=== PATIENT | male | born 1945 | race American Indian/Alaskan Native ===

== ENCOUNTER → 2016-12-12 | Outpatient (CLI) | payer MEDICARE, OTHER ==
[2014-11-08 11:02] VITALS: BP 149/92
[~2016-12-12] MED LIST: ACET325T9 PO; AMIO200T PO; ASPI-630 PO; CEPH-264 PO; DOCU-109 PO; FERR-26 PO; FINA5TAB4 PO; FLUO20CA8 PO; FOSI1TAB PO; FURO-69 PO; GLUC1TAB71 PO; GLYB1TAB14 PO; HYDR-2758 PO; Hydrochlorothiazide PO; INSU100I13 SQ; INSU100V8 SQ; LATA2.5D3 EACHEYE; LISI10TA2 PO; METF-620 PO; METO50TA2 PO; MULT-245 PO; PANT40TA3 PO; PANT40TA5 PO; POTASSIUM CHLO10 MEQ PO; RANI150T6 PO; SENN1TAB21 PO; SENN8.6T99 PO; VALIUM10 MG PO
--- NOTE | 2016-12-12 16:57 | KCIC ---
3 view left foot HISTORY: Lateral left foot pain. TECHNIQUE: Routine multiplanar sequences were obtained. FINDINGS: No evidence of acute fracture or aggressive bone destruction. Joint spaces and alignment appear intact. Plantar calcaneal spur. Mild vascular calcification noted. Bone demineralization, predominantly periarticular. There is a small calcification within the plantar subcutaneous tissues, appears benign. IMPRESSION: No evidence of acute fracture or dislocation. Electronically signed by: Jon Sousa MD (12/12/2016 3:34 PM)
== END | disposition home or self-care (01) ==
LOC: KCIC 12:22
PROVIDERS: ATTEND Family Medicine
DX: M79.672 Pain in left foot (principal)
CPT/HCPCS: 73630

== ENCOUNTER → 2016-12-30 | Outpatient (CLI) | payer MEDICARE, OTHER ==
[2014-11-08 11:02] VITALS: BP 149/92
== END | disposition home or self-care (01) ==
LOC: SPEC 16:59
PROVIDERS: ATTEND Podiatrist Foot & Ankle Surgery
DX: E11.621 Type 2 diabetes mellitus with foot ulcer (principal)
CPT/HCPCS: 87071; 87075; 87205

== ENCOUNTER 2017-01-30 19:28 | Inpatient (IN) | payer MEDICARE, OTHER ==
[~2017-01-30] VITALS: Ht 185.4 cm; Wt 154.2 kg
[2017-01-30 19:41] LABS: BASO % 0 % (0-3); EOS % 1 % (0-3); HEMATOCRIT 44.8 % (39.0-53.0); HEMOGLOBIN 14.7 g/dL (13.0-17.5); LYMPH # 1.2 x10^3/uL (1.0-4.8); LYMPH % 6 % (24-48); MEAN CORPUSCULAR HEMOGLOBIN 30 pg (25-35); MEAN CORPUSCULAR HGB CONC 33 g/dL (31-37); MEAN CORPUSCULAR VOLUME 91 fL (79-100); MONO % 7 % (0-9); NEUT % 86 % (31-73); PLATELET COUNT 244 x10^3/uL (140-400); RED BLOOD COUNT 4.95 x10^6/uL (4.30-5.70); RED CELL DISTRIBUTION WIDTH 15.4 % (11.5-14.5)
[2017-01-30 19:53] LABS: CREATININE 1.5 mg/dL (0.7-1.3); GFR 45.9; POTASSIUM 4.1 mmol/L (3.5-5.1)
[2017-01-30 19:58] LABS: ALBUMIN 3.3 g/dL (3.4-5.0); DIRECT BILIRUBIN 0.2 mg/dL (0.0-0.2); TOTAL BILIRUBIN 0.6 mg/dL (0.2-1.0); TOTAL PROTEIN 8.9 g/dL (6.4-8.2)
[2017-01-30] MEDS ORDERED: MORPHINE SULFATE 2 MG/ML DISP.SYRIN. IV PRN (20:00)
[2017-01-30] MEDS ORDERED: NITROGLYCERIN SUBLINGUAL 0.4 MG BOTTLE OF 25. SL PRN (20:00)
[2017-01-30] MEDS ORDERED: HEPARIN for IV BOLUS 10,000 UNIT/10 ML VIAL. IV PRN (20:00)
[2017-01-30] MEDS ORDERED: ONDANSETRON PF 4 MG/2 ML VIAL. IV PRN (20:00)
[2017-01-30] MEDS ORDERED: NITROGLYCERIN PREMIX 250 ML IV ONE (20:15)
[2017-01-30] MEDS ORDERED: ASPIRIN CHEWABLE 81 MG TABLET. PO ONE (20:15)
[2017-01-30] MEDS: IV NORMAL SALINE 1000ML BAG 1,000 ML IV SCH (20:16)
[2017-01-30] MEDS: HEPARIN 25,000UTS/500ML PREMIX 500 ML IV PRN (20:33)
[2017-01-30 20:41] LABS: PLT ESTIMATE ADEQUATE (ADEQUATE)
[2017-01-30 21:15] VITALS: BP 112/71
[2017-01-30 21:30] VITALS: BP 107/60
[2017-01-30 21:45] VITALS: BP 110/67
[2017-01-30 22:00] VITALS: BP 110/70
--- NOTE | 2017-01-30 22:14 | PHYS DOC ---
Past Medical History Past Medical History: CAD, Diabetes-Type II, Hypertension Additional Past Medical Histor: Morbid obesity, Osteomyelitis Past Surgical History: Coronary Bypass Surgery Additional Past Surgical Histo: Partial amputation R)great toe. Alcohol Use: None Drug Use: None Adult General Chief Complaint Chief Complaint: SHORTNESS OF BREATH HPI HPI 81-year-old male with a history of coronary artery disease and peripheral arterial disease presenting to the emergency department today with chest pain or shortness of breath this started about an hour prior to arrival. His family member states that he was pale and diaphoretic and feeling mildly nauseous. Paramedics were called and the patient was about 85% on room air was placed on nasal cannula and brought in for further evaluation workup and care. His pain was a pressure that was nonradiating intermittent and without alleviating factors. Currently his chest pain is about a 1 out of 10. He also describes a shortness of breath is improved and is feeling better now. Review of systems is negative for abdominal pain vomiting fevers chills. Positive for cough. All other review of systems is negative unless otherwise noted in history of present illness. ED course: 71-year-old gentleman with history of coronary artery disease presenting to the emergency department with chest pain or shortness of breath. Triage vital signs show the patient to be afebrile with a tachycardic heart rate. Hypoxic on room air placed on nasal cannula. Hypertensive as well. In the examination room the patient was feeling better and when he called paramedics and reports his pain is nearly gone. EKG obtained which shows sinus tachycardia at approximately 130 bpm with an intraventricular conduction delay. Previous for comparison available from 2014 in October shows that the patient previously had a narrow complex QRS. Given these findings and the patient's clinical presentation I discussed the case since case with his agricultural service technician Dr. Capellan. Dr. Capellan ordered that the patient didn't heparin and nitroglycerin aspirin and serial troponins and be admitted to the ICU for further evaluation workup and care. Unfortunately the patient's blood pressure systolically was about 105-110 so the nitroglycerin was held due to concerns for possible hypotension development. Patient has leukocytosis which is nonspecific though higher than typical. Otherwise the patient's troponin came back at 0.28. The patient was then admitted to our ICU with cardiology consultation. I considered pulmonary embolism in the differential. ACS is higher in the differential at this point. D-dimer sent. Review of Systems Review of Systems SEE ABOVE. Current Medications Current Medications Current Medications Medications (Trade) Dose Ordered Sig/Horace Start Time Stop Time Status Last Admin Dose Admin Heparin Sodium (Porcine) (Heparin Sodium) 3,800 unit PRN Q6HRS PRN 01/30/17 20:00 01/30/17 20:26 3,800 UNIT Heparin Sodium/ Dextrose 500 ml @ 0 mls/hr CONT PRN 01/30/17 20:00 01/30/17 20:33 36.9 MLS/HR Morphine Sulfate 2 mg PRN Q2HR PRN 01/30/17 20:00 01/31/17 19:59 Nitroglycerin (Nitrostat) 0.4 mg PRN Q5MIN PRN 01/30/17 20:00 01/31/17 19:59 Ondansetron HCl (Zofran) 4 mg PRN Q8HRS PRN 01/30/17 20:00 01/31/17 19:59 01/30/17 20:15 4 MG Sodium Chloride 1,000 ml @ 100 mls/hr Q10H 01/30/17 19:48 01/31/17 19:47 01/30/17 20:16 100 MLS/HR Allergies Allergies Allergies Coded Allergies Type Severity Reaction Last Updated Verified No Known Drug Allergies 11/11/14 No Physical Exam Physical Exam SEE ABOVE Constitutional: Well developed, well nourished, nontoxic appearing. HENT: Normocephalic, atraumatic, bilateral external ears normal, oropharynx moist, no oral exudates, nose normal. [] Eyes: PERRLA, EOMI, conjunctiva normal, no discharge. [] Neck: Normal range of motion, no tenderness, supple, no stridor. [] Cardiovascular:tachy heart rate w/ regular rhythm, no murmur [] Lungs & Thorax: Bilateral breath sounds clear to auscultation [] Abdomen: Bowel sounds normal, soft, no tenderness, no masses, no pulsatile masses. [] Skin: Warm, dry, no erythema, no rash. [] Back: No tenderness, no CVA tenderness. [] Extremities: No tenderness, no cyanosis, no clubbing, ROM intact, no edema. [] Neurologic: Alert and oriented X 3, normal motor function, normal sensory function, no focal deficits noted. [] Psychologic: Affect normal, judgement normal, mood normal. [] Current Patient Data Vital Signs Vital Signs Date Time Temp Pulse Resp B/P (MAP) Pulse Ox O2 Delivery O2 Flow Rate FiO2 01/30/17 19:28 99.0 125 21 157/83 (107) 89 Room Air 99.0 Lab Values Laboratory Tests Test 01/30/17 19:33 White Blood Count 21.0 x10^3/uL (4.0-11.0) H Red Blood Count 4.95 x10^6/uL (4.30-5.70) Hemoglobin 14.7 g/dL (13.0-17.5) Hematocrit 44.8 % (39.0-53.0) Mean Corpuscular Volume 91 fL (79-100) Mean Corpuscular Hemoglobin 30 pg (25-35) Mean Corpuscular Hemoglobin Concent 33 g/dL (31-37) Red Cell Distribution Width 15.4 % (11.5-14.5) H Platelet Count 244 x10^3/uL (140-400) Neutrophils (%) (Auto) 86 % (31-73) H Lymphocytes (%) (Auto) 6 % (24-48) L Monocytes (%) (Auto) 7 % (0-9) Eosinophils (%) (Auto) 1 % (0-3) Basophils (%) (Auto) 0 % (0-3) Neutrophils # (Auto) 18.1 x10^3uL (1.8-7.7) H Lymphocytes # (Auto) 1.2 x10^3/uL (1.0-4.8) Monocytes # (Auto) 1.5 x10^3/uL (0.0-1.1) H Eosinophils # (Auto) 0.1 x10^3/uL (0.0-0.7) Basophils # (Auto) 0.0 x10^3/uL (0.0-0.2) Segmented Neutrophils % 82 % (35-66) H Band Neutrophils % 1 % (0-9) Lymphocytes % 8 % (24-48) L Monocytes % 9 % (0-10) Platelet Estimate Adequate (ADEQUATE) Sodium Level 138 mmol/L (136-145) Potassium Level 4.1 mmol/L (3.5-5.1) Chloride Level 101 mmol/L (98-107) Carbon Dioxide Level 26 mmol/L (21-32) Anion Gap 11 (6-14) Blood Urea Nitrogen 16 mg/dL (8-26) Creatinine 1.5 mg/dL (0.7-1.3) H Estimated GFR (Cockcroft-Gault) 45.9 Glucose Level 201 mg/dL (70-99) H Calcium Level 9.0 mg/dL (8.5-10.1) Total Bilirubin 0.6 mg/dL (0.2-1.0) Direct Bilirubin 0.2 mg/dL (0.0-0.2) Aspartate Amino Transferase (AST) 18 U/L (15-37) Alanine Aminotransferase (ALT) 20 U/L (16-63) Alkaline Phosphatase 94 U/L (46-116) Troponin I Quantitative 0.289 ng/mL (0.000-0.055) CU-Bwx-[id number]-Type Natriuretic Peptide 2260 pg/mL (0-124) H Total Protein 8.9 g/dL (6.4-8.2) H Albumin 3.3 g/dL (3.4-5.0) L Lipase 68 U/L (73-393) L Laboratory Tests 01/30/17 19:33 Laboratory Tests 01/30/17 19:33 EKG EKG [] Radiology/Procedures Radiology/Procedures Chest x-ray reviewed by myself shows no obvious infiltrate or pneumothorax present. No obvious acute cardiopulmonary process present. Mild perivascular hilar congestion, Course & Med Decision Making Course & Med Decision Making Pertinent Labs and Imaging studies reviewed. (See chart for details) [] Dragon Disclaimer Dragon Disclaimer This electronic medical record was generated, in whole or in part, using a voice recognition dictation system. Departure Departure Impression: Primary Impression: Chest pain Additional Impressions: Shortness of breath Non-STEMI (non-ST elevated myocardial infarction) Disposition: ADMITTED INPATIENT Admitting Physician: Heri Hansen Condition: GUARDED Referrals: HERI HANSEN MD (PCP) Problem Qualifiers EVELINA ROBERSON MD Jan 30, 2017 22:14
[2017-01-30] MEDS ORDERED: TAMS0.4C2 PO (22:31)
[2017-01-30] MEDS ORDERED: AMLO10TA2 PO (22:31)
[2017-01-30] MEDS ORDERED: CITA20TA9 PO (22:32)
[2017-01-30] MEDS ORDERED: REGRANEX (22:38)
[2017-01-30 23:00] VITALS: BP 118/76
[2017-01-30] MEDS ORDERED: REGRANEX TOP (23:06)
[2017-01-31] VITALS (26 sets, daily range): BP systolic 91–138; BP diastolic 40–83
[2017-01-31 03:08] LABS: CALCIUM 8.7 mg/dL (8.5-10.1); CREATININE 1.3 mg/dL (0.7-1.3); GFR 54.1; POTASSIUM 3.8 mmol/L (3.5-5.1)
[2017-01-31 03:56] LABS: BASO # 0.2 x10^3/uL (0.0-0.2); BASO % 1 % (0-3); EOS % 1 % (0-3); HEMATOCRIT 39.8 % (39.0-53.0); LYMPH # 1.9 x10^3/uL (1.0-4.8); LYMPH % 11 % (24-48); MEAN CORPUSCULAR HEMOGLOBIN 30 pg (25-35); MEAN CORPUSCULAR HGB CONC 33 g/dL (31-37); MEAN CORPUSCULAR VOLUME 91 fL (79-100); MONO % 9 % (0-9); NEUT % 79 % (31-73); PLATELET COUNT 236 x10^3/uL (140-400); RED BLOOD COUNT 4.35 x10^6/uL (4.30-5.70); RED CELL DISTRIBUTION WIDTH 15.7 % (11.5-14.5); WHITE BLOOD COUNT 17.5 x10^3/uL (4.0-11.0)
--- NOTE | 2017-01-31 04:19 | ACF ---
Admission Forms Criteria CARDIOLOGY GRG Clinical Indications for Admission to Inpatient Care ( Place 'X' for any and all applicable criteria): Hospital admission is needed for appropriate care of the patient because of ANY ONE of the following (1): [ ] I. Hemodynamic instability as indicated by ALL of the following (1)(2)(3) (4)(5) [ ]a) Vital signs or other findings not as expected for chronic patient condition or baseline [ ]b) Instability indicated by ANY ONE of the following: [ ]i) Hypotension [ ]ii) Symptomatic Tachycardia unresponsive to treatment ( e.g., analgesia, fluids, sedation as indicated) [ ]iii) Inadequate perfusion indicated by ANY ONE of the following: [ ] 1) Lactic acidosis (> 2 mmol/L) [ ] 2) New abnormal capillary refill (> 3 seconds) [ ] 3) Reduced urine output [ ] 4) New altered mental status [ ]iv) Orthostatic vital sign changes unresponsive to treatment (e.g., fluids) [ ]v) IV inotropic or vasopressor medication required to maintain adequate blood pressure or perfusion [ ] II. Severe heart failure as indicated by ANY ONE of the following(17)(18) [ ]a) Respiratory distress [ ]b) Hypotension [ ]c) Anasarca (refractory to outpatient therapy) [ ]d) Cardiac arrhythmias of immediate concern [ ]e) Myocardial ischemia [ ] III. Cardiac arrhythmias or findings of immediate concern indicated by ANY ONE of the following (19)(20): [ ] a) Heart rhythms that are inherently dangerous or unstable indicated by ANY ONE of the following (21)(22)(23): [ ] i) Resuscitated ventricular fibrillation or cardiac arrest [ ] ii) Ventricular escape rhythm [ ] iii) Sustained ventricular tachycardia (30 seconds or more of ventricular rhythm at greater than 100 beats per minute) [ ] iv) Nonsustained ventricular tachycardia and ANY ONE of the following: [ ] 1) Suspected cardiac ischemia as cause or consequence of ventricular tachycardia [ ] 2) In setting of acute myocarditis [ ] b) Unstable cardiac conduction defects indicated by ANY ONE of the following(23)(24)(25) [ ] i) Type II second-degree atrioventricular block [ ]ii) Third-degree atrioventricular block [ ]iii) New-onset left bundle branch block with suspected myocardial ischemia [ ]c) Any heart rhythm and ANY ONE of the following (21)(22)(26)(27) (28) [ ] i) Continuous long-term ECG monitoring needed (e.g., initiation of drug requiring monitoring for more than 24 hours) [ ] ii) Patient has automatic implanted cardioverter defibrillator that is repeatedly firing, malfunctioning, or in need of immediate adjustment of settings beyond the scope of ambulatory or observation care [ ]d) Heart rhythms of concern due to ANY ONE of the following: [ ] i) Hypotension [ ] ii) Respiratory distress [ ] iii) Association with other significant symptoms (e.g., bradycardia with syncope or ongoing dizziness, supraventricular tachycardia with chest pain (14)(15)(17) [ ] IV. Monitoring for cardiac contusion beyond the scope of observation care needed [A](30)(31)(32) [ ] V. Surgical or device complication (e.g., valve replacement complication , pacemaker dysfunction) (35)(41)(44)(45)(46) [ ] . Inpatient palliative care needed. [B](49) Also use Inpatient Palliative Care Criteria [ ] VII. Nonbacterial thrombotic (marantic) endocarditis (36)(43)(47)(48) [X] VIII. Cardiology condition, symptom, or finding for which emergency and observation care has failed or are not considered appropriate. [ ] IX. Acute valvular disease requiring inpatient as indicated by ANY ONE of the following (41) [ ]a) Acute valvular regurgitation (42) [ ]b) Noninfectious valvulitis (43) [ ]c) Obstructive valve thrombosis [ ]d) Paravalvular leak [ ]e) Other significant valvular disorder remaining after emergency or observation level of care (as appropriate) [ ]X. Pericardial disease requiring inpatient treatment as indicated by ANY ONE of the following (33)(34)(35)(36)(37) [ ]a) Suspected tamponade (38)(39)(40) [ ]b) Hemopericardium [ ]c) Other significant pericardial disorder remaining after emergency or observation level of care (as appropriate) [ ] XI. Cardiac ischemia beyond scope of emergency and observation care. [ ] XII. Hypertension requiring inpatient treatment as indicated by ANY ONE of the following (6)(7)(8) [ ]a) SBP greater than 220 mm Hg or DBP greater than 120 mmHg despite treatment [ ]b) SBP greater than 140 mm Hg or DBP greater than 100 mm Hg with evidence of acute end organ damage as indicated by ANY ONE of the following [ ] i) Encephalopathy [ ] ii) Acute renal failure as indicated by new onset of ANY ONE of the following (9)(10)(11)(12)(13) [ ]1) 3-fold rise in serum creatinine from baseline [ ]2) Serum creatinine greater than 4 mg/dL ( 354 micromoles/L) with acute rise greater than 0.5 mg/dL (44.2 micromoles/L) [ ]3) Reduction of more than 75% in estimated glomerular filtration rate from baseline [ ]4) Estimated glomerular filtration rate less than 35 mL/min/1.73m2 (0.59 mL/sec/1.73m2) in child up to 18 years of age [ ]5) Cessation of urine output indicated by ALL of the following [ ]A. Adequate volume status [ ]B. Inadequate urine output as indicated by ANY ONE of the following [ ]a. Urine output less than 0.3 mL/kg/hr for 24 hours [ ]b. Anuria (urine output less than 0.1 mL/kg/hr) for 12 hours [ ] iii) Aortic dissection [ ] iv) Myocardial Ischemia [ ] v) Left ventricular heart failure [ ]vi) Retinal Hemorrhage [ ]vii) Other significant finding [ ]c) Hypertension in child requiring inpatient treatment as indicated by ALL of the following(14)(15)(16) [ ] i) Outpatient treatment not effective, not available, or not appropriate [ ]ii) SBP or DBP greater than 95th percentile for age [ ]iii) Evidence of acute end organ damage as indicated by ANY ONE of the following [ ]1) Altered mental status [ ]2) Acute renal failure as indicated by new onset of ANY ONE of the following(9)(10)(11)(12)(13) [ ]A. 3-fold rise in serum creatinine from baseline [ ]B. Serum creatinine greater than 4 mg/dL (354 micromoles/L) with acute rise greater than 0.5 mg/dL (44.2 micromoles/L) [ ]C. Reduction of more than 75% in estimated glomerular filtration rate from baseline [ ]D. Estimated glomerular filtration rate less than 35 mL/min/1.73m2 (0.59 mL/sec/1.73m2) in child up to 18 years of age [ ]E. Cessation of urine output indicated by ALL of the following [ ]a. Adequate volume status [ ]b. Inadequate urine output as indicated by ANY ONE of the following [ ]i) Urine output less than 0.3 mL/kg/hr for 24 hours [ ]ii) Anuria ( urine output less than 0.1 mL/kg/hr) for 12 hours [ ]3) Severe headache [ ]4) Visual disturbance [ ]5) Retinal hemorrhage [ ]6) Other significant finding [ ]XIII. Complications of transplanted heart indicated by ANY ONE of the following(61): [ ]a) Acute graft rejection requiring inpatient management (eg, intravenous immunosuppression)(62)(63) [ ]b) Acute graft heart failure indicated by ANY ONE of the following(64): [ ]i) Hemodynamic instability [ ]ii) Cardiac arrhythmias of immediate concern [ ]iii) Pulmonary edema that is very severe (eg, mechanical ventilation needed, imminent or likely, need for 100% oxygen to keep oxygen saturation above 90%) [ ]iv) Pulmonary edema that is persistent as indicated by ALL of the following: [ ]1) New need for oxygen therapy to keep oxygen saturation above 90% (or increased FiO2 need from baseline) [ ]2) Has not improved sufficiently with emergency department or observation care IV diuretics or other heart failure treatments[E] [ ]v) Altered mental status that is severe or persistent [ ]vi) Increased creatinine (new on laboratory test) with reduction of more than 50% in estimated glomerular filtration rate from baseline [ ]vii) Progressively (ongoing) rising creatinine (known from past laboratory test) with reduction of more than 25% in estimated glomerular filtration rate from baseline [ ]viii) Acute renal failure [ ]ix) Acute peripheral ischemia (eg, examination shows pulseless, cool, mottled, or cyanotic extremity) [ ]x) Pulmonary artery catheter monitoring needed [ ]xi) Other sign or symptom of heart failure requiring inpatient treatment (ie, too severe or not responsive to outpatient and observation care treatment) [ ]c) Infection requiring inpatient management (eg, Hemodynamic instability, need for intravenous antimicrobial treatment)(66)(67)(68)(69)(70) [ ]d) Cardiac allograft vasculopathy requiring inpatient management ( eg evidence of cardiac ischemia)(71) [ ]e) Other complication of transplanted heart (eg, stroke, severe pulmonary hypertension, severe valvular dysfunction) requiring inpatient management(72) The original [facility] content created by [facility] has been revised. The portions of the content which have been revised are identified through the use of italic text or in bold, and [facility] has neither reviewed nor approved the modified material. All other unmodified content is copyright [facility]. Please see references footnoted in the original [facility] edition 2016 Admission Criteria Met?: Yes LANEY ISLAS Jan 31, 2017 04:19
[2017-01-31] MEDS: IV NORMAL SALINE 1000ML BAG 1,000 ML IV SCH ×2 (06:38→14:20)
--- NOTE | 2017-01-31 08:17 | RAD ---
Portable AP upright view CXR: Clinical indications: Chest pain and shortness of air and hypoxia today. History of hypertension and diabetes and CABG. Comparison: July 26, 2014. Findings: No acute lung infiltrate or pleural effusion or pulmonary edema or lung mass or pneumothorax is seen. The heart size, pulmonary vasculature, mediastinum and both regi are stable. Sternotomy is again evident. Impression: No acute radiographic abnormality is seen.
--- NOTE | 2017-01-31 08:32 | EKG ---
[facility] [address] [place] [address] Test Date: 2017-01-30 Test Time: 19:32:02 Pat Name: MANOJ GILES Department: Room: 109 1 Gender: M Acting Section Chief: : 1945 Requested By: EVELINA ROBERSON Order Number: [id number] Reading MD: Todd Giron Measurements Intervals [place] Rate: 130 P: 0 ID: [id number] QRS: -46 QRSD: 136 T: 115 QT: 332 QTc: 496 Interpretive Statements PROBABLE ATRIAL FLUTTER ABNORMAL LEFT AXIS DEVIATION NON SPECIFIC INTRAVENTRICULAR BLOCK QRS(T) CONTOUR ABNORMALITY CONSIDER ANTEROSEPTAL MYOCARDIAL DAMAGE ABNORMAL ECG Electronically Signed On 02-01-2017 15:05:47 CDT by Todd Giron
--- NOTE | 2017-01-31 08:33 | PDOC1 ---
History and Physical Date of Admission Date of Admission DATE: 01/30/17 Identification/Chief Complaint Chief Complaint CP, SOB Problems: Source Source: Chart review, Patient History of Present Illness History of Present Illness 81-year-old male with a history of coronary artery disease and peripheral arterial disease presenting to the emergency department today with chest pain and shortness of breath this started about an hour prior to arrival. His family member states that he was pale and diaphoretic and feeling mildly nauseous. Paramedics were called and the patient was about 85% on room air was placed on nasal cannula and brought in for further evaluation workup and care. His pain was a pressure that was nonradiating intermittent and without alleviating factors. Past Medical History Cardiovascular: AFIB, CAD, CHF, HTN, Hyperlipidemia CENTRAL NERVOUS SYSTEM: Carpal Tunnel Syndrome, Periperal neuropathy GI: Constipation, GERD, Gastritis, Peptic Ulcer disease, Other (colon polyp) Psych: Anxiety, Depression Musculoskeletal: low back pain, Osteoarthritis Renal/: Benign prostatic enlarg. Endocrine: Diabetes Past Surgical History Past Surgical History: CABG, Cataract Removal, Tonsillectomy (R knee surgery), Other (amputation toe due to gangrene) Family History Family History: Coronary Artery Disease, Depression, Diabetes, Heart Disease, High Cholestrol, Hypertension Social History Smoke: Quit ALCOHOL: none Drugs: None Current Problem List Problem List Problems Medical Problems: (1) Chest pain Status: Acute (2) Non-STEMI (non-ST elevated myocardial infarction) Status: Acute (3) Shortness of breath Status: Acute Problems: Current Medications Current Medications Current Medications Aspirin (Children'S Aspirin) 324 mg 1X ONCE PO Last administered on 01/30/17 19:48; Start 01/30/17 at 20:15; Stop 01/30/17 at 20:16; Status DC Ondansetron HCl (Zofran) 4 mg PRN Q8HRS PRN IV NAUSEA/VOMITING Last administered on 01/30/17 20:15; Start 01/30/17 at 20:00; Stop 01/31/17 at 19:59 Morphine Sulfate 2 mg PRN Q2HR PRN IV PAIN; Start 01/30/17 at 20:00; Stop 01/31 at 19:59 Sodium Chloride 1,000 ml @ 100 mls/hr Q10H IV Last administered on 01/31/17 06:38; Start 01/30/17 at 19:48; Stop 01/31/17 at 19:47 Nitroglycerin (Nitrostat) 0.4 mg PRN Q5MIN PRN SL CHEST PAIN; Start 01/30/17 at 20:00; Stop 01/31/17 at 19:59 Heparin Sodium/ Dextrose 500 ml @ 0 mls/hr CONT PRN IV SEE I/O RECORD Last administered on 01/30/17 20:33; Start 01/30/17 at 20:00 Heparin Sodium (Porcine) (Heparin Sodium) 3,800 unit PRN Q6HRS PRN IV FOR UFH LEVEL LESS THAN 0.2 Last administered on 01/30/17 20:26; Start 01/30/17 at 20: 00 Nitroglycerin/ Dextrose 250 ml @ 0 mls/hr 1X ONCE IV ; Start 01/30/17 at 20:15 ; Stop 01/30/17 at 20:16; Status DC Active Scripts Active Reported [regranex] 0.01 % TOP DAILY06 Celexa (Citalopram Hydrobromide) 20 Mg Tablet 1 Tab PO HS Amlodipine Besylate 10 Mg Tablet 10 Mg PO DAILY Tamsulosin Hcl 0.4 Mg Cap.er.24h 0.4 Mg PO HS Potassium Chloride 10 Meq Capsule.er 10 Meq PO DAILY08 Senokot (Sennosides) 8.6 Mg Tablet 2 Tab PO HS Colace (Docusate Sodium) 100 Mg Capsule 200 Mg PO BID Lantus (Insulin Glargine,Hum.rec.anlog) 100 Unit/1 Ml Vial 120 Unit SQ DAILY08 Multi Vitamin Daily (Multivitamin) 1 Each Tablet 1 Each PO DAILY Lasix (Furosemide) 20 Mg Tablet 40 Mg PO DAILY Aspirin 81 Mg Tab.chew 81 Mg PO Finasteride 5 Mg Tablet 5 Mg PO DAILY Metoprolol Tartrate 50 Mg Tablet 12.5 Mg PO BID Allergies Allergies: Coded Allergies: No Known Drug Allergies (Unverified , 11/11/14) ROS General: YES: Fatigue PSYCHOLOGICAL ROS: YES: Anxiety, Depression Respiratory: YES: Cough, SOB with excertion Cardiovascular: yes Chest Pain, yes Other (pain like pressure) Gastrointestinal: Yes Constipation Musculoskeletal: Yes Joint Pain, Yes Muscle Pain Physical Exam General: Alert HEENT: Atraumatic Heart: RRR Abdomen: Normal bowel sounds, Soft, No tenderness, No masses Rectal Exam: not examined Extremities: No clubbing, No cyanosis, No edema, Normal pulses Skin: No rashes Neuro: Normal gait Vitals Vitals Vital Signs Date Time Temp Pulse Resp B/P (MAP) Pulse Ox O2 Delivery O2 Flow Rate FiO2 01/31/17 06:00 82 23 97/60 (72) 93 Nasal Cannula 2.0 01/31/17 03:00 98.3 98.3 Labs Labs Laboratory Tests Test 01/30/17 19:33 01/30/17 22:06 01/31/17 02:40 White Blood Count 21.0 x10^3/uL (4.0-11.0) 17.5 x10^3/uL (4.0-11.0) Red Blood Count 4.95 x10^6/uL (4.30-5.70) 4.35 x10^6/uL (4.30-5.70) Hemoglobin 14.7 g/dL (13.0-17.5) 13.0 g/dL (13.0-17.5) Hematocrit 44.8 % (39.0-53.0) 39.8 % (39.0-53.0) Mean Corpuscular Volume 91 fL (79-100) 91 fL (79-100) Mean Corpuscular Hemoglobin 30 pg (25-35) 30 pg (25-35) Mean Corpuscular Hemoglobin Concent 33 g/dL (31-37) 33 g/dL (31-37) Red Cell Distribution Width 15.4 % (11.5-14.5) 15.7 % (11.5-14.5) Platelet Count 244 x10^3/uL (140-400) 236 x10^3/uL (140-400) Neutrophils (%) (Auto) 86 % (31-73) 79 % (31-73) Lymphocytes (%) (Auto) 6 % (24-48) 11 % (24-48) Monocytes (%) (Auto) 7 % (0-9) 9 % (0-9) Eosinophils (%) (Auto) 1 % (0-3) 1 % (0-3) Basophils (%) (Auto) 0 % (0-3) 1 % (0-3) Neutrophils # (Auto) 18.1 x10^3uL (1.8-7.7) 13.8 x10^3uL (1.8-7.7) Lymphocytes # (Auto) 1.2 x10^3/uL (1.0-4.8) 1.9 x10^3/uL (1.0-4.8) Monocytes # (Auto) 1.5 x10^3/uL (0.0-1.1) 1.6 x10^3/uL (0.0-1.1) Eosinophils # (Auto) 0.1 x10^3/uL (0.0-0.7) 0.1 x10^3/uL (0.0-0.7) Basophils # (Auto) 0.0 x10^3/uL (0.0-0.2) 0.2 x10^3/uL (0.0-0.2) Segmented Neutrophils % 82 % (35-66) Band Neutrophils % 1 % (0-9) Lymphocytes % 8 % (24-48) Monocytes % 9 % (0-10) Platelet Estimate Adequate (ADEQUATE) D-Dimer (Negin) 1.85 ug/mlFEU (0.00-0.50) Sodium Level 138 mmol/L (136-145) 139 mmol/L (136-145) Potassium Level 4.1 mmol/L (3.5-5.1) 3.8 mmol/L (3.5-5.1) Chloride Level 101 mmol/L (98-107) 102 mmol/L (98-107) Carbon Dioxide Level 26 mmol/L (21-32) 29 mmol/L (21-32) Anion Gap 11 (6-14) 8 (6-14) Blood Urea Nitrogen 16 mg/dL (8-26) 15 mg/dL (8-26) Creatinine 1.5 mg/dL (0.7-1.3) 1.3 mg/dL (0.7-1.3) Estimated GFR (Cockcroft-Gault) 45.9 54.1 Glucose Level 201 mg/dL (70-99) 164 mg/dL (70-99) Calcium Level 9.0 mg/dL (8.5-10.1) 8.7 mg/dL (8.5-10.1) Total Bilirubin 0.6 mg/dL (0.2-1.0) Direct Bilirubin 0.2 mg/dL (0.0-0.2) Aspartate Amino Transf (AST/SGOT) 18 U/L (15-37) Alanine Aminotransferase (ALT/SGPT) 20 U/L (16-63) Alkaline Phosphatase 94 U/L (46-116) Troponin I Quantitative 0.289 ng/mL (0.000-0.055) 6.014 ng/mL (0.000-0.055) UN-Dyv-N-Type Natriuretic Peptide 2260 pg/mL (0-124) Total Protein 8.9 g/dL (6.4-8.2) Albumin 3.3 g/dL (3.4-5.0) Lipase 68 U/L (73-393) Glucose (Fingerstick) 178 mg/dL (70-99) Heparin Anti-Xa Act, Unfractionated 0.24 IU/mL (0.30-0.70) Laboratory Tests Test 01/30/17 19:33 01/30/17 22:06 01/31/17 02:40 White Blood Count 21.0 x10^3/uL (4.0-11.0) 17.5 x10^3/uL (4.0-11.0) Red Blood Count 4.95 x10^6/uL (4.30-5.70) 4.35 x10^6/uL (4.30-5.70) Hemoglobin 14.7 g/dL (13.0-17.5) 13.0 g/dL (13.0-17.5) Hematocrit 44.8 % (39.0-53.0) 39.8 % (39.0-53.0) Mean Corpuscular Volume 91 fL (79-100) 91 fL (79-100) Mean Corpuscular Hemoglobin 30 pg (25-35) 30 pg (25-35) Mean Corpuscular Hemoglobin Concent 33 g/dL (31-37) 33 g/dL (31-37) Red Cell Distribution Width 15.4 % (11.5-14.5) 15.7 % (11.5-14.5) Platelet Count 244 x10^3/uL (140-400) 236 x10^3/uL (140-400) Neutrophils (%) (Auto) 86 % (31-73) 79 % (31-73) Lymphocytes (%) (Auto) 6 % (24-48) 11 % (24-48) Monocytes (%) (Auto) 7 % (0-9) 9 % (0-9) Eosinophils (%) (Auto) 1 % (0-3) 1 % (0-3) Basophils (%) (Auto) 0 % (0-3) 1 % (0-3) Neutrophils # (Auto) 18.1 x10^3uL (1.8-7.7) 13.8 x10^3uL (1.8-7.7) Lymphocytes # (Auto) 1.2 x10^3/uL (1.0-4.8) 1.9 x10^3/uL (1.0-4.8) Monocytes # (Auto) 1.5 x10^3/uL (0.0-1.1) 1.6 x10^3/uL (0.0-1.1) Eosinophils # (Auto) 0.1 x10^3/uL (0.0-0.7) 0.1 x10^3/uL (0.0-0.7) Basophils # (Auto) 0.0 x10^3/uL (0.0-0.2) 0.2 x10^3/uL (0.0-0.2) Segmented Neutrophils % 82 % (35-66) Band Neutrophils % 1 % (0-9) Lymphocytes % 8 % (24-48) Monocytes % 9 % (0-10) Platelet Estimate Adequate (ADEQUATE) D-Dimer (Negin) 1.85 ug/mlFEU (0.00-0.50) Sodium Level 138 mmol/L (136-145) 139 mmol/L (136-145) Potassium Level 4.1 mmol/L (3.5-5.1) 3.8 mmol/L (3.5-5.1) Chloride Level 101 mmol/L (98-107) 102 mmol/L (98-107) Carbon Dioxide Level 26 mmol/L (21-32) 29 mmol/L (21-32) Anion Gap 11 (6-14) 8 (6-14) Blood Urea Nitrogen 16 mg/dL (8-26) 15 mg/dL (8-26) Creatinine 1.5 mg/dL (0.7-1.3) 1.3 mg/dL (0.7-1.3) Estimated GFR (Cockcroft-Gault) 45.9 54.1 Glucose Level 201 mg/dL (70-99) 164 mg/dL (70-99) Calcium Level 9.0 mg/dL (8.5-10.1) 8.7 mg/dL (8.5-10.1) Total Bilirubin 0.6 mg/dL (0.2-1.0) Direct Bilirubin 0.2 mg/dL (0.0-0.2) Aspartate Amino Transf (AST/SGOT) 18 U/L (15-37) Alanine Aminotransferase (ALT/SGPT) 20 U/L (16-63) Alkaline Phosphatase 94 U/L (46-116) Troponin I Quantitative 0.289 ng/mL (0.000-0.055) 6.014 ng/mL (0.000-0.055) DY-Vnv-Y-Type Natriuretic Peptide 2260 pg/mL (0-124) Total Protein 8.9 g/dL (6.4-8.2) Albumin 3.3 g/dL (3.4-5.0) Lipase 68 U/L (73-393) Glucose (Fingerstick) 178 mg/dL (70-99) Heparin Anti-Xa Act, Unfractionated 0.24 IU/mL (0.30-0.70) VTE Prophylaxis Ordered VTE Prophylaxis Devices: Yes VTE Pharmacological Prophylaxi: Yes Assessment/Plan Assessment/Plan !- Acute coronary syndrome 2-Cardiomyopathy 3-morbid obesity 4-Left foot ulcer 5-Leukocytosis 6 DM II MAVIS FREDERICK MD Jan 31, 2017 08:33
[2017-01-31] MEDS: HEPARIN 25,000UTS/500ML PREMIX 500 ML IV PRN (08:47)
[2017-01-31] MEDS: INSULIN DETEMIR 300 UNITS/3 ML INSULN.PEN. SQ SCH (09:00)
[2017-01-31] MEDS: DOCUSATE SODIUM 100 MG CAPSULE. PO SCH ×2 (09:00→21:00)
[2017-01-31] MEDS ORDERED: ASPIRIN CHEWABLE 81 MG TABLET. PO SCH (09:00)
--- NOTE | 2017-01-31 11:04 | PDOC ---
MODERATE SEDATION ASSESSMENT RISKS/ALTERNATIVES Risks/Alternatives Risks and alternatives of this type of sedation and procedure discussed with: RISK/ALTERNATIVES: Patient H & P ON CHART H & P H & P on chart and reviewed for co-morbid conditions and appropriate labs. H&P ON CHART: Yes STATUS PREG STATUS ASSESSED: Yes MEDS/ALLERGIES REVIEWED Meds/Allergies Reviewed Medications and Allergies including time and route of recently administered narcotics and sedatives. MEDS/ALLERGIES REVIEWED: Yes ASA RATING ASA RATING: II AIRWAY ASSESSMENT Airway Assessment Airway patency, oral function limitations, presence of caps, crowns, dentures, partials, and ability to extend neck assessed. AIRWAY ASSESSMENT: Yes MALLAMPATI SCORE MALLAMPATI SCORE: II PRE-SEDATION ASSESSMENT PRE-SEDATION ASSESSMENT: Yes OSVALDO VELA MD Jan 31, 2017 11:04
[2017-01-31] MEDS ORDERED: fentaNYL PF VIAL 250 MCG/5 ML VIAL ONE (11:09)
[2017-01-31] MEDS ORDERED: MIDAZOLAM HCL/PF 5 MG/5 ML VIAL. ONE (11:10)
[2017-01-31] MEDS ORDERED: LIDOCAINE 2% 20 ML VIAL. ONE (11:13)
[2017-01-31] MEDS ORDERED: IODIXANOL 320 MG/ML 100 ML VIAL. ONE ×2 (11:14→12:10)
[2017-01-31] MEDS ORDERED: HEPARIN for IV BOLUS 10,000 UNIT/10 ML VIAL. ONE (12:06)
[2017-01-31] MEDS ORDERED: fentaNYL PF VIAL 250 MCG/5 ML VIAL IV ONE (12:15)
[2017-01-31] MEDS ORDERED: HEPARIN for IV BOLUS 10,000 UNIT/10 ML VIAL. IV ONE (12:15)
[2017-01-31] MEDS ORDERED: IODIXANOL 320 MG/ML 100 ML VIAL. IART ONE (12:15)
[2017-01-31] MEDS ORDERED: LIDOCAINE 2% 20 ML VIAL. IJ ONE (12:15)
[2017-01-31] MEDS ORDERED: MIDAZOLAM HCL/PF 5 MG/5 ML VIAL. IV ONE (12:15)
[2017-01-31] MEDS ORDERED: TIROFIBAN 12.5MG -0.9% NS 250 ML IV ONE (12:20)
[2017-01-31] MEDS ORDERED: CLOPIDOGREL BISULFATE 75 MG TABLET ONE (12:21)
[2017-01-31] MEDS ORDERED: TIROFIBAN 12.5MG -0.9% NS 250 ML IV PRN (12:30)
[2017-01-31] MEDS ORDERED: CLOPIDOGREL BISULFATE 75 MG TABLET PO ONE (12:30)
[2017-01-31] MEDS: PIPERACILLIN/TAZOBACTAM 3.375 GM in IV NORMAL SALINE 50ML 50 ML IV SCH ×3 (12:38→23:36)
[2017-01-31] MEDS ORDERED: HEPARIN 25,000UTS/500ML PREMIX 500 ML IV PRN ×2 (12:45→13:15)
[2017-01-31] MEDS ORDERED: IV NORMAL SALINE 1000ML BAG 1,000 ML IV ONE (13:15)
--- NOTE | 2017-01-31 13:34 | PDOC2 ---
CONSULT Date of Consult Date of Consult DATE: 01/31/17 TIME: 13:28 Reason for Consult Reason for Consult: Chest pain Referring Physician Referring Physician: Dr. Hansen Identification/Chief Complaint Chief Complaint Chest pain Problems: History of Present Illness Reason for Visit: This patient is a 71-year-old gentleman that has a long history of coronary artery disease. He had an [place] and PTCAs done in the 90s and about 10 years ago had bypass surgery with a ROMAN graft to the LAD, saphenous vein graft to the marginals and a saphenous vein graft to the right coronary artery. The patient is morbidly obese. He was at home yesterday and when he was walking back from the bathroom he felt very short of breath and the family stated that the patient looked very dusky. They checked the O2 sats and found it to be in the 80s. The patient continued to feel worse and was also having a lot of chest tightness so eventually he was brought to the emergency room where he was seen and evaluated and he was decided to bring him in. The patient has a rate dependent bundle branch block and when he came in his heart rate was in the 130s with a wide QRS tachycardia but in sinus rhythm. The first enzymes were normal but the enzymes this morning were markedly abnormal and above 6. At the time that I saw him he denies having any chest discomfort and his O2 sats are in the 90s. The patient is now in sinus rhythm with a rate in the 80s Past Medical History Cardiovascular: AFIB, CAD, CHF, HTN, Hyperlipidemia CENTRAL NERVOUS SYSTEM: Carpal Tunnel Syndrome, Periperal neuropathy GI: Constipation, GERD, Gastritis, Peptic Ulcer disease, Other (colon polyp) Psych: Anxiety, Depression Musculoskeletal: low back pain, Osteoarthritis Renal/: Benign prostatic enlarg. Endocrine: Diabetes Past Surgical History Past Surgical History: CABG, Cataract Removal, Tonsillectomy (R knee surgery), Other (amputation toe due to gangrene) Family History Family History: Coronary Artery Disease, Depression, Diabetes, Heart Disease, High Cholestrol, Hypertension Social History Quit ALCOHOL: none Drugs: None Current Problem List Problem List Problems Medical Problems: (1) Chest pain Status: Acute (2) Non-STEMI (non-ST elevated myocardial infarction) Status: Acute (3) Shortness of breath Status: Acute Current Medications Current Medications Current Medications Aspirin (Children'S Aspirin) 324 mg 1X ONCE PO Last administered on 01/30/17 19:48; Start 01/30/17 at 20:15; Stop 01/30/17 at 20:16; Status DC Ondansetron HCl (Zofran) 4 mg PRN Q8HRS PRN IV NAUSEA/VOMITING Last administered on 01/30/17 20:15; Start 01/30/17 at 20:00; Stop 01/31/17 at 19:59 Morphine Sulfate 2 mg PRN Q2HR PRN IV PAIN; Start 01/30/17 at 20:00; Stop 01/31 at 19:59 Sodium Chloride 1,000 ml @ 50 mls/hr Q20H IV Last administered on 01/31/17 06 :38; Start 01/30/17 at 19:48; Stop 01/31/17 at 19:47 Nitroglycerin (Nitrostat) 0.4 mg PRN Q5MIN PRN SL CHEST PAIN; Start 01/30/17 at 20:00; Stop 01/31/17 at 19:59 Heparin Sodium/ Dextrose 500 ml @ 0 mls/hr CONT PRN IV SEE I/O RECORD Last administered on 01/31/17 08:47; Start 01/30/17 at 20:00; Stop 01/31/17 at 12:34 ; Status DC Heparin Sodium (Porcine) (Heparin Sodium) 3,800 unit PRN Q6HRS PRN IV FOR UFH LEVEL LESS THAN 0.2 Last administered on 01/30/17 20:26; Start 01/30/17 at 20: 00 Nitroglycerin/ Dextrose 250 ml @ 0 mls/hr 1X ONCE IV ; Start 01/30/17 at 20:15 ; Stop 01/30/17 at 20:16; Status DC Aspirin (Children'S Aspirin) 81 mg DAILY PO Last administered on 01/31/17 08: 51; Start 01/31/17 at 09:00; Stop 01/31/17 at 13:24; Status DC Citalopram Hydrobromide (CeleXA) 20 mg HS PO ; Start 01/31/17 at 21:00 Docusate Sodium (Colace) 200 mg BID PO ; Start 01/31/17 at 09:00 Finasteride (Proscar) 5 mg DAILY PO ; Start 01/31/17 at 09:00 Tamsulosin HCl (Flomax) 0.4 mg HS PO ; Start 01/31/17 at 21:00 Insulin Detemir (Levemir) 120 units DAILY08 SQ ; Start 01/31/17 at 09:00 Piperacillin Sod/ Tazobactam Sod 3.375 gm/Sodium Chloride 50 ml @ 100 mls/hr Q6HRS IV Last administered on 01/31/17 12:38; Start 01/31/17 at 10:00 Fentanyl Citrate (Fentanyl 5ml Vial) 250 mcg STK-MED ONCE .ROUTE ; Start at 11:09; Stop 01/31/17 at 11:10; Status DC Midazolam HCl (Versed) 5 mg STK-MED ONCE .ROUTE ; Start 01/31/17 at 11:10; Stop 01/31/17 at 11:11; Status DC Heparin Sodium/ Sodium Chloride 500 ml @ As Directed STK-MED ONCE .ROUTE ; Start 01/31/17 at 11:13; Stop 01/31/17 at 11:14; Status DC Lidocaine HCl 20 ml STK-MED ONCE .ROUTE ; Start 01/31/17 at 11:13; Stop at 11:14; Status DC Iodixanol (Visipaque 320) 100 ml STK-MED ONCE .ROUTE ; Start 01/31/17 at 11:14; Stop 01/31/17 at 11:15; Status DC Heparin Sodium (Porcine) (Heparin Sodium) 10,000 unit STK-MED ONCE .ROUTE ; Start 01/31/17 at 12:06; Stop 01/31/17 at 12:07; Status DC Iodixanol (Visipaque 320) 100 ml STK-MED ONCE .ROUTE ; Start 01/31/17 at 12:10; Stop 01/31/17 at 12:11; Status DC Heparin Sodium/ Sodium Chloride 1,000 unit 1X ONCE IART Last administered on 12:50; Start 01/31/17 at 12:15; Stop 01/31/17 at 12:20; Status DC Midazolam HCl (Versed) 5 mg 1X ONCE IV Last administered on 01/31/17 12:51; Start 01/31/17 at 12:15; Stop 01/31/17 at 12:20; Status DC Fentanyl Citrate (Fentanyl 5ml Vial) 250 mcg 1X ONCE IV Last administered on 12:51; Start 01/31/17 at 12:15; Stop 01/31/17 at 12:20; Status DC Iodixanol (Visipaque 320) 100 ml 1X ONCE IART Last administered on 01/31/17 12:49; Start 01/31/17 at 12:15; Stop 01/31/17 at 12:20; Status DC Heparin Sodium (Porcine) (Heparin Sodium) 5,000 unit 1X ONCE IV Last administered on 01/31/17 12:50; Start 01/31/17 at 12:15; Stop 01/31/17 at 12:20 ; Status DC Lidocaine HCl 20 ml 1X ONCE IJ Last administered on 01/31/17 12:50; Start at 12:15; Stop 01/31/17 at 12:20; Status DC Tirofiban/Sodium Chloride 250 ml @ As Directed STK-MED ONCE IV ; Start at 12:20; Stop 01/31/17 at 12:21; Status DC Clopidogrel Bisulfate (Plavix) 75 mg STK-MED ONCE .ROUTE ; Start 01/31/17 at 12: 21; Stop 01/31/17 at 12:22; Status DC Clopidogrel Bisulfate (Plavix) 600 mg 1X ONCE PO Last administered on 12:50; Start 01/31/17 at 12:30; Stop 01/31/17 at 12:38; Status DC Tirofiban/Sodium Chloride 250 ml @ 0 mls/hr CONT PRN IV PER PROTOCOL Last administered on 01/31/17 12:52; Start 01/31/17 at 12:30; Stop 01/31/17 at 13:26 ; Status DC Heparin Sodium/ Dextrose 500 ml @ 20 mls/hr CONT PRN IV SEE I/O RECORD Last administered on 01/31/17 12:54; Start 01/31/17 at 12:45; Stop 01/31/17 at 13:25 ; Status DC Heparin Sodium/ Dextrose 500 ml @ 0 mls/hr CONT PRN IV SEE I/O RECORD; Start at 13:15 Sodium Chloride 1,000 ml @ 1,000 mls/hr 1X ONCE IV ; Start 01/31/17 at 13:15; Stop 01/31/17 at 14:14 Clopidogrel Bisulfate (Plavix) 75 mg DAILYWBKFT PO ; Start 02/01/17 at 08:00 Aspirin (Ecotrin) 325 mg DAILYWBKFT PO ; Start 02/01/17 at 08:00 Tirofiban/Sodium Chloride 250 ml @ 0 mls/hr CONT PRN IV PER PROTOCOL; Start at 13:30; Stop 02/01/17 at 08:00 Active Scripts Active Reported [regranex] 0.01 % TOP DAILY06 Celexa (Citalopram Hydrobromide) 20 Mg Tablet 1 Tab PO HS Amlodipine Besylate 10 Mg Tablet 10 Mg PO DAILY Tamsulosin Hcl 0.4 Mg Cap.er.24h 0.4 Mg PO HS Potassium Chloride 10 Meq Capsule.er 10 Meq PO DAILY08 Senokot (Sennosides) 8.6 Mg Tablet 2 Tab PO HS Colace (Docusate Sodium) 100 Mg Capsule 200 Mg PO BID Lantus (Insulin Glargine,Hum.rec.anlog) 100 Unit/1 Ml Vial 120 Unit SQ DAILY08 Multi Vitamin Daily (Multivitamin) 1 Each Tablet 1 Each PO DAILY Lasix (Furosemide) 20 Mg Tablet 40 Mg PO DAILY Aspirin 81 Mg Tab.chew 81 Mg PO Finasteride 5 Mg Tablet 5 Mg PO DAILY Metoprolol Tartrate 50 Mg Tablet 12.5 Mg PO BID Allergies Allergies: Coded Allergies: No Known Drug Allergies (Unverified , 11/11/14) Physical Exam General: Alert, Oriented X3, Cooperative HEENT: Atraumatic, PERRLA Lungs: Normal air movement Heart: Regular rate, Normal S1, Normal S2, Other (2/6 systolic murmur) Abdomen: Normal bowel sounds, Soft Extremities: Other (patient has 1+ edema bilaterally that is chronic and has a partially healed ulceration in the left foot. There is a partial amputation of the big toe on the right foot) Vitals VITALS Vital Signs Date Time Temp Pulse Resp B/P (MAP) Pulse Ox O2 Delivery O2 Flow Rate FiO2 01/31/17 13:01 90 17 Nasal Cannula 4.0 01/31/17 12:51 93 01/31/17 10:00 01/31/17 07:00 98.8 98.8 Labs Labs Laboratory Tests Test 01/30/17 19:33 01/30/17 22:06 01/31/17 02:40 01/31/17 09:45 White Blood Count 21.0 x10^3/uL (4.0-11.0) 17.5 x10^3/uL (4.0-11.0) Red Blood Count 4.95 x10^6/uL (4.30-5.70) 4.35 x10^6/uL (4.30-5.70) Hemoglobin 14.7 g/dL (13.0-17.5) 13.0 g/dL (13.0-17.5) Hematocrit 44.8 % (39.0-53.0) 39.8 % (39.0-53.0) Mean Corpuscular Volume 91 fL (79-100) 91 fL (79-100) Mean Corpuscular Hemoglobin 30 pg (25-35) 30 pg (25-35) Mean Corpuscular Hemoglobin Concent 33 g/dL (31-37) 33 g/dL (31-37) Red Cell Distribution Width 15.4 % (11.5-14.5) 15.7 % (11.5-14.5) Platelet Count 244 x10^3/uL (140-400) 236 x10^3/uL (140-400) Neutrophils (%) (Auto) 86 % (31-73) 79 % (31-73) Lymphocytes (%) (Auto) 6 % (24-48) 11 % (24-48) Monocytes (%) (Auto) 7 % (0-9) 9 % (0-9) Eosinophils (%) (Auto) 1 % (0-3) 1 % (0-3) Basophils (%) (Auto) 0 % (0-3) 1 % (0-3) Neutrophils # (Auto) 18.1 x10^3uL (1.8-7.7) 13.8 x10^3uL (1.8-7.7) Lymphocytes # (Auto) 1.2 x10^3/uL (1.0-4.8) 1.9 x10^3/uL (1.0-4.8) Monocytes # (Auto) 1.5 x10^3/uL (0.0-1.1) 1.6 x10^3/uL (0.0-1.1) Eosinophils # (Auto) 0.1 x10^3/uL (0.0-0.7) 0.1 x10^3/uL (0.0-0.7) Basophils # (Auto) 0.0 x10^3/uL (0.0-0.2) 0.2 x10^3/uL (0.0-0.2) Segmented Neutrophils % 82 % (35-66) Band Neutrophils % 1 % (0-9) Lymphocytes % 8 % (24-48) Monocytes % 9 % (0-10) Platelet Estimate Adequate (ADEQUATE) D-Dimer (Negin) 1.85 ug/mlFEU (0.00-0.50) Sodium Level 138 mmol/L (136-145) 139 mmol/L (136-145) Potassium Level 4.1 mmol/L (3.5-5.1) 3.8 mmol/L (3.5-5.1) Chloride Level 101 mmol/L (98-107) 102 mmol/L (98-107) Carbon Dioxide Level 26 mmol/L (21-32) 29 mmol/L (21-32) Anion Gap 11 (6-14) 8 (6-14) Blood Urea Nitrogen 16 mg/dL (8-26) 15 mg/dL (8-26) Creatinine 1.5 mg/dL (0.7-1.3) 1.3 mg/dL (0.7-1.3) Estimated GFR (Cockcroft-Gault) 45.9 54.1 Glucose Level 201 mg/dL (70-99) 164 mg/dL (70-99) Calcium Level 9.0 mg/dL (8.5-10.1) 8.7 mg/dL (8.5-10.1) Total Bilirubin 0.6 mg/dL (0.2-1.0) Direct Bilirubin 0.2 mg/dL (0.0-0.2) Aspartate Amino Transf (AST/SGOT) 18 U/L (15-37) Alanine Aminotransferase (ALT/SGPT) 20 U/L (16-63) Alkaline Phosphatase 94 U/L (46-116) Troponin I Quantitative 0.289 ng/mL (0.000-0.055) 6.014 ng/mL (0.000-0.055) 6.155 ng/mL (0.000-0.055) DI-Dpf-C-Type Natriuretic Peptide 2260 pg/mL (0-124) Total Protein 8.9 g/dL (6.4-8.2) Albumin 3.3 g/dL (3.4-5.0) Lipase 68 U/L (73-393) Glucose (Fingerstick) 178 mg/dL (70-99) Heparin Anti-Xa Act, Unfractionated 0.24 IU/mL (0.30-0.70) 0.27 IU/mL (0.30-0.70) Laboratory Tests Test 01/30/17 19:33 01/30/17 22:06 01/31/17 02:40 01/31/17 09:45 White Blood Count 21.0 x10^3/uL (4.0-11.0) 17.5 x10^3/uL (4.0-11.0) Red Blood Count 4.95 x10^6/uL (4.30-5.70) 4.35 x10^6/uL (4.30-5.70) Hemoglobin 14.7 g/dL (13.0-17.5) 13.0 g/dL (13.0-17.5) Hematocrit 44.8 % (39.0-53.0) 39.8 % (39.0-53.0) Mean Corpuscular Volume 91 fL (79-100) 91 fL (79-100) Mean Corpuscular Hemoglobin 30 pg (25-35) 30 pg (25-35) Mean Corpuscular Hemoglobin Concent 33 g/dL (31-37) 33 g/dL (31-37) Red Cell Distribution Width 15.4 % (11.5-14.5) 15.7 % (11.5-14.5) Platelet Count 244 x10^3/uL (140-400) 236 x10^3/uL (140-400) Neutrophils (%) (Auto) 86 % (31-73) 79 % (31-73) Lymphocytes (%) (Auto) 6 % (24-48) 11 % (24-48) Monocytes (%) (Auto) 7 % (0-9) 9 % (0-9) Eosinophils (%) (Auto) 1 % (0-3) 1 % (0-3) Basophils (%) (Auto) 0 % (0-3) 1 % (0-3) Neutrophils # (Auto) 18.1 x10^3uL (1.8-7.7) 13.8 x10^3uL (1.8-7.7) Lymphocytes # (Auto) 1.2 x10^3/uL (1.0-4.8) 1.9 x10^3/uL (1.0-4.8) Monocytes # (Auto) 1.5 x10^3/uL (0.0-1.1) 1.6 x10^3/uL (0.0-1.1) Eosinophils # (Auto) 0.1 x10^3/uL (0.0-0.7) 0.1 x10^3/uL (0.0-0.7) Basophils # (Auto) 0.0 x10^3/uL (0.0-0.2) 0.2 x10^3/uL (0.0-0.2) Segmented Neutrophils % 82 % (35-66) Band Neutrophils % 1 % (0-9) Lymphocytes % 8 % (24-48) Monocytes % 9 % (0-10) Platelet Estimate Adequate (ADEQUATE) D-Dimer (Negin) 1.85 ug/mlFEU (0.00-0.50) Sodium Level 138 mmol/L (136-145) 139 mmol/L (136-145) Potassium Level 4.1 mmol/L (3.5-5.1) 3.8 mmol/L (3.5-5.1) Chloride Level 101 mmol/L (98-107) 102 mmol/L (98-107) Carbon Dioxide Level 26 mmol/L (21-32) 29 mmol/L (21-32) Anion Gap 11 (6-14) 8 (6-14) Blood Urea Nitrogen 16 mg/dL (8-26) 15 mg/dL (8-26) Creatinine 1.5 mg/dL (0.7-1.3) 1.3 mg/dL (0.7-1.3) Estimated GFR (Cockcroft-Gault) 45.9 54.1 Glucose Level 201 mg/dL (70-99) 164 mg/dL (70-99) Calcium Level 9.0 mg/dL (8.5-10.1) 8.7 mg/dL (8.5-10.1) Total Bilirubin 0.6 mg/dL (0.2-1.0) Direct Bilirubin 0.2 mg/dL (0.0-0.2) Aspartate Amino Transf (AST/SGOT) 18 U/L (15-37) Alanine Aminotransferase (ALT/SGPT) 20 U/L (16-63) Alkaline Phosphatase 94 U/L (46-116) Troponin I Quantitative 0.289 ng/mL (0.000-0.055) 6.014 ng/mL (0.000-0.055) 6.155 ng/mL (0.000-0.055) UC-Cwc-Q-Type Natriuretic Peptide 2260 pg/mL (0-124) Total Protein 8.9 g/dL (6.4-8.2) Albumin 3.3 g/dL (3.4-5.0) Lipase 68 U/L (73-393) Glucose (Fingerstick) 178 mg/dL (70-99) Heparin Anti-Xa Act, Unfractionated 0.24 IU/mL (0.30-0.70) 0.27 IU/mL (0.30-0.70) Assessment/Plan Assessment/Plan This patient with known history of coronary artery disease came in with some breathing problems as well as chest pains and has now elevation of the troponin therefore I feel that he has a non-STEMI. I have discussed the situation options and risks with the patient as well as the family and they want to proceed with a heart catheterization possible PTCA possible stenting and understand the risks involved. An informed consent was obtained. We will take the patient to the catheter lab now. Thank you very much for asking me to participate in the care of this patient. OSVALDO VELA MD Jan 31, 2017 13:34
[2017-01-31] MEDS ORDERED: LIDOCAINE 2% JELLY 6ML IN APPLICATOR. MM ONE (13:45)
--- NOTE | 2017-01-31 13:56 | CARD ---
APPROVED REPORT Procedure(s) performed: Coronaries Only w DOMINIK/Revascularixation of proximal and Middlle RCA Graft 100 minutes HISTORY previous ND: coronary artery disease, hypertension, previous CABG (The CABG date was ), dyslipidemia. INDICATION The indication(s) include : unstable angina , non-STEMI , chest pain, abnormal ECG. CASE TECHNIQUE During this case, Fluoroscopy and low osmolar contrast were used for imaging. PROCEDURE NARRATIVE This patient is a 71-year-old gentleman with a known history of coronary artery disease and previous bypass surgery. He came into the emergency room after episodes of chest tightness with dyspnea and low oxygen saturat ion. He was seen and evaluated in the ER and he was decided to admit him. The patient had a marked elevation of the troponin following the first set and I felt that he was hav ing a non-STEMI since his EKG did not show any significant ST segment elevation. We discussed the situation options and risks and he was decided to bring him to the [facility] for a he art catheterization possible PTCA possible stenting and the patient has signed an informed consent. After the patient arrived in the [facility] of the right groin area was prepped and draped in the usual fashion anatomy was identified on special palpation the area was infiltrated with Xylocaine and then using Seldinger technique a Cordis sheath was inserted into the femoral vein and another one into th e femoral artery. Through the arterial sheath a left Oliver catheter was advanced and utilized to engage the left kika nary os and views of the left coronary artery were then done I'd then removed the catheter and a righ t Oliver catheter was utilized to engage the right coronary os views of the right coronary artery we re then done. We did engage the ostium to the saphenous vein graft to the marginals and views of the graft were then done the catheter was advanced into the area of the ROMAN graft to the LAD and views o f this graft were then done I then engage the ostium of the graft to the RCA and views of the graft w ere then done. The catheter was then removed. We then reviewed the pictures. Findings: Left main is normal. The LAD is 100% occluded proximal. The circumflex is a long vessel small in caliber and all of the marginals are closed. The RCA is 100% occluded in the proximal to mid segment. The ROMAN graft to the LAD is open with excellent flowsignificant disease. The saphenous vein graft to the marginals is open with excellent flow and no significant disease only mild plaquing at the ostium at about 40% stenosis. The saphenous vein graft to the RCA has a 70% ostial stenosis and a 90% mid segment stenosis. Decided to proceed with multiple stenting of the saphenous vein graft to the RCA. The patient had being fully heparinized and also was given a bolus of Aggrastat, 600 mg of Plavix, an d a regular aspirin. A guiding catheter was utilized to engage the ostium and then a guidewire was advanced down the graft to the PDA. A 4.0 x 18 mm drug-eluting stent was then advanced to the lesion in the mid segment. Multiple high-pressure inflations were then done there. The view then showed that the stent was in good position and there was no significant residual diseas e there. A 3.5 mm x 28 mm drug-eluting stent was then placed in to the proximal segment and the ostium of the saphenous vein graft to the RCA and deployed there are multiple high-pressure inflations were then do ne. The guidewire was removed after a view was done and we saw that he was fully opened the view without the guidewire showed that the stents appear to be in good position there is good flow through the ves jenifer and no significant residual disease was present therefore I decided to terminate the procedure at this point. ACT's were checked and after doing a view of the femoral artery Angio-Seal were deployed in place aft er the sheaths were removed. A dressing was applied to the groin and the patient was returned to the ICU in satisfactory condition after tolerating the procedure rather well Conclusion This patient had a non-STEMI with significant disease of the saphenous vein graft to the RCA and the ostium and proximal segment of the graft as well as the mid segment where stented with good results. These were drug-eluting stents. I will continue the anticoagulation with Aggrastat and heparin until morning to complete 18 hours.
--- NOTE | 2017-01-31 14:57 | PDOC4 ---
PROCEDURE Procedure PROCEDURE NOTE [facility] [address] [place] [address] IMAGING REPORT Signed PATIENT: MANOJ GILES ACCOUNT: [id number] : 1945 LOCATION: [address] [place] [address] AGE: 71 SEX: M EXAM STATUS: ADM IN ORD. PHYSICIAN: OSVALDO VELA MD REASON: ACS/elevated troponins PROCEDURE: Coronary Angios Only APPROVED REPORT Procedure(s) performed: Coronaries Only w DOMINIK/Revascularixation of proximal and Middlle RCA Graft 100 minutes HISTORY previous NE: coronary artery disease, hypertension, previous CABG (The CABG date was ), dyslipidemia. INDICATION The indication(s) include : unstable angina , non-STEMI , chest pain, abnormal ECG. CASE TECHNIQUE During this case, Fluoroscopy and low osmolar contrast were used for imaging. PROCEDURE NARRATIVE This patient is a 71-year-old gentleman with a known history of coronary artery disease and previous bypass surgery. He came into the emergency room after episodes of chest tightness with dyspnea and low oxygen saturation. He was seen and evaluated in the ER and he was decided to admit him. The patient had a marked elevation of the troponin following the first set and I felt that he was having a non-STEMI since his EKG did not show any significant ST segment elevation. We discussed the situation options and risks and he was decided to bring him to the [facility] for a heart catheterization possible PTCA possible stenting and the patient has signed an informed consent. After the patient arrived in the [facility] of the right groin area was prepped and draped in the usual fashion anatomy was identified on special palpation the area was infiltrated with Xylocaine and then using Seldinger technique a Cordis sheath was inserted into the femoral vein and another one into the femoral artery. Through the arterial sheath a left Oliver catheter was advanced and utilized to engage the left coronary os and views of the left coronary artery were then done I'd then removed the catheter and a right Oliver catheter was utilized to engage the right coronary os views of the right coronary artery were then done. We did engage the ostium to the saphenous vein graft to the marginals and views of the graft were then done the catheter was advanced into the area of the ROMAN graft to the LAD and views of this graft were then done I then engage the ostium of the graft to the RCA and views of the graft were then done. The catheter was then removed. We then reviewed the pictures. Findings: Left main is normal. The LAD is 100% occluded proximal. The circumflex is a long vessel small in caliber and all of the marginals are closed. The RCA is 100% occluded in the proximal to mid segment. The ROMAN graft to the LAD is open with excellent flowsignificant disease. The saphenous vein graft to the marginals is open with excellent flow and no significant disease only mild plaquing at the ostium at about 40% stenosis. The saphenous vein graft to the RCA has a 70% ostial stenosis and a 90% mid segment stenosis. Decided to proceed with multiple stenting of the saphenous vein graft to the RCA. The patient had being fully heparinized and also was given a bolus of Aggrastat , 600 mg of Plavix, and a regular aspirin. A guiding catheter was utilized to engage the ostium and then a guidewire was advanced down the graft to the PDA. A 4.0 x 18 mm drug-eluting stent was then advanced to the lesion in the mid segment. Multiple high-pressure inflations were then done there. The view then showed that the stent was in good position and there was no significant residual disease there. A 3.5 mm x 28 mm drug-eluting stent was then placed in to the proximal segment and the ostium of the saphenous vein graft to the RCA and deployed there are multiple high-pressure inflations were then done. The guidewire was removed after a view was done and we saw that he was fully opened the view without the guidewire showed that the stents appear to be in good position there is good flow through the vessel and no significant residual disease was present therefore I decided to terminate the procedure at this point. ACT's were checked and after doing a view of the femoral artery Angio-Seal were deployed in place after the sheaths were removed. A dressing was applied to the groin and the patient was returned to the ICU in satisfactory condition after tolerating the procedure rather well Conclusion This patient had a non-STEMI with significant disease of the saphenous vein graft to the RCA and the ostium and proximal segment of the graft as well as the mid segment where stented with good results. These were drug-eluting stents. I will continue the anticoagulation with Aggrastat and heparin until morning to complete 18 hours. DICTATED and SIGNED BY: OSVALDO VELA MD DATE: 01/31/17 1352 CC: ESTRADA MORELAND MD; OSVALDO VELA MD ~ OSVALDO VELA MD Jan 31, 2017 14:57
[2017-01-31] MEDS: oxyCODONE/APAP 5/325 1 TAB TABLET PO PRN ×2 (15:48→21:19)
[2017-01-31] MEDS: CYCLOBENZAPRINE 10 MG TABLET. PO PRN ×2 (15:49→21:19)
[2017-01-31] MEDS: FINASTERIDE 5 MG TABLET. PO SCH (15:49)
[2017-01-31] MEDS: TIROFIBAN 12.5MG -0.9% NS 250 ML IV PRN (19:20)
[2017-01-31 19:45] LABS: BILIRUBIN,URINE NEGATIVE (NEG); GLUCOSE,URINE NEGATIVE (NEG); NITRITE,URINE NEGATIVE (NEG); PH,URINE 5.5; PROTEIN,URINE 30 mg/dL (NEG-TRACE); UROBILINOGEN,URINE 0.2 mg/dL (0.2 mg/dL)
[2017-01-31 19:56] LABS: BACTERIA,URINE 0 /HPF (0-FEW); RBC,URINE TNTC /HPF (0-2)
[2017-01-31] MEDS: TAMSULOSIN 0.4 MG CAP.ER.24H. PO SCH (21:07)
[2017-01-31] MEDS: CITALOPRAM 20 MG TABLET. PO SCH (21:07)
[2017-01-31] MEDS: diazePAM 5 MG TABLET PO PRN (21:19)
[2017-02-01] VITALS (16 sets, daily range): BP systolic 101–147; BP diastolic 55–79
[2017-02-01] MEDS: TIROFIBAN 12.5MG -0.9% NS 250 ML IV PRN (04:15)
[2017-02-01] MEDS: PIPERACILLIN/TAZOBACTAM 3.375 GM in IV NORMAL SALINE 50ML 50 ML IV SCH ×3 (05:45→16:02)
[2017-02-01 07:56] LABS: HEMATOCRIT 37.9 % (39.0-53.0); HEMOGLOBIN 12.3 g/dL (13.0-17.5); RED BLOOD COUNT 4.14 x10^6/uL (4.30-5.70); RED CELL DISTRIBUTION WIDTH 15.8 % (11.5-14.5)
[2017-02-01 07:59] LABS: CALCIUM 8.4 mg/dL (8.5-10.1); CREATININE 1.3 mg/dL (0.7-1.3); GFR 54.1; POTASSIUM 3.9 mmol/L (3.5-5.1)
[2017-02-01] MEDS ORDERED: CLOPIDOGREL BISULFATE 75 MG TABLET PO SCH ×2 (08:00→21:00)
[2017-02-01] MEDS: oxyCODONE/APAP 5/325 1 TAB TABLET PO PRN ×2 (08:14→20:24)
[2017-02-01] MEDS: CYCLOBENZAPRINE 10 MG TABLET. PO PRN ×2 (08:14→21:12)
[2017-02-01] MEDS: diazePAM 5 MG TABLET PO PRN ×2 (08:14→20:23)
[2017-02-01] MEDS: DOCUSATE SODIUM 100 MG CAPSULE. PO SCH ×2 (08:15→20:22)
[2017-02-01] MEDS: ASPIRIN ENTERIC COATED 325 MG TABLET.DR. PO SCH (08:15)
[2017-02-01] MEDS: FINASTERIDE 5 MG TABLET. PO SCH (08:15)
[2017-02-01] MEDS: INSULIN DETEMIR 300 UNITS/3 ML INSULN.PEN. SQ SCH (08:54)
--- NOTE | 2017-02-01 11:37 | PDOC ---
SUBJECTIVE Subjective doing well, /P cath and stent OBJECTIVE Vital Signs Vital Signs Date Time Temp Pulse Resp B/P (MAP) Pulse Ox O2 Delivery O2 Flow Rate FiO2 02/01/17 11:00 14 110/67 (81) 92 Nasal Cannula 2.0 02/01/17 10:00 14 101/55 (70) 91 Nasal Cannula 2.0 02/01/17 09:00 19 110/69 (83) 92 Nasal Cannula 2.0 02/01/17 08:14 19 93 Nasal Cannula 2.0 02/01/17 08:00 Nasal Cannula 2.0 02/01/17 08:00 18 116/70 (85) 93 Nasal Cannula 2.0 02/01/17 07:00 97.8 20 110/65 (80) 93 Nasal Cannula 2.0 97.8 02/01/17 06:00 100 16 101/65 (77) 90 Nasal Cannula 2.0 02/01/17 05:00 102 18 119/67 (84) 91 Nasal Cannula 2.0 02/01/17 04:00 97.8 102 16 121/70 (87) 91 Nasal Cannula 2.0 97.8 02/01/17 04:00 Nasal Cannula 2.0 02/01/17 03:00 101 16 109/64 (79) 91 Nasal Cannula 2.0 02/01/17 02:00 112 20 120/72 (88) 92 Nasal Cannula 2.0 02/01/17 01:00 96 20 112/68 (83) 92 Nasal Cannula 2.0 02/01/17 00:00 98 16 102/69 (80) 93 Nasal Cannula 2.0 02/01/17 00:00 Nasal Cannula 2.0 01/31/17 23:00 98.6 99 16 117/66 (83) 91 Nasal Cannula 2.0 98.6 01/31/17 22:00 100 15 106/62 (77) 92 Nasal Cannula 2.0 01/31/17 21:19 18 93 Nasal Cannula 3.0 01/31/17 21:00 104 19 120/66 (84) 93 Nasal Cannula 2.0 01/31/17 20:00 Nasal Cannula 2.0 01/31/17 20:00 92 15 115/68 (84) 93 Nasal Cannula 2.0 01/31/17 19:00 98.0 89 16 108/59 (75) 92 Nasal Cannula 2.0 98.0 01/31/17 18:16 91 23 114/71 (85) 93 Nasal Cannula 3.0 01/31/17 17:00 98.8 90 26 107/62 (77) 92 Nasal Cannula 3.0 98.8 01/31/17 16:45 15 93 Nasal Cannula 3.0 01/31/17 16:40 93 01/31/17 16:00 Nasal Cannula 3.0 01/31/17 16:00 87 16 119/60 (79) Nasal Cannula 3.0 01/31/17 15:48 92 Nasal Cannula 3.0 01/31/17 15:00 83 91/57 (68) 92 Nasal Cannula 3.0 01/31/17 14:45 92 Nasal Cannula 3.0 01/31/17 14:30 100 19 94/60 (71) 91 Nasal Cannula 3.0 01/31/17 14:15 88 17 104/62 (76) 94 Nasal Cannula 3.0 01/31/17 14:15 18 96 3.0 01/31/17 14:00 86 21 138/83 (101) 92 Nasal Cannula 3.0 01/31/17 13:45 86 17 125/73 (90) 95 Nasal Cannula 3.0 01/31/17 13:30 Nasal Cannula 3.0 01/31/17 13:30 98.6 80 21 122/72 (89) 93 Nasal Cannula 3.0 98.6 01/31/17 13:01 90 17 Nasal Cannula 4.0 01/31/17 12:51 17 93 Nasal Cannula 4.0 I & O Intake and Output 02/01/17 07:00 Intake Total 1089 ml Output Total 2680 ml Balance -1591 ml Intake Oral 775 ml IV Total 314 ml Output Urine Total 2680 ml PHYSICAL EXAM Physical Exam lungs clear heart RRR abd soft , obese none tender ext no edema ASSESSMENT/PLAN Assessment/Plan !- NSTEMI S/P cath and stent continue anticoagulation 2-Cardiomyopathy 3-morbid obesity 4-Left foot ulcer 5-Leukocytosis 6 DM II will D/C zimmerman traumatic hematuria, increase activity Problems: COMMENT Lab Laboratory Tests Test 01/31/17 13:34 01/31/17 17:51 01/31/17 19:35 02/01/17 07:42 Glucose (Fingerstick) 117 mg/dL (70-99) 101 mg/dL (70-99) Urine Collection Type Unknown Urine Color Red Urine Clarity Cloudy Urine pH 5.5 Urine Specific [place] >=1.030 Urine Protein 30 mg/dL (NEG-TRACE) Urine Glucose (UA) Negative mg/dL (NEG) Urine Ketones (Stick) Negative mg/dL (NEG) Urine Blood Large (NEG) Urine Nitrite Negative (NEG) Urine Bilirubin Negative (NEG) Urine Urobilinogen Dipstick 0.2 mg/dL (0.2 mg/dL) Urine Leukocyte Esterase Small (NEG) Urine RBC Tntc /HPF (0-2) Urine WBC 1-4 /HPF (0-4) Urine Squamous Epithelial Cells None /LPF Urine Bacteria 0 /HPF (0-FEW) White Blood Count 15.0 x10^3/uL (4.0-11.0) Red Blood Count 4.14 x10^6/uL (4.30-5.70) Hemoglobin 12.3 g/dL (13.0-17.5) Hematocrit 37.9 % (39.0-53.0) Mean Corpuscular Volume 92 fL (79-100) Mean Corpuscular Hemoglobin 30 pg (25-35) Mean Corpuscular Hemoglobin Concent 33 g/dL (31-37) Red Cell Distribution Width 15.8 % (11.5-14.5) Platelet Count 215 x10^3/uL (140-400) Sodium Level 140 mmol/L (136-145) Potassium Level 3.9 mmol/L (3.5-5.1) Chloride Level 105 mmol/L (98-107) Carbon Dioxide Level 27 mmol/L (21-32) Anion Gap 8 (6-14) Blood Urea Nitrogen 13 mg/dL (8-26) Creatinine 1.3 mg/dL (0.7-1.3) Estimated GFR (Cockcroft-Gault) 54.1 Glucose Level 108 mg/dL (70-99) Calcium Level 8.4 mg/dL (8.5-10.1) MAVIS FREDERICK MD Feb 01, 2017 11:37
--- NOTE | 2017-02-01 13:41 | PDOC ---
PROGRESS NOTES Subjective Subjective No chest pains. He feels much better today. No significant bleeding from the groin. He is now off the Aggrastat and the heparin Objective Objective Vital Signs Date Time Temp Pulse Resp B/P (MAP) Pulse Ox O2 Delivery O2 Flow Rate FiO2 02/01/17 12:13 Nasal Cannula 2.0 02/01/17 12:00 98.4 15 134/66 (88) 93 98.4 02/01/17 06:00 100 Intake and Output 02/01/17 07:00 Intake Total 1089 ml Output Total 2680 ml Balance -1591 ml Intake Oral 775 ml IV Total 314 ml Output Urine Total 2680 ml Physical Exam Physical Exam No significant changes in cardiac exam Assessment Assessment Good progress following 2 stents to the saphenous vein graft to the RCA. Would like to get an echocardiogram in the morning to evaluate the patient's left ventricular function and he can go home after that if he is stable. Comment Review of Relevant I have reviewed the following items edwina (where applicable) has been applied. Labs Laboratory Tests Test 01/30/17 19:33 01/30/17 21:50 01/30/17 22:06 01/31/17 02:40 White Blood Count 21.0 x10^3/uL (4.0-11.0) 17.5 x10^3/uL (4.0-11.0) Red Blood Count 4.95 x10^6/uL (4.30-5.70) 4.35 x10^6/uL (4.30-5.70) Hemoglobin 14.7 g/dL (13.0-17.5) 13.0 g/dL (13.0-17.5) Hematocrit 44.8 % (39.0-53.0) 39.8 % (39.0-53.0) Mean Corpuscular Volume 91 fL (79-100) 91 fL (79-100) Mean Corpuscular Hemoglobin 30 pg (25-35) 30 pg (25-35) Mean Corpuscular Hemoglobin Concent 33 g/dL (31-37) 33 g/dL (31-37) Red Cell Distribution Width 15.4 % (11.5-14.5) 15.7 % (11.5-14.5) Platelet Count 244 x10^3/uL (140-400) 236 x10^3/uL (140-400) Neutrophils (%) (Auto) 86 % (31-73) 79 % (31-73) Lymphocytes (%) (Auto) 6 % (24-48) 11 % (24-48) Monocytes (%) (Auto) 7 % (0-9) 9 % (0-9) Eosinophils (%) (Auto) 1 % (0-3) 1 % (0-3) Basophils (%) (Auto) 0 % (0-3) 1 % (0-3) Neutrophils # (Auto) 18.1 x10^3uL (1.8-7.7) 13.8 x10^3uL (1.8-7.7) Lymphocytes # (Auto) 1.2 x10^3/uL (1.0-4.8) 1.9 x10^3/uL (1.0-4.8) Monocytes # (Auto) 1.5 x10^3/uL (0.0-1.1) 1.6 x10^3/uL (0.0-1.1) Eosinophils # (Auto) 0.1 x10^3/uL (0.0-0.7) 0.1 x10^3/uL (0.0-0.7) Basophils # (Auto) 0.0 x10^3/uL (0.0-0.2) 0.2 x10^3/uL (0.0-0.2) Segmented Neutrophils % 82 % (35-66) Band Neutrophils % 1 % (0-9) Lymphocytes % 8 % (24-48) Monocytes % 9 % (0-10) Platelet Estimate Adequate (ADEQUATE) D-Dimer (Negin) 1.85 ug/mlFEU (0.00-0.50) Sodium Level 138 mmol/L (136-145) 139 mmol/L (136-145) Potassium Level 4.1 mmol/L (3.5-5.1) 3.8 mmol/L (3.5-5.1) Chloride Level 101 mmol/L (98-107) 102 mmol/L (98-107) Carbon Dioxide Level 26 mmol/L (21-32) 29 mmol/L (21-32) Anion Gap 11 (6-14) 8 (6-14) Blood Urea Nitrogen 16 mg/dL (8-26) 15 mg/dL (8-26) Creatinine 1.5 mg/dL (0.7-1.3) 1.3 mg/dL (0.7-1.3) Estimated GFR (Cockcroft-Gault) 45.9 54.1 Glucose Level 201 mg/dL (70-99) 164 mg/dL (70-99) Calcium Level 9.0 mg/dL (8.5-10.1) 8.7 mg/dL (8.5-10.1) Total Bilirubin 0.6 mg/dL (0.2-1.0) Direct Bilirubin 0.2 mg/dL (0.0-0.2) Aspartate Amino Transf (AST/SGOT) 18 U/L (15-37) Alanine Aminotransferase (ALT/SGPT) 20 U/L (16-63) Alkaline Phosphatase 94 U/L (46-116) Troponin I Quantitative 0.289 ng/mL (0.000-0.055) 6.014 ng/mL (0.000-0.055) QQ-Pwq-Z-Type Natriuretic Peptide 2260 pg/mL (0-124) Total Protein 8.9 g/dL (6.4-8.2) Albumin 3.3 g/dL (3.4-5.0) Lipase 68 U/L (73-393) Nasal Screen MRSA (PCR) Negative (Negative) Glucose (Fingerstick) 178 mg/dL (70-99) Heparin Anti-Xa Act, Unfractionated 0.24 IU/mL (0.30-0.70) Test 01/31/17 09:45 01/31/17 13:34 01/31/17 17:51 01/31/17 19:35 Heparin Anti-Xa Act, Unfractionated 0.27 IU/mL (0.30-0.70) Troponin I Quantitative 6.155 ng/mL (0.000-0.055) Glucose (Fingerstick) 117 mg/dL (70-99) 101 mg/dL (70-99) Urine Collection Type Unknown Urine Color Red Urine Clarity Cloudy Urine pH 5.5 Urine Specific [place] >=1.030 Urine Protein 30 mg/dL (NEG-TRACE) Urine Glucose (UA) Negative mg/dL (NEG) Urine Ketones (Stick) Negative mg/dL (NEG) Urine Blood Large (NEG) Urine Nitrite Negative (NEG) Urine Bilirubin Negative (NEG) Urine Urobilinogen Dipstick 0.2 mg/dL (0.2 mg/dL) Urine Leukocyte Esterase Small (NEG) Urine RBC Tntc /HPF (0-2) Urine WBC 1-4 /HPF (0-4) Urine Squamous Epithelial Cells None /LPF Urine Bacteria 0 /HPF (0-FEW) Test 02/01/17 07:42 02/01/17 11:53 White Blood Count 15.0 x10^3/uL (4.0-11.0) Red Blood Count 4.14 x10^6/uL (4.30-5.70) Hemoglobin 12.3 g/dL (13.0-17.5) Hematocrit 37.9 % (39.0-53.0) Mean Corpuscular Volume 92 fL (79-100) Mean Corpuscular Hemoglobin 30 pg (25-35) Mean Corpuscular Hemoglobin Concent 33 g/dL (31-37) Red Cell Distribution Width 15.8 % (11.5-14.5) Platelet Count 215 x10^3/uL (140-400) Sodium Level 140 mmol/L (136-145) Potassium Level 3.9 mmol/L (3.5-5.1) Chloride Level 105 mmol/L (98-107) Carbon Dioxide Level 27 mmol/L (21-32) Anion Gap 8 (6-14) Blood Urea Nitrogen 13 mg/dL (8-26) Creatinine 1.3 mg/dL (0.7-1.3) Estimated GFR (Cockcroft-Gault) 54.1 Glucose Level 108 mg/dL (70-99) Calcium Level 8.4 mg/dL (8.5-10.1) Glucose (Fingerstick) 138 mg/dL (70-99) Laboratory Tests Test 01/31/17 17:51 01/31/17 19:35 02/01/17 07:42 02/01/17 11:53 Glucose (Fingerstick) 101 mg/dL (70-99) 138 mg/dL (70-99) Urine Collection Type Unknown Urine Color Red Urine Clarity Cloudy Urine pH 5.5 Urine Specific [place] >=1.030 Urine Protein 30 mg/dL (NEG-TRACE) Urine Glucose (UA) Negative mg/dL (NEG) Urine Ketones (Stick) Negative mg/dL (NEG) Urine Blood Large (NEG) Urine Nitrite Negative (NEG) Urine Bilirubin Negative (NEG) Urine Urobilinogen Dipstick 0.2 mg/dL (0.2 mg/dL) Urine Leukocyte Esterase Small (NEG) Urine RBC Tntc /HPF (0-2) Urine WBC 1-4 /HPF (0-4) Urine Squamous Epithelial Cells None /LPF Urine Bacteria 0 /HPF (0-FEW) White Blood Count 15.0 x10^3/uL (4.0-11.0) Red Blood Count 4.14 x10^6/uL (4.30-5.70) Hemoglobin 12.3 g/dL (13.0-17.5) Hematocrit 37.9 % (39.0-53.0) Mean Corpuscular Volume 92 fL (79-100) Mean Corpuscular Hemoglobin 30 pg (25-35) Mean Corpuscular Hemoglobin Concent 33 g/dL (31-37) Red Cell Distribution Width 15.8 % (11.5-14.5) Platelet Count 215 x10^3/uL (140-400) Sodium Level 140 mmol/L (136-145) Potassium Level 3.9 mmol/L (3.5-5.1) Chloride Level 105 mmol/L (98-107) Carbon Dioxide Level 27 mmol/L (21-32) Anion Gap 8 (6-14) Blood Urea Nitrogen 13 mg/dL (8-26) Creatinine 1.3 mg/dL (0.7-1.3) Estimated GFR (Cockcroft-Gault) 54.1 Glucose Level 108 mg/dL (70-99) Calcium Level 8.4 mg/dL (8.5-10.1) Microbiology 01/31/17 Urine Culture - Preliminary, Resulted 01/31/17 Urine Culture Result 1 (DEREK) - Preliminary, Resulted Medications Current Medications Aspirin (Children'S Aspirin) 324 mg 1X ONCE PO Last administered on 01/30/17 19:48; Start 01/30/17 at 20:15; Stop 01/30/17 at 20:16; Status DC Ondansetron HCl (Zofran) 4 mg PRN Q8HRS PRN IV NAUSEA/VOMITING Last administered on 01/30/17 20:15; Start 01/30/17 at 20:00; Stop 01/31/17 at 19:59 ; Status DC Morphine Sulfate 2 mg PRN Q2HR PRN IV PAIN Last administered on 01/31/17 14:15 ; Start 01/30/17 at 20:00; Stop 01/31/17 at 19:59; Status DC Sodium Chloride 1,000 ml @ 50 mls/hr Q20H IV Last administered on 01/31/17 14 :20; Start 01/30/17 at 19:48; Stop 01/31/17 at 19:47; Status DC Nitroglycerin (Nitrostat) 0.4 mg PRN Q5MIN PRN SL CHEST PAIN; Start 01/30/17 at 20:00; Stop 01/31/17 at 19:59; Status DC Heparin Sodium/ Dextrose 500 ml @ 0 mls/hr CONT PRN IV SEE I/O RECORD Last administered on 01/31/17 08:47; Start 01/30/17 at 20:00; Stop 01/31/17 at 12:34 ; Status DC Heparin Sodium (Porcine) (Heparin Sodium) 3,800 unit PRN Q6HRS PRN IV FOR UFH LEVEL LESS THAN 0.2 Last administered on 01/30/17 20:26; Start 01/30/17 at 20: 00 Nitroglycerin/ Dextrose 250 ml @ 0 mls/hr 1X ONCE IV ; Start 01/30/17 at 20:15 ; Stop 01/30/17 at 20:16; Status DC Aspirin (Children'S Aspirin) 81 mg DAILY PO Last administered on 01/31/17 08: 51; Start 01/31/17 at 09:00; Stop 01/31/17 at 13:24; Status DC Citalopram Hydrobromide (CeleXA) 20 mg HS PO Last administered on 01/31/17 21: 07; Start 01/31/17 at 21:00 Docusate Sodium (Colace) 200 mg BID PO Last administered on 02/01/17 08:15; Start 01/31/17 at 09:00 Finasteride (Proscar) 5 mg DAILY PO Last administered on 02/01/17 08:15; Start 01/31/17 at 09:00 Tamsulosin HCl (Flomax) 0.4 mg HS PO Last administered on 01/31/17 21:07; Start 01/31/17 at 21:00 Insulin Detemir (Levemir) 120 units DAILY08 SQ Last administered on 02/01/17 08:54; Start 01/31/17 at 09:00 Piperacillin Sod/ Tazobactam Sod 3.375 gm/Sodium Chloride 50 ml @ 100 mls/hr Q6HRS IV Last administered on 02/01/17 12:00; Start 01/31/17 at 10:00 Fentanyl Citrate (Fentanyl 5ml Vial) 250 mcg STK-MED ONCE .ROUTE ; Start at 11:09; Stop 01/31/17 at 11:10; Status DC Midazolam HCl (Versed) 5 mg STK-MED ONCE .ROUTE ; Start 01/31/17 at 11:10; Stop 01/31/17 at 11:11; Status DC Heparin Sodium/ Sodium Chloride 500 ml @ As Directed STK-MED ONCE .ROUTE ; Start 01/31/17 at 11:13; Stop 01/31/17 at 11:14; Status DC Lidocaine HCl 20 ml STK-MED ONCE .ROUTE ; Start 01/31/17 at 11:13; Stop at 11:14; Status DC Iodixanol (Visipaque 320) 100 ml STK-MED ONCE .ROUTE ; Start 01/31/17 at 11:14; Stop 01/31/17 at 11:15; Status DC Heparin Sodium (Porcine) (Heparin Sodium) 10,000 unit STK-MED ONCE .ROUTE ; Start 01/31/17 at 12:06; Stop 01/31/17 at 12:07; Status DC Iodixanol (Visipaque 320) 100 ml STK-MED ONCE .ROUTE ; Start 01/31/17 at 12:10; Stop 01/31/17 at 12:11; Status DC Heparin Sodium/ Sodium Chloride 1,000 unit 1X ONCE IART Last administered on 12:50; Start 01/31/17 at 12:15; Stop 01/31/17 at 12:20; Status DC Midazolam HCl (Versed) 5 mg 1X ONCE IV Last administered on 01/31/17 12:51; Start 01/31/17 at 12:15; Stop 01/31/17 at 12:20; Status DC Fentanyl Citrate (Fentanyl 5ml Vial) 250 mcg 1X ONCE IV Last administered on 12:51; Start 01/31/17 at 12:15; Stop 01/31/17 at 12:20; Status DC Iodixanol (Visipaque 320) 100 ml 1X ONCE IART Last administered on 01/31/17 12:49; Start 01/31/17 at 12:15; Stop 01/31/17 at 12:20; Status DC Heparin Sodium (Porcine) (Heparin Sodium) 5,000 unit 1X ONCE IV Last administered on 01/31/17 12:50; Start 01/31/17 at 12:15; Stop 01/31/17 at 12:20 ; Status DC Lidocaine HCl 20 ml 1X ONCE IJ Last administered on 01/31/17 12:50; Start at 12:15; Stop 01/31/17 at 12:20; Status DC Tirofiban/Sodium Chloride 250 ml @ As Directed STK-MED ONCE IV ; Start at 12:20; Stop 01/31/17 at 12:21; Status DC Clopidogrel Bisulfate (Plavix) 75 mg STK-MED ONCE .ROUTE ; Start 01/31/17 at 12: 21; Stop 01/31/17 at 12:22; Status DC Clopidogrel Bisulfate (Plavix) 600 mg 1X ONCE PO Last administered on 12:50; Start 01/31/17 at 12:30; Stop 01/31/17 at 12:38; Status DC Tirofiban/Sodium Chloride 250 ml @ 0 mls/hr CONT PRN IV PER PROTOCOL Last administered on 01/31/17 12:52; Start 01/31/17 at 12:30; Stop 01/31/17 at 13:26 ; Status DC Heparin Sodium/ Dextrose 500 ml @ 20 mls/hr CONT PRN IV SEE I/O RECORD Last administered on 01/31/17 12:54; Start 01/31/17 at 12:45; Stop 01/31/17 at 13:25 ; Status DC Heparin Sodium/ Dextrose 500 ml @ 0 mls/hr CONT PRN IV SEE I/O RECORD; Start at 13:15 Sodium Chloride 1,000 ml @ 1,000 mls/hr 1X ONCE IV Last administered on 15:52; Start 01/31/17 at 13:15; Stop 01/31/17 at 14:14; Status DC Clopidogrel Bisulfate (Plavix) 75 mg DAILYWBKFT PO Last administered on 08:15; Start 02/01/17 at 08:00 Aspirin (Ecotrin) 325 mg DAILYWBKFT PO Last administered on 02/01/17 08:15; Start 02/01/17 at 08:00 Tirofiban/Sodium Chloride 250 ml @ 0 mls/hr CONT PRN IV PER PROTOCOL Last administered on 02/01/17 04:15; Start 01/31/17 at 13:30; Stop 02/01/17 at 08:00 ; Status DC Lidocaine HCl (Glydo (Lidocaine) Jelly) 1 mathieu 1X ONCE MM Last administered on 01/31/17 14:17; Start 01/31/17 at 13:45; Stop 01/31/17 at 13:46; Status DC Cyclobenzaprine HCl (Flexeril) 10 mg PRN Q6HRS PRN PO MUSCLE SPASMS Last administered on 02/01/17 08:14; Start 01/31/17 at 13:45 Diazepam (Valium) 5 mg PRN Q6HRS PRN PO ANXIETY Last administered on 02/01/17 08:14; Start 01/31/17 at 13:45 Oxycodone/ Acetaminophen (Percocet 5/325) 1 tab PRN Q6HRS PRN PO PAIN Last administered on 02/01/17 08:14; Start 01/31/17 at 13:45 Clopidogrel Bisulfate (Plavix) 75 mg HS PO ; Start 02/01/17 at 21:00 Active Scripts Active Reported [regranex] 0.01 % TOP DAILY06 Celexa (Citalopram Hydrobromide) 20 Mg Tablet 1 Tab PO HS Amlodipine Besylate 10 Mg Tablet 10 Mg PO DAILY Tamsulosin Hcl 0.4 Mg Cap.er.24h 0.4 Mg PO HS Potassium Chloride 10 Meq Capsule.er 10 Meq PO DAILY08 Senokot (Sennosides) 8.6 Mg Tablet 2 Tab PO HS Colace (Docusate Sodium) 100 Mg Capsule 200 Mg PO BID Lantus (Insulin Glargine,Hum.rec.anlog) 100 Unit/1 Ml Vial 120 Unit SQ DAILY08 Multi Vitamin Daily (Multivitamin) 1 Each Tablet 1 Each PO DAILY Lasix (Furosemide) 20 Mg Tablet 40 Mg PO DAILY Aspirin 81 Mg Tab.chew 81 Mg PO Finasteride 5 Mg Tablet 5 Mg PO DAILY Metoprolol Tartrate 50 Mg Tablet 12.5 Mg PO BID Vitals/I & O Vital Sign - Last 24 Hours 01/31/17 01/31/17 01/31/17 01/31/17 13:45 14:00 14:15 14:15 Pulse 86 86 88 Resp 17 17 B/P (MAP) 125/73 (90) 138/83 (101) 104/62 (76) Pulse Ox 95 92 96 94 O2 Delivery Nasal Cannula Nasal Cannula Nasal Cannula O2 Flow Rate 3.0 3.0 3.0 3.0 01/31/17 01/31/17 01/31/17 01/31/17 14:30 14:45 15:00 15:48 Pulse 100 83 Resp 19 B/P (MAP) 94/60 (71) 91/57 (68) Pulse Ox 91 92 92 92 O2 Delivery Nasal Cannula Nasal Cannula Nasal Cannula Nasal Cannula O2 Flow Rate 3.0 3.0 3.0 3.0 01/31/17 01/31/17 01/31/17 01/31/17 16:00 16:00 16:40 17:00 Temp 98.8 98.8 Pulse 87 93 90 Resp 16 26 B/P (MAP) 119/60 (79) 107/62 (77) Pulse Ox 92 O2 Delivery Nasal Cannula Nasal Cannula Nasal Cannula O2 Flow Rate 3.0 3.0 3.0 01/31/17 01/31/17 01/31/17 01/31/17 18:16 19:00 20:00 20:00 Temp 98.0 98.0 Pulse 91 89 92 Resp 23 16 15 B/P (MAP) 114/71 (85) 108/59 (75) 115/68 (84) Pulse Ox 93 92 93 O2 Delivery Nasal Cannula Nasal Cannula Nasal Cannula Nasal Cannula O2 Flow Rate 3.0 2.0 2.0 2.0 01/31/17 01/31/17 01/31/17 01/31/17 21:00 21:19 22:00 23:00 Temp 98.6 98.6 Pulse 104 100 99 Resp 19 18 15 16 B/P (MAP) 120/66 (84) 106/62 (77) 117/66 (83) Pulse Ox 93 93 92 91 O2 Delivery Nasal Cannula Nasal Cannula Nasal Cannula Nasal Cannula O2 Flow Rate 2.0 3.0 2.0 2.0 02/01/17 02/01/17 02/01/17 02/01/17 00:00 00:00 01:00 02:00 Pulse 98 96 112 Resp 16 20 20 B/P (MAP) 102/69 (80) 112/68 (83) 120/72 (88) Pulse Ox 93 92 92 O2 Delivery Nasal Cannula Nasal Cannula Nasal Cannula Nasal Cannula O2 Flow Rate 2.0 2.0 2.0 2.0 02/01/17 02/01/17 02/01/17 02/01/17 03:00 04:00 04:00 05:00 Temp 97.8 97.8 Pulse 101 102 102 Resp 16 16 18 B/P (MAP) 109/64 (79) 121/70 (87) 119/67 (84) Pulse Ox 91 91 91 O2 Delivery Nasal Cannula Nasal Cannula Nasal Cannula Nasal Cannula O2 Flow Rate 2.0 2.0 2.0 2.0 02/01/17 02/01/17 02/01/17 02/01/17 06:00 07:00 08:00 08:00 Temp 97.8 97.8 Pulse 100 Resp 16 20 18 B/P (MAP) 101/65 (77) 110/65 (80) 116/70 (85) Pulse Ox 90 93 93 O2 Delivery Nasal Cannula Nasal Cannula Nasal Cannula Nasal Cannula O2 Flow Rate 2.0 2.0 2.0 2.0 02/01/17 02/01/17 02/01/17 02/01/17 08:14 09:00 09:15 10:00 Resp 19 19 18 14 B/P (MAP) 110/69 (83) 101/55 (70) Pulse Ox 93 92 91 91 O2 Delivery Nasal Cannula Nasal Cannula Nasal Cannula Nasal Cannula O2 Flow Rate 2.0 2.0 2.0 2.0 02/01/17 02/01/17 02/01/17 11:00 12:00 12:13 Temp 98.4 98.4 Resp 14 15 B/P (MAP) 110/67 (81) 134/66 (88) Pulse Ox 92 93 O2 Delivery Nasal Cannula Nasal Cannula Nasal Cannula O2 Flow Rate 2.0 2.0 2.0 Intake and Output 01/31/17 01/31/17 02/01/17 15:00 23:00 07:00 Intake Total 450 ml 325 ml 314 ml Output Total 750 ml 480 ml 1450 ml Balance -300 ml -155 ml -1136 ml OSVALDO VELA MD Feb 01, 2017 13:41
[2017-02-01] MEDS ORDERED: LABETALOL 20 MG/4 ML DISP.SYRIN. IVP ONE (19:15)
[2017-02-01] MEDS ORDERED: ACETAMINOPHEN 325 MG TABLET. PO PRN (19:45)
[2017-02-01] MEDS: TAMSULOSIN 0.4 MG CAP.ER.24H. PO SCH (20:23)
[2017-02-01] MEDS: METOPROLOL TART IMMED RELEASE 25 MG TABLET. PO SCH (20:23)
[2017-02-01] MEDS: CLOPIDOGREL BISULFATE 75 MG TABLET PO SCH (20:23)
[2017-02-01] MEDS: CITALOPRAM 20 MG TABLET. PO SCH (20:23)
[2017-02-01] MEDS ORDERED: VANCOMYCIN 1 GM in IV NORMAL SALINE 250ML 250 ML IV ONE (22:45)
[2017-02-02] VITALS: BP 110/70
[2017-02-02] MEDS: PIPERACILLIN/TAZOBACTAM 3.375 GM in IV NORMAL SALINE 50ML 50 ML IV SCH ×2 (00:20→05:52)
[2017-02-02 03:52] LABS: BASO # 0.1 x10^3/uL (0.0-0.2); BASO % 1 % (0-3); EOS % 1 % (0-3); HEMATOCRIT 38.6 % (39.0-53.0); HEMOGLOBIN 12.5 g/dL (13.0-17.5); LYMPH # 1.3 x10^3/uL (1.0-4.8); LYMPH % 9 % (24-48); MEAN CORPUSCULAR HEMOGLOBIN 30 pg (25-35); MEAN CORPUSCULAR HGB CONC 32 g/dL (31-37); MEAN CORPUSCULAR VOLUME 92 fL (79-100); MONO % 9 % (0-9); NEUT % 80 % (31-73); PLATELET COUNT 232 x10^3/uL (140-400); WHITE BLOOD COUNT 15.2 x10^3/uL (4.0-11.0)
[2017-02-02 04:00] VITALS: BP 114/77
[2017-02-02 04:19] LABS: CALCIUM 8.2 mg/dL (8.5-10.1); CREATININE 1.6 mg/dL (0.7-1.3); GFR 42.6
[2017-02-02 07:43] VITALS: BP 104/69
[2017-02-02] MEDS: CLOPIDOGREL BISULFATE 75 MG TABLET PO SCH (08:22)
[2017-02-02] MEDS: FINASTERIDE 5 MG TABLET. PO SCH (08:22)
[2017-02-02] MEDS: DOCUSATE SODIUM 100 MG CAPSULE. PO SCH (08:22)
[2017-02-02] MEDS: ASPIRIN ENTERIC COATED 325 MG TABLET.DR. PO SCH (08:22)
[2017-02-02] MEDS: METOPROLOL TART IMMED RELEASE 25 MG TABLET. PO SCH (08:23)
[2017-02-02] MEDS ORDERED: SULFUR HEXAFLUORIDE MICROSPHR 25 MG VIAL. IVP ONE ×2 (08:29→09:00)
[2017-02-02] MEDS: INSULIN DETEMIR 300 UNITS/3 ML INSULN.PEN. SQ SCH (08:29)
--- NOTE | 2017-02-02 08:34 | PDOC ---
Provider Note Provider Note no c/o- , not much temp- labs ok- will dc zosyn and follow - open wound R groin , add bacitracin and follow ESTRADA MORELAND MD Feb 02, 2017 08:34
[2017-02-02] MEDS ORDERED: BACITRACIN TOPICAL OINT 14GM TUBE. TP SCH (09:00)
[2017-02-02 12:00] VITALS: BP 100/66
[2017-02-02] MEDS ORDERED: ASPI325T11 PO (13:18)
[2017-02-02] MEDS ORDERED: CLOP75TA PO (13:35)
--- NOTE | 2017-02-02 15:55 | CARD ---
APPROVED REPORT EXAM: LIMITED Two-dimensional echocardiogram with Doppler, color Doppler with contrast. Other Information Quality : Technically Limited Technically limited study due to body habitus. INDICATION Cardiac Disease: CAD LV Function:Systolic Echo Enhancing Agent Indication: Endocardial border delineation Agent/Amount Used: Lumason 2mL 2D DIMENSIONS LVEF(%)35.0 (>50%) Aortic Valve AoV Peak Cain.305.5cm/sAoV VTI58.7cm AO Peak GR.37.3mmHgAO Mean GR.20mmHg Mitral Valve MV E Iyffhece52.3cm/sMV DECEL [id number] MV A Hpnphthl209.4cm/sE/A Ratio0.8 MV A Bcpqzhkj81ur Tricuspid Valve TR P. Fvwlpvau730lw/sRAP [id number] TR Peak Gr.96aeGjAAVZ40kxZm LEFT VENTRICLE The left ventricle is not well visualized. Left ventricle systolic function is moderately to severely impaired. The Ejection Fraction is 35% There is global hypokinesis of the left ventricle. The mid to basal inferior wall is akinetic. Tissue Doppler imaging reveals moderate left ventricular diastolic dysfunction. RIGHT VENTRICLE The right ventricle is not well visualized. ATRIA The left atrium is not well visualized. The right atrium is not well visualized. AORTIC VALVE The aortic valve was not visualized. Maximum pressure gradient of 37 mmHg and mean pressure gradient of 20 mmHg. MITRAL VALVE The mitral valve is not well visualized. Mitral annular calcification is mild to moderate. The mitral valve leaflets are thickened and calcified. There is no evidence of mitral valve prolapse. There is no mitral valve stenosis. TRICUSPID VALVE The tricuspid valve is not well visualized. There is severe pulmonary hypertension. The PA pressure w as estimated at 72 mmHg. PULMONIC VALVE The pulmonic valve was not visualized. GREAT VESSELS The aortic root is not well visualized. Pulmonary veins not recorded. Due to poor image quality, the IVC could not be assessed. PERICARDIAL EFFUSION There is no evidence of significant pericardial effusion. Critical Notification Critical Value: No <Conclusion> Left ventricle systolic function is moderately to severely impaired. The Ejection Fraction is 35% The mitral valve is not well visualized. Mitral annular calcification is mild to moderate. The mitral valve leaflets are thickened and calcified. There is severe pulmonary hypertension. The PA pressure was estimated at 72 mmHg. There is no evidence of significant pericardial effusion.
--- NOTE | 2017-02-03 00:15 | DS ---
DATE OF DISCHARGE: 02/02/2017 HOSPITAL SUMMARY: The patient came in with a history of prior coronary bypass surgery and had severe chest pain with an elevation of troponin up to 6. Chest x-ray was clear and rest of the labs okay. Dr. Capellan [facility] [place] [facility] for ____ to have possible right coronary artery with good resolution of chest pain. Echocardiogram results are pending at this time and the patient's family wished to be discharged and followed as an outpatient. FINAL DIAGNOSES: 1. Acute non-ST elevated myocardial infarction. 2. Coronary artery disease, status post coronary artery bypass grafting. 3. Poorly controlled type 2 diabetes mellitus. OPERATIONS, PROCEDURES, COMPLICATIONS: Cardiac catheterization, coronary arteriograms, stent placement. Complications, none. CONSULTATIONS: Dr. Capellan. DISPOSITION: Meds remain the same with the addition of Plavix 75 mg daily or as prescribed by Dr. Capellan for 1 year. Home meds remain the same. Follow up with me as needed and Dr. Capellan in 1-2 weeks. His prognosis is poor considering multiple medical problems and relatively poor compliance and morbid obesity. ESTRADA MORELAND MD DR: CHRISTOPHER/leonardo JOB#: [id number] / [id number]
== END 2017-02-02 13:55 | disposition home or self-care (01) | DRG 246 ==
LOC: ER 19:28 → 1 WEST ICU 20:06
PROVIDERS: ADMIT Family Medicine; ATTEND Family Medicine
PROC: 5A09357 Assistance with Respiratory Ventilation, Less than 24 Consecutive Hours, Continuous Positive Airway Pressure (ICD-10-PCS; 2017-01-30)
PROC: B2111ZZ Fluoroscopy of Multiple Coronary Arteries using Low Osmolar Contrast (ICD-10-PCS; 2017-01-30)
PROC: B2131ZZ Fluoroscopy of Multiple Coronary Artery Bypass Grafts using Low Osmolar Contrast (ICD-10-PCS; 2017-01-30)
PROC: 027035Z Dilation of Coronary Artery, One Artery with Two Drug-eluting Intraluminal Devices, Percutaneous Approach (ICD-10-PCS; principal; 2017-01-31)
DX: I21.4 Non-ST elevation (NSTEMI) myocardial infarction (principal); R65.11 Systemic inflammatory response syndrome (SIRS) of non-infectious origin with acute organ dysfunction; I42.9 Cardiomyopathy, unspecified; J96.11 Chronic respiratory failure with hypoxia; Z68.41 Body mass index [BMI] 40.0-44.9, adult; I13.0 Hypertensive heart and chronic kidney disease with heart failure and stage 1 through stage 4 chronic kidney disease, or unspecified chronic kidney disease; E78.5 Hyperlipidemia, unspecified; E66.01 Morbid (severe) obesity due to excess calories; I50.9 Heart failure, unspecified; K21.9 Gastro-esophageal reflux disease without esophagitis; E11.65 Type 2 diabetes mellitus with hyperglycemia; E11.621 Type 2 diabetes mellitus with foot ulcer; L97.529 Non-pressure chronic ulcer of other part of left foot with unspecified severity; R31.9 Hematuria, unspecified; N18.3 Chronic kidney disease, stage 3 (moderate); I25.110 Atherosclerotic heart disease of native coronary artery with unstable angina pectoris; E11.51 Type 2 diabetes mellitus with diabetic peripheral angiopathy without gangrene; I48.91 Unspecified atrial fibrillation; I45.4 Nonspecific intraventricular block; Z98.49 Cataract extraction status, unspecified eye; Z79.01 Long term (current) use of anticoagulants; Z81.8 Family history of other mental and behavioral disorders; Z82.49 Family history of ischemic heart disease and other diseases of the circulatory system; Z83.3 Family history of diabetes mellitus; Z89.411 Acquired absence of right great toe; Z86.010 Personal history of colon polyps; Z87.11 Personal history of peptic ulcer disease; Z95.1 Presence of aortocoronary bypass graft; Z90.89 Acquired absence of other organs; I25.2 Old myocardial infarction; Z79.899 Other long term (current) drug therapy; Z79.1 Long term (current) use of non-steroidal anti-inflammatories (NSAID); Z79.82 Long term (current) use of aspirin
CPT/HCPCS: 92937; 93325; 93454; 99285; C8924; 36415; 71010; 80048; 80076; 81001; 82962; 83690; 83880; 84484; 85007; 85027; 85347; 85379; 85520; 87086; 87641; 93005; 96374; 96375; A4314; C1769; C1771; C1874; C1887; C1892; G0269; J1644; J1815; J2001; J2250; J2270; J2405; J2543; J3010; J3370; J3490; J7030; J7050; J3246; Q9950

== ENCOUNTER → 2017-02-05 | Outpatient (CLI) | payer MEDICARE, OTHER ==
[2017-02-02 12:00] VITALS: BP 100/66
[~2017-02-05] MED LIST changes: +AMLO10TA2 PO; +ASPI325T11 PO; +CITA20TA9 PO; +CLOP75TA PO; +REGRANEX; +REGRANEX TOP; +TAMS0.4C2 PO
== END | disposition home or self-care (01) ==
LOC: PMGWOUND 08:56
PROVIDERS: ATTEND Emergency Medicine Undersea and Hyperbaric Medicine
DX: E11.621 Type 2 diabetes mellitus with foot ulcer (principal); L97.423 Non-pressure chronic ulcer of left heel and midfoot with necrosis of muscle; L03.116 Cellulitis of left lower limb; I25.2 Old myocardial infarction; I25.10 Atherosclerotic heart disease of native coronary artery without angina pectoris; E11.51 Type 2 diabetes mellitus with diabetic peripheral angiopathy without gangrene; E78.5 Hyperlipidemia, unspecified; K21.9 Gastro-esophageal reflux disease without esophagitis; M19.90 Unspecified osteoarthritis, unspecified site; F41.9 Anxiety disorder, unspecified; E11.22 Type 2 diabetes mellitus with diabetic chronic kidney disease; I13.0 Hypertensive heart and chronic kidney disease with heart failure and stage 1 through stage 4 chronic kidney disease, or unspecified chronic kidney disease; N18.3 Chronic kidney disease, stage 3 (moderate); I50.9 Heart failure, unspecified; I48.91 Unspecified atrial fibrillation; E66.01 Morbid (severe) obesity due to excess calories; Z68.41 Body mass index [BMI] 40.0-44.9, adult; Z85.828 Personal history of other malignant neoplasm of skin; Z86.73 Personal history of transient ischemic attack (TIA), and cerebral infarction without residual deficits; Z87.891 Personal history of nicotine dependence; Z95.1 Presence of aortocoronary bypass graft
CPT/HCPCS: 11042

== ENCOUNTER → 2017-02-16 | Outpatient (CLI) | payer MEDICARE, OTHER ==
[2017-02-12 15:15] VITALS: BP 109/63
== END | disposition home or self-care (01) ==
LOC: PMGWOUND 12:02
PROVIDERS: ATTEND Emergency Medicine Undersea and Hyperbaric Medicine
DX: E11.621 Type 2 diabetes mellitus with foot ulcer (principal); L97.423 Non-pressure chronic ulcer of left heel and midfoot with necrosis of muscle; L30.4 Erythema intertrigo; F41.9 Anxiety disorder, unspecified; F32.9 Major depressive disorder, single episode, unspecified; I25.10 Atherosclerotic heart disease of native coronary artery without angina pectoris; K21.9 Gastro-esophageal reflux disease without esophagitis; E78.5 Hyperlipidemia, unspecified; E11.22 Type 2 diabetes mellitus with diabetic chronic kidney disease; I13.0 Hypertensive heart and chronic kidney disease with heart failure and stage 1 through stage 4 chronic kidney disease, or unspecified chronic kidney disease; I50.9 Heart failure, unspecified; N18.3 Chronic kidney disease, stage 3 (moderate); E66.01 Morbid (severe) obesity due to excess calories; I25.2 Old myocardial infarction; E11.69 Type 2 diabetes mellitus with other specified complication; M86.9 Osteomyelitis, unspecified; I48.91 Unspecified atrial fibrillation; M19.90 Unspecified osteoarthritis, unspecified site; E11.51 Type 2 diabetes mellitus with diabetic peripheral angiopathy without gangrene; E11.42 Type 2 diabetes mellitus with diabetic polyneuropathy; Z86.14 Personal history of Methicillin resistant Staphylococcus aureus infection; Z86.010 Personal history of colon polyps; Z87.891 Personal history of nicotine dependence; Z95.1 Presence of aortocoronary bypass graft; Z68.41 Body mass index [BMI] 40.0-44.9, adult; Z85.828 Personal history of other malignant neoplasm of skin; Z79.4 Long term (current) use of insulin; Z79.82 Long term (current) use of aspirin; Z90.49 Acquired absence of other specified parts of digestive tract; Z89.411 Acquired absence of right great toe; Z79.01 Long term (current) use of anticoagulants
CPT/HCPCS: 97605

== ENCOUNTER → 2017-02-23 | Outpatient (CLI) | payer MEDICARE, OTHER ==
[2017-02-12 15:15] VITALS: BP 109/63
== END | disposition home or self-care (01) ==
LOC: PMGWOUND 12:11
PROVIDERS: ATTEND Emergency Medicine Undersea and Hyperbaric Medicine
DX: E11.621 Type 2 diabetes mellitus with foot ulcer (principal); L97.423 Non-pressure chronic ulcer of left heel and midfoot with necrosis of muscle; E11.42 Type 2 diabetes mellitus with diabetic polyneuropathy; Z86.73 Personal history of transient ischemic attack (TIA), and cerebral infarction without residual deficits; I25.2 Old myocardial infarction; I48.91 Unspecified atrial fibrillation; K21.9 Gastro-esophageal reflux disease without esophagitis; E66.9 Obesity, unspecified; F41.9 Anxiety disorder, unspecified; Z85.828 Personal history of other malignant neoplasm of skin; M19.90 Unspecified osteoarthritis, unspecified site; Z95.1 Presence of aortocoronary bypass graft; Z87.891 Personal history of nicotine dependence; F32.9 Major depressive disorder, single episode, unspecified; Z79.4 Long term (current) use of insulin; E11.51 Type 2 diabetes mellitus with diabetic peripheral angiopathy without gangrene; Z68.41 Body mass index [BMI] 40.0-44.9, adult; E11.22 Type 2 diabetes mellitus with diabetic chronic kidney disease; I13.0 Hypertensive heart and chronic kidney disease with heart failure and stage 1 through stage 4 chronic kidney disease, or unspecified chronic kidney disease; N18.3 Chronic kidney disease, stage 3 (moderate); I50.9 Heart failure, unspecified
CPT/HCPCS: 11042; 97605

== ENCOUNTER → 2017-03-10 | Outpatient (CLI) | payer MEDICARE, OTHER ==
[2017-02-12 15:15] VITALS: BP 109/63
== END | disposition home or self-care (01) ==
LOC: PMGWOUND 11:43
PROVIDERS: ATTEND Emergency Medicine Undersea and Hyperbaric Medicine
DX: T81.89XD Other complications of procedures, not elsewhere classified, subsequent encounter (principal); E11.621 Type 2 diabetes mellitus with foot ulcer; L97.423 Non-pressure chronic ulcer of left heel and midfoot with necrosis of muscle; F41.9 Anxiety disorder, unspecified; F32.9 Major depressive disorder, single episode, unspecified; K21.9 Gastro-esophageal reflux disease without esophagitis; E11.22 Type 2 diabetes mellitus with diabetic chronic kidney disease; I13.0 Hypertensive heart and chronic kidney disease with heart failure and stage 1 through stage 4 chronic kidney disease, or unspecified chronic kidney disease; N18.3 Chronic kidney disease, stage 3 (moderate); I50.9 Heart failure, unspecified; E66.01 Morbid (severe) obesity due to excess calories; I25.2 Old myocardial infarction; E11.42 Type 2 diabetes mellitus with diabetic polyneuropathy; E11.51 Type 2 diabetes mellitus with diabetic peripheral angiopathy without gangrene; E11.69 Type 2 diabetes mellitus with other specified complication; I25.10 Atherosclerotic heart disease of native coronary artery without angina pectoris; M86.9 Osteomyelitis, unspecified; I48.91 Unspecified atrial fibrillation; M19.90 Unspecified osteoarthritis, unspecified site; E78.5 Hyperlipidemia, unspecified; Z87.891 Personal history of nicotine dependence; Z85.828 Personal history of other malignant neoplasm of skin; Z95.1 Presence of aortocoronary bypass graft; Z86.73 Personal history of transient ischemic attack (TIA), and cerebral infarction without residual deficits; Z79.1 Long term (current) use of non-steroidal anti-inflammatories (NSAID); Z86.14 Personal history of Methicillin resistant Staphylococcus aureus infection; Z68.41 Body mass index [BMI] 40.0-44.9, adult; Z79.01 Long term (current) use of anticoagulants; Z79.4 Long term (current) use of insulin; Z79.82 Long term (current) use of aspirin; Z89.411 Acquired absence of right great toe; Y83.8 Other surgical procedures as the cause of abnormal reaction of the patient, or of later complication, without mention of misadventure at the time of the procedure
CPT/HCPCS: 87205; 97597

== ENCOUNTER → 2017-03-16 | Outpatient (CLI) | payer MEDICARE, OTHER ==
[2017-02-12 15:15] VITALS: BP 109/63
== END | disposition home or self-care (01) ==
LOC: PMGWOUND 12:54
PROVIDERS: ATTEND Emergency Medicine Undersea and Hyperbaric Medicine
DX: T81.89XD Other complications of procedures, not elsewhere classified, subsequent encounter (principal); E11.621 Type 2 diabetes mellitus with foot ulcer; L97.423 Non-pressure chronic ulcer of left heel and midfoot with necrosis of muscle; F41.9 Anxiety disorder, unspecified; I25.10 Atherosclerotic heart disease of native coronary artery without angina pectoris; K21.9 Gastro-esophageal reflux disease without esophagitis; E11.22 Type 2 diabetes mellitus with diabetic chronic kidney disease; I13.0 Hypertensive heart and chronic kidney disease with heart failure and stage 1 through stage 4 chronic kidney disease, or unspecified chronic kidney disease; N18.3 Chronic kidney disease, stage 3 (moderate); I50.9 Heart failure, unspecified; E78.5 Hyperlipidemia, unspecified; F32.9 Major depressive disorder, single episode, unspecified; E66.01 Morbid (severe) obesity due to excess calories; I25.2 Old myocardial infarction; E11.51 Type 2 diabetes mellitus with diabetic peripheral angiopathy without gangrene; E11.69 Type 2 diabetes mellitus with other specified complication; M86.9 Osteomyelitis, unspecified; I48.91 Unspecified atrial fibrillation; E11.42 Type 2 diabetes mellitus with diabetic polyneuropathy; M19.90 Unspecified osteoarthritis, unspecified site; Z95.1 Presence of aortocoronary bypass graft; Z86.14 Personal history of Methicillin resistant Staphylococcus aureus infection; Z87.891 Personal history of nicotine dependence; Z85.828 Personal history of other malignant neoplasm of skin; Z86.73 Personal history of transient ischemic attack (TIA), and cerebral infarction without residual deficits; Z90.49 Acquired absence of other specified parts of digestive tract; Z89.411 Acquired absence of right great toe; Z79.4 Long term (current) use of insulin; Z79.82 Long term (current) use of aspirin; Z79.1 Long term (current) use of non-steroidal anti-inflammatories (NSAID); Z79.01 Long term (current) use of anticoagulants; Z68.41 Body mass index [BMI] 40.0-44.9, adult; Y83.8 Other surgical procedures as the cause of abnormal reaction of the patient, or of later complication, without mention of misadventure at the time of the procedure
CPT/HCPCS: 99214

== ENCOUNTER → 2017-03-23 | Outpatient (CLI) | payer MEDICARE, OTHER ==
[2017-02-12 15:15] VITALS: BP 109/63
--- NOTE | 2017-03-23 15:54 | KCIC ---
Examination: MRI of the left foot without contrast HISTORY: History of open wound lateral aspect of the left foot COMPARISON: None available TECHNIQUE: Multiplanar, multisequence MR imaging of the left foot were performed without contrast. FINDINGS: There is a small ulcer identified in the plantar aspect of the lateral foot plantar to the proximal aspect of the fifth metatarsal. There are tiny foci of low intensity signal identified in the soft tissues plantar to the fifth metatarsal could be soft tissue gas/air. There is mild decreased T1 signal identified in the plantar aspect of the fifth metatarsal with corresponding STIR signal in the proximal portion of the fifth metatarsal. The alignment of the tarsal bones grossly appears unremarkable. Mild degenerative changes identified in the tarsal joints. The visualized Lisfranc ligament appears intact. The distal attachment of the peroneus longus, peroneus brevis tendons, flexor tendons and extensor tendon attachments grossly appears unremarkable. There is mild edema identified in the muscles of the mid and forefoot particularly in the plantar aspect acute myositis or nonspecific edema Small amount of fluid identified in the subtalar joints. Examination somewhat limited due to mild motion artifact. There is intermediate T1 signal identified in the plantar aspect of the head of the fifth metatarsal and first metatarsal, nonspecific. The alignment of the metatarsophalangeal joints, interphalangeal joints grossly appears unremarkable. Soft tissue edema identified in the dorsum of the foot. IMPRESSION: 1. Small ulcer with foci of gas/air identified in the plantar aspect of the foot ,plantar to the base of the fifth metatarsal extending up to the inferior cortex of the base of the fifth metatarsal. There is low T1 signal with corresponding high STIR signal identified in the proximal portion of the fifth metatarsal suspicious for early osteomyelitis. Other possibility is bony reactive change secondary to infection, a triphasic bone scan may be useful for further evaluation. 2. Diffuse increased STIR signal identified in the muscles of the foot particularly the midfoot in the plantar muscles likely myositis or secondary to edema. Electronically signed by: Jc Willams MD (03/23/2017 3:51 PM) [id number]
== END | disposition home or self-care (01) ==
LOC: KCIC MRI 13:49
PROVIDERS: ATTEND Orthopaedic Surgery Sports Medicine
DX: S91.302D Unspecified open wound, left foot, subsequent encounter (principal); M60.074 Infective myositis, left foot; R60.9 Edema, unspecified; X58.XXXD Exposure to other specified factors, subsequent encounter
CPT/HCPCS: 73718

== ENCOUNTER → 2017-03-26 | Outpatient (CLI) | payer MEDICARE, OTHER ==
[2017-02-12 15:15] VITALS: BP 109/63
== END | disposition home or self-care (01) ==
LOC: PMGWOUND 12:06
PROVIDERS: ATTEND Emergency Medicine Undersea and Hyperbaric Medicine
DX: E11.621 Type 2 diabetes mellitus with foot ulcer (principal); L97.424 Non-pressure chronic ulcer of left heel and midfoot with necrosis of bone; E11.69 Type 2 diabetes mellitus with other specified complication; M86.672 Other chronic osteomyelitis, left ankle and foot; E11.42 Type 2 diabetes mellitus with diabetic polyneuropathy; Z86.73 Personal history of transient ischemic attack (TIA), and cerebral infarction without residual deficits; I11.0 Hypertensive heart disease with heart failure; I50.9 Heart failure, unspecified; I25.2 Old myocardial infarction; E78.5 Hyperlipidemia, unspecified; E11.51 Type 2 diabetes mellitus with diabetic peripheral angiopathy without gangrene; K21.9 Gastro-esophageal reflux disease without esophagitis; M19.90 Unspecified osteoarthritis, unspecified site; F41.9 Anxiety disorder, unspecified; Z85.828 Personal history of other malignant neoplasm of skin; Z87.891 Personal history of nicotine dependence
CPT/HCPCS: 11042

== ENCOUNTER 2017-03-28 19:05 | Inpatient (IN) | payer MEDICARE, OTHER ==
[~2017-03-28] VITALS: Ht 185.4 cm; Wt 145.3 kg
[~2017-03-28 19:05] MED LIST changes: -METO50TA2 PO; +METO50TA6 PO
[2017-03-28 20:23] LABS: BASO # 0.1 x10^3/uL (0.0-0.2); BASO % 1 % (0-3); EOS % 1 % (0-3); HEMATOCRIT 38.6 % (39.0-53.0); HEMOGLOBIN 12.5 g/dL (13.0-17.5); LYMPH # 0.8 x10^3/uL (1.0-4.8); LYMPH % 7 % (24-48); MEAN CORPUSCULAR HEMOGLOBIN 30 pg (25-35); MEAN CORPUSCULAR HGB CONC 32 g/dL (31-37); MEAN CORPUSCULAR VOLUME 92 fL (79-100); MONO % 9 % (0-9); NEUT % 82 % (31-73); PLATELET COUNT 305 x10^3/uL (140-400); RED BLOOD COUNT 4.19 x10^6/uL (4.30-5.70); RED CELL DISTRIBUTION WIDTH 15.8 % (11.5-14.5); WHITE BLOOD COUNT 10.8 x10^3/uL (4.0-11.0)
[2017-03-28 20:40] LABS: CREATININE 1.2 mg/dL (0.7-1.3); GFR 59.3; POTASSIUM 4.5 mmol/L (3.5-5.1)
[2017-03-28 20:53] LABS: ALBUMIN 2.7 g/dL (3.4-5.0); ALBUMIN/GLOBULIN RATIO 0.6 (1.0-1.7); TOTAL BILIRUBIN 0.7 mg/dL (0.2-1.0); TOTAL PROTEIN 7.1 g/dL (6.4-8.2)
[2017-03-28] MEDS ORDERED: IPRATRPIUM/ALBUTEROL 0.5/2.5MG 3 ML NEBU. NEB ONE (21:15)
[2017-03-28] MEDS ORDERED: methylPREDNISolone SOD SUCC PF 125 MG/2 ML VIAL. IV ONE (21:15)
--- NOTE | 2017-03-28 22:11 | PHYS DOC ---
Past Medical History Past Medical History: CAD, CHF, Diabetes-Type II, Hypertension, [place] Additional Past Medical Histor: Morbid obesity, Osteomyelitis Past Surgical History: Coronary Bypass Surgery Additional Past Surgical Histo: Partial amputation R)great toe. Alcohol Use: None Drug Use: None Adult General Chief Complaint Chief Complaint: Congestion HPI HPI Patient is a 71 year old gentleman with a history significant for hypertension , diabetes, CHF, myocardial infarction, bypass surgery, multiple cardiac stents , presents here today complaining of shortness of breath with some tactile fevers. Patient with a wound VAC secondary to chronic lower 70 wound infection. Patient complaining of shortness of breath. Patient denies any liver problems no history of COPD, known kidney problems in the past. Patient had bypass surgery and a cholecystectomy in the past. Per the patient's family the patient appears more confused than his baseline. Patient is more tachypneic than usual. Patient does not utilize home oxygen but he does have CPAP at home for obstructive sleep apnea. Review of Systems Review of Systems Constitutional: Denies fever or chills Eyes: Denies change in visual acuity, redness, or eye pain All other review systems are negative except as documented in the history of present illness portion. Current Medications Current Medications Current Medications Medications (Trade) Dose Ordered Sig/Horace Start Time Stop Time Status Last Admin Dose Admin Albuterol/ Ipratropium (Duoneb) 3 ml 1X ONCE 03/28/17 21:15 03/28/17 21:16 DC 03/28/17 21:22 3 ML Methylprednisolone Sodium Succinate (SOLU-Medrol 125MG VIAL) 125 mg 1X ONCE 03/28/17 21:15 03/28/17 21:16 DC 03/28/17 21:18 125 MG Allergies Allergies Allergies Coded Allergies Type Severity Reaction Last Updated Verified No Known Drug Allergies 11/11/14 No Physical Exam Physical Exam Constitutional: Well developed, well nourished, no acute distress, non-toxic appearance. [] HENT: Normocephalic, Eyes: , conjunctiva normal, no discharge. [] Neck: Normal range of motion, Cardiovascular:Heart rate regular rhythm, Lungs & Thorax: Bilateral breath sounds clear to auscultation [] Abdomen: Bowel sounds normal, soft, no tenderness, Skin: Warm, dry, no erythema, no rash. [] Extremities: No tenderness, no cyanosis, no clubbing, ROM intact Neurologic: Alert and oriented X 3, normal motor function, Psychologic: Affect normal, judgement normal, Current Patient Data Vital Signs Vital Signs Date Time Temp Pulse Resp B/P (MAP) Pulse Ox O2 Delivery O2 Flow Rate FiO2 03/28/17 21:39 98 102/70 (81) 97 Nasal Cannula 2.0 03/28/17 19:10 98.3 22 98.3 Lab Values Laboratory Tests Test 03/28/17 19:17 White Blood Count 10.8 x10^3/uL (4.0-11.0) Red Blood Count 4.19 x10^6/uL (4.30-5.70) L Hemoglobin 12.5 g/dL (13.0-17.5) L Hematocrit 38.6 % (39.0-53.0) L Mean Corpuscular Volume 92 fL (79-100) Mean Corpuscular Hemoglobin 30 pg (25-35) Mean Corpuscular Hemoglobin Concent 32 g/dL (31-37) Red Cell Distribution Width 15.8 % (11.5-14.5) H Platelet Count 305 x10^3/uL (140-400) Neutrophils (%) (Auto) 82 % (31-73) H Lymphocytes (%) (Auto) 7 % (24-48) L Monocytes (%) (Auto) 9 % (0-9) Eosinophils (%) (Auto) 1 % (0-3) Basophils (%) (Auto) 1 % (0-3) Neutrophils # (Auto) 8.8 x10^3uL (1.8-7.7) H Lymphocytes # (Auto) 0.8 x10^3/uL (1.0-4.8) L Monocytes # (Auto) 1.0 x10^3/uL (0.0-1.1) Eosinophils # (Auto) 0.1 x10^3/uL (0.0-0.7) Basophils # (Auto) 0.1 x10^3/uL (0.0-0.2) Sodium Level 135 mmol/L (136-145) L Potassium Level 4.5 mmol/L (3.5-5.1) Chloride Level 98 mmol/L (98-107) Carbon Dioxide Level 28 mmol/L (21-32) Anion Gap 9 (6-14) Blood Urea Nitrogen 27 mg/dL (8-26) H Creatinine 1.2 mg/dL (0.7-1.3) Estimated GFR (Cockcroft-Gault) 59.3 BUN/Creatinine Ratio 23 (6-20) H Glucose Level 169 mg/dL (70-99) H Lactic Acid Level 1.5 mmol/L (0.4-2.0) Calcium Level 9.0 mg/dL (8.5-10.1) Total Bilirubin 0.7 mg/dL (0.2-1.0) Aspartate Amino Transferase (AST) 25 U/L (15-37) Alanine Aminotransferase (ALT) 15 U/L (16-63) L Alkaline Phosphatase 103 U/L (46-116) Troponin I Quantitative 0.023 ng/mL (0.000-0.055) SO-Xxj-W-Type Natriuretic Peptide 6429 pg/mL (0-124) H Total Protein 7.1 g/dL (6.4-8.2) Albumin 2.7 g/dL (3.4-5.0) L Albumin/Globulin Ratio 0.6 (1.0-1.7) L Laboratory Tests 03/28/17 19:17 Laboratory Tests 03/28/17 19:17 EKG EKG [] Interpretation Time: EKG reveals sinus rhythm with nonspecific ST-T wave abnormalities at a heart rate of 99. No evidence of ST elevation [place]. Rest x-ray reveals normal heart no infiltrates or effusions increase in full station and fullness in the upper lobes. Could be consistent with pulmonary congestion. Interpreted by ADRIANA Bal Radiology/Procedures Radiology/Procedures [] Course & Med Decision Making Course & Med Decision Making Pertinent Labs and Imaging studies reviewed. (See chart for details) [] Dragon Disclaimer Dragon Disclaimer This electronic medical record was generated, in whole or in part, using a voice recognition dictation system. Departure Departure Impression: Primary Impression: Pulmonary edema Additional Impressions: Hypoxia CHF (congestive heart failure) Disposition: ADMITTED INPATIENT Admitting Physician: Estrada Hansen Condition: GUARDED Referrals: ESTRADA HANSEN MD (PCP) Problem Qualifiers ACE LEA MD Mar 28, 2017 22:11
[2017-03-28] MEDS ORDERED: FUROSEMIDE 40 MG/4 ML VIAL. IVP ONE (22:15)
[2017-03-28 22:35] LABS: BILIRUBIN,URINE NEGATIVE (NEG); GLUCOSE,URINE NEGATIVE (NEG); NITRITE,URINE NEGATIVE (NEG); PH,URINE 5.5; PROTEIN,URINE 30 mg/dL (NEG-TRACE); UROBILINOGEN,URINE 0.2 mg/dL (0.2 mg/dL)
[2017-03-28 22:45] LABS: BACTERIA,URINE 0 /HPF (0-FEW); RBC,URINE >40 /HPF (0-2); SQUAMOUS EPITHELIAL CELL,UR OCC /LPF; WBC,URINE OCC /HPF (0-4)
[2017-03-28 23:30] VITALS: BP 113/80
[2017-03-29] MEDS ORDERED: INFLUENZA VAX SCREEN BY RX. MC PRN (02:00)
[2017-03-29 03:00] VITALS: BP 121/73
[2017-03-29 07:00] VITALS: BP 122/77
[2017-03-29] MEDS ORDERED: DEXTROSE 50% 25 GM / 50ML DISP.SYRIN. IV PRN (09:00)
[2017-03-29] MEDS ORDERED: CLOPIDOGREL BISULFATE 75 MG TABLET PO SCH (09:00)
[2017-03-29] MEDS ORDERED: METOPROLOL TART IMMED RELEASE 50 MG TABLET. PO SCH (09:00)
[2017-03-29] MEDS ORDERED: FLU VACC QS2017-18 (36MOS+)/PF 0.5 ML SYRINGE. VAX IM ONE (09:00)
--- NOTE | 2017-03-29 09:25 | PDOC ---
Provider Note Provider Note [id number] ESTRADA MORELAND MD Mar 29, 2017 09:25
[2017-03-29] MEDS ORDERED: amLODIPine BESYLATE 10 MG TABLET PO SCH (09:30)
[2017-03-29] MEDS ORDERED: LISINOPRIL 10 MG TABLET PO SCH (09:30)
--- NOTE | 2017-03-29 09:45 | RAD ---
AP portable chest radiograph 03/28/2017 Clinical History: Left-sided chest pain since earlier today. An AP portable erect digital radiograph of the chest was obtained. Comparison study is dated 01/30/2017. Surgical changes are seen consistent with a CABG procedure. The cardiac silhouette is mildly enlarged. The thoracic aorta is mildly tortuous. Atherosclerotic calcification of the thoracic aorta is seen. No acute pulmonary infiltrate is seen. No pleural effusion or pneumothorax is noted. The osseous structures are unchanged. Impression: No acute abnormality is seen.
[2017-03-29] MEDS: DOCUSATE SODIUM 100 MG CAPSULE. PO SCH ×2 (09:53→21:45)
[2017-03-29] MEDS: ASPIRIN ENTERIC COATED 325 MG TABLET.DR. PO SCH (09:53)
[2017-03-29] MEDS: POTASSIUM CHLORIDE 10 MEQ TABLET.ER. PO SCH ×2 (09:54→18:02)
[2017-03-29] MEDS: METOPROLOL TART IMMED RELEASE 25 MG TABLET. PO SCH ×2 (09:54→21:46)
[2017-03-29] MEDS: FINASTERIDE 5 MG TABLET. PO SCH (09:55)
[2017-03-29] MEDS: TAMSULOSIN 0.4 MG CAP.ER.24H. PO SCH ×2 (09:55→18:02)
[2017-03-29] MEDS: FUROSEMIDE 40 MG/4 ML VIAL. IVP SCH ×3 (09:56→14:03)
[2017-03-29 11:00] VITALS: BP 103/68
--- NOTE | 2017-03-29 12:46 | EKG ---
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
[2017-03-29] MEDS ORDERED: ALBUMIN HUMAN 25% 100 ML IV ONE (14:15)
[2017-03-29] MEDS ORDERED: ALBUMIN HUMAN 25% 300 ML IV ONE (14:23)
[2017-03-29 15:00] VITALS: BP 93/58
--- NOTE | 2017-03-29 15:19 | PDOC2 ---
CONSULT Date of Consult Date of Consult DATE: 03/29/17 TIME: 15:12 Reason for Consult Reason for Consult: Dyspnea Referring Physician Referring Physician: Dr. Hansen Identification/Chief Complaint Chief Complaint Dyspnea Problems: History of Present Illness Reason for Visit: This patient is a morbidly obese 71-year-old gentleman that I have known for several years. He has known coronary artery disease and had previous CABG done. He has had CHF and peripheral vascular disease. The patient has been treated for problems with the wound to the foot and previous toe amputation. This has not been healing as well as it had been anticipated. He continues to have problems with the foot but he is not very active and essentially he just lays there. The patient came in with significant shortness of breath and he was seen and evaluated in the ER and he was decided to admit him for further care. At the time that I saw him he is mildly confused and complains of shortness of breath, no chest pains, no palpitations. Past Medical History Cardiovascular: AFIB, CAD, CHF, HTN, Hyperlipidemia CENTRAL NERVOUS SYSTEM: Carpal Tunnel Syndrome, Periperal neuropathy GI: Constipation, GERD, Gastritis, Peptic Ulcer disease, Other Psych: Anxiety, Depression Musculoskeletal: low back pain, Osteoarthritis Renal/: Benign prostatic enlarg. Endocrine: Diabetes Past Surgical History Past Surgical History: CABG, Cataract Removal, Tonsillectomy, Other Family History Family History: Coronary Artery Disease, Depression, Diabetes, Heart Disease, High Cholestrol, Hypertension Social History ALCOHOL: none Drugs: None Current Problem List Problem List Problems Medical Problems: (1) CHF (congestive heart failure) Status: Acute (2) Hypoxia Status: Acute (3) Pulmonary edema Status: Acute Current Medications Current Medications Current Medications Albuterol/ Ipratropium (Duoneb) 3 ml 1X ONCE NEB Last administered on 21:22; Start 03/28/17 at 21:15; Stop 03/28/17 at 21:16; Status DC Methylprednisolone Sodium Succinate (SOLU-Medrol 125MG VIAL) 125 mg 1X ONCE IV Last administered on 03/28/17 21:18; Start 03/28/17 at 21:15; Stop 03/28/17 at 21:16; Status DC Furosemide (Lasix) 40 mg 1X ONCE IVP Last administered on 03/28/17 22:21; Start 03/28/17 at 22:15; Stop 03/28/17 at 22:16; Status DC Influenza Virus Vaccine Quadrival (Fluarix Quad 6105-2551 Syringe) 0.5 ml ONCE ONCE VAX IM ; Start 03/29/17 at 09:00; Stop 03/29/17 at 09:01; Status DC Info (Do NOT chart on this placeholder) 1 each PRN 1X PRN MC SEE COMMENTS; Start 03/29/17 at 02:00; Status Cancel Amlodipine Besylate (Norvasc) 10 mg DAILY PO Last administered on 03/29/17 09: 54; Start 03/29/17 at 09:30 Aspirin (Ecotrin) 325 mg DAILY PO Last administered on 03/29/17 09:53; Start 03/29/17 at 09:30 Citalopram Hydrobromide (CeleXA) 20 mg HS PO ; Start 03/29/17 at 21:00 Clopidogrel Bisulfate (Plavix) 75 mg BID PO ; Start 03/29/17 at 09:00; Stop at 09:00; Status DC Docusate Sodium (Colace) 200 mg BID PO Last administered on 03/29/17 09:53; Start 03/29/17 at 09:30 Finasteride (Proscar) 5 mg DAILY PO Last administered on 03/29/17 09:55; Start 03/29/17 at 09:30 Metoprolol Tartrate (Lopressor) 12.5 mg BID PO ; Start 03/29/17 at 09:00; Stop 03/29/17 at 09:00; Status DC Tamsulosin HCl (Flomax) 0.4 mg HS PO ; Start 03/29/17 at 21:00; Stop 03/29/17 at 21:00; Status DC Non-Formulary Medication 10 meq DAILY08 PO ; Start 03/30/17 at 08:00; Stop 03/30 at 08:00; Status DC Metoprolol Tartrate (Lopressor) 25 mg BID PO Last administered on 03/29/17 09: 54; Start 03/29/17 at 09:30 Potassium Chloride (Klor-Con) 10 meq BIDAFTMEAL PO Last administered on 09:54; Start 03/29/17 at 09:30 Lisinopril (Prinivil) 10 mg DAILY PO Last administered on 03/29/17 09:55; Start 03/29/17 at 09:30 Clopidogrel Bisulfate (Plavix) 75 mg DAILY16 PO ; Start 03/29/17 at 16:00 Dextrose (Dextrose 50%-Water Syringe) 12.5 gm PRN Q15MIN PRN IV SEE COMMENTS; Start 03/29/17 at 09:00 Insulin Detemir (Levemir) 15 units QHS SQ ; Start 03/29/17 at 21:00 Furosemide (Lasix) 40 mg BID92 IVP Last administered on 03/29/17 09:56; Start 03/29/17 at 10:00; Stop 03/29/17 at 14:20; Status DC Tamsulosin HCl (Flomax) 0.4 mg BIDAFTMEAL PO Last administered on 03/29/17 09: 55; Start 03/29/17 at 10:00 Cefazolin Sodium 1 gm/Sodium Chloride 50 ml @ 100 mls/hr Q8HRS IV Last administered on 03/29/17 14:03; Start 03/29/17 at 14:00 Furosemide (Lasix) 60 mg BID66 IVP ; Start 03/29/17 at 18:00; Stop 03/30/17 at 18:01 Albumin Human 100 ml @ 100 mls/hr 1X ONCE IV ; Start 03/29/17 at 14:15; Stop 03/29/17 at 15:14; Status Cancel Albumin Human 300 ml @ 300 mls/hr 1X ONCE IV ; Start 03/29/17 at 14:23; Stop 03/29/17 at 15:14; Status Cancel Albumin Human 50 ml @ 100 mls/hr BID@0530,1730 IV ; Start 03/29/17 at 17:30; Stop 03/30/17 at 17:59 Active Scripts Active Reported Clopidogrel (Clopidogrel Bisulfate) 75 Mg Tablet 1 Tab PO BID Aspirin Ec (Aspirin) 325 Mg Tablet.dr 1 Tab PO DAILY [regranex] 0.01 % TOP DAILY06 Celexa (Citalopram Hydrobromide) 20 Mg Tablet 1 Tab PO HS Amlodipine Besylate 10 Mg Tablet 10 Mg PO DAILY Tamsulosin Hcl 0.4 Mg Cap.er.24h 0.4 Mg PO HS Potassium Chloride 10 Meq Capsule.er 10 Meq PO DAILY08 Colace (Docusate Sodium) 100 Mg Capsule 200 Mg PO BID Lantus (Insulin Glargine,Hum.rec.anlog) 100 Unit/1 Ml Vial 120 Unit SQ DAILY08 Multi Vitamin Daily (Multivitamin) 1 Each Tablet 1 Each PO DAILY Lasix (Furosemide) 20 Mg Tablet 40 Mg PO DAILY Finasteride 5 Mg Tablet 5 Mg PO DAILY Metoprolol Tartrate 50 Mg Tablet 12.5 Mg PO BID Allergies Allergies: Coded Allergies: No Known Drug Allergies (Unverified , 11/11/14) Physical Exam Physical Exam This patient is a morbidly obese gentleman that is mildly confused. HEENT pupils are reactive, oral mucosa well-hydrated. Neck 2 cm JVD. Lungs breath sounds are decreased and there are bilateral rales present. Heart irregularly irregular, S1, S2. Abdomen is protuberant and soft bowel sounds are present extremities 2+ edema. There is a dressing present on the left leg from the calf down to the toes. Vitals VITALS Vital Signs Date Time Temp Pulse Resp B/P (MAP) Pulse Ox O2 Delivery O2 Flow Rate FiO2 03/29/17 11:00 98.1 88 20 103/68 (80) 98 98.1 03/29/17 07:30 Room Air 03/28/17 23:30 2.0 Labs Labs Laboratory Tests Test 03/28/17 19:17 03/28/17 22:25 White Blood Count 10.8 x10^3/uL (4.0-11.0) Red Blood Count 4.19 x10^6/uL (4.30-5.70) Hemoglobin 12.5 g/dL (13.0-17.5) Hematocrit 38.6 % (39.0-53.0) Mean Corpuscular Volume 92 fL (79-100) Mean Corpuscular Hemoglobin 30 pg (25-35) Mean Corpuscular Hemoglobin Concent 32 g/dL (31-37) Red Cell Distribution Width 15.8 % (11.5-14.5) Platelet Count 305 x10^3/uL (140-400) Neutrophils (%) (Auto) 82 % (31-73) Lymphocytes (%) (Auto) 7 % (24-48) Monocytes (%) (Auto) 9 % (0-9) Eosinophils (%) (Auto) 1 % (0-3) Basophils (%) (Auto) 1 % (0-3) Neutrophils # (Auto) 8.8 x10^3uL (1.8-7.7) Lymphocytes # (Auto) 0.8 x10^3/uL (1.0-4.8) Monocytes # (Auto) 1.0 x10^3/uL (0.0-1.1) Eosinophils # (Auto) 0.1 x10^3/uL (0.0-0.7) Basophils # (Auto) 0.1 x10^3/uL (0.0-0.2) Sodium Level 135 mmol/L (136-145) Potassium Level 4.5 mmol/L (3.5-5.1) Chloride Level 98 mmol/L (98-107) Carbon Dioxide Level 28 mmol/L (21-32) Anion Gap 9 (6-14) Blood Urea Nitrogen 27 mg/dL (8-26) Creatinine 1.2 mg/dL (0.7-1.3) Estimated GFR (Cockcroft-Gault) 59.3 BUN/Creatinine Ratio 23 (6-20) Glucose Level 169 mg/dL (70-99) Lactic Acid Level 1.5 mmol/L (0.4-2.0) Calcium Level 9.0 mg/dL (8.5-10.1) Total Bilirubin 0.7 mg/dL (0.2-1.0) Aspartate Amino Transf (AST/SGOT) 25 U/L (15-37) Alanine Aminotransferase (ALT/SGPT) 15 U/L (16-63) Alkaline Phosphatase 103 U/L (46-116) Troponin I Quantitative 0.023 ng/mL (0.000-0.055) ZK-[id number]-E-Type Natriuretic Peptide 6429 pg/mL (0-124) Total Protein 7.1 g/dL (6.4-8.2) Albumin 2.7 g/dL (3.4-5.0) Albumin/Globulin Ratio 0.6 (1.0-1.7) Urine Collection Type Unknown Urine Color Dk yellow Urine Clarity Cloudy Urine pH 5.5 Urine Specific [place] 1.020 Urine Protein 30 mg/dL (NEG-TRACE) Urine Glucose (UA) Negative mg/dL (NEG) Urine Ketones (Stick) 15 mg/dL (NEG) Urine Blood Large (NEG) Urine Nitrite Negative (NEG) Urine Bilirubin Negative (NEG) Urine Urobilinogen Dipstick 0.2 mg/dL (0.2 mg/dL) Urine Leukocyte Esterase Trace (NEG) Urine RBC >40 /HPF (0-2) Urine WBC Occ /HPF (0-4) Urine Squamous Epithelial Cells Occ /LPF Urine Bacteria 0 /HPF (0-FEW) Urine Hyaline Casts Few /HPF Urine Mucus Mod /LPF Laboratory Tests Test 03/28/17 19:17 03/28/17 22:25 White Blood Count 10.8 x10^3/uL (4.0-11.0) Red Blood Count 4.19 x10^6/uL (4.30-5.70) Hemoglobin 12.5 g/dL (13.0-17.5) Hematocrit 38.6 % (39.0-53.0) Mean Corpuscular Volume 92 fL (79-100) Mean Corpuscular Hemoglobin 30 pg (25-35) Mean Corpuscular Hemoglobin Concent 32 g/dL (31-37) Red Cell Distribution Width 15.8 % (11.5-14.5) Platelet Count 305 x10^3/uL (140-400) Neutrophils (%) (Auto) 82 % (31-73) Lymphocytes (%) (Auto) 7 % (24-48) Monocytes (%) (Auto) 9 % (0-9) Eosinophils (%) (Auto) 1 % (0-3) Basophils (%) (Auto) 1 % (0-3) Neutrophils # (Auto) 8.8 x10^3uL (1.8-7.7) Lymphocytes # (Auto) 0.8 x10^3/uL (1.0-4.8) Monocytes # (Auto) 1.0 x10^3/uL (0.0-1.1) Eosinophils # (Auto) 0.1 x10^3/uL (0.0-0.7) Basophils # (Auto) 0.1 x10^3/uL (0.0-0.2) Sodium Level 135 mmol/L (136-145) Potassium Level 4.5 mmol/L (3.5-5.1) Chloride Level 98 mmol/L (98-107) Carbon Dioxide Level 28 mmol/L (21-32) Anion Gap 9 (6-14) Blood Urea Nitrogen 27 mg/dL (8-26) Creatinine 1.2 mg/dL (0.7-1.3) Estimated GFR (Cockcroft-Gault) 59.3 BUN/Creatinine Ratio 23 (6-20) Glucose Level 169 mg/dL (70-99) Lactic Acid Level 1.5 mmol/L (0.4-2.0) Calcium Level 9.0 mg/dL (8.5-10.1) Total Bilirubin 0.7 mg/dL (0.2-1.0) Aspartate Amino Transf (AST/SGOT) 25 U/L (15-37) Alanine Aminotransferase (ALT/SGPT) 15 U/L (16-63) Alkaline Phosphatase 103 U/L (46-116) Troponin I Quantitative 0.023 ng/mL (0.000-0.055) IY-Nrn-X-Type Natriuretic Peptide 6429 pg/mL (0-124) Total Protein 7.1 g/dL (6.4-8.2) Albumin 2.7 g/dL (3.4-5.0) Albumin/Globulin Ratio 0.6 (1.0-1.7) Urine Collection Type Unknown Urine Color Dk yellow Urine Clarity Cloudy Urine pH 5.5 Urine Specific [place] 1.020 Urine Protein 30 mg/dL (NEG-TRACE) Urine Glucose (UA) Negative mg/dL (NEG) Urine Ketones (Stick) 15 mg/dL (NEG) Urine Blood Large (NEG) Urine Nitrite Negative (NEG) Urine Bilirubin Negative (NEG) Urine Urobilinogen Dipstick 0.2 mg/dL (0.2 mg/dL) Urine Leukocyte Esterase Trace (NEG) Urine RBC >40 /HPF (0-2) Urine WBC Occ /HPF (0-4) Urine Squamous Epithelial Cells Occ /LPF Urine Bacteria 0 /HPF (0-FEW) Urine Hyaline Casts Few /HPF Urine Mucus Mod /LPF Assessment/Plan Assessment/Plan This patient comes in with acute on chronic CHF secondary to systolic and diastolic dysfunction. He tends to third space fluid and in the past it has been difficult to diurese him therefore I would recommend to give him albumin 25% to 100 mL and Lasix 60 mg IV push and to do this every 12 hours 3 doses and then depending on how he does decide about further treatment. The treatment of the leg and the foot is being done by the vascular surgeons. I will be happy to follow the patient with you. Thank you very much for asking me to participate in the care of this patient. OSVALDO VELA MD Mar 29, 2017 15:19
[2017-03-29] MEDS: CLOPIDOGREL BISULFATE 75 MG TABLET PO SCH (16:12)
[2017-03-29] MEDS: ALBUMIN HUMAN 25% 50 ML IV SCH (17:36)
[2017-03-29] MEDS ORDERED: VANCOMYCIN 2 GM in IV NORMAL SALINE 500ML BAG 500 ML IV ONE (18:00)
[2017-03-29] MEDS ORDERED: INSULIN ASPART 300 UNITS/3 ML INSULN.PEN SQ ONE (18:15)
[2017-03-29] MEDS: FUROSEMIDE 100 MG/10 ML VIAL. IVP SCH (18:17)
--- NOTE | 2017-03-29 18:17 | PDOC ---
Infectious Disease Note Vital Sign Vital Signs Vital Signs Date Time Temp Pulse Resp B/P (MAP) Pulse Ox O2 Delivery O2 Flow Rate FiO2 03/29/17 15:00 97.9 72 20 93/58 (70) 98 97.9 03/29/17 07:30 Room Air 03/28/17 23:30 2.0 Labs Lab Laboratory Tests Test 03/28/17 19:17 03/28/17 22:25 White Blood Count 10.8 x10^3/uL (4.0-11.0) Red Blood Count 4.19 x10^6/uL (4.30-5.70) Hemoglobin 12.5 g/dL (13.0-17.5) Hematocrit 38.6 % (39.0-53.0) Mean Corpuscular Volume 92 fL (79-100) Mean Corpuscular Hemoglobin 30 pg (25-35) Mean Corpuscular Hemoglobin Concent 32 g/dL (31-37) Red Cell Distribution Width 15.8 % (11.5-14.5) Platelet Count 305 x10^3/uL (140-400) Neutrophils (%) (Auto) 82 % (31-73) Lymphocytes (%) (Auto) 7 % (24-48) Monocytes (%) (Auto) 9 % (0-9) Eosinophils (%) (Auto) 1 % (0-3) Basophils (%) (Auto) 1 % (0-3) Neutrophils # (Auto) 8.8 x10^3uL (1.8-7.7) Lymphocytes # (Auto) 0.8 x10^3/uL (1.0-4.8) Monocytes # (Auto) 1.0 x10^3/uL (0.0-1.1) Eosinophils # (Auto) 0.1 x10^3/uL (0.0-0.7) Basophils # (Auto) 0.1 x10^3/uL (0.0-0.2) Sodium Level 135 mmol/L (136-145) Potassium Level 4.5 mmol/L (3.5-5.1) Chloride Level 98 mmol/L (98-107) Carbon Dioxide Level 28 mmol/L (21-32) Anion Gap 9 (6-14) Blood Urea Nitrogen 27 mg/dL (8-26) Creatinine 1.2 mg/dL (0.7-1.3) Estimated GFR (Cockcroft-Gault) 59.3 BUN/Creatinine Ratio 23 (6-20) Glucose Level 169 mg/dL (70-99) Lactic Acid Level 1.5 mmol/L (0.4-2.0) Calcium Level 9.0 mg/dL (8.5-10.1) Total Bilirubin 0.7 mg/dL (0.2-1.0) Aspartate Amino Transf (AST/SGOT) 25 U/L (15-37) Alanine Aminotransferase (ALT/SGPT) 15 U/L (16-63) Alkaline Phosphatase 103 U/L (46-116) Troponin I Quantitative 0.023 ng/mL (0.000-0.055) PW-Lzo-E-Type Natriuretic Peptide 6429 pg/mL (0-124) Total Protein 7.1 g/dL (6.4-8.2) Albumin 2.7 g/dL (3.4-5.0) Albumin/Globulin Ratio 0.6 (1.0-1.7) Urine Collection Type Unknown Urine Color Dk yellow Urine Clarity Cloudy Urine pH 5.5 Urine Specific [place] 1.020 Urine Protein 30 mg/dL (NEG-TRACE) Urine Glucose (UA) Negative mg/dL (NEG) Urine Ketones (Stick) 15 mg/dL (NEG) Urine Blood Large (NEG) Urine Nitrite Negative (NEG) Urine Bilirubin Negative (NEG) Urine Urobilinogen Dipstick 0.2 mg/dL (0.2 mg/dL) Urine Leukocyte Esterase Trace (NEG) Urine RBC >40 /HPF (0-2) Urine WBC Occ /HPF (0-4) Urine Squamous Epithelial Cells Occ /LPF Urine Bacteria 0 /HPF (0-FEW) Urine Hyaline Casts Few /HPF Urine Mucus Mod /LPF Objective Assessment 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 -hx Prevotella, E. faecalis & E. avium from 03/10 -hx MSSA and bone exposure s/p debridement 02/10. Acute encephalopathy. Lactic acid 1.5 Leukocytosis (WBC 12.9 on 03/28). PVD s/p angioplasty of anterior tibial artery, 02/06 Zocur-bq-zleqrha CHF Morbid obesity Plan Plan of Care D/c cefazolin Dose vanc and Zosyn Check ESR Wound culture Consult Dr. Curry, ortho Await wound care eval monitor labs f/u cultures Reviewed previous [facility] records Reviewed records from [facility] D/w [facility] RN D/w patient Patient seen and examined. Chart reviewed in detail. Case discussed with TRAVEL RN OR. Agree with above plan. HIGINIO HARRIS APRN Mar 29, 2017 18:17 MONTSE CRESPO MD Mar 29, 2017 21:09
[2017-03-29] MEDS: PIPERACILLIN/TAZOBACTAM 3.375 GM in IV NORMAL SALINE 50ML 50 ML IV SCH ×2 (18:19→23:43)
[2017-03-29 19:00] VITALS: BP 108/72
[2017-03-29] MEDS: VANCOMYCIN PER PHARMACY MC PRN (20:00)
--- NOTE | 2017-03-29 20:13 | HP ---
ADMIT DATE: 03/28/2017 CHIEF COMPLAINT: Shortness of breath. HISTORY OF PRESENT ILLNESS: A 71-year-old white male has a history of moderate cardiomyopathy and also osteomyelitis of the left fifth metatarsal and diabetes. He has been at [facility] for the last 6 weeks with IV Ancef. Apparently, the foot is not improving and he is scheduled to see a cot assembler with a possibility of further surgery versus consideration of a BKA. He developed increasing shortness of breath and confusion in the last 24 hours. Chest x-ray showed cardiomegaly, but no acute infiltrate and IV Lasix was given and he seems to be improved in his breathing. PAST MEDICAL HISTORY: Multiple admissions. He is on low dose Lantus for diabetes. He is on aspirin and Plavix after a coronary stent in January and his cardiomyopathy is moderate with a last ejection fraction in January of 35%. ALLERGIES: No allergies are known. IMMUNIZATIONS: Up-to-date. SOCIAL HISTORY: Nonsmoker, nondrinker, , physically inactive, sedentary. FAMILY HISTORY: Unremarkable. REVIEW OF SYSTEMS: No other complaints. OBJECTIVE: ENT: Mild pallor. Otherwise, all within normal limits. NECK: No JVD, nodes, thyroid enlargement or masses. LUNGS: Decreased breath sounds with some upper airway rhonchi, no tachypnea at rest. CARDIOVASCULAR: Regular rate. Heart tones distant, rate is about 80. ABDOMEN: Obese, soft, benign and nontender. EXTREMITIES: He has a large dressing on the left foot. Pedal pulses on the right seemed to be normal as to the upper extremities. NEUROLOGIC: Physiologic and nonfocal. LABORATORY STUDIES: Showed microhematuria. ASSESSMENT: 1. Increasing cough and dyspnea, suspect exacerbation of congestive heart failure. He has underlying and moderate cardiomyopathy and history of coronary disease and recent coronary artery stenting. 2. Microhematuria, chronic etiology undetermined. He has a history of benign prostatic hypertrophy with positive ____ symptoms. 3. Ongoing osteomyelitis of the left distal foot with evidence of poor healing and known peripheral arterial disease. 4. Insulin-dependent diabetes level, controlled and improved since he has been on calorie reduction and weight loss. PLAN: DNR per family request. Abdominal sonogram to evaluate the kidneys and bladder regarding microhematuria. Further Lasix, consultations obtained and a consideration of below knee amputation must be in play as this poor healing of his left foot due to peripheral arterial disease is the #1 underlying problem. ESTRADA MORELAND MD DR: CHRISTOPHER/leonardo JOB#: [id number] / [id number]
[2017-03-29] MEDS ORDERED: TAMSULOSIN 0.4 MG CAP.ER.24H. PO SCH (21:00)
--- NOTE | 2017-03-29 21:18 | CONS ---
DATE OF CONSULTATION: 03/29/2017 REFERRING PHYSICIAN: Dr. Hansen. REASON FOR CONSULTATION: Osteomyelitis of left foot. Source of information obtained from the medical record and the patient's . HISTORY OF PRESENT ILLNESS: This patient is a 71-year-old male with a past medical history of morbid obesity, peripheral vascular disease and diabetes. He is known to our service for a MSSA infection of a left foot wound with bone exposure seen in February. He underwent an angioplasty of the left anterior tibial artery, followed by irrigation and debridement down to bone with excision of necrotic tissue performed by john Walsh. He was discharged to [facility] to continue a 6-week course of cefazolin. He was followed regularly by [facility]. A repeat wound culture from March 10 grew Prevotella species, Enterococcus faecalis, penicillin-sensitive and Enterococcus avium, penicillin-sensitive. He had a repeat MRI on March 23, which showed findings suspicious for early osteomyelitis of the proximal portion of the fifth metatarsal. According to [facility] nurse, the antibiotics have been extended out. The patient is reportedly scheduled for further debridement on April 08. The patient was readmitted yesterday for acute on chronic congestive heart failure. He is being followed by Cardiology. The patient has been confused. He has elevated white blood cell count of 12,900 on the , which has since improved. Lactic acid level was 1.5. A urinalysis was unremarkable for infection with negative growth on culture. Blood cultures are pending. He has a right upper extremity PICC that was present on admission. There has been no fevers, vomiting or diarrhea reported. The patient denies pain or difficulty breathing. He is on supplemental oxygen. PAST MEDICAL HISTORY: MSSA infection of left foot wound with exposed bone, status post irrigation and debridement on 02/10/2017. Peripheral vascular disease, status post angioplasty, left anterior tibial artery 02/06/2017. Diabetes mellitus, morbid obesity, coronary artery disease, congestive heart failure, hypertension, hyperlipidemia, carpal tunnel syndrome, heart attack, valvular heart disease, cardiomyopathy, atrial fibrillation, sleep apnea, pancreatitis, gastroesophageal reflux disease, kidney stones, benign prostate hyperplasia, osteoarthritis, depression. 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 FAMILY HISTORY: Positive for coronary artery disease, depression, diabetes, high cholesterol, hypertension and autoimmune disease. SOCIAL HISTORY: The patient is . He was residing at a assisted facility prior to this admission. Former smoker. ALLERGIES: No known drug allergies. MEDICATIONS: Cefazolin, methylprednisolone x 1 dose on March 28. Other medications are available and have been reviewed on the SEP. REVIEW OF SYSTEMS: Per HPI. Otherwise, review of systems are limited as patient is confused and sleepy. PHYSICAL EXAMINATION: GENERAL: Overweight male, lying in bed in no apparent distress. VITAL SIGNS: Temperature is 97.9, blood pressure 93/58, heart rate 72, respiratory rate 20, pulse oximetry is 98% on 2 liters nasal cannula. Weight is 212 pounds, BMI 28. HEENT: Pupils equally round. Normal conjunctivae. Oral mucosa is pink and dry. NECK: Supple. LUNGS: Diminished aeration in the bases. Nonlabored. HEART: Normal S1 and S2. ABDOMEN: Obese, bowel sounds are present. Soft. No grimace or guarding to palpation. EXTREMITIES: No gross edema or cyanosis. He has a left lateral wound with exposed bone and undermining along with purulent odorous drainage. SKIN: Without rash. NEUROLOGIC: Arouses easily to name. Oriented to place and year. Recognize his family members and follows commands. Poor historian. Decreased attention span. LINES: RUE -- PICC. Clean. LABORATORY DATA: Recent WBC 10.8, hemoglobin 12.5, platelet count 305,000. Creatinine 1.2, BUN 27. Sodium 135, potassium 4.5, glucose 169. Lactic acid 1.5. AST 25, ALT 15, total bilirubin 0.7. Troponin 0.023. BNP 6429, albumin 2.7. Urinalysis per HPI. MRSA screen, nares and blood cultures are pending. Chest x-ray showed no acute pulmonary infiltrate, pleural effusion or pneumothorax. Renal ultrasound pending. IMPRESSION: 1. Infected diabetic wound of left foot with osteomyelitis of left fifth metatarsal on MRI from March 23. 2. Acute encephalopathy. 3. Leukocytosis. 4. Peripheral vascular disease, status post angioplasty on 02/06/2017. 5. Acute on chronic congestive heart failure. 6. Morbid obesity. PLAN: Change antibiotic to vancomycin and Zosyn for broader coverage. Repeat wound culture and consult john Walsh. We will check a sed rate as well. Monitor laboratory values and await culture results. Await wound care team evaluation. Records from [facility] were reviewed. Discussed with the patient's . Thank you, Dr. Hansen for asking us to participate in this patient's care. Should you have further questions or concerns, please call. MONTSE CRESPO MD DR: JAIRO/leonardo JOB#: [id number] / [id number]
[2017-03-29] MEDS: CITALOPRAM 20 MG TABLET. PO SCH (21:45)
[2017-03-29] MEDS: INSULIN DETEMIR 300 UNITS/3 ML INSULN.PEN. SQ SCH (21:49)
[2017-03-29] MEDS: IBUPROFEN 400 MG TABLET. PO PRN (22:23)
[2017-03-29 23:00] VITALS: BP 99/57
[2017-03-30 03:00] VITALS: BP 97/58
[2017-03-30] MEDS: ALBUMIN HUMAN 25% 50 ML IV SCH ×2 (05:43→17:30)
[2017-03-30] MEDS: FUROSEMIDE 100 MG/10 ML VIAL. IVP SCH ×2 (06:00→18:00)
[2017-03-30] MEDS: PIPERACILLIN/TAZOBACTAM 3.375 GM in IV NORMAL SALINE 50ML 50 ML IV SCH ×4 (06:24→23:18)
[2017-03-30 07:00] VITALS: BP 94/64
--- NOTE | 2017-03-30 07:36 | RAD ---
EXAM: Renal/retroperitonal ultrasound HISTORY: Hematuria. COMPARISON: None. FINDINGS: Ultrasound of the kidneys, bladder and retroperitoneum was performed. Visualization is limited. The right kidney measures 11.2 cm. Cortical thickness and echogenicity are preserved. There is no hydronephrosis. The left kidney measures 11.9 cm. Cortical thickness and echogenicity are preserved. There is no hydronephrosis. Images of the bladder echogenic debris dependently. No clear solid mass is seen. The liver appears enlarged and hyperechoic consistent with diffuse hepatic steatosis. IMPRESSION: 1. Echogenic debris within the bladder. Correlate for gross hematuria or infection. Cystoscopy could exclude a mass if there is persistent concern. 2. Hepatomegaly and diffuse hepatic steatosis. 3. Unremarkable examination of the kidneys. No hydronephrosis.
[2017-03-30] MEDS ORDERED: NON FORMULARY ITEM (Potassium Chloride 10 MEQ) PO SCH (08:00)
[2017-03-30 08:23] LABS: CALCIUM 8.6 mg/dL (8.5-10.1); CREATININE 1.4 mg/dL (0.7-1.3); GFR 49.7; POTASSIUM 4.5 mmol/L (3.5-5.1)
--- NOTE | 2017-03-30 08:29 | PDOC ---
Provider Note Provider Note vss, bp lower, less dyspnea- lab pending- will reduce norvsac/lisin re lower bp , cont some diuresis ,follow renal- bladder sono shows debris, no hydro- needs cystoscopy but will have to go elsewhere for same- d/w ESTRADA MORELAND MD Mar 30, 2017 08:28
--- NOTE | 2017-03-30 08:50 | PDOC ---
ORTHO PROGRESS NOTES Subjective Admitted for worsening SOB, a little better this am. Still drowsy Vitals Vital Signs Date Time Temp Pulse Resp B/P (MAP) Pulse Ox O2 Delivery O2 Flow Rate FiO2 03/30/17 03:00 67 20 97/58 (71) 98 BiPAP/CPAP 03/29/17 23:00 98.0 98.0 Labs Laboratory Tests Test 03/28/17 19:17 03/28/17 22:25 03/29/17 00:50 03/29/17 18:50 White Blood Count 10.8 x10^3/uL (4.0-11.0) Red Blood Count 4.19 x10^6/uL (4.30-5.70) Hemoglobin 12.5 g/dL (13.0-17.5) Hematocrit 38.6 % (39.0-53.0) Mean Corpuscular Volume 92 fL (79-100) Mean Corpuscular Hemoglobin 30 pg (25-35) Mean Corpuscular Hemoglobin Concent 32 g/dL (31-37) Red Cell Distribution Width 15.8 % (11.5-14.5) Platelet Count 305 x10^3/uL (140-400) Neutrophils (%) (Auto) 82 % (31-73) Lymphocytes (%) (Auto) 7 % (24-48) Monocytes (%) (Auto) 9 % (0-9) Eosinophils (%) (Auto) 1 % (0-3) Basophils (%) (Auto) 1 % (0-3) Neutrophils # (Auto) 8.8 x10^3uL (1.8-7.7) Lymphocytes # (Auto) 0.8 x10^3/uL (1.0-4.8) Monocytes # (Auto) 1.0 x10^3/uL (0.0-1.1) Eosinophils # (Auto) 0.1 x10^3/uL (0.0-0.7) Basophils # (Auto) 0.1 x10^3/uL (0.0-0.2) Sodium Level 135 mmol/L (136-145) Potassium Level 4.5 mmol/L (3.5-5.1) Chloride Level 98 mmol/L (98-107) Carbon Dioxide Level 28 mmol/L (21-32) Anion Gap 9 (6-14) Blood Urea Nitrogen 27 mg/dL (8-26) Creatinine 1.2 mg/dL (0.7-1.3) Estimated GFR (Cockcroft-Gault) 59.3 BUN/Creatinine Ratio 23 (6-20) Glucose Level 169 mg/dL (70-99) Lactic Acid Level 1.5 mmol/L (0.4-2.0) Calcium Level 9.0 mg/dL (8.5-10.1) Total Bilirubin 0.7 mg/dL (0.2-1.0) Aspartate Amino Transf (AST/SGOT) 25 U/L (15-37) Alanine Aminotransferase (ALT/SGPT) 15 U/L (16-63) Alkaline Phosphatase 103 U/L (46-116) Troponin I Quantitative 0.023 ng/mL (0.000-0.055) TB-Kfc-R-Type Natriuretic Peptide 6429 pg/mL (0-124) Total Protein 7.1 g/dL (6.4-8.2) Albumin 2.7 g/dL (3.4-5.0) Albumin/Globulin Ratio 0.6 (1.0-1.7) Urine Collection Type Unknown Urine Color Dk yellow Urine Clarity Cloudy Urine pH 5.5 Urine Specific [place] 1.020 Urine Protein 30 mg/dL (NEG-TRACE) Urine Glucose (UA) Negative mg/dL (NEG) Urine Ketones (Stick) 15 mg/dL (NEG) Urine Blood Large (NEG) Urine Nitrite Negative (NEG) Urine Bilirubin Negative (NEG) Urine Urobilinogen Dipstick 0.2 mg/dL (0.2 mg/dL) Urine Leukocyte Esterase Trace (NEG) Urine RBC >40 /HPF (0-2) Urine WBC Occ /HPF (0-4) Urine Squamous Epithelial Cells Occ /LPF Urine Bacteria 0 /HPF (0-FEW) Urine Hyaline Casts Few /HPF Urine Mucus Mod /LPF Nasal Screen MRSA (PCR) Negative (Negative) Erythrocyte Sedimentation Rate 76 (0-15) Test 03/29/17 21:44 03/30/17 08:02 03/30/17 08:11 Glucose (Fingerstick) 299 mg/dL (70-99) 241 mg/dL (70-99) Sodium Level 137 mmol/L (136-145) Potassium Level 4.5 mmol/L (3.5-5.1) Chloride Level 101 mmol/L (98-107) Carbon Dioxide Level 28 mmol/L (21-32) Anion Gap 8 (6-14) Blood Urea Nitrogen 40 mg/dL (8-26) Creatinine 1.4 mg/dL (0.7-1.3) Estimated GFR (Cockcroft-Gault) 49.7 Glucose Level 258 mg/dL (70-99) Calcium Level 8.6 mg/dL (8.5-10.1) Laboratory Tests Test 03/29/17 18:50 03/29/17 21:44 03/30/17 08:02 03/30/17 08:11 Erythrocyte Sedimentation Rate 76 (0-15) Glucose (Fingerstick) 299 mg/dL (70-99) 241 mg/dL (70-99) Sodium Level 137 mmol/L (136-145) Potassium Level 4.5 mmol/L (3.5-5.1) Chloride Level 101 mmol/L (98-107) Carbon Dioxide Level 28 mmol/L (21-32) Anion Gap 8 (6-14) Blood Urea Nitrogen 40 mg/dL (8-26) Creatinine 1.4 mg/dL (0.7-1.3) Estimated GFR (Cockcroft-Gault) 49.7 Glucose Level 258 mg/dL (70-99) Calcium Level 8.6 mg/dL (8.5-10.1) Notes Drowsy, follows simple commands LLE: open wound over proximal 5th metatarsal, exposed bone. Serous drainage unable to palpate DP Assessment and Plan On my OR schedule for next week I discussed with Zach, he is available this week if anything urgent comes up RICH TIERNEY II, MD Mar 30, 2017 08:50
[2017-03-30] MEDS: METOPROLOL TART IMMED RELEASE 25 MG TABLET. PO SCH (09:00)
[2017-03-30] MEDS ORDERED: amLODIPine BESYLATE 5 MG TABLET PO SCH (09:00)
[2017-03-30] MEDS: DOCUSATE SODIUM 100 MG CAPSULE. PO SCH ×2 (09:00→21:00)
[2017-03-30] MEDS ORDERED: LISINOPRIL 5 MG TABLET. PO SCH (09:00)
[2017-03-30] MEDS: VANCOMYCIN 1.5 GM in IV NORMAL SALINE 500ML BAG 500 ML IV SCH ×2 (09:57→21:01)
[2017-03-30] MEDS: TAMSULOSIN 0.4 MG CAP.ER.24H. PO SCH ×2 (10:01→19:46)
[2017-03-30] MEDS: ASPIRIN ENTERIC COATED 325 MG TABLET.DR. PO SCH (10:01)
[2017-03-30] MEDS: POTASSIUM CHLORIDE 10 MEQ TABLET.ER. PO SCH ×2 (10:02→19:46)
[2017-03-30] MEDS: FINASTERIDE 5 MG TABLET. PO SCH (10:03)
[2017-03-30 11:00] VITALS: BP 89/50
--- NOTE | 2017-03-30 11:54 | PDOC ---
Infectious Disease Note Subjective Subjective feeling good ROS ROS GEN: Denies fevers, chills, sweats HEENT: Denies blurred vision, sore throat CV: Denies chest pain RESP: Denies shortness of air, cough GI: Denies n/v/d NEURO: Denies confusion, dizziness Vital Sign Vital Signs Vital Signs Date Time Temp Pulse Resp B/P (MAP) Pulse Ox O2 Delivery O2 Flow Rate FiO2 03/30/17 11:00 96.7 67 20 89/50 (63) 96 BiPAP/CPAP 96.7 Physical Exam PHYSICAL EXAM GENERAL: NAD, Alert HEENT: PERRL, OC/OP NECK: Supple, no JVD, no LN LUNGS: Clear HEART: S1S2, no gallop, no murmur ABD: Soft, NT, no organomegaly, no rebound EXT: No edema, no cyanosis,, left foot lateral wound ART HISTORY PROFESSOR: Alert, 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, no focal neurologic deficit SKIN: No rash IV: ok Labs Lab Laboratory Tests Test 03/29/17 18:50 03/29/17 21:44 03/30/17 08:02 03/30/17 08:11 Erythrocyte Sedimentation Rate 76 (0-15) Glucose (Fingerstick) 299 mg/dL (70-99) 241 mg/dL (70-99) Sodium Level 137 mmol/L (136-145) Potassium Level 4.5 mmol/L (3.5-5.1) Chloride Level 101 mmol/L (98-107) Carbon Dioxide Level 28 mmol/L (21-32) Anion Gap 8 (6-14) Blood Urea Nitrogen 40 mg/dL (8-26) Creatinine 1.4 mg/dL (0.7-1.3) Estimated GFR (Cockcroft-Gault) 49.7 Glucose Level 258 mg/dL (70-99) Calcium Level 8.6 mg/dL (8.5-10.1) Test 03/30/17 11:26 Glucose (Fingerstick) 258 mg/dL (70-99) Objective Assessment 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 -hx Prevotella, E. faecalis & E. avium from 03/10 -hx MSSA and bone exposure s/p debridement 02/10. Acute encephalopathy. Lactic acid 1.5 Leukocytosis (WBC 12.9 on 03/28). PVD s/p angioplasty of anterior tibial artery, 02/06 [id number] CHF Morbid obesity Plan Plan of Care Dose vanc and Zosyn Check ESR Wound culture Consult Dr. Curry, ortho Await wound care eval monitor labs f/u cultures Reviewed previous [facility] records Reviewed records from [facility] D/w patient CANDE JANSEN MD Mar 30, 2017 11:54
[2017-03-30 15:00] VITALS: BP 113/64
--- NOTE | 2017-03-30 18:52 | PDOC ---
PROGRESS NOTES Subjective Subjective The patient feels better today. Good diuresis with albumin and Lasix. BP labile Objective Objective Vital Signs Date Time Temp Pulse Resp B/P (MAP) Pulse Ox O2 Delivery O2 Flow Rate FiO2 03/30/17 15:00 96.3 79 20 113/64 (80) 95 BiPAP/CPAP 96.3 03/28/17 23:30 2.0 Intake and Output 03/31/17 07:00 Intake Total 320 ml Output Total 8 ml Balance 312 ml Intake Oral 320 ml Output Urine Total 8 ml # Bowel Movements 2 Physical Exam Physical Exam Moving air better. Less edema. Assessment Assessment The CHF is improving. Hypotension has been a problem in the past when we try to diurese him. The patient, the and I had a discussion about his situation as well as the prognosis. Regardless of what treatment if he just sits there and does nothing then the situation is very difficult for his long-term survival. Problems Medical Problems: (1) CHF (congestive heart failure) Status: Acute (2) Hypoxia Status: Acute (3) Pulmonary edema Status: Acute Comment Review of Relevant I have reviewed the following items edwina (where applicable) has been applied. Labs Laboratory Tests Test 03/28/17 19:17 03/28/17 22:25 03/29/17 00:50 03/29/17 18:50 White Blood Count 10.8 x10^3/uL (4.0-11.0) Red Blood Count 4.19 x10^6/uL (4.30-5.70) Hemoglobin 12.5 g/dL (13.0-17.5) Hematocrit 38.6 % (39.0-53.0) Mean Corpuscular Volume 92 fL (79-100) Mean Corpuscular Hemoglobin 30 pg (25-35) Mean Corpuscular Hemoglobin Concent 32 g/dL (31-37) Red Cell Distribution Width 15.8 % (11.5-14.5) Platelet Count 305 x10^3/uL (140-400) Neutrophils (%) (Auto) 82 % (31-73) Lymphocytes (%) (Auto) 7 % (24-48) Monocytes (%) (Auto) 9 % (0-9) Eosinophils (%) (Auto) 1 % (0-3) Basophils (%) (Auto) 1 % (0-3) Neutrophils # (Auto) 8.8 x10^3uL (1.8-7.7) Lymphocytes # (Auto) 0.8 x10^3/uL (1.0-4.8) Monocytes # (Auto) 1.0 x10^3/uL (0.0-1.1) Eosinophils # (Auto) 0.1 x10^3/uL (0.0-0.7) Basophils # (Auto) 0.1 x10^3/uL (0.0-0.2) Sodium Level 135 mmol/L (136-145) Potassium Level 4.5 mmol/L (3.5-5.1) Chloride Level 98 mmol/L (98-107) Carbon Dioxide Level 28 mmol/L (21-32) Anion Gap 9 (6-14) Blood Urea Nitrogen 27 mg/dL (8-26) Creatinine 1.2 mg/dL (0.7-1.3) Estimated GFR (Cockcroft-Gault) 59.3 BUN/Creatinine Ratio 23 (6-20) Glucose Level 169 mg/dL (70-99) Lactic Acid Level 1.5 mmol/L (0.4-2.0) Calcium Level 9.0 mg/dL (8.5-10.1) Total Bilirubin 0.7 mg/dL (0.2-1.0) Aspartate Amino Transf (AST/SGOT) 25 U/L (15-37) Alanine Aminotransferase (ALT/SGPT) 15 U/L (16-63) Alkaline Phosphatase 103 U/L (46-116) Troponin I Quantitative 0.023 ng/mL (0.000-0.055) JW-Iht-Y-Type Natriuretic Peptide 6429 pg/mL (0-124) Total Protein 7.1 g/dL (6.4-8.2) Albumin 2.7 g/dL (3.4-5.0) Albumin/Globulin Ratio 0.6 (1.0-1.7) Urine Collection Type Unknown Urine Color Dk yellow Urine Clarity Cloudy Urine pH 5.5 Urine Specific [place] 1.020 Urine Protein 30 mg/dL (NEG-TRACE) Urine Glucose (UA) Negative mg/dL (NEG) Urine Ketones (Stick) 15 mg/dL (NEG) Urine Blood Large (NEG) Urine Nitrite Negative (NEG) Urine Bilirubin Negative (NEG) Urine Urobilinogen Dipstick 0.2 mg/dL (0.2 mg/dL) Urine Leukocyte Esterase Trace (NEG) Urine RBC >40 /HPF (0-2) Urine WBC Occ /HPF (0-4) Urine Squamous Epithelial Cells Occ /LPF Urine Bacteria 0 /HPF (0-FEW) Urine Hyaline Casts Few /HPF Urine Mucus Mod /LPF Nasal Screen MRSA (PCR) Negative (Negative) Erythrocyte Sedimentation Rate 76 (0-15) Test 03/29/17 21:44 03/30/17 08:02 03/30/17 08:11 03/30/17 11:26 Glucose (Fingerstick) 299 mg/dL (70-99) 241 mg/dL (70-99) 258 mg/dL (70-99) Sodium Level 137 mmol/L (136-145) Potassium Level 4.5 mmol/L (3.5-5.1) Chloride Level 101 mmol/L (98-107) Carbon Dioxide Level 28 mmol/L (21-32) Anion Gap 8 (6-14) Blood Urea Nitrogen 40 mg/dL (8-26) Creatinine 1.4 mg/dL (0.7-1.3) Estimated GFR (Cockcroft-Gault) 49.7 Glucose Level 258 mg/dL (70-99) Calcium Level 8.6 mg/dL (8.5-10.1) Laboratory Tests Test 03/29/17 18:50 03/29/17 21:44 03/30/17 08:02 03/30/17 08:11 Erythrocyte Sedimentation Rate 76 (0-15) Glucose (Fingerstick) 299 mg/dL (70-99) 241 mg/dL (70-99) Sodium Level 137 mmol/L (136-145) Potassium Level 4.5 mmol/L (3.5-5.1) Chloride Level 101 mmol/L (98-107) Carbon Dioxide Level 28 mmol/L (21-32) Anion Gap 8 (6-14) Blood Urea Nitrogen 40 mg/dL (8-26) Creatinine 1.4 mg/dL (0.7-1.3) Estimated GFR (Cockcroft-Gault) 49.7 Glucose Level 258 mg/dL (70-99) Calcium Level 8.6 mg/dL (8.5-10.1) Test 03/30/17 11:26 Glucose (Fingerstick) 258 mg/dL (70-99) Microbiology 03/28/17 Blood Culture - Preliminary, Resulted NO GROWTH AFTER 1 DAY 03/28/17 Urine Culture - Final, Complete 03/28/17 Urine Culture Result 1 (DEREK) - Final, Complete 03/29/17 Gram Stain - Final, Complete Medications Current Medications Albuterol/ Ipratropium (Duoneb) 3 ml 1X ONCE NEB Last administered on 21:22; Start 03/28/17 at 21:15; Stop 03/28/17 at 21:16; Status DC Methylprednisolone Sodium Succinate (SOLU-Medrol 125MG VIAL) 125 mg 1X ONCE IV Last administered on 03/28/17 21:18; Start 03/28/17 at 21:15; Stop 03/28/17 at 21:16; Status DC Furosemide (Lasix) 40 mg 1X ONCE IVP Last administered on 03/28/17 22:21; Start 03/28/17 at 22:15; Stop 03/28/17 at 22:16; Status DC Influenza Virus Vaccine Quadrival (Fluarix Quad 3205-0782 Syringe) 0.5 ml ONCE ONCE VAX IM ; Start 03/29/17 at 09:00; Stop 03/29/17 at 09:01; Status DC Info (Do NOT chart on this placeholder) 1 each PRN 1X PRN MC SEE COMMENTS; Start 03/29/17 at 02:00; Status Cancel Amlodipine Besylate (Norvasc) 10 mg DAILY PO Last administered on 03/29/17 09: 54; Start 03/29/17 at 09:30; Stop 03/30/17 at 08:15; Status DC Aspirin (Ecotrin) 325 mg DAILY PO Last administered on 03/30/17 10:01; Start 03/29/17 at 09:30 Citalopram Hydrobromide (CeleXA) 20 mg HS PO Last administered on 03/29/17 21: 45; Start 03/29/17 at 21:00 Clopidogrel Bisulfate (Plavix) 75 mg BID PO ; Start 03/29/17 at 09:00; Stop at 09:00; Status DC Docusate Sodium (Colace) 200 mg BID PO Last administered on 03/29/17 09:53; Start 03/29/17 at 09:30 Finasteride (Proscar) 5 mg DAILY PO Last administered on 03/30/17 10:03; Start 03/29/17 at 09:30 Metoprolol Tartrate (Lopressor) 12.5 mg BID PO ; Start 03/29/17 at 09:00; Stop 03/29/17 at 09:00; Status DC Tamsulosin HCl (Flomax) 0.4 mg HS PO ; Start 03/29/17 at 21:00; Stop 03/29/17 at 21:00; Status DC Non-Formulary Medication 10 meq DAILY08 PO ; Start 03/30/17 at 08:00; Stop 03/30 at 08:00; Status DC Metoprolol Tartrate (Lopressor) 25 mg BID PO Last administered on 03/29/17 21: 46; Start 03/29/17 at 09:30 Potassium Chloride (Klor-Con) 10 meq BIDAFTMEAL PO Last administered on 10:02; Start 03/29/17 at 09:30 Lisinopril (Prinivil) 10 mg DAILY PO Last administered on 03/29/17 09:55; Start 03/29/17 at 09:30; Stop 03/30/17 at 08:15; Status DC Clopidogrel Bisulfate (Plavix) 75 mg DAILY16 PO Last administered on 03/29/17 16:12; Start 03/29/17 at 16:00 Dextrose (Dextrose 50%-Water Syringe) 12.5 gm PRN Q15MIN PRN IV SEE COMMENTS; Start 03/29/17 at 09:00 Insulin Detemir (Levemir) 15 units QHS SQ Last administered on 03/29/17 21:49 ; Start 03/29/17 at 21:00 Furosemide (Lasix) 40 mg BID92 IVP Last administered on 03/29/17 09:56; Start 03/29/17 at 10:00; Stop 03/29/17 at 14:20; Status DC Tamsulosin HCl (Flomax) 0.4 mg BIDAFTMEAL PO Last administered on 03/30/17 10: 01; Start 03/29/17 at 10:00 Cefazolin Sodium 1 gm/Sodium Chloride 50 ml @ 100 mls/hr Q8HRS IV Last administered on 03/29/17 14:03; Start 03/29/17 at 14:00; Stop 03/29/17 at 17:47 ; Status DC Furosemide (Lasix) 60 mg BID66 IVP Last administered on 03/29/17 18:17; Start 03/29/17 at 18:00; Stop 03/30/17 at 18:01; Status DC Albumin Human 100 ml @ 100 mls/hr 1X ONCE IV ; Start 03/29/17 at 14:15; Stop 03/29/17 at 15:14; Status Cancel Albumin Human 300 ml @ 300 mls/hr 1X ONCE IV ; Start 03/29/17 at 14:23; Stop 03/29/17 at 15:14; Status Cancel Albumin Human 50 ml @ 100 mls/hr BID@0530,1730 IV Last administered on 05:43; Start 03/29/17 at 17:30; Stop 03/30/17 at 17:59; Status DC Vancomycin HCl (Vanco Per Pharmacy) 1 each PRN DAILY PRN MC SEE COMMENTS Last administered on 03/29/17 20:00; Start 03/29/17 at 17:45 Piperacillin Sod/ Tazobactam Sod 3.375 gm/Sodium Chloride 50 ml @ 100 mls/hr Q6HRS IV Last administered on 03/30/17 06:24; Start 03/29/17 at 18:00 Vancomycin HCl 2 gm/Sodium Chloride 500 ml @ 250 mls/hr 1X ONCE IV Last administered on 03/29/17 19:51; Start 03/29/17 at 18:00; Stop 03/29/17 at 19:59 ; Status DC Insulin Aspart (NovoLOG) 10 units 1X ONCE SQ Last administered on 03/29/17 18 :32; Start 03/29/17 at 18:15; Stop 03/29/17 at 18:17; Status DC Vancomycin HCl 1.5 gm/Sodium Chloride 500 ml @ 250 mls/hr Q12H IV Last administered on 03/30/17 09:57; Start 03/30/17 at 08:00 Vancomycin HCl 1 each 1X ONCE MC ; Start 03/31/17 at 07:30; Stop 03/31/17 at 07 :31 Ibuprofen (Motrin) 400 mg PRN QID PRN PO INFLAMMATION Last administered on 9/24 /17at 22:23; Start 03/29/17 at 22:00 Amlodipine Besylate (Norvasc) 5 mg DAILY PO ; Start 03/30/17 at 09:00 Lisinopril (Prinivil) 5 mg DAILY PO ; Start 03/30/17 at 09:00 Active Scripts Active Reported Clopidogrel (Clopidogrel Bisulfate) 75 Mg Tablet 1 Tab PO BID Aspirin Ec (Aspirin) 325 Mg Tablet.dr 1 Tab PO DAILY [regranex] 0.01 % TOP DAILY06 Celexa (Citalopram Hydrobromide) 20 Mg Tablet 1 Tab PO HS Amlodipine Besylate 10 Mg Tablet 10 Mg PO DAILY Tamsulosin Hcl 0.4 Mg Cap.er.24h 0.4 Mg PO HS Potassium Chloride 10 Meq Capsule.er 10 Meq PO DAILY08 Colace (Docusate Sodium) 100 Mg Capsule 200 Mg PO BID Lantus (Insulin Glargine,Hum.rec.anlog) 100 Unit/1 Ml Vial 120 Unit SQ DAILY08 Multi Vitamin Daily (Multivitamin) 1 Each Tablet 1 Each PO DAILY Lasix (Furosemide) 20 Mg Tablet 40 Mg PO DAILY Finasteride 5 Mg Tablet 5 Mg PO DAILY Metoprolol Tartrate 50 Mg Tablet 12.5 Mg PO BID Vitals/I & O Vital Sign - Last 24 Hours 03/29/17 03/29/17 03/29/17 03/29/17 19:00 20:20 21:46 23:00 Temp 98.7 98.0 98.7 98.0 Pulse 95 95 69 Resp 20 20 B/P (MAP) 108/72 (84) 108/72 99/57 (71) Pulse Ox 95 93 O2 Delivery Room Air BiPAP/CPAP 03/30/17 03/30/17 03/30/17 03/30/17 03:00 07:00 08:00 09:00 Temp 97.7 97.7 Pulse 67 59 65 Resp 20 20 B/P (MAP) 97/58 (71) 94/64 (74) 89/62 Pulse Ox 98 100 O2 Delivery BiPAP/CPAP BiPAP/CPAP Room Air 03/30/17 03/30/17 03/30/17 03/30/17 09:00 09:00 11:00 15:00 Temp 96.7 96.3 96.7 96.3 Pulse 65 65 67 79 Resp 20 20 B/P (MAP) 89/62 89/62 89/50 (63) 113/64 (80) Pulse Ox 96 95 O2 Delivery BiPAP/CPAP BiPAP/CPAP Intake and Output 03/30/17 03/30/17 03/31/17 15:00 23:00 07:00 Intake Total 120 ml 200 ml Output Total 8 ml Balance 120 ml 192 ml OSVALDO VELA MD Mar 30, 2017 18:52
[2017-03-30 19:00] VITALS: BP 114/69
[2017-03-30] MEDS: CLOPIDOGREL BISULFATE 75 MG TABLET PO SCH (19:46)
[2017-03-30] MEDS: CITALOPRAM 20 MG TABLET. PO SCH (21:00)
[2017-03-30] MEDS: INSULIN DETEMIR 300 UNITS/3 ML INSULN.PEN. SQ SCH (21:08)
[2017-03-30 23:00] VITALS: BP 92/52
[2017-03-31] VITALS (7 sets, daily range): BP systolic 89–115; BP diastolic 51–67
[2017-03-31] MEDS: IBUPROFEN 400 MG TABLET. PO PRN ×2 (02:34→10:25)
[2017-03-31] MEDS: PIPERACILLIN/TAZOBACTAM 3.375 GM in IV NORMAL SALINE 50ML 50 ML IV SCH ×3 (05:19→17:29)
[2017-03-31] MEDS ORDERED: FUROSEMIDE 40 MG/4 ML VIAL. IVP ONE (06:00)
[2017-03-31] MEDS ORDERED: ALBUMIN HUMAN 25% 50 ML IV ONE (06:00)
[2017-03-31 08:09] LABS: CALCIUM 8.2 mg/dL (8.5-10.1); CREATININE 1.3 mg/dL (0.7-1.3); GFR 54.1; POTASSIUM 3.9 mmol/L (3.5-5.1)
[2017-03-31] MEDS: VANCOMYCIN PER PHARMACY MC PRN (08:34)
--- NOTE | 2017-03-31 08:40 | PDOC ---
Provider Note Provider Note bp still low, glucose agustiner, renal lab ok- more alert- will hold norvasc, add levemir, po lasix now , up more , vanc/zosyn per cults- discussed need for cysto but na now ESTRADA MORELAND MD Mar 31, 2017 08:40
[2017-03-31] MEDS: DOCUSATE SODIUM 100 MG CAPSULE. PO SCH ×2 (09:00→21:00)
[2017-03-31] MEDS ORDERED: amLODIPine BESYLATE 5 MG TABLET PO SCH (09:00)
--- NOTE | 2017-03-31 09:12 | PDOC ---
Infectious Disease Note Subjective Subjective still c/o sob ROS ROS GEN: Denies fevers, chills, sweats HEENT: Denies blurred vision, sore throat CV: Denies chest pain GI: Denies n/v/d NEURO: Denies confusion, dizziness MSK: Denies weakness, joint pain/swelling Vital Sign Vital Signs Vital Signs Date Time Temp Pulse Resp B/P (MAP) Pulse Ox O2 Delivery O2 Flow Rate FiO2 03/31/17 08:25 Bi-pap 03/31/17 05:53 72 109/64 (79) 03/31/17 03:00 96.1 18 98 96.1 Physical Exam PHYSICAL EXAM GENERAL: NAD, Alert HEENT: PERRL, OC/OP NECK: Supple, no JVD, no LN LUNGS: Clear HEART: S1S2, no gallop, no murmur ABD: Soft, NT, no organomegaly, no rebound EXT: No edema, no cyanosis, left lateral foot wound necrotic to bone 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, 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, no focal neurologic deficit SKIN: No rash IV: ok Labs Lab Laboratory Tests Test 03/30/17 11:26 03/30/17 20:59 03/31/17 07:36 03/31/17 07:40 Glucose (Fingerstick) 258 mg/dL (70-99) 167 mg/dL (70-99) 177 mg/dL (70-99) Sodium Level 137 mmol/L (136-145) Potassium Level 3.9 mmol/L (3.5-5.1) Chloride Level 101 mmol/L (98-107) Carbon Dioxide Level 27 mmol/L (21-32) Anion Gap 9 (6-14) Blood Urea Nitrogen 33 mg/dL (8-26) Creatinine 1.3 mg/dL (0.7-1.3) Estimated GFR (Cockcroft-Gault) 54.1 Glucose Level 188 mg/dL (70-99) Calcium Level 8.2 mg/dL (8.5-10.1) Vancomycin Level Trough 23.9 mcg/mL (10.0-20.0) Vancomycin Last Dose Date 03/30/17 Vancomycin Last Dose Time 1999 Objective Assessment 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 -hx Prevotella, E. faecalis & E. avium from 03/10 -hx MSSA and bone exposure s/p debridement 02/10. Acute encephalopathy. Lactic acid 1.5 Leukocytosis (WBC 12.9 on 03/28). PVD s/p angioplasty of anterior tibial artery, 02/06 Dslej-od-fbycdyx CHF Morbid obesity Plan Plan of Care Dose vanc and Zosyn Check ESR Wound culture Consult Dr. Curry, ortho Await wound care eval monitor labs f/u cultures Reviewed previous [facility] records Reviewed records from [facility] D/w patient need wound debridement, may end up with BKA ( bad area to have infection in bone ) CANDE JANSEN MD Mar 31, 2017 09:12
[2017-03-31] MEDS: FINASTERIDE 5 MG TABLET. PO SCH (10:25)
[2017-03-31] MEDS: TAMSULOSIN 0.4 MG CAP.ER.24H. PO SCH ×2 (10:25→17:28)
[2017-03-31] MEDS: ASPIRIN ENTERIC COATED 325 MG TABLET.DR. PO SCH (10:25)
[2017-03-31] MEDS: POTASSIUM CHLORIDE 10 MEQ TABLET.ER. PO SCH ×2 (10:26→17:28)
[2017-03-31] MEDS: METOPROLOL TART IMMED RELEASE 25 MG TABLET. PO SCH ×2 (10:26→21:00)
[2017-03-31] MEDS: FUROSEMIDE 40 MG TABLET. PO SCH ×2 (10:27→17:28)
[2017-03-31] MEDS: ENOXAPARIN 40 MG/0.4 ML SYRINGE. SQ SCH (10:27)
[2017-03-31] MEDS: LISINOPRIL 5 MG TABLET. PO SCH (10:27)
[2017-03-31] MEDS: HYDROcodone/APAP 5/325MG 1 TAB TABLET PO PRN ×2 (13:13→21:07)
[2017-03-31] MEDS: INSULIN DETEMIR 300 UNITS/3 ML INSULN.PEN. SQ SCH ×2 (13:25→17:34)
[2017-03-31] MEDS: VANCOMYCIN 1.25 GM in IV NORMAL SALINE 250ML 250 ML IV SCH (14:55)
[2017-03-31] MEDS: CLOPIDOGREL BISULFATE 75 MG TABLET PO SCH (17:28)
--- NOTE | 2017-03-31 18:08 | PDOC ---
PROGRESS NOTES Subjective Subjective No confusion today. He is not very happy. No cardiac complaints today. Objective Objective Vital Signs Date Time Temp Pulse Resp B/P (MAP) Pulse Ox O2 Delivery O2 Flow Rate FiO2 03/31/17 14:30 97.5 70 18 98/51 (67) 94 Room Air 97.5 03/31/17 07:30 2.0 Intake and Output 04/01/17 07:00 Intake Total 240 ml Balance 240 ml Intake Oral 240 ml # Voids 3 # Bowel Movements 1 Physical Exam Physical Exam Less edema of the legs. No other significant changes in cardiac exam. Assessment Assessment Patient had a good diuresis and the CHF has improved. He is no longer confused and he is not very happy about his prospect and the plans. I would not give him any further albumin and Lasix for now. I agree with present plan. Problems Medical Problems: (1) CHF (congestive heart failure) Status: Acute (2) Hypoxia Status: Acute (3) Pulmonary edema Status: Acute Comment Review of Relevant I have reviewed the following items edwina (where applicable) has been applied. Labs Laboratory Tests Test 03/29/17 18:50 03/29/17 21:44 03/30/17 08:02 03/30/17 08:11 Erythrocyte Sedimentation Rate 76 (0-15) Glucose (Fingerstick) 299 mg/dL (70-99) 241 mg/dL (70-99) Sodium Level 137 mmol/L (136-145) Potassium Level 4.5 mmol/L (3.5-5.1) Chloride Level 101 mmol/L (98-107) Carbon Dioxide Level 28 mmol/L (21-32) Anion Gap 8 (6-14) Blood Urea Nitrogen 40 mg/dL (8-26) Creatinine 1.4 mg/dL (0.7-1.3) Estimated GFR (Cockcroft-Gault) 49.7 Glucose Level 258 mg/dL (70-99) Calcium Level 8.6 mg/dL (8.5-10.1) Test 03/30/17 11:26 03/30/17 20:59 03/31/17 07:36 03/31/17 07:40 Glucose (Fingerstick) 258 mg/dL (70-99) 167 mg/dL (70-99) 177 mg/dL (70-99) Sodium Level 137 mmol/L (136-145) Potassium Level 3.9 mmol/L (3.5-5.1) Chloride Level 101 mmol/L (98-107) Carbon Dioxide Level 27 mmol/L (21-32) Anion Gap 9 (6-14) Blood Urea Nitrogen 33 mg/dL (8-26) Creatinine 1.3 mg/dL (0.7-1.3) Estimated GFR (Cockcroft-Gault) 54.1 Glucose Level 188 mg/dL (70-99) Calcium Level 8.2 mg/dL (8.5-10.1) Vancomycin Level Trough 23.9 mcg/mL (10.0-20.0) Vancomycin Last Dose Date 03/30/17 Vancomycin Last Dose Time 1999 Test 03/31/17 11:34 03/31/17 16:52 Glucose (Fingerstick) 208 mg/dL (70-99) 215 mg/dL (70-99) Laboratory Tests Test 03/30/17 20:59 03/31/17 07:36 03/31/17 07:40 03/31/17 11:34 Glucose (Fingerstick) 167 mg/dL (70-99) 177 mg/dL (70-99) 208 mg/dL (70-99) Sodium Level 137 mmol/L (136-145) Potassium Level 3.9 mmol/L (3.5-5.1) Chloride Level 101 mmol/L (98-107) Carbon Dioxide Level 27 mmol/L (21-32) Anion Gap 9 (6-14) Blood Urea Nitrogen 33 mg/dL (8-26) Creatinine 1.3 mg/dL (0.7-1.3) Estimated GFR (Cockcroft-Gault) 54.1 Glucose Level 188 mg/dL (70-99) Calcium Level 8.2 mg/dL (8.5-10.1) Vancomycin Level Trough 23.9 mcg/mL (10.0-20.0) Vancomycin Last Dose Date 03/30/17 Vancomycin Last Dose Time 1999 Test 03/31/17 16:52 Glucose (Fingerstick) 215 mg/dL (70-99) Microbiology 03/28/17 Blood Culture - Preliminary, Resulted NO GROWTH AFTER 2 DAYS 03/28/17 Urine Culture - Final, Complete 03/28/17 Urine Culture Result 1 (DEREK) - Final, Complete 03/29/17 Gram Stain - Final, Complete Medications Current Medications Albuterol/ Ipratropium (Duoneb) 3 ml 1X ONCE NEB Last administered on 21:22; Start 03/28/17 at 21:15; Stop 03/28/17 at 21:16; Status DC Methylprednisolone Sodium Succinate (SOLU-Medrol 125MG VIAL) 125 mg 1X ONCE IV Last administered on 03/28/17 21:18; Start 03/28/17 at 21:15; Stop 03/28/17 at 21:16; Status DC Furosemide (Lasix) 40 mg 1X ONCE IVP Last administered on 03/28/17 22:21; Start 03/28/17 at 22:15; Stop 03/28/17 at 22:16; Status DC Influenza Virus Vaccine Quadrival (Fluarix Quad 5042-6119 Syringe) 0.5 ml ONCE ONCE VAX IM ; Start 03/29/17 at 09:00; Stop 03/29/17 at 09:01; Status DC Info (Do NOT chart on this placeholder) 1 each PRN 1X PRN MC SEE COMMENTS; Start 03/29/17 at 02:00; Status Cancel Amlodipine Besylate (Norvasc) 10 mg DAILY PO Last administered on 03/29/17 09: 54; Start 03/29/17 at 09:30; Stop 03/30/17 at 08:15; Status DC Aspirin (Ecotrin) 325 mg DAILY PO Last administered on 03/31/17 10:25; Start 03/29/17 at 09:30 Citalopram Hydrobromide (CeleXA) 20 mg HS PO Last administered on 03/30/17 21: 00; Start 03/29/17 at 21:00 Clopidogrel Bisulfate (Plavix) 75 mg BID PO ; Start 03/29/17 at 09:00; Stop at 09:00; Status DC Docusate Sodium (Colace) 200 mg BID PO Last administered on 03/30/17 21:00; Start 03/29/17 at 09:30 Finasteride (Proscar) 5 mg DAILY PO Last administered on 03/31/17 10:25; Start 03/29/17 at 09:30 Metoprolol Tartrate (Lopressor) 12.5 mg BID PO ; Start 03/29/17 at 09:00; Stop 03/29/17 at 09:00; Status DC Tamsulosin HCl (Flomax) 0.4 mg HS PO ; Start 03/29/17 at 21:00; Stop 03/29/17 at 21:00; Status DC Non-Formulary Medication 10 meq DAILY08 PO ; Start 03/30/17 at 08:00; Stop 03/30 at 08:00; Status DC Metoprolol Tartrate (Lopressor) 25 mg BID PO Last administered on 03/29/17 21: 46; Start 03/29/17 at 09:30; Stop 03/30/17 at 19:29; Status DC Potassium Chloride (Klor-Con) 10 meq BIDAFTMEAL PO Last administered on 17:28; Start 03/29/17 at 09:30 Lisinopril (Prinivil) 10 mg DAILY PO Last administered on 03/29/17 09:55; Start 03/29/17 at 09:30; Stop 03/30/17 at 08:15; Status DC Clopidogrel Bisulfate (Plavix) 75 mg DAILY16 PO Last administered on 03/31/17 17:28; Start 03/29/17 at 16:00 Dextrose (Dextrose 50%-Water Syringe) 12.5 gm PRN Q15MIN PRN IV SEE COMMENTS; Start 03/29/17 at 09:00 Insulin Detemir (Levemir) 15 units QHS SQ Last administered on 03/30/17 21:08 ; Start 03/29/17 at 21:00; Stop 03/31/17 at 08:24; Status DC Furosemide (Lasix) 40 mg BID92 IVP Last administered on 03/29/17 09:56; Start 03/29/17 at 10:00; Stop 03/29/17 at 14:20; Status DC Tamsulosin HCl (Flomax) 0.4 mg BIDAFTMEAL PO Last administered on 03/31/17 17: 28; Start 03/29/17 at 10:00 Cefazolin Sodium 1 gm/Sodium Chloride 50 ml @ 100 mls/hr Q8HRS IV Last administered on 03/29/17 14:03; Start 03/29/17 at 14:00; Stop 03/29/17 at 17:47 ; Status DC Furosemide (Lasix) 60 mg BID66 IVP Last administered on 03/29/17 18:17; Start 03/29/17 at 18:00; Stop 03/30/17 at 18:01; Status DC Albumin Human 100 ml @ 100 mls/hr 1X ONCE IV ; Start 03/29/17 at 14:15; Stop 03/29/17 at 15:14; Status Cancel Albumin Human 300 ml @ 300 mls/hr 1X ONCE IV ; Start 03/29/17 at 14:23; Stop 03/29/17 at 15:14; Status Cancel Albumin Human 50 ml @ 100 mls/hr BID@0530,1730 IV Last administered on 05:43; Start 03/29/17 at 17:30; Stop 03/30/17 at 17:59; Status DC Vancomycin HCl (Vanco Per Pharmacy) 1 each PRN DAILY PRN MC SEE COMMENTS Last administered on 03/31/17 08:34; Start 03/29/17 at 17:45 Piperacillin Sod/ Tazobactam Sod 3.375 gm/Sodium Chloride 50 ml @ 100 mls/hr Q6HRS IV Last administered on 03/31/17 17:29; Start 03/29/17 at 18:00 Vancomycin HCl 2 gm/Sodium Chloride 500 ml @ 250 mls/hr 1X ONCE IV Last administered on 03/29/17 19:51; Start 03/29/17 at 18:00; Stop 03/29/17 at 19:59 ; Status DC Insulin Aspart (NovoLOG) 10 units 1X ONCE SQ Last administered on 03/29/17 18 :32; Start 03/29/17 at 18:15; Stop 03/29/17 at 18:17; Status DC Vancomycin HCl 1.5 gm/Sodium Chloride 500 ml @ 250 mls/hr Q12H IV Last administered on 03/30/17 21:01; Start 03/30/17 at 08:00; Stop 03/31/17 at 08:24 ; Status DC Vancomycin HCl 1 each 1X ONCE MC Last administered on 03/31/17 07:30; Start 03/31/17 at 07:30; Stop 03/31/17 at 07:31; Status DC Ibuprofen (Motrin) 400 mg PRN QID PRN PO INFLAMMATION Last administered on 03/31 10:25; Start 03/29/17 at 22:00 Amlodipine Besylate (Norvasc) 5 mg DAILY PO ; Start 03/30/17 at 09:00; Stop at 19:30; Status DC Lisinopril (Prinivil) 5 mg DAILY PO ; Start 03/30/17 at 09:00; Stop 03/30/17 at 19:30; Status DC Furosemide (Lasix) 60 mg 1X ONCE IVP Last administered on 03/31/17 06:31; Start 03/31/17 at 06:00; Stop 03/31/17 at 06:01; Status DC Albumin Human 50 ml @ 50 mls/hr 1X ONCE IV Last administered on 03/31/17 05: 57; Start 03/31/17 at 06:00; Stop 03/31/17 at 06:59; Status DC Amlodipine Besylate (Norvasc) 5 mg DAILY PO ; Start 03/31/17 at 09:00; Stop at 09:00; Status DC Metoprolol Tartrate (Lopressor) 25 mg BID PO Last administered on 03/31/17 10: 26; Start 03/31/17 at 09:00 Lisinopril (Prinivil) 5 mg DAILY PO Last administered on 03/31/17 10:27; Start 03/31/17 at 09:00 Insulin Detemir (Levemir) 10 units BIDAC SQ Last administered on 03/31/17 17: 34; Start 03/31/17 at 11:30 Vancomycin HCl 1.25 gm/Sodium Chloride 250 ml @ 167 mls/hr Q12H IV Last administered on 03/31/17 14:55; Start 03/31/17 at 14:00 Vancomycin HCl 1 each 1X ONCE MC ; Start 04/02/17 at 01:30; Stop 04/02/17 at 01 :31 Furosemide (Lasix) 40 mg BID76 PO Last administered on 03/31/17 17:28; Start 03/31/17 at 09:00 Enoxaparin Sodium (Lovenox 40mg Syringe) 40 mg Q24H SQ Last administered on 10:27; Start 03/31/17 at 09:00 Acetaminophen/ Hydrocodone Bitart (Lortab 5/325) 1 tab TID PRN PRN PO PAIN Last administered on 03/31/17t 13:13; Start 03/31/17 at 13:15 Active Scripts Active Reported Clopidogrel (Clopidogrel Bisulfate) 75 Mg Tablet 1 Tab PO BID Aspirin Ec (Aspirin) 325 Mg Tablet.dr 1 Tab PO DAILY [regranex] 0.01 % TOP DAILY06 Celexa (Citalopram Hydrobromide) 20 Mg Tablet 1 Tab PO HS Amlodipine Besylate 10 Mg Tablet 10 Mg PO DAILY Tamsulosin Hcl 0.4 Mg Cap.er.24h 0.4 Mg PO HS Potassium Chloride 10 Meq Capsule.er 10 Meq PO DAILY08 Colace (Docusate Sodium) 100 Mg Capsule 200 Mg PO BID Lantus (Insulin Glargine,Hum.rec.anlog) 100 Unit/1 Ml Vial 120 Unit SQ DAILY08 Multi Vitamin Daily (Multivitamin) 1 Each Tablet 1 Each PO DAILY Lasix (Furosemide) 20 Mg Tablet 40 Mg PO DAILY Finasteride 5 Mg Tablet 5 Mg PO DAILY Metoprolol Tartrate 50 Mg Tablet 12.5 Mg PO BID Vitals/I & O Vital Sign - Last 24 Hours 03/30/17 03/30/17 03/30/17 03/31/17 19:00 19:00 23:00 03:00 Temp 96.1 96.6 96.1 96.1 96.6 96.1 Pulse 71 98 70 Resp 18 18 18 B/P (MAP) 114/69 (84) 92/52 (65) 89/62 (71) Pulse Ox 100 99 98 O2 Delivery BiPAP/CPAP Room Air BiPAP/CPAP BiPAP/CPAP 03/31/17 03/31/17 03/31/17 03/31/17 05:53 07:30 08:25 10:26 Temp 96.2 96.2 Pulse 72 84 84 Resp 18 B/P (MAP) 109/64 (79) 115/67 (83) 115/67 Pulse Ox 98 O2 Delivery BiPAP/CPAP Bi-pap O2 Flow Rate 2.0 03/31/17 03/31/17 03/31/17 10:27 11:30 14:30 Temp 96.6 97.5 96.6 97.5 Pulse 84 77 70 Resp 18 18 B/P (MAP) 115/67 101/62 (75) 98/51 (67) Pulse Ox 94 94 O2 Delivery Room Air Room Air Intake and Output 03/31/17 03/31/17 04/01/17 15:00 23:00 07:00 Intake Total 240 ml Balance 240 ml OSVALDO VELA MD Mar 31, 2017 18:08
[2017-03-31] MEDS: CITALOPRAM 20 MG TABLET. PO SCH (21:04)
[2017-04-01] VITALS (7 sets, daily range): BP systolic 94–106; BP diastolic 55–69
[2017-04-01] MEDS: PIPERACILLIN/TAZOBACTAM 3.375 GM in IV NORMAL SALINE 50ML 50 ML IV SCH ×5 (00:44→22:48)
[2017-04-01] MEDS: VANCOMYCIN 1.25 GM in IV NORMAL SALINE 250ML 250 ML IV SCH ×2 (02:35→13:31)
[2017-04-01] MEDS: FUROSEMIDE 40 MG TABLET. PO SCH ×2 (07:00→09:17)
[2017-04-01] MEDS: INSULIN DETEMIR 300 UNITS/3 ML INSULN.PEN. SQ SCH ×3 (07:30→16:33)
--- NOTE | 2017-04-01 08:40 | PDOC ---
Provider Note Provider Note vss, no temp, glucose > 200- add more levemir, check bmp, less lasix re higher creat- proteus on cult, dc vanco ?- still needs cysto as discussed , add pyridium ESTRADA MORELAND MD Apr 01, 2017 08:40
[2017-04-01] MEDS: LISINOPRIL 5 MG TABLET. PO SCH (08:41)
[2017-04-01] MEDS: DOCUSATE SODIUM 100 MG CAPSULE. PO SCH ×2 (09:00→21:00)
[2017-04-01] MEDS: PHENAZOPYRIDINE 200 MG TABLET. PO PRN (09:15)
[2017-04-01] MEDS: POTASSIUM CHLORIDE 10 MEQ TABLET.ER. PO SCH ×2 (09:16→17:30)
[2017-04-01] MEDS: FINASTERIDE 5 MG TABLET. PO SCH (09:16)
[2017-04-01] MEDS: ASPIRIN ENTERIC COATED 325 MG TABLET.DR. PO SCH (09:16)
[2017-04-01] MEDS: METOPROLOL TART IMMED RELEASE 25 MG TABLET. PO SCH ×2 (09:17→21:05)
[2017-04-01] MEDS: TAMSULOSIN 0.4 MG CAP.ER.24H. PO SCH ×2 (09:17→17:30)
[2017-04-01] MEDS: ENOXAPARIN 40 MG/0.4 ML SYRINGE. SQ SCH ×2 (09:18→21:06)
--- NOTE | 2017-04-01 10:47 | PDOC ---
Infectious Disease Note Subjective Subjective still c/o sob ROS ROS GEN: Denies fevers, chills, sweats HEENT: Denies blurred vision, sore throat CV: Denies chest pain RESP: Denies shortness of air, cough GI: Denies n/v/d NEURO: Denies confusion, dizziness MSK: Denies weakness, joint pain/swelling Vital Sign Vital Signs Vital Signs Date Time Temp Pulse Resp B/P (MAP) Pulse Ox O2 Delivery O2 Flow Rate FiO2 04/01/17 09:17 63 100/56 04/01/17 08:00 Room Air 04/01/17 07:00 97.5 14 100 2.0 97.5 Physical Exam PHYSICAL EXAM GENERAL: NAD, Alert HEENT: PERRL, OC/OP NECK: Supple, no JVD, no LN LUNGS: Clear HEART: S1S2, no gallop, no murmur ABD: Soft, NT, no organomegaly, no rebound EXT: No edema, no cyanosis 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 -hx Prevotella, E. faecalis & E. avium from 03/10 -hx MSSA and bone exposure s/p debridement 02/10. Acute encephalopathy. Lactic acid 1.5 Leukocytosis (WBC 12.9 on 03/28). PVD s/p angioplasty of anterior tibial artery, 02/06 Sdihj-me-hqadmjb CHF Morbid obesity Plan Plan of Care Dose vanc and Zosyn Check ESR Wound culture monitor labs f/u cultures Reviewed previous [facility] records Reviewed records from [facility] D/w patient need wound debridement, may end up with BKA ( bad area to have infection in bone ) d/w dr Serrano d/w daughter in detail CANDE JANSEN MD Apr 01, 2017 10:47
[2017-04-01 11:10] LABS: CALCIUM 8.2 mg/dL (8.5-10.1); CREATININE 1.2 mg/dL (0.7-1.3); GFR 59.3; POTASSIUM 3.7 mmol/L (3.5-5.1)
[2017-04-01] MEDS: VANCOMYCIN PER PHARMACY MC PRN (11:41)
[2017-04-01] MEDS: HYDROcodone/APAP 5/325MG 1 TAB TABLET PO PRN ×3 (12:06→22:48)
[2017-04-01] MEDS: CLOPIDOGREL BISULFATE 75 MG TABLET PO SCH (16:29)
--- NOTE | 2017-04-01 18:16 | PDOC ---
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 In previous treatment with Dr. Curry, patient and family only interested in foot debridement as compared with below knee amputation Objective Vital Signs Vital Signs Date Time Temp Pulse Resp B/P (MAP) Pulse Ox O2 Delivery O2 Flow Rate FiO2 04/01/17 17:31 Room Air 04/01/17 15:05 97.7 64 16 104/62 (76) 93 97.7 04/01/17 07:00 2.0 Physical Exam Metatarsal bone exposed with osteomyelitis Labs Laboratory Tests Test 03/30/17 20:59 03/31/17 07:36 03/31/17 07:40 03/31/17 11:34 Glucose (Fingerstick) 167 mg/dL (70-99) 177 mg/dL (70-99) 208 mg/dL (70-99) Sodium Level 137 mmol/L (136-145) Potassium Level 3.9 mmol/L (3.5-5.1) Chloride Level 101 mmol/L (98-107) Carbon Dioxide Level 27 mmol/L (21-32) Anion Gap 9 (6-14) Blood Urea Nitrogen 33 mg/dL (8-26) Creatinine 1.3 mg/dL (0.7-1.3) Estimated GFR (Cockcroft-Gault) 54.1 Glucose Level 188 mg/dL (70-99) Calcium Level 8.2 mg/dL (8.5-10.1) Vancomycin Level Trough 23.9 mcg/mL (10.0-20.0) Vancomycin Last Dose Date 03/30/17 Vancomycin Last Dose Time 2000 Test 03/31/17 16:52 03/31/17 20:50 04/01/17 08:09 04/01/17 10:25 Glucose (Fingerstick) 215 mg/dL (70-99) 170 mg/dL (70-99) 160 mg/dL (70-99) Sodium Level 136 mmol/L (136-145) Potassium Level 3.7 mmol/L (3.5-5.1) Chloride Level 101 mmol/L (98-107) Carbon Dioxide Level 28 mmol/L (21-32) Anion Gap 7 (6-14) Blood Urea Nitrogen 22 mg/dL (8-26) Creatinine 1.2 mg/dL (0.7-1.3) Estimated GFR (Cockcroft-Gault) 59.3 Glucose Level 179 mg/dL (70-99) Calcium Level 8.2 mg/dL (8.5-10.1) Test 04/01/17 12:40 04/01/17 16:17 Glucose (Fingerstick) 186 mg/dL (70-99) 155 mg/dL (70-99) Laboratory Tests Test 03/31/17 20:50 04/01/17 08:09 04/01/17 10:25 04/01/17 12:40 Glucose (Fingerstick) 170 mg/dL (70-99) 160 mg/dL (70-99) 186 mg/dL (70-99) Sodium Level 136 mmol/L (136-145) Potassium Level 3.7 mmol/L (3.5-5.1) Chloride Level 101 mmol/L (98-107) Carbon Dioxide Level 28 mmol/L (21-32) Anion Gap 7 (6-14) Blood Urea Nitrogen 22 mg/dL (8-26) Creatinine 1.2 mg/dL (0.7-1.3) Estimated GFR (Cockcroft-Gault) 59.3 Glucose Level 179 mg/dL (70-99) Calcium Level 8.2 mg/dL (8.5-10.1) Test 04/01/17 16:17 Glucose (Fingerstick) 155 mg/dL (70-99) Assessment Assessment Osteomyelitis foot Problems: Plan Plan of Care I spoke at some length with Dr. Capellan who is followed this patient for some time and indicated his strong preference for below knee amputation. I come to the same conclusion particularly given vascular surgery has done procedures and done all he can to help vascularity with a continued nonhealing wound which is unlikely to obtain significant coverage to allow healing. I therefore think below knee amputation is the best option however family has been resistant to that in previous discussions with other physicians including Dr. Curry. Regardless some type of debridement if not amputation would be required of the foot due to is exposed bone and infection. Surgery was previously scheduled for next week but can certainly be performed later this week medical conditions permitting ANUM ROSENTHAL MD Apr 01, 2017 18:16
--- NOTE | 2017-04-01 20:33 | PDOC ---
PROGRESS NOTES Subjective Subjective No cardiac complaints Objective Objective Vital Signs Date Time Temp Pulse Resp B/P (MAP) Pulse Ox O2 Delivery O2 Flow Rate FiO2 04/01/17 19:37 Room Air 2.0 04/01/17 19:00 97.8 79 16 95/60 (72) 98 97.8 Intake and Output 04/02/17 07:00 Intake Total 1100 ml Output Total 200 ml Balance 900 ml Intake Oral 400 ml IV Total 350 ml Other 350 ml Output Urine Total 200 ml # Voids 2 # Bowel Movements 1 Assessment Assessment The CHF appears to be compensated. The patient's noncardiac problems are now being addressed. I agree with present plan. Problems Medical Problems: (1) CHF (congestive heart failure) Status: Acute (2) Hypoxia Status: Acute (3) Pulmonary edema Status: Acute Comment Review of Relevant I have reviewed the following items edwina (where applicable) has been applied. Labs Laboratory Tests Test 03/30/17 20:59 03/31/17 07:36 03/31/17 07:40 03/31/17 11:34 Glucose (Fingerstick) 167 mg/dL (70-99) 177 mg/dL (70-99) 208 mg/dL (70-99) Sodium Level 137 mmol/L (136-145) Potassium Level 3.9 mmol/L (3.5-5.1) Chloride Level 101 mmol/L (98-107) Carbon Dioxide Level 27 mmol/L (21-32) Anion Gap 9 (6-14) Blood Urea Nitrogen 33 mg/dL (8-26) Creatinine 1.3 mg/dL (0.7-1.3) Estimated GFR (Cockcroft-Gault) 54.1 Glucose Level 188 mg/dL (70-99) Calcium Level 8.2 mg/dL (8.5-10.1) Vancomycin Level Trough 23.9 mcg/mL (10.0-20.0) Vancomycin Last Dose Date 03/30/17 Vancomycin Last Dose Time 2000 Test 03/31/17 16:52 03/31/17 20:50 04/01/17 08:09 04/01/17 10:25 Glucose (Fingerstick) 215 mg/dL (70-99) 170 mg/dL (70-99) 160 mg/dL (70-99) Sodium Level 136 mmol/L (136-145) Potassium Level 3.7 mmol/L (3.5-5.1) Chloride Level 101 mmol/L (98-107) Carbon Dioxide Level 28 mmol/L (21-32) Anion Gap 7 (6-14) Blood Urea Nitrogen 22 mg/dL (8-26) Creatinine 1.2 mg/dL (0.7-1.3) Estimated GFR (Cockcroft-Gault) 59.3 Glucose Level 179 mg/dL (70-99) Calcium Level 8.2 mg/dL (8.5-10.1) Test 04/01/17 12:40 04/01/17 16:17 Glucose (Fingerstick) 186 mg/dL (70-99) 155 mg/dL (70-99) Laboratory Tests Test 03/31/17 20:50 04/01/17 08:09 04/01/17 10:25 04/01/17 12:40 Glucose (Fingerstick) 170 mg/dL (70-99) 160 mg/dL (70-99) 186 mg/dL (70-99) Sodium Level 136 mmol/L (136-145) Potassium Level 3.7 mmol/L (3.5-5.1) Chloride Level 101 mmol/L (98-107) Carbon Dioxide Level 28 mmol/L (21-32) Anion Gap 7 (6-14) Blood Urea Nitrogen 22 mg/dL (8-26) Creatinine 1.2 mg/dL (0.7-1.3) Estimated GFR (Cockcroft-Gault) 59.3 Glucose Level 179 mg/dL (70-99) Calcium Level 8.2 mg/dL (8.5-10.1) Test 04/01/17 16:17 Glucose (Fingerstick) 155 mg/dL (70-99) Microbiology 03/28/17 Blood Culture - Preliminary, Resulted NO GROWTH AFTER 3 DAYS 03/28/17 Urine Culture - Final, Complete 03/28/17 Urine Culture Result 1 (DEREK) - Final, Complete 03/29/17 Gram Stain - Final, Complete Medications Current Medications Albuterol/ Ipratropium (Duoneb) 3 ml 1X ONCE NEB Last administered on t 21:22; Start 03/28/17 at 21:15; Stop 03/28/17 at 21:16; Status DC Methylprednisolone Sodium Succinate (SOLU-Medrol 125MG VIAL) 125 mg 1X ONCE IV Last administered on 03/28/17 21:18; Start 03/28/17 at 21:15; Stop 03/28/17 at 21:16; Status DC Furosemide (Lasix) 40 mg 1X ONCE IVP Last administered on 03/28/17 22:21; Start 03/28/17 at 22:15; Stop 03/28/17 at 22:16; Status DC Influenza Virus Vaccine Quadrival (Fluarix Quad [id number] Syringe) 0.5 ml ONCE ONCE VAX IM ; Start 03/29/17 at 09:00; Stop 03/29/17 at 09:01; Status DC Info (Do NOT chart on this placeholder) 1 each PRN 1X PRN MC SEE COMMENTS; Start 03/29/17 at 02:00; Status Cancel Amlodipine Besylate (Norvasc) 10 mg DAILY PO Last administered on 03/29/17 09: 54; Start 03/29/17 at 09:30; Stop 03/30/17 at 08:15; Status DC Aspirin (Ecotrin) 325 mg DAILY PO Last administered on 04/01/17 09:16; Start 03/29/17 at 09:30 Citalopram Hydrobromide (CeleXA) 20 mg HS PO Last administered on 03/31/17 21: 04; Start 03/29/17 at 21:00 Clopidogrel Bisulfate (Plavix) 75 mg BID PO ; Start 03/29/17 at 09:00; Stop at 09:00; Status DC Docusate Sodium (Colace) 200 mg BID PO Last administered on 03/30/17 21:00; Start 03/29/17 at 09:30 Finasteride (Proscar) 5 mg DAILY PO Last administered on 04/01/17 09:16; Start 03/29/17 at 09:30 Metoprolol Tartrate (Lopressor) 12.5 mg BID PO ; Start 03/29/17 at 09:00; Stop 03/29/17 at 09:00; Status DC Tamsulosin HCl (Flomax) 0.4 mg HS PO ; Start 03/29/17 at 21:00; Stop 03/29/17 at 21:00; Status DC Non-Formulary Medication 10 meq DAILY08 PO ; Start 03/30/17 at 08:00; Stop 03/30 at 08:00; Status DC Metoprolol Tartrate (Lopressor) 25 mg BID PO Last administered on 03/29/17 21: 46; Start 03/29/17 at 09:30; Stop 03/30/17 at 19:29; Status DC Potassium Chloride (Klor-Con) 10 meq BIDAFTMEAL PO Last administered on 17:30; Start 03/29/17 at 09:30 Lisinopril (Prinivil) 10 mg DAILY PO Last administered on 03/29/17 09:55; Start 03/29/17 at 09:30; Stop 03/30/17 at 08:15; Status DC Clopidogrel Bisulfate (Plavix) 75 mg DAILY16 PO Last administered on 04/01/17 16:29; Start 03/29/17 at 16:00 Dextrose (Dextrose 50%-Water Syringe) 12.5 gm PRN Q15MIN PRN IV SEE COMMENTS; Start 03/29/17 at 09:00 Insulin Detemir (Levemir) 15 units QHS SQ Last administered on 03/30/17 21:08 ; Start 03/29/17 at 21:00; Stop 03/31/17 at 08:24; Status DC Furosemide (Lasix) 40 mg BID92 IVP Last administered on 03/29/17 09:56; Start 03/29/17 at 10:00; Stop 03/29/17 at 14:20; Status DC Tamsulosin HCl (Flomax) 0.4 mg BIDAFTMEAL PO Last administered on 04/01/17 17: 30; Start 03/29/17 at 10:00 Cefazolin Sodium 1 gm/Sodium Chloride 50 ml @ 100 mls/hr Q8HRS IV Last administered on 03/29/17 14:03; Start 03/29/17 at 14:00; Stop 03/29/17 at 17:47 ; Status DC Furosemide (Lasix) 60 mg BID66 IVP Last administered on 03/29/17 18:17; Start 03/29/17 at 18:00; Stop 03/30/17 at 18:01; Status DC Albumin Human 100 ml @ 100 mls/hr 1X ONCE IV ; Start 03/29/17 at 14:15; Stop 03/29/17 at 15:14; Status Cancel Albumin Human 300 ml @ 300 mls/hr 1X ONCE IV ; Start 03/29/17 at 14:23; Stop 03/29/17 at 15:14; Status Cancel Albumin Human 50 ml @ 100 mls/hr BID@0530,1730 IV Last administered on 05:43; Start 03/29/17 at 17:30; Stop 03/30/17 at 17:59; Status DC Vancomycin HCl (Vanco Per Pharmacy) 1 each PRN DAILY PRN MC SEE COMMENTS Last administered on 04/01/17 11:41; Start 03/29/17 at 17:45 Piperacillin Sod/ Tazobactam Sod 3.375 gm/Sodium Chloride 50 ml @ 100 mls/hr Q6HRS IV Last administered on 04/01/17 17:31; Start 03/29/17 at 18:00 Vancomycin HCl 2 gm/Sodium Chloride 500 ml @ 250 mls/hr 1X ONCE IV Last administered on 03/29/17 19:51; Start 03/29/17 at 18:00; Stop 03/29/17 at 19:59 ; Status DC Insulin Aspart (NovoLOG) 10 units 1X ONCE SQ Last administered on 03/29/17 18 :32; Start 03/29/17 at 18:15; Stop 03/29/17 at 18:17; Status DC Vancomycin HCl 1.5 gm/Sodium Chloride 500 ml @ 250 mls/hr Q12H IV Last administered on 03/30/17 21:01; Start 03/30/17 at 08:00; Stop 03/31/17 at 08:24 ; Status DC Vancomycin HCl 1 each 1X ONCE MC Last administered on 03/31/17 07:30; Start 03/31/17 at 07:30; Stop 03/31/17 at 07:31; Status DC Ibuprofen (Motrin) 400 mg PRN QID PRN PO INFLAMMATION Last administered on 03/31 10:25; Start 03/29/17 at 22:00 Amlodipine Besylate (Norvasc) 5 mg DAILY PO ; Start 03/30/17 at 09:00; Stop at 19:30; Status DC Lisinopril (Prinivil) 5 mg DAILY PO ; Start 03/30/17 at 09:00; Stop 03/30/17 at 19:30; Status DC Furosemide (Lasix) 60 mg 1X ONCE IVP Last administered on 03/31/17 06:31; Start 03/31/17 at 06:00; Stop 03/31/17 at 06:01; Status DC Albumin Human 50 ml @ 50 mls/hr 1X ONCE IV Last administered on 03/31/17 05: 57; Start 03/31/17 at 06:00; Stop 03/31/17 at 06:59; Status DC Amlodipine Besylate (Norvasc) 5 mg DAILY PO ; Start 03/31/17 at 09:00; Stop at 09:00; Status DC Metoprolol Tartrate (Lopressor) 25 mg BID PO Last administered on 04/01/17 09: 17; Start 03/31/17 at 09:00 Lisinopril (Prinivil) 5 mg DAILY PO Last administered on 03/31/17 10:27; Start 03/31/17 at 09:00 Insulin Detemir (Levemir) 10 units BIDAC SQ Last administered on 03/31/17 17: 34; Start 03/31/17 at 11:30; Stop 04/01/17 at 08:39; Status DC Vancomycin HCl 1.25 gm/Sodium Chloride 250 ml @ 167 mls/hr Q12H IV Last administered on 04/01/17 13:31; Start 03/31/17 at 14:00 Vancomycin HCl 1 each 1X ONCE MC ; Start 04/02/17 at 01:30; Stop 04/02/17 at 01 :31 Furosemide (Lasix) 40 mg BID76 PO Last administered on 03/31/17 17:28; Start 03/31/17 at 09:00; Stop 04/01/17 at 08:26; Status DC Enoxaparin Sodium (Lovenox 40mg Syringe) 40 mg Q24H SQ Last administered on 09:18; Start 03/31/17 at 09:00; Stop 04/01/17 at 12:49; Status DC Acetaminophen/ Hydrocodone Bitart (Lortab 5/325) 1 tab TID PRN PRN PO PAIN Last administered on 04/01/17 17:31; Start 03/31/17 at 13:15 Furosemide (Lasix) 40 mg DAILY07 PO Last administered on 04/01/17 09:17; Start 04/01/17 at 09:00 Insulin Detemir (Levemir) 12 units BIDAC SQ Last administered on 04/01/17 16: 33; Start 04/01/17 at 09:00 Phenazopyridine HCl (Pyridium) 200 mg [id number] PRN PO URINARY PAIN Last administered on 04/01/17 09:15; Start 04/01/17 at 08:45 Enoxaparin Sodium (Lovenox 40mg Syringe) 40 mg Q12H SQ ; Start 04/01/17 at 21:00 Active Scripts Active Reported Clopidogrel (Clopidogrel Bisulfate) 75 Mg Tablet 1 Tab PO BID Aspirin Ec (Aspirin) 325 Mg Tablet.dr 1 Tab PO DAILY [regranex] 0.01 % TOP DAILY06 Celexa (Citalopram Hydrobromide) 20 Mg Tablet 1 Tab PO HS Amlodipine Besylate 10 Mg Tablet 10 Mg PO DAILY Tamsulosin Hcl 0.4 Mg Cap.er.24h 0.4 Mg PO HS Potassium Chloride 10 Meq Capsule.er 10 Meq PO DAILY08 Colace (Docusate Sodium) 100 Mg Capsule 200 Mg PO BID Lantus (Insulin Glargine,Hum.rec.anlog) 100 Unit/1 Ml Vial 120 Unit SQ DAILY08 Multi Vitamin Daily (Multivitamin) 1 Each Tablet 1 Each PO DAILY Lasix (Furosemide) 20 Mg Tablet 40 Mg PO DAILY Finasteride 5 Mg Tablet 5 Mg PO DAILY Metoprolol Tartrate 50 Mg Tablet 12.5 Mg PO BID Vitals/I & O Vital Sign - Last 24 Hours 03/31/17 03/31/17 03/31/17 03/31/17 21:00 21:07 22:15 23:00 Temp 97.7 97.7 Pulse 80 63 Resp 17 17 18 B/P (MAP) 106/65 113/65 (81) Pulse Ox 95 95 95 O2 Delivery Room Air BiPAP/CPAP O2 Flow Rate 2.0 2.0 04/01/17 04/01/17 04/01/17 04/01/17 03:00 06:35 07:00 08:00 Temp 96.4 97.5 96.4 97.5 Pulse 60 64 63 Resp 18 14 B/P (MAP) 98/65 (76) 95/62 (73) 94/62 (73) Pulse Ox 94 100 O2 Delivery BiPAP/CPAP BiPAP/CPAP Room Air O2 Flow Rate 2.0 2.0 04/01/17 04/01/17 04/01/17 04/01/17 09:17 11:33 12:06 15:05 Temp 97.7 97.7 97.7 97.7 Pulse 63 61 64 Resp 20 16 B/P (MAP) 100/56 99/55 (70) 104/62 (76) Pulse Ox 95 93 O2 Delivery Room Air Room Air Room Air 04/01/17 04/01/17 04/01/17 04/01/17 17:31 18:39 19:00 19:37 Temp 97.8 97.8 Pulse 79 Resp 16 B/P (MAP) 95/60 (72) Pulse Ox 98 O2 Delivery Room Air Room Air Room Air Room Air O2 Flow Rate 2.0 Intake and Output 04/01/17 04/01/17 04/02/17 15:00 23:00 07:00 Intake Total 170 ml 930 ml Output Total 100 ml 100 ml Balance 70 ml 830 ml OSVALDO VELA MD Apr 01, 2017 20:33
[2017-04-01] MEDS: CITALOPRAM 20 MG TABLET. PO SCH (21:05)
[2017-04-02 03:00] VITALS: BP 119/78
[2017-04-02] MEDS: VANCOMYCIN PER PHARMACY MC PRN (03:40)
[2017-04-02] MEDS: FUROSEMIDE 40 MG TABLET. PO SCH (05:53)
[2017-04-02] MEDS: PIPERACILLIN/TAZOBACTAM 3.375 GM in IV NORMAL SALINE 50ML 50 ML IV SCH (05:53)
[2017-04-02] MEDS: HYDROcodone/APAP 5/325MG 1 TAB TABLET PO PRN ×2 (05:53→18:55)
[2017-04-02 07:00] VITALS: BP 122/72
[2017-04-02] MEDS: INSULIN DETEMIR 300 UNITS/3 ML INSULN.PEN. SQ SCH ×2 (08:03→17:14)
[2017-04-02] MEDS: DOCUSATE SODIUM 100 MG CAPSULE. PO SCH ×2 (09:00→20:52)
--- NOTE | 2017-04-02 09:00 | PDOC ---
Provider Note Provider Note i agree that bka is likely best but debridement also needed- vss, labs ok, again discussed urology need but na- cont same ESTRADA MORELAND MD Apr 02, 2017 09:00
[2017-04-02] MEDS: POTASSIUM CHLORIDE 10 MEQ TABLET.ER. PO SCH ×2 (09:06→17:11)
[2017-04-02] MEDS: FINASTERIDE 5 MG TABLET. PO SCH (09:06)
[2017-04-02] MEDS: LISINOPRIL 5 MG TABLET. PO SCH (09:06)
[2017-04-02] MEDS: METOPROLOL TART IMMED RELEASE 25 MG TABLET. PO SCH ×2 (09:07→20:53)
[2017-04-02] MEDS: TAMSULOSIN 0.4 MG CAP.ER.24H. PO SCH ×2 (09:07→17:11)
[2017-04-02] MEDS: ASPIRIN ENTERIC COATED 325 MG TABLET.DR. PO SCH (09:07)
[2017-04-02] MEDS: ENOXAPARIN 40 MG/0.4 ML SYRINGE. SQ SCH ×2 (09:08→20:53)
--- NOTE | 2017-04-02 10:35 | PDOC ---
Infectious Disease Note Subjective Subjective feeling good ROS ROS GEN: Denies fevers, chills, sweats HEENT: Denies blurred vision, sore throat CV: Denies chest pain RESP: Denies shortness of air, cough GI: Denies n/v/d NEURO: Denies confusion, dizziness MSK: Denies weakness, joint pain/swelling Vital Sign Vital Signs Vital Signs Date Time Temp Pulse Resp B/P (MAP) Pulse Ox O2 Delivery O2 Flow Rate FiO2 04/02/17 09:07 76 122/72 04/02/17 08:00 Room Air 04/02/17 07:00 96.1 18 92 2.0 96.1 Physical Exam PHYSICAL EXAM GENERAL: NAD, Alert HEENT: PERRL, OC/OP NECK: Supple, no JVD, no LN LUNGS: Clear HEART: S1S2, no gallop, no murmur ABD: Soft, NT, no organomegaly, no rebound EXT: No edema, no cyanosis, left foot wound with exposed bone, necrotic 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 AEROBIC CULT Final Final report AEROBIC RES 1 Final Proteus mirabilis Heavy growth AEROBIC RES 2 Final Citrobacter freundii Heavy growth AEROBIC RES 3 Final Mixed skin kenny Heavy growth ANTIMICROBIAL SUSCEPTIBILITY Final Comment S = Susceptible; I = Intermediate; R = Resistant P = Positive; N = Negative MICS are expressed in micrograms per mL Antibiotic RSLT#1 RSLT#2 RSLT#3 RSLT#4 Amoxicillin/Clavulanic Acid S R Ampicillin S Cefazolin R Cefepime S S CONTINUED ON NEXT PAGE RUN DATE: 04/02/17 PAGE 2 RUN TIME: 1026 [facility] [address] [facility] [place] [address] Manoj Jaramillo M.D., Cryptanalyst SPEC: [id number] PATIENT: MANOJ GILES [id number] ( Continued) Procedure Result ANTIMICROBIAL SUSCEPTIBILITY Final (continued) Ceftriaxone S S Cefuroxime S R Ciprofloxacin S S Ertapenem S S Gentamicin S S Imipenem S Levofloxacin S S Piperacillin S S Tetracycline R S Tobramycin S S Trimethoprim/Sulfa R S Performed at: [address] [id number] Survey Researcher: Ann Cervantes MD, Phone: [phone] END OF REPORT Objective Assessment 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 faecalis & E. avium from 03/10 -hx MSSA and bone exposure s/p debridement 02/10. Acute encephalopathy. Lactic acid 1.5 Leukocytosis (WBC 12.9 on 03/28). PVD s/p angioplasty of anterior tibial artery, 02/06 [id number] CHF Morbid obesity Plan Plan of Care meropenem monitor lab Reviewed previous [facility] records Reviewed records from [facility] D/w patient need wound debridement, may end up with BKA ( bad area to have infection in bone ) d/w dr Serrano d/w daughter in detail CANDE JANSEN MD Apr 02, 2017 10:35
[2017-04-02 11:00] VITALS: BP 97/61
[2017-04-02] MEDS: PHENAZOPYRIDINE 200 MG TABLET. PO PRN (11:54)
[2017-04-02] MEDS: MEROPENEM 1 GM in IV NORMAL SALINE 100ML 100 ML IV SCH ×2 (11:54→20:50)
[2017-04-02] MEDS ORDERED: VANCOMYCIN 1.5 GM in IV NORMAL SALINE 500ML BAG 500 ML IV SCH (14:00)
[2017-04-02 15:00] VITALS: BP 97/57
--- NOTE | 2017-04-02 16:17 | PDOC ---
PROGRESS NOTES Subjective Subjective She has no new complaints Objective Objective Vital Signs Date Time Temp Pulse Resp B/P (MAP) Pulse Ox O2 Delivery O2 Flow Rate FiO2 04/02/17 11:00 96.3 61 18 97/61 (73) 94 Room Air 2.0 96.3 Intake and Output 04/03/17 07:00 Intake Total 250 ml Balance 250 ml IV Total 100 ml Other 150 ml Physical Exam Physical Exam No significant changes in cardiac exam Assessment Assessment Patient appears to be compensated at this time. He is going for a debridement of the foot tomorrow. I agree with present plan. Problems Medical Problems: (1) CHF (congestive heart failure) Status: Acute (2) Hypoxia Status: Acute (3) Pulmonary edema Status: Acute Comment Review of Relevant I have reviewed the following items edwina (where applicable) has been applied. Labs Laboratory Tests Test 03/31/17 16:52 03/31/17 20:50 04/01/17 08:09 04/01/17 10:25 Glucose (Fingerstick) 215 mg/dL (70-99) 170 mg/dL (70-99) 160 mg/dL (70-99) Sodium Level 136 mmol/L (136-145) Potassium Level 3.7 mmol/L (3.5-5.1) Chloride Level 101 mmol/L (98-107) Carbon Dioxide Level 28 mmol/L (21-32) Anion Gap 7 (6-14) Blood Urea Nitrogen 22 mg/dL (8-26) Creatinine 1.2 mg/dL (0.7-1.3) Estimated GFR (Cockcroft-Gault) 59.3 Glucose Level 179 mg/dL (70-99) Calcium Level 8.2 mg/dL (8.5-10.1) Test 04/01/17 12:40 04/01/17 16:17 04/01/17 21:14 04/02/17 01:30 Glucose (Fingerstick) 186 mg/dL (70-99) 155 mg/dL (70-99) 144 mg/dL (70-99) Vancomycin Level Trough 23.1 mcg/mL (10.0-20.0) Vancomycin Last Dose Date Vancomycin Last Dose Time Test 04/02/17 07:55 04/02/17 11:32 Glucose (Fingerstick) 151 mg/dL (70-99) 181 mg/dL (70-99) Laboratory Tests Test 04/01/17 16:17 04/01/17 21:14 04/02/17 01:30 04/02/17 07:55 Glucose (Fingerstick) 155 mg/dL (70-99) 144 mg/dL (70-99) 151 mg/dL (70-99) Vancomycin Level Trough 23.1 mcg/mL (10.0-20.0) Vancomycin Last Dose Date Vancomycin Last Dose Time Test 04/02/17 11:32 Glucose (Fingerstick) 181 mg/dL (70-99) Microbiology 03/28/17 Blood Culture - Preliminary, Resulted NO GROWTH AFTER 4 DAYS 03/28/17 Urine Culture - Final, Complete 03/28/17 Urine Culture Result 1 (DEREK) - Final, Complete 03/29/17 Gram Stain - Final, Complete Medications Current Medications Albuterol/ Ipratropium (Duoneb) 3 ml 1X ONCE NEB Last administered on 21:22; Start 03/28/17 at 21:15; Stop 03/28/17 at 21:16; Status DC Methylprednisolone Sodium Succinate (SOLU-Medrol 125MG VIAL) 125 mg 1X ONCE IV Last administered on 03/28/17 21:18; Start 03/28/17 at 21:15; Stop 03/28/17 at 21:16; Status DC Furosemide (Lasix) 40 mg 1X ONCE IVP Last administered on 03/28/17 22:21; Start 03/28/17 at 22:15; Stop 03/28/17 at 22:16; Status DC Influenza Virus Vaccine Quadrival (Fluarix Quad [id number] Syringe) 0.5 ml ONCE ONCE VAX IM ; Start 03/29/17 at 09:00; Stop 03/29/17 at 09:01; Status DC Info (Do NOT chart on this placeholder) 1 each PRN 1X PRN MC SEE COMMENTS; Start 03/29/17 at 02:00; Status Cancel Amlodipine Besylate (Norvasc) 10 mg DAILY PO Last administered on 03/29/17 09: 54; Start 03/29/17 at 09:30; Stop 03/30/17 at 08:15; Status DC Aspirin (Ecotrin) 325 mg DAILY PO Last administered on 04/02/17 09:07; Start 03/29/17 at 09:30 Citalopram Hydrobromide (CeleXA) 20 mg HS PO Last administered on 04/01/17 21: 05; Start 03/29/17 at 21:00 Clopidogrel Bisulfate (Plavix) 75 mg BID PO ; Start 03/29/17 at 09:00; Stop at 09:00; Status DC Docusate Sodium (Colace) 200 mg BID PO Last administered on 03/30/17 21:00; Start 03/29/17 at 09:30 Finasteride (Proscar) 5 mg DAILY PO Last administered on 04/02/17 09:06; Start 03/29/17 at 09:30 Metoprolol Tartrate (Lopressor) 12.5 mg BID PO ; Start 03/29/17 at 09:00; Stop 03/29/17 at 09:00; Status DC Tamsulosin HCl (Flomax) 0.4 mg HS PO ; Start 03/29/17 at 21:00; Stop 03/29/17 at 21:00; Status DC Non-Formulary Medication 10 meq DAILY08 PO ; Start 03/30/17 at 08:00; Stop 03/30 at 08:00; Status DC Metoprolol Tartrate (Lopressor) 25 mg BID PO Last administered on 03/29/17 21: 46; Start 03/29/17 at 09:30; Stop 03/30/17 at 19:29; Status DC Potassium Chloride (Klor-Con) 10 meq BIDAFTMEAL PO Last administered on 09:06; Start 03/29/17 at 09:30 Lisinopril (Prinivil) 10 mg DAILY PO Last administered on 03/29/17 09:55; Start 03/29/17 at 09:30; Stop 03/30/17 at 08:15; Status DC Clopidogrel Bisulfate (Plavix) 75 mg DAILY16 PO Last administered on 04/01/17 16:29; Start 03/29/17 at 16:00 Dextrose (Dextrose 50%-Water Syringe) 12.5 gm PRN Q15MIN PRN IV SEE COMMENTS; Start 03/29/17 at 09:00 Insulin Detemir (Levemir) 15 units QHS SQ Last administered on 03/30/17 21:08 ; Start 03/29/17 at 21:00; Stop 03/31/17 at 08:24; Status DC Furosemide (Lasix) 40 mg BID92 IVP Last administered on 03/29/17 09:56; Start 03/29/17 at 10:00; Stop 03/29/17 at 14:20; Status DC Tamsulosin HCl (Flomax) 0.4 mg BIDAFTMEAL PO Last administered on 04/02/17 09: 07; Start 03/29/17 at 10:00 Cefazolin Sodium 1 gm/Sodium Chloride 50 ml @ 100 mls/hr Q8HRS IV Last administered on 03/29/17 14:03; Start 03/29/17 at 14:00; Stop 03/29/17 at 17:47 ; Status DC Furosemide (Lasix) 60 mg BID66 IVP Last administered on 03/29/17 18:17; Start 03/29/17 at 18:00; Stop 03/30/17 at 18:01; Status DC Albumin Human 100 ml @ 100 mls/hr 1X ONCE IV ; Start 03/29/17 at 14:15; Stop 03/29/17 at 15:14; Status Cancel Albumin Human 300 ml @ 300 mls/hr 1X ONCE IV ; Start 03/29/17 at 14:23; Stop 03/29/17 at 15:14; Status Cancel Albumin Human 50 ml @ 100 mls/hr BID@0530,1730 IV Last administered on 05:43; Start 03/29/17 at 17:30; Stop 03/30/17 at 17:59; Status DC Vancomycin HCl (Vanco Per Pharmacy) 1 each PRN DAILY PRN MC SEE COMMENTS Last administered on 04/02/17 03:40; Start 03/29/17 at 17:45; Stop 04/02/17 at 10:33 ; Status DC Piperacillin Sod/ Tazobactam Sod 3.375 gm/Sodium Chloride 50 ml @ 100 mls/hr Q6HRS IV Last administered on 04/02/17 05:53; Start 03/29/17 at 18:00; Stop at 10:33; Status DC Vancomycin HCl 2 gm/Sodium Chloride 500 ml @ 250 mls/hr 1X ONCE IV Last administered on 03/29/17 19:51; Start 03/29/17 at 18:00; Stop 03/29/17 at 19:59 ; Status DC Insulin Aspart (NovoLOG) 10 units 1X ONCE SQ Last administered on 03/29/17 18 :32; Start 03/29/17 at 18:15; Stop 03/29/17 at 18:17; Status DC Vancomycin HCl 1.5 gm/Sodium Chloride 500 ml @ 250 mls/hr Q12H IV Last administered on 03/30/17 21:01; Start 03/30/17 at 08:00; Stop 03/31/17 at 08:24 ; Status DC Vancomycin HCl 1 each 1X ONCE MC Last administered on 03/31/17 07:30; Start 03/31/17 at 07:30; Stop 03/31/17 at 07:31; Status DC Ibuprofen (Motrin) 400 mg PRN QID PRN PO INFLAMMATION Last administered on 03/31 10:25; Start 03/29/17 at 22:00 Amlodipine Besylate (Norvasc) 5 mg DAILY PO ; Start 03/30/17 at 09:00; Stop at 19:30; Status DC Lisinopril (Prinivil) 5 mg DAILY PO ; Start 03/30/17 at 09:00; Stop 03/30/17 at 19:30; Status DC Furosemide (Lasix) 60 mg 1X ONCE IVP Last administered on 03/31/17 06:31; Start 03/31/17 at 06:00; Stop 03/31/17 at 06:01; Status DC Albumin Human 50 ml @ 50 mls/hr 1X ONCE IV Last administered on 03/31/17 05: 57; Start 03/31/17 at 06:00; Stop 03/31/17 at 06:59; Status DC Amlodipine Besylate (Norvasc) 5 mg DAILY PO ; Start 03/31/17 at 09:00; Stop at 09:00; Status DC Metoprolol Tartrate (Lopressor) 25 mg BID PO Last administered on 04/02/17 09: 07; Start 03/31/17 at 09:00 Lisinopril (Prinivil) 5 mg DAILY PO Last administered on 04/02/17 09:06; Start 03/31/17 at 09:00 Insulin Detemir (Levemir) 10 units BIDAC SQ Last administered on 03/31/17 17: 34; Start 03/31/17 at 11:30; Stop 04/01/17 at 08:39; Status DC Vancomycin HCl 1.25 gm/Sodium Chloride 250 ml @ 167 mls/hr Q12H IV Last administered on 04/01/17 13:31; Start 03/31/17 at 14:00; Stop 04/02/17 at 02:47 ; Status DC Vancomycin HCl 1 each 1X ONCE MC ; Start 04/02/17 at 01:30; Stop 04/02/17 at 01 :31; Status DC Furosemide (Lasix) 40 mg BID76 PO Last administered on 03/31/17 17:28; Start 03/31/17 at 09:00; Stop 04/01/17 at 08:26; Status DC Enoxaparin Sodium (Lovenox 40mg Syringe) 40 mg Q24H SQ Last administered on 09:18; Start 03/31/17 at 09:00; Stop 04/01/17 at 12:49; Status DC Acetaminophen/ Hydrocodone Bitart (Lortab 5/325) 1 tab TID PRN PRN PO PAIN Last administered on 04/02/17 05:53; Start 03/31/17 at 13:15 Furosemide (Lasix) 40 mg DAILY07 PO Last administered on 04/02/17 05:53; Start 04/01/17 at 09:00 Insulin Detemir (Levemir) 12 units BIDAC SQ Last administered on 04/02/17 08: 03; Start 04/01/17 at 09:00 Phenazopyridine HCl (Pyridium) 200 mg [id number] PRN PO URINARY PAIN Last administered on 04/02/17 11:54; Start 04/01/17 at 08:45 Enoxaparin Sodium (Lovenox 40mg Syringe) 40 mg Q12H SQ Last administered on 09:08; Start 04/01/17 at 21:00 Vancomycin HCl 1.5 gm/Sodium Chloride 500 ml @ 250 mls/hr Q24H IV ; Start 04/02 at 14:00; Stop 04/02/17 at 14:00; Status DC Vancomycin HCl 1 each 1X ONCE MC ; Start 04/04/17 at 13:30; Stop 04/04/17 at 13 :31; Status Cancel Meropenem 1 gm/ Sodium Chloride 100 ml @ 200 mls/hr Q8HRS IV Last administered on 04/02/17t 11:54; Start 04/02/17 at 12:00 Active Scripts Active Reported Clopidogrel (Clopidogrel Bisulfate) 75 Mg Tablet 1 Tab PO BID Aspirin Ec (Aspirin) 325 Mg Tablet.dr 1 Tab PO DAILY [regranex] 0.01 % TOP DAILY06 Celexa (Citalopram Hydrobromide) 20 Mg Tablet 1 Tab PO HS Amlodipine Besylate 10 Mg Tablet 10 Mg PO DAILY Tamsulosin Hcl 0.4 Mg Cap.er.24h 0.4 Mg PO HS Potassium Chloride 10 Meq Capsule.er 10 Meq PO DAILY08 Colace (Docusate Sodium) 100 Mg Capsule 200 Mg PO BID Lantus (Insulin Glargine,Hum.rec.anlog) 100 Unit/1 Ml Vial 120 Unit SQ DAILY08 Multi Vitamin Daily (Multivitamin) 1 Each Tablet 1 Each PO DAILY Lasix (Furosemide) 20 Mg Tablet 40 Mg PO DAILY Finasteride 5 Mg Tablet 5 Mg PO DAILY Metoprolol Tartrate 50 Mg Tablet 12.5 Mg PO BID Vitals/I & O Vital Sign - Last 24 Hours 04/01/17 04/01/17 04/01/17 04/01/17 17:31 19:00 19:37 21:05 Temp 97.8 97.8 Pulse 79 79 Resp 16 B/P (MAP) 95/60 (72) 95/60 Pulse Ox 98 O2 Delivery Room Air Room Air Room Air O2 Flow Rate 2.0 04/01/17 04/01/17 04/02/17 04/02/17 22:48 22:57 03:00 05:53 Temp 98.2 97.6 98.2 97.6 Pulse 65 74 Resp 18 18 B/P (MAP) 106/69 (81) 119/78 (92) Pulse Ox 98 95 96 96 O2 Delivery Room Air Room Air Room Air Room Air O2 Flow Rate 2.0 2.0 2.0 2.0 04/02/17 04/02/17 04/02/17 04/02/17 06:53 07:00 08:00 09:06 Temp 96.1 96.1 Pulse 76 76 Resp 18 B/P (MAP) 122/72 (89) 122/72 Pulse Ox 96 92 O2 Delivery Room Air Room Air Room Air O2 Flow Rate 2.0 2.0 04/02/17 04/02/17 09:07 11:00 Temp 96.3 96.3 Pulse 76 61 Resp 18 B/P (MAP) 122/72 97/61 (73) Pulse Ox 94 O2 Delivery Room Air O2 Flow Rate 2.0 Intake and Output 04/02/17 04/02/17 04/03/17 15:00 23:00 07:00 Intake Total 250 ml Balance 250 ml OSVALDO VELA MD Apr 02, 2017 16:17
[2017-04-02] MEDS ORDERED: MORPHINE SULFATE 4 MG/ML DISP.SYRIN. IV PRN (16:45)
[2017-04-02] MEDS: CLOPIDOGREL BISULFATE 75 MG TABLET PO SCH (17:11)
[2017-04-02 19:00] VITALS: BP 103/69
[2017-04-02] MEDS: CITALOPRAM 20 MG TABLET. PO SCH (20:52)
[2017-04-02 23:00] VITALS: BP 103/65
[2017-04-03] VITALS (10 sets, daily range): BP systolic 90–112; BP diastolic 52–71
[2017-04-03] MEDS: HYDROcodone/APAP 5/325MG 1 TAB TABLET PO PRN ×3 (03:00→18:44)
[2017-04-03] MEDS: MEROPENEM 1 GM in IV NORMAL SALINE 100ML 100 ML IV SCH ×3 (05:29→21:14)
[2017-04-03] MEDS: FUROSEMIDE 40 MG TABLET. PO SCH (07:00)
[2017-04-03] MEDS ORDERED: PROCHLORPERAZINE 10 MG/2 ML VIAL. IV PRN (07:00)
[2017-04-03] MEDS ORDERED: LIDOCAINE 1% PF 2 ML VIAL. ID PRN (07:00)
[2017-04-03] MEDS ORDERED: fentaNYL PF VIAL 100 MCG/2 ML VIAL IV PRN ×2 (07:00)
[2017-04-03] MEDS ORDERED: IV RINGERS,LACTATED 1000ML 1,000 ML IV SCH (07:00)
[2017-04-03] MEDS ORDERED: HYDROmorphone 2 MG/ML VIAL IV PRN (07:00)
[2017-04-03] MEDS ORDERED: MORPHINE SULFATE 2 MG/ML DISP.SYRIN. IV PRN (07:00)
[2017-04-03] MEDS: INSULIN DETEMIR 300 UNITS/3 ML INSULN.PEN. SQ SCH ×2 (07:30→18:51)
--- NOTE | 2017-04-03 08:22 | PDOC ---
Provider Note Provider Note no new sxs., labs anna, onel, for debride today, ESTRADA Jay MD Apr 03, 2017 08:22
--- NOTE | 2017-04-03 08:52 | PDOC ---
Infectious Disease Note Subjective Subjective feeling good ROS ROS GEN: Denies fevers, chills, sweats HEENT: Denies blurred vision, sore throat CV: Denies chest pain RESP: Denies shortness of air, cough GI: Denies n/v/d NEURO: Denies confusion, dizziness MSK: Denies weakness, joint pain/swelling Vital Sign Vital Signs Vital Signs Date Time Temp Pulse Resp B/P (MAP) Pulse Ox O2 Delivery O2 Flow Rate FiO2 04/03/17 04:05 18 Room Air 04/03/17 03:04 97.9 63 106/71 (83) 97.9 04/02/17 23:00 96 04/02/17 15:00 2.0 Physical Exam PHYSICAL EXAM GENERAL: NAD, Alert HEENT: PERRL, OC/OP NECK: Supple, no JVD, no LN LUNGS: Clear HEART: S1S2, no gallop, no murmur ABD: Soft, NT, no organomegaly, no rebound EXT: No edema, no cyanosis,, foot wound JAPANESE INTERPRETER: Alert, 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, no focal neurologic deficit SKIN: No rash IV: ok Labs Lab Laboratory Tests Test 04/02/17 11:32 04/02/17 17:08 04/02/17 20:15 04/03/17 07:34 Glucose (Fingerstick) 181 mg/dL (70-99) 183 mg/dL (70-99) 158 mg/dL (70-99) 151 mg/dL (70-99) Micro ANAEROBIC-AEROBIC CULTURE Preliminary Preliminary report ANAEROBIC RES 1 Preliminary Comment No anaerobes recovered in 48 hours. AEROBIC CULT Final Final report AEROBIC RES 1 Final Proteus mirabilis Heavy growth AEROBIC RES 2 Final Citrobacter freundii Heavy growth AEROBIC RES 3 Final Mixed skin kenny Heavy growth ANTIMICROBIAL SUSCEPTIBILITY Final Comment S = Susceptible; I = Intermediate; R = Resistant P = Positive; N = Negative MICS are expressed in micrograms per mL Antibiotic RSLT#1 RSLT#2 RSLT#3 RSLT#4 Amoxicillin/Clavulanic Acid S R Ampicillin S Cefazolin R Cefepime S S CONTINUED ON NEXT PAGE RUN DATE: 04/02/17 PAGE 2 RUN TIME: 1026 [facility] [address] [place] [address] Manoj Jaramillo M.D., Education Courses Sales Representative SPEC: [id number] PATIENT: MANOJ GILES [id number] ( Continued) Procedure Result ANTIMICROBIAL SUSCEPTIBILITY Final (continued) Ceftriaxone S S Cefuroxime S R Ciprofloxacin S S Ertapenem S S Gentamicin S S Imipenem S Levofloxacin S S Piperacillin S S Tetracycline R S Tobramycin S S Trimethoprim/Sulfa R S Performed at: [facility] - [address] [id number] Merchandising Intern: Ann Cervantes MD, Phone: [phone] END OF REPORT Objective Assessment 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 faecalis & E. avium from 03/10 -hx MSSA and bone exposure s/p debridement 02/10. Acute encephalopathy. Lactic acid 1.5 Leukocytosis (WBC 12.9 on 03/28). PVD s/p angioplasty of anterior tibial artery, 02/06 [id number] CHF Morbid obesity Plan Plan of Care meropenem monitor lab Reviewed previous [facility] records Reviewed records from [facility] D/w patient need wound debridement, may end up with BKA ( bad area to have infection in bone ) d/w dr Serrano d/w daughter in detail surgery today CANDE JANSEN MD Apr 03, 2017 08:52
[2017-04-03] MEDS: ENOXAPARIN 40 MG/0.4 ML SYRINGE. SQ SCH ×2 (09:00→21:18)
[2017-04-03] MEDS: ASPIRIN ENTERIC COATED 325 MG TABLET.DR. PO SCH (09:00)
[2017-04-03] MEDS: POTASSIUM CHLORIDE 10 MEQ TABLET.ER. PO SCH ×2 (09:00→18:00)
[2017-04-03] MEDS: TAMSULOSIN 0.4 MG CAP.ER.24H. PO SCH ×2 (09:00→18:43)
[2017-04-03] MEDS: FINASTERIDE 5 MG TABLET. PO SCH (09:00)
[2017-04-03] MEDS: DOCUSATE SODIUM 100 MG CAPSULE. PO SCH ×2 (09:00→21:00)
[2017-04-03] MEDS: LISINOPRIL 5 MG TABLET. PO SCH (09:00)
[2017-04-03] MEDS: METOPROLOL TART IMMED RELEASE 25 MG TABLET. PO SCH ×2 (10:58→21:17)
[2017-04-03] MEDS ORDERED: DEXAMETHASONE SOD PHOS 20 MG/5 ML VIAL. ONE (14:14)
[2017-04-03] MEDS ORDERED: ONDANSETRON PF 4 MG/2 ML VIAL. ONE (14:14)
[2017-04-03] MEDS ORDERED: LIDOCAINE 2% PF Vial for OR 5 ML VIAL. ONE (14:14)
[2017-04-03] MEDS ORDERED: PROPOFOL 0 ML IV ONE (14:14)
[2017-04-03] MEDS ORDERED: FAMOTIDINE 20 MG/2 ML VIAL ONE (14:14)
[2017-04-03] MEDS ORDERED: BUPIVACAINE 0.5% 50 ML VIAL. ONE (15:36)
[2017-04-03] MEDS: CLOPIDOGREL BISULFATE 75 MG TABLET PO SCH (16:00)
[2017-04-03] MEDS ORDERED: fentaNYL PF VIAL 100 MCG/2 ML VIAL ONE (16:32)
[2017-04-03] MEDS ORDERED: PROPOFOL 20 ML IV ONE (16:32)
[2017-04-03] MEDS ORDERED: KETAMINE HCL 500 MG/10 ML VIAL. ONE (16:32)
[2017-04-03] MEDS ORDERED: MIDAZOLAM HCL/PF 2 MG/2 ML VIAL. ONE (16:35)
--- NOTE | 2017-04-03 17:16 | PDOC ---
PROGRESS NOTES Subjective Subjective Patient seen while in the holding area for the OR. He is going for a debridement of the foot. Objective Objective Vital Signs Date Time Temp Pulse Resp B/P (MAP) Pulse Ox O2 Delivery O2 Flow Rate FiO2 04/03/17 15:57 97.0 75 20 108/61 96 Room Air 97.0 04/02/17 15:00 2.0 Intake and Output 04/04/17 07:00 Intake Total 100 ml Balance 100 ml IV Total 100 ml Physical Exam Physical Exam No significant changes in cardiac exam Assessment Assessment Patient is compensated cardiac-ty. I agree with present plan. Problems Medical Problems: (1) CHF (congestive heart failure) Status: Acute (2) Hypoxia Status: Acute (3) Pulmonary edema Status: Acute Comment Review of Relevant I have reviewed the following items edwina (where applicable) has been applied. Labs Laboratory Tests Test 04/01/17 21:14 04/02/17 01:30 04/02/17 07:55 04/02/17 11:32 Glucose (Fingerstick) 144 mg/dL (70-99) 151 mg/dL (70-99) 181 mg/dL (70-99) Vancomycin Level Trough 23.1 mcg/mL (10.0-20.0) Vancomycin Last Dose Date Vancomycin Last Dose Time Test 04/02/17 17:08 04/02/17 20:15 04/03/17 07:34 04/03/17 12:08 Glucose (Fingerstick) 183 mg/dL (70-99) 158 mg/dL (70-99) 151 mg/dL (70-99) 142 mg/dL (70-99) Laboratory Tests Test 04/02/17 20:15 04/03/17 07:34 04/03/17 12:08 Glucose (Fingerstick) 158 mg/dL (70-99) 151 mg/dL (70-99) 142 mg/dL (70-99) Microbiology 03/28/17 Blood Culture - Final, Complete NO GROWTH AFTER 5 DAYS 03/28/17 Urine Culture - Final, Complete 03/28/17 Urine Culture Result 1 (DEREK) - Final, Complete 03/29/17 Gram Stain - Final, Complete Medications Current Medications Albuterol/ Ipratropium (Duoneb) 3 ml 1X ONCE NEB Last administered on t 21:22; Start 03/28/17 at 21:15; Stop 03/28/17 at 21:16; Status DC Methylprednisolone Sodium Succinate (SOLU-Medrol 125MG VIAL) 125 mg 1X ONCE IV Last administered on 03/28/17 21:18; Start 03/28/17 at 21:15; Stop 03/28/17 at 21:16; Status DC Furosemide (Lasix) 40 mg 1X ONCE IVP Last administered on 03/28/17 22:21; Start 03/28/17 at 22:15; Stop 03/28/17 at 22:16; Status DC Influenza Virus Vaccine Quadrival (Fluarix Quad [id number] Syringe) 0.5 ml ONCE ONCE VAX IM ; Start 03/29/17 at 09:00; Stop 03/29/17 at 09:01; Status DC Info (Do NOT chart on this placeholder) 1 each PRN 1X PRN MC SEE COMMENTS; Start 03/29/17 at 02:00; Status Cancel Amlodipine Besylate (Norvasc) 10 mg DAILY PO Last administered on 03/29/17 09: 54; Start 03/29/17 at 09:30; Stop 03/30/17 at 08:15; Status DC Aspirin (Ecotrin) 325 mg DAILY PO Last administered on 04/02/17 09:07; Start 03/29/17 at 09:30 Citalopram Hydrobromide (CeleXA) 20 mg HS PO Last administered on 04/02/17 20: 52; Start 03/29/17 at 21:00 Clopidogrel Bisulfate (Plavix) 75 mg BID PO ; Start 03/29/17 at 09:00; Stop at 09:00; Status DC Docusate Sodium (Colace) 200 mg BID PO Last administered on 03/30/17 21:00; Start 03/29/17 at 09:30 Finasteride (Proscar) 5 mg DAILY PO Last administered on 04/02/17 09:06; Start 03/29/17 at 09:30 Metoprolol Tartrate (Lopressor) 12.5 mg BID PO ; Start 03/29/17 at 09:00; Stop 03/29/17 at 09:00; Status DC Tamsulosin HCl (Flomax) 0.4 mg HS PO ; Start 03/29/17 at 21:00; Stop 03/29/17 at 21:00; Status DC Non-Formulary Medication 10 meq DAILY08 PO ; Start 03/30/17 at 08:00; Stop 03/30 at 08:00; Status DC Metoprolol Tartrate (Lopressor) 25 mg BID PO Last administered on 03/29/17 21: 46; Start 03/29/17 at 09:30; Stop 03/30/17 at 19:29; Status DC Potassium Chloride (Klor-Con) 10 meq BIDAFTMEAL PO Last administered on 17:11; Start 03/29/17 at 09:30 Lisinopril (Prinivil) 10 mg DAILY PO Last administered on 03/29/17 09:55; Start 03/29/17 at 09:30; Stop 03/30/17 at 08:15; Status DC Clopidogrel Bisulfate (Plavix) 75 mg DAILY16 PO Last administered on 04/02/17 17:11; Start 03/29/17 at 16:00 Dextrose (Dextrose 50%-Water Syringe) 12.5 gm PRN Q15MIN PRN IV SEE COMMENTS; Start 03/29/17 at 09:00 Insulin Detemir (Levemir) 15 units QHS SQ Last administered on 03/30/17 21:08 ; Start 03/29/17 at 21:00; Stop 03/31/17 at 08:24; Status DC Furosemide (Lasix) 40 mg BID92 IVP Last administered on 03/29/17 09:56; Start 03/29/17 at 10:00; Stop 03/29/17 at 14:20; Status DC Tamsulosin HCl (Flomax) 0.4 mg BIDAFTMEAL PO Last administered on 04/02/17 17: 11; Start 03/29/17 at 10:00 Cefazolin Sodium 1 gm/Sodium Chloride 50 ml @ 100 mls/hr Q8HRS IV Last administered on 03/29/17 14:03; Start 03/29/17 at 14:00; Stop 03/29/17 at 17:47 ; Status DC Furosemide (Lasix) 60 mg BID66 IVP Last administered on 03/29/17 18:17; Start 03/29/17 at 18:00; Stop 03/30/17 at 18:01; Status DC Albumin Human 100 ml @ 100 mls/hr 1X ONCE IV ; Start 03/29/17 at 14:15; Stop 03/29/17 at 15:14; Status Cancel Albumin Human 300 ml @ 300 mls/hr 1X ONCE IV ; Start 03/29/17 at 14:23; Stop 03/29/17 at 15:14; Status Cancel Albumin Human 50 ml @ 100 mls/hr BID@0530,1730 IV Last administered on 05:43; Start 03/29/17 at 17:30; Stop 03/30/17 at 17:59; Status DC Vancomycin HCl (Vanco Per Pharmacy) 1 each PRN DAILY PRN MC SEE COMMENTS Last administered on 04/02/17 03:40; Start 03/29/17 at 17:45; Stop 04/02/17 at 10:33 ; Status DC Piperacillin Sod/ Tazobactam Sod 3.375 gm/Sodium Chloride 50 ml @ 100 mls/hr Q6HRS IV Last administered on 04/02/17 05:53; Start 03/29/17 at 18:00; Stop at 10:33; Status DC Vancomycin HCl 2 gm/Sodium Chloride 500 ml @ 250 mls/hr 1X ONCE IV Last administered on 03/29/17 19:51; Start 03/29/17 at 18:00; Stop 03/29/17 at 19:59 ; Status DC Insulin Aspart (NovoLOG) 10 units 1X ONCE SQ Last administered on 03/29/17 18 :32; Start 03/29/17 at 18:15; Stop 03/29/17 at 18:17; Status DC Vancomycin HCl 1.5 gm/Sodium Chloride 500 ml @ 250 mls/hr Q12H IV Last administered on 03/30/17 21:01; Start 03/30/17 at 08:00; Stop 03/31/17 at 08:24 ; Status DC Vancomycin HCl 1 each 1X ONCE MC Last administered on 03/31/17 07:30; Start 03/31/17 at 07:30; Stop 03/31/17 at 07:31; Status DC Ibuprofen (Motrin) 400 mg PRN QID PRN PO INFLAMMATION Last administered on 03/31 10:25; Start 03/29/17 at 22:00 Amlodipine Besylate (Norvasc) 5 mg DAILY PO ; Start 03/30/17 at 09:00; Stop at 19:30; Status DC Lisinopril (Prinivil) 5 mg DAILY PO ; Start 03/30/17 at 09:00; Stop 03/30/17 at 19:30; Status DC Furosemide (Lasix) 60 mg 1X ONCE IVP Last administered on 03/31/17 06:31; Start 03/31/17 at 06:00; Stop 03/31/17 at 06:01; Status DC Albumin Human 50 ml @ 50 mls/hr 1X ONCE IV Last administered on 03/31/17 05: 57; Start 03/31/17 at 06:00; Stop 03/31/17 at 06:59; Status DC Amlodipine Besylate (Norvasc) 5 mg DAILY PO ; Start 03/31/17 at 09:00; Stop at 09:00; Status DC Metoprolol Tartrate (Lopressor) 25 mg BID PO Last administered on 04/03/17 10: 58; Start 03/31/17 at 09:00 Lisinopril (Prinivil) 5 mg DAILY PO Last administered on 04/02/17 09:06; Start 03/31/17 at 09:00 Insulin Detemir (Levemir) 10 units BIDAC SQ Last administered on 03/31/17 17: 34; Start 03/31/17 at 11:30; Stop 04/01/17 at 08:39; Status DC Vancomycin HCl 1.25 gm/Sodium Chloride 250 ml @ 167 mls/hr Q12H IV Last administered on 04/01/17 13:31; Start 03/31/17 at 14:00; Stop 04/02/17 at 02:47 ; Status DC Vancomycin HCl 1 each 1X ONCE MC ; Start 04/02/17 at 01:30; Stop 04/02/17 at 01 :31; Status DC Furosemide (Lasix) 40 mg BID76 PO Last administered on 03/31/17 17:28; Start 03/31/17 at 09:00; Stop 04/01/17 at 08:26; Status DC Enoxaparin Sodium (Lovenox 40mg Syringe) 40 mg Q24H SQ Last administered on 09:18; Start 03/31/17 at 09:00; Stop 04/01/17 at 12:49; Status DC Acetaminophen/ Hydrocodone Bitart (Lortab 5/325) 1 tab TID PRN PRN PO PAIN Last administered on 04/03/17 10:58; Start 03/31/17 at 13:15 Furosemide (Lasix) 40 mg DAILY07 PO Last administered on 04/02/17 05:53; Start 04/01/17 at 09:00 Insulin Detemir (Levemir) 12 units BIDAC SQ Last administered on 04/02/17 17: 14; Start 04/01/17 at 09:00 Phenazopyridine HCl (Pyridium) 200 mg [id number] PRN PO URINARY PAIN Last administered on 04/02/17 11:54; Start 04/01/17 at 08:45 Enoxaparin Sodium (Lovenox 40mg Syringe) 40 mg Q12H SQ Last administered on 20:53; Start 04/01/17 at 21:00 Vancomycin HCl 1.5 gm/Sodium Chloride 500 ml @ 250 mls/hr Q24H IV ; Start 04/02 at 14:00; Stop 04/02/17 at 14:00; Status DC Vancomycin HCl 1 each 1X ONCE MC ; Start 04/04/17 at 13:30; Stop 04/04/17 at 13 :31; Status Cancel Meropenem 1 gm/ Sodium Chloride 100 ml @ 200 mls/hr Q8HRS IV Last administered on 04/03/17 14:14; Start 04/02/17 at 12:00 Fentanyl Citrate (Fentanyl 2ml Vial) 25 mcg PRN Q5MIN PRN IV MILD PAIN; Start 04/03/17 at 07:00; Stop 04/04/17 at 06:59 Fentanyl Citrate (Fentanyl 2ml Vial) 50 mcg PRN Q5MIN PRN IV MODERATE PAIN; Start 04/03/17 at 07:00; Stop 04/04/17 at 06:59 Morphine Sulfate 1 mg PRN Q10MIN PRN IV SEVERE PAIN; Start 04/03/17 at 07:00; Stop 04/03/17 at 07:00; Status DC Ringer's Solution 1,000 ml @ 30 mls/hr Q24H IV Last administered on 9/29/17at 16:00; Start 04/03/17 at 07:00; Stop 04/03/17 at 18:59 Lidocaine HCl (Xylocaine-Mpf 1% Vial) 2 ml PRN 1X PRN ID IV START; Start at 07:00; Stop 04/04/17 at 06:59 Hydromorphone HCl (Dilaudid) 0.5 mg PRN Q10MIN PRN IV SEV PAIN, Second choice; Start 04/03/17 at 07:00; Stop 04/04/17 at 06:59 Prochlorperazine Edisylate (Compazine) 5 mg PACU PRN PRN IV NAUSEA, MRX1; Start 04/03/17 at 07:00; Stop 04/04/17 at 06:59 Morphine Sulfate 1 mg PRN Q10MIN PRN IV SEVERE PAIN; Start 04/02/17 at 16:45 Bupivacaine HCl (Marcaine 0.5%) 50 ml STK-MED ONCE .ROUTE ; Start 04/03/17 at 15 :36; Stop 04/03/17 at 16:37; Status DC Active Scripts Active Reported Clopidogrel (Clopidogrel Bisulfate) 75 Mg Tablet 1 Tab PO BID Aspirin Ec (Aspirin) 325 Mg Tablet.dr 1 Tab PO DAILY [regranex] 0.01 % TOP DAILY06 Celexa (Citalopram Hydrobromide) 20 Mg Tablet 1 Tab PO HS Amlodipine Besylate 10 Mg Tablet 10 Mg PO DAILY Tamsulosin Hcl 0.4 Mg Cap.er.24h 0.4 Mg PO HS Potassium Chloride 10 Meq Capsule.er 10 Meq PO DAILY08 Colace (Docusate Sodium) 100 Mg Capsule 200 Mg PO BID Lantus (Insulin Glargine,Hum.rec.anlog) 100 Unit/1 Ml Vial 120 Unit SQ DAILY08 Multi Vitamin Daily (Multivitamin) 1 Each Tablet 1 Each PO DAILY Lasix (Furosemide) 20 Mg Tablet 40 Mg PO DAILY Finasteride 5 Mg Tablet 5 Mg PO DAILY Metoprolol Tartrate 50 Mg Tablet 12.5 Mg PO BID Vitals/I & O Vital Sign - Last 24 Hours 04/02/17 04/02/17 04/02/17 04/02/17 18:55 19:00 20:00 20:53 Temp 98.3 98.3 Pulse 82 82 Resp 20 B/P (MAP) 103/69 (80) 103/69 Pulse Ox 93 O2 Delivery Room Air Room Air Room Air 04/02/17 04/03/17 04/03/17 04/03/17 23:00 03:00 03:04 04:05 Temp 98.3 97.9 98.3 97.9 Pulse 66 63 Resp 20 19 20 18 B/P (MAP) 103/65 (78) 106/71 (83) Pulse Ox 96 O2 Delivery BiPAP/CPAP BiPAP/CPAP BiPAP/CPAP 04/03/17 04/03/17 04/03/17 04/03/17 07:00 08:00 10:58 10:58 Temp 96.8 96.8 Pulse 64 64 Resp 18 B/P (MAP) 112/68 (83) 112/68 Pulse Ox 98 O2 Delivery BiPAP/CPAP Room Air Room Air 04/03/17 04/03/17 04/03/17 11:00 12:17 15:57 Temp 97.5 97.0 97.5 97.0 Pulse 66 75 Resp 20 20 B/P (MAP) 90/59 (69) 108/61 Pulse Ox 93 96 O2 Delivery BiPAP/CPAP Room Air Room Air Intake and Output 04/03/17 04/03/17 04/04/17 15:00 23:00 07:00 Intake Total 100 ml Balance 100 ml OSVALDO VELA MD Apr 03, 2017 17:16
--- NOTE | 2017-04-03 18:07 | PDOC4 ---
Operative Note Operative Note Date of surgery: 04/03/2017 Preoperative diagnosis osteomyelitis left fifth metatarsal Postoperative diagnosis: Same Procedure: Left fifth ray amputation Surgeon: Zach Anesthesia: Sedation plus local Estimated blood loss: 150 mL Complications: None Specimens: Left fifth ray and toe to pathology Operative indications patient is a 71-year-old male with long-standing ulcer on the lateral aspect of his left foot at the base of the fifth metatarsal. He has osteomyelitis in the area of the metatarsal nonhealing wound for a long time despite wound care vascular surgery intervention and has poor mobility with multiple medical problems. I had gone over in depth with him the possible treatment options the possibility of removing the bone with the infection on the lateral aspect of his foot which could potentially result in nonhealing continued infection and the need for additional procedures. At this point it does not appear that vascular surgery can improve his distal circulation. We talked about a possibility of below knee amputation being a more likely area to heal as a more definitive procedure but the certainty of increased energy expenditure for ambulation with a below-knee amputation of typically about 40% more than his current requirements which are not stellar in terms of his mobility. After this extensive discussion and consideration of the risks of both options, patient and family agreed to proceed with the fifth ray amputation plan and gave informed consent. Operative text: Patient was identified procedure verified. Patient was placed in the supine position on operating table after adequate amounts of sedation were administered the left lower extremity was prepped and draped in standard sterile fashion. After timeout was performed patient procedure identified and verified, and incision was made longitudinally over the lateral aspect of the fifth metatarsal from the open wound dissection was carried out circumferentially around the fifth metatarsal as the base was noted to be very soft on its lateral aspect indicating osteomyelitis. The left fifth toe was resected along with the fifth ray bleeding points were controlled by electrocautery thorough irrigation carried out normal saline solution the fifth metatarsal base did not appear to have the joint surfaces are cartilage involved with any infection and no infection appeared to have spread to the tarsometatarsal joint or proximally in the foot. Excess skin was trimmed and skin was loosely closed with 2-0 nylon suture in a combination of near far far near skin relaxing suture configuration as well as a vertical mattress suture to aaliyah the edges along the majority of the incision and simple sutures filling in. A wound VAC was placed due to the previous wound and the incomplete closure. Excellent suction was obtained and the wound VAC patient was returned to recovery room in stable condition having tolerated procedure well ANUM ROSENTHAL MD Apr 03, 2017 18:07
[2017-04-03] MEDS: CITALOPRAM 20 MG TABLET. PO SCH (21:17)
[2017-04-03] MEDS: PHENAZOPYRIDINE 200 MG TABLET. PO PRN (21:17)
[2017-04-04] MEDS: HYDROcodone/APAP 5/325MG 1 TAB TABLET PO PRN ×4 (00:51→17:14)
[2017-04-04 03:00] VITALS: BP 107/67
[2017-04-04] MEDS: FUROSEMIDE 40 MG TABLET. PO SCH (05:58)
[2017-04-04] MEDS: MEROPENEM 1 GM in IV NORMAL SALINE 100ML 100 ML IV SCH ×3 (05:59→21:26)
[2017-04-04 07:00] VITALS: BP 113/69
--- NOTE | 2017-04-04 07:57 | PDOC ---
Infectious Disease Note Subjective Subjective feeling ok. Little appetite ROS ROS GEN: Denies fevers, chills, sweats HEENT: Denies blurred vision, sore throat CV: Denies chest pain RESP: Denies shortness of air, cough GI: Denies n/v/d NEURO: Denies confusion, dizziness MSK: Denies weakness, joint pain/swelling Vital Sign Vital Signs Vital Signs Date Time Temp Pulse Resp B/P (MAP) Pulse Ox O2 Delivery O2 Flow Rate FiO2 04/04/17 06:11 20 BiPAP/CPAP 04/04/17 05:10 95 04/04/17 03:00 97.8 82 107/67 (80) 2.0 97.8 Physical Exam PHYSICAL EXAM GENERAL: NAD, Alert HEENT: PERRL, OC/OP-clear NECK: Supple, no JVD, no LN LUNGS: Clear HEART: S1S2, no gallop, no murmur ABD: Soft, NT, no organomegaly, no rebound- obese EXT: No edema, no cyanosis. Vac to left foot TOOL MARKER: Alert, 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, no focal neurologic deficit SKIN: No rash IV: PICC RUE Labs Lab Laboratory Tests Test 04/03/17 12:08 04/03/17 17:43 04/03/17 21:11 Glucose (Fingerstick) 142 mg/dL (70-99) 143 mg/dL (70-99) 137 mg/dL (70-99) Objective Assessment S/p Left 5th toe amp 04/03 sec to 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 faecalis & E. avium from 03/10 -hx MSSA and bone exposure s/p debridement 02/10. Acute encephalopathy. Lactic acid 1.5 Leukocytosis (WBC 12.9 on 03/28). PVD s/p angioplasty of anterior tibial artery, 02/06 [id number] CHF Morbid obesity Plan Plan of Care Cont meropenem monitor lab ordered for this am D/w CAN LOMBARDI MD Apr 04, 2017 07:57
[2017-04-04] MEDS: ENOXAPARIN 40 MG/0.4 ML SYRINGE. SQ SCH (09:00)
[2017-04-04 09:02] LABS: BASO # 0.1 x10^3/uL (0.0-0.2); BASO % 1 % (0-3); EOS % 1 % (0-3); HEMATOCRIT 37.1 % (39.0-53.0); HEMOGLOBIN 12.4 g/dL (13.0-17.5); LYMPH # 1.2 x10^3/uL (1.0-4.8); LYMPH % 8 % (24-48); MEAN CORPUSCULAR HEMOGLOBIN 30 pg (25-35); MEAN CORPUSCULAR HGB CONC 33 g/dL (31-37); MEAN CORPUSCULAR VOLUME 90 fL (79-100); MONO % 8 % (0-9); NEUT % 82 % (31-73); PLATELET COUNT 237 x10^3/uL (140-400); RED BLOOD COUNT 4.14 x10^6/uL (4.30-5.70); RED CELL DISTRIBUTION WIDTH 15.9 % (11.5-14.5); WHITE BLOOD COUNT 13.9 x10^3/uL (4.0-11.0)
[2017-04-04 09:15] LABS: CALCIUM 8.2 mg/dL (8.5-10.1); CREATININE 1.1 mg/dL (0.7-1.3); GFR 65.6; POTASSIUM 3.9 mmol/L (3.5-5.1)
[2017-04-04] MEDS: INSULIN DETEMIR 300 UNITS/3 ML INSULN.PEN. SQ SCH ×2 (10:54→17:18)
[2017-04-04] MEDS: DOCUSATE SODIUM 100 MG CAPSULE. PO SCH ×3 (10:56→21:30)
[2017-04-04] MEDS: ASPIRIN ENTERIC COATED 325 MG TABLET.DR. PO SCH (10:56)
[2017-04-04 11:00] VITALS: BP 121/75
[2017-04-04] MEDS: TAMSULOSIN 0.4 MG CAP.ER.24H. PO SCH ×2 (11:00→17:13)
[2017-04-04] MEDS: METOPROLOL TART IMMED RELEASE 25 MG TABLET. PO SCH ×2 (11:01→21:26)
[2017-04-04] MEDS: POTASSIUM CHLORIDE 10 MEQ TABLET.ER. PO SCH ×2 (11:01→17:13)
[2017-04-04] MEDS: LISINOPRIL 5 MG TABLET. PO SCH (11:02)
[2017-04-04] MEDS: FINASTERIDE 5 MG TABLET. PO SCH (11:02)
[2017-04-04] MEDS: PHENAZOPYRIDINE 200 MG TABLET. PO PRN (11:23)
--- NOTE | 2017-04-04 12:23 | PDOC ---
SUBJECTIVE Subjective C/O pain not controlled , not asking for pain meds frequently OBJECTIVE Vital Signs Vital Signs Date Time Temp Pulse Resp B/P (MAP) Pulse Ox O2 Delivery O2 Flow Rate FiO2 04/04/17 11:09 20 94 Room Air 04/04/17 11:02 76 113/69 04/04/17 11:01 76 113/69 04/04/17 11:00 97.7 96 20 121/75 (90) 95 Room Air 97.7 04/04/17 07:00 97.5 76 18 113/69 (84) 94 BiPAP/CPAP 2.0 97.5 04/04/17 06:11 20 BiPAP/CPAP 04/04/17 05:10 18 95 Room Air 04/04/17 03:00 97.8 82 20 107/67 (80) 95 Nasal Cannula 2.0 97.8 04/04/17 00:51 18 BiPAP/CPAP 2.0 04/03/17 22:00 97.4 75 20 104/59 (74) 98 Nasal Cannula 2.0 97.4 04/03/17 21:17 62 111/59 04/03/17 21:00 97.9 62 17 111/59 (76) 100 Room Air 97.9 04/03/17 20:00 97.9 69 18 100/52 (68) 99 Nasal Cannula 2.0 97.9 04/03/17 20:00 Room Air 04/03/17 19:52 18 Nasal Cannula 2.0 04/03/17 19:30 97.9 64 18 105/56 (72) 99 97.9 04/03/17 19:15 97.8 73 18 90/54 (66) 97 97.8 04/03/17 18:55 97.9 65 18 103/57 (72) 99 Nasal Cannula 2.0 97.9 04/03/17 18:44 Nasal Cannula 2.0 04/03/17 18:40 97.9 67 18 108/67 (81) 99 Nasal Cannula 2.0 97.9 04/03/17 18:23 78 20 99/66 99 Nasal Cannula 2 04/03/17 18:20 Nasal Cannula 2 04/03/17 18:08 65 20 96/60 99 Nasal Cannula 2 04/03/17 17:53 66 20 100/55 99 Simple Mask 10 04/03/17 17:38 78 20 108/61 99 Simple Mask 10 04/03/17 17:38 Mask 10 04/03/17 15:57 97.0 75 20 108/61 96 Room Air 97.0 PHYSICAL EXAM Physical Exam lungs clear heart RRR abd obese soft wound vac in place ASSESSMENT/PLAN Assessment/Plan 1- S/P Left 5th toe amp 04/03 sec to 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 4-PVD s/p angioplasty of anterior tibial artery, 02/06 6-Nmwgi-rk-chronic CHF 6-Morbid obesity 7-DM II pain not controlled will schedule [place] TID for now . Problems: COMMENT Lab Laboratory Tests Test 04/03/17 17:43 04/03/17 21:11 04/04/17 07:29 04/04/17 08:45 Glucose (Fingerstick) 143 mg/dL (70-99) 137 mg/dL (70-99) 161 mg/dL (70-99) White Blood Count 13.9 x10^3/uL (4.0-11.0) Red Blood Count 4.14 x10^6/uL (4.30-5.70) Hemoglobin 12.4 g/dL (13.0-17.5) Hematocrit 37.1 % (39.0-53.0) Mean Corpuscular Volume 90 fL (79-100) Mean Corpuscular Hemoglobin 30 pg (25-35) Mean Corpuscular Hemoglobin Concent 33 g/dL (31-37) Red Cell Distribution Width 15.9 % (11.5-14.5) Platelet Count 237 x10^3/uL (140-400) Neutrophils (%) (Auto) 82 % (31-73) Lymphocytes (%) (Auto) 8 % (24-48) Monocytes (%) (Auto) 8 % (0-9) Eosinophils (%) (Auto) 1 % (0-3) Basophils (%) (Auto) 1 % (0-3) Neutrophils # (Auto) 11.4 x10^3uL (1.8-7.7) Lymphocytes # (Auto) 1.2 x10^3/uL (1.0-4.8) Monocytes # (Auto) 1.1 x10^3/uL (0.0-1.1) Eosinophils # (Auto) 0.2 x10^3/uL (0.0-0.7) Basophils # (Auto) 0.1 x10^3/uL (0.0-0.2) Sodium Level 136 mmol/L (136-145) Potassium Level 3.9 mmol/L (3.5-5.1) Chloride Level 101 mmol/L (98-107) Carbon Dioxide Level 30 mmol/L (21-32) Anion Gap 5 (6-14) Blood Urea Nitrogen 14 mg/dL (8-26) Creatinine 1.1 mg/dL (0.7-1.3) Estimated GFR (Cockcroft-Gault) 65.6 Glucose Level 190 mg/dL (70-99) Calcium Level 8.2 mg/dL (8.5-10.1) Test 04/04/17 11:22 Glucose (Fingerstick) 186 mg/dL (70-99) MAVIS FREDERICK MD Apr 04, 2017 12:23
[2017-04-04] MEDS: HYDROcodone/APAP 5/325MG 1 TAB TABLET PO SCH ×2 (14:16→21:26)
--- NOTE | 2017-04-04 14:42 | PDOC ---
PROGRESS NOTES Subjective Subjective No cardiac complaints Objective Objective Vital Signs Date Time Temp Pulse Resp B/P (MAP) Pulse Ox O2 Delivery O2 Flow Rate FiO2 04/04/17 14:16 20 94 Room Air 04/04/17 12:09 2.0 04/04/17 11:02 76 113/69 04/04/17 11:00 97.7 97.7 Physical Exam Physical Exam No significant changes in cardiac exam Assessment Assessment The patient appears to be compensated cardiac-ty. I agree with present plan. I will not be here tomorrow until Thursday. If there are any cardiac issues Dr. Andrade will cover for Problems Medical Problems: (1) CHF (congestive heart failure) Status: Acute (2) Hypoxia Status: Acute (3) Pulmonary edema Status: Acute Comment Review of Relevant I have reviewed the following items edwina (where applicable) has been applied. Labs Laboratory Tests Test 04/02/17 17:08 04/02/17 20:15 04/03/17 07:34 04/03/17 12:08 Glucose (Fingerstick) 183 mg/dL (70-99) 158 mg/dL (70-99) 151 mg/dL (70-99) 142 mg/dL (70-99) Test 04/03/17 17:43 04/03/17 21:11 04/04/17 07:29 04/04/17 08:45 Glucose (Fingerstick) 143 mg/dL (70-99) 137 mg/dL (70-99) 161 mg/dL (70-99) White Blood Count 13.9 x10^3/uL (4.0-11.0) Red Blood Count 4.14 x10^6/uL (4.30-5.70) Hemoglobin 12.4 g/dL (13.0-17.5) Hematocrit 37.1 % (39.0-53.0) Mean Corpuscular Volume 90 fL (79-100) Mean Corpuscular Hemoglobin 30 pg (25-35) Mean Corpuscular Hemoglobin Concent 33 g/dL (31-37) Red Cell Distribution Width 15.9 % (11.5-14.5) Platelet Count 237 x10^3/uL (140-400) Neutrophils (%) (Auto) 82 % (31-73) Lymphocytes (%) (Auto) 8 % (24-48) Monocytes (%) (Auto) 8 % (0-9) Eosinophils (%) (Auto) 1 % (0-3) Basophils (%) (Auto) 1 % (0-3) Neutrophils # (Auto) 11.4 x10^3uL (1.8-7.7) Lymphocytes # (Auto) 1.2 x10^3/uL (1.0-4.8) Monocytes # (Auto) 1.1 x10^3/uL (0.0-1.1) Eosinophils # (Auto) 0.2 x10^3/uL (0.0-0.7) Basophils # (Auto) 0.1 x10^3/uL (0.0-0.2) Sodium Level 136 mmol/L (136-145) Potassium Level 3.9 mmol/L (3.5-5.1) Chloride Level 101 mmol/L (98-107) Carbon Dioxide Level 30 mmol/L (21-32) Anion Gap 5 (6-14) Blood Urea Nitrogen 14 mg/dL (8-26) Creatinine 1.1 mg/dL (0.7-1.3) Estimated GFR (Cockcroft-Gault) 65.6 Glucose Level 190 mg/dL (70-99) Calcium Level 8.2 mg/dL (8.5-10.1) Test 04/04/17 11:22 Glucose (Fingerstick) 186 mg/dL (70-99) Laboratory Tests Test 04/03/17 17:43 04/03/17 21:11 04/04/17 07:29 04/04/17 08:45 Glucose (Fingerstick) 143 mg/dL (70-99) 137 mg/dL (70-99) 161 mg/dL (70-99) White Blood Count 13.9 x10^3/uL (4.0-11.0) Red Blood Count 4.14 x10^6/uL (4.30-5.70) Hemoglobin 12.4 g/dL (13.0-17.5) Hematocrit 37.1 % (39.0-53.0) Mean Corpuscular Volume 90 fL (79-100) Mean Corpuscular Hemoglobin 30 pg (25-35) Mean Corpuscular Hemoglobin Concent 33 g/dL (31-37) Red Cell Distribution Width 15.9 % (11.5-14.5) Platelet Count 237 x10^3/uL (140-400) Neutrophils (%) (Auto) 82 % (31-73) Lymphocytes (%) (Auto) 8 % (24-48) Monocytes (%) (Auto) 8 % (0-9) Eosinophils (%) (Auto) 1 % (0-3) Basophils (%) (Auto) 1 % (0-3) Neutrophils # (Auto) 11.4 x10^3uL (1.8-7.7) Lymphocytes # (Auto) 1.2 x10^3/uL (1.0-4.8) Monocytes # (Auto) 1.1 x10^3/uL (0.0-1.1) Eosinophils # (Auto) 0.2 x10^3/uL (0.0-0.7) Basophils # (Auto) 0.1 x10^3/uL (0.0-0.2) Sodium Level 136 mmol/L (136-145) Potassium Level 3.9 mmol/L (3.5-5.1) Chloride Level 101 mmol/L (98-107) Carbon Dioxide Level 30 mmol/L (21-32) Anion Gap 5 (6-14) Blood Urea Nitrogen 14 mg/dL (8-26) Creatinine 1.1 mg/dL (0.7-1.3) Estimated GFR (Cockcroft-Gault) 65.6 Glucose Level 190 mg/dL (70-99) Calcium Level 8.2 mg/dL (8.5-10.1) Test 04/04/17 11:22 Glucose (Fingerstick) 186 mg/dL (70-99) Microbiology 03/28/17 Blood Culture - Final, Complete NO GROWTH AFTER 5 DAYS 03/28/17 Urine Culture - Final, Complete 03/28/17 Urine Culture Result 1 (DEREK) - Final, Complete 03/29/17 Gram Stain - Final, Complete Medications Current Medications Albuterol/ Ipratropium (Duoneb) 3 ml 1X ONCE NEB Last administered on 21:22; Start 03/28/17 at 21:15; Stop 03/28/17 at 21:16; Status DC Methylprednisolone Sodium Succinate (SOLU-Medrol 125MG VIAL) 125 mg 1X ONCE IV Last administered on 03/28/17 21:18; Start 03/28/17 at 21:15; Stop 03/28/17 at 21:16; Status DC Furosemide (Lasix) 40 mg 1X ONCE IVP Last administered on 03/28/17 22:21; Start 03/28/17 at 22:15; Stop 03/28/17 at 22:16; Status DC Influenza Virus Vaccine Quadrival (Fluarix Quad [id number] Syringe) 0.5 ml ONCE ONCE VAX IM ; Start 03/29/17 at 09:00; Stop 03/29/17 at 09:01; Status DC Info (Do NOT chart on this placeholder) 1 each PRN 1X PRN MC SEE COMMENTS; Start 03/29/17 at 02:00; Status Cancel Amlodipine Besylate (Norvasc) 10 mg DAILY PO Last administered on 03/29/17 09: 54; Start 03/29/17 at 09:30; Stop 03/30/17 at 08:15; Status DC Aspirin (Ecotrin) 325 mg DAILY PO Last administered on 04/04/17 10:56; Start 03/29/17 at 09:30 Citalopram Hydrobromide (CeleXA) 20 mg HS PO Last administered on 04/03/17 21: 17; Start 03/29/17 at 21:00 Clopidogrel Bisulfate (Plavix) 75 mg BID PO ; Start 03/29/17 at 09:00; Stop at 09:00; Status DC Docusate Sodium (Colace) 200 mg BID PO Last administered on 03/30/17 21:00; Start 03/29/17 at 09:30 Finasteride (Proscar) 5 mg DAILY PO Last administered on 04/04/17 11:02; Start 03/29/17 at 09:30 Metoprolol Tartrate (Lopressor) 12.5 mg BID PO ; Start 03/29/17 at 09:00; Stop 03/29/17 at 09:00; Status DC Tamsulosin HCl (Flomax) 0.4 mg HS PO ; Start 03/29/17 at 21:00; Stop 03/29/17 at 21:00; Status DC Non-Formulary Medication 10 meq DAILY08 PO ; Start 03/30/17 at 08:00; Stop 03/30 at 08:00; Status DC Metoprolol Tartrate (Lopressor) 25 mg BID PO Last administered on 03/29/17 21: 46; Start 03/29/17 at 09:30; Stop 03/30/17 at 19:29; Status DC Potassium Chloride (Klor-Con) 10 meq BIDAFTMEAL PO Last administered on 11:01; Start 03/29/17 at 09:30 Lisinopril (Prinivil) 10 mg DAILY PO Last administered on 03/29/17 09:55; Start 03/29/17 at 09:30; Stop 03/30/17 at 08:15; Status DC Clopidogrel Bisulfate (Plavix) 75 mg DAILY16 PO Last administered on 04/02/17 17:11; Start 03/29/17 at 16:00 Dextrose (Dextrose 50%-Water Syringe) 12.5 gm PRN Q15MIN PRN IV SEE COMMENTS; Start 03/29/17 at 09:00 Insulin Detemir (Levemir) 15 units QHS SQ Last administered on 03/30/17 21:08 ; Start 03/29/17 at 21:00; Stop 03/31/17 at 08:24; Status DC Furosemide (Lasix) 40 mg BID92 IVP Last administered on 03/29/17 09:56; Start 03/29/17 at 10:00; Stop 03/29/17 at 14:20; Status DC Tamsulosin HCl (Flomax) 0.4 mg BIDAFTMEAL PO Last administered on 04/04/17 11: 00; Start 03/29/17 at 10:00 Cefazolin Sodium 1 gm/Sodium Chloride 50 ml @ 100 mls/hr Q8HRS IV Last administered on 03/29/17 14:03; Start 03/29/17 at 14:00; Stop 03/29/17 at 17:47 ; Status DC Furosemide (Lasix) 60 mg BID66 IVP Last administered on 03/29/17 18:17; Start 03/29/17 at 18:00; Stop 03/30/17 at 18:01; Status DC Albumin Human 100 ml @ 100 mls/hr 1X ONCE IV ; Start 03/29/17 at 14:15; Stop 03/29/17 at 15:14; Status Cancel Albumin Human 300 ml @ 300 mls/hr 1X ONCE IV ; Start 03/29/17 at 14:23; Stop 03/29/17 at 15:14; Status Cancel Albumin Human 50 ml @ 100 mls/hr BID@0530,1730 IV Last administered on 05:43; Start 03/29/17 at 17:30; Stop 03/30/17 at 17:59; Status DC Vancomycin HCl (Vanco Per Pharmacy) 1 each PRN DAILY PRN MC SEE COMMENTS Last administered on 04/02/17 03:40; Start 03/29/17 at 17:45; Stop 04/02/17 at 10:33 ; Status DC Piperacillin Sod/ Tazobactam Sod 3.375 gm/Sodium Chloride 50 ml @ 100 mls/hr Q6HRS IV Last administered on 04/02/17 05:53; Start 03/29/17 at 18:00; Stop at 10:33; Status DC Vancomycin HCl 2 gm/Sodium Chloride 500 ml @ 250 mls/hr 1X ONCE IV Last administered on 03/29/17 19:51; Start 03/29/17 at 18:00; Stop 03/29/17 at 19:59 ; Status DC Insulin Aspart (NovoLOG) 10 units 1X ONCE SQ Last administered on 03/29/17 18 :32; Start 03/29/17 at 18:15; Stop 03/29/17 at 18:17; Status DC Vancomycin HCl 1.5 gm/Sodium Chloride 500 ml @ 250 mls/hr Q12H IV Last administered on 03/30/17 21:01; Start 03/30/17 at 08:00; Stop 03/31/17 at 08:24 ; Status DC Vancomycin HCl 1 each 1X ONCE MC Last administered on 03/31/17 07:30; Start 03/31/17 at 07:30; Stop 03/31/17 at 07:31; Status DC Ibuprofen (Motrin) 400 mg PRN QID PRN PO INFLAMMATION Last administered on 03/31 10:25; Start 03/29/17 at 22:00 Amlodipine Besylate (Norvasc) 5 mg DAILY PO ; Start 03/30/17 at 09:00; Stop at 19:30; Status DC Lisinopril (Prinivil) 5 mg DAILY PO ; Start 03/30/17 at 09:00; Stop 03/30/17 at 19:30; Status DC Furosemide (Lasix) 60 mg 1X ONCE IVP Last administered on 03/31/17 06:31; Start 03/31/17 at 06:00; Stop 03/31/17 at 06:01; Status DC Albumin Human 50 ml @ 50 mls/hr 1X ONCE IV Last administered on 03/31/17 05: 57; Start 03/31/17 at 06:00; Stop 03/31/17 at 06:59; Status DC Amlodipine Besylate (Norvasc) 5 mg DAILY PO ; Start 03/31/17 at 09:00; Stop at 09:00; Status DC Metoprolol Tartrate (Lopressor) 25 mg BID PO Last administered on 04/04/17 11: 01; Start 03/31/17 at 09:00 Lisinopril (Prinivil) 5 mg DAILY PO Last administered on 04/04/17 11:02; Start 03/31/17 at 09:00 Insulin Detemir (Levemir) 10 units BIDAC SQ Last administered on 03/31/17 17: 34; Start 03/31/17 at 11:30; Stop 04/01/17 at 08:39; Status DC Vancomycin HCl 1.25 gm/Sodium Chloride 250 ml @ 167 mls/hr Q12H IV Last administered on 04/01/17 13:31; Start 03/31/17 at 14:00; Stop 04/02/17 at 02:47 ; Status DC Vancomycin HCl 1 each 1X ONCE MC ; Start 04/02/17 at 01:30; Stop 04/02/17 at 01 :31; Status DC Furosemide (Lasix) 40 mg BID76 PO Last administered on 03/31/17 17:28; Start 03/31/17 at 09:00; Stop 04/01/17 at 08:26; Status DC Enoxaparin Sodium (Lovenox 40mg Syringe) 40 mg Q24H SQ Last administered on 09:18; Start 03/31/17 at 09:00; Stop 04/01/17 at 12:49; Status DC Acetaminophen/ Hydrocodone Bitart (Lortab 5/325) 1 tab TID PRN PRN PO PAIN Last administered on 04/03/17 18:44; Start 03/31/17 at 13:15; Stop 04/04/17 at 00:14; Status DC Furosemide (Lasix) 40 mg DAILY07 PO Last administered on 04/04/17 05:58; Start 04/01/17 at 09:00 Insulin Detemir (Levemir) 12 units BIDAC SQ Last administered on 04/04/17 10: 54; Start 04/01/17 at 09:00 Phenazopyridine HCl (Pyridium) 200 mg [id number] PRN PO URINARY PAIN Last administered on 04/04/17 11:23; Start 04/01/17 at 08:45 Enoxaparin Sodium (Lovenox 40mg Syringe) 40 mg Q12H SQ Last administered on 21:18; Start 04/01/17 at 21:00; Stop 04/04/17 at 12:31; Status DC Vancomycin HCl 1.5 gm/Sodium Chloride 500 ml @ 250 mls/hr Q24H IV ; Start 04/02 at 14:00; Stop 04/02/17 at 14:00; Status DC Vancomycin HCl 1 each 1X ONCE MC ; Start 04/04/17 at 13:30; Stop 04/04/17 at 13 :31; Status Cancel Meropenem 1 gm/ Sodium Chloride 100 ml @ 200 mls/hr Q8HRS IV Last administered on 04/04/17 14:16; Start 04/02/17 at 12:00 Fentanyl Citrate (Fentanyl 2ml Vial) 25 mcg PRN Q5MIN PRN IV MILD PAIN; Start 04/03/17 at 07:00; Stop 04/04/17 at 06:59; Status DC Fentanyl Citrate (Fentanyl 2ml Vial) 50 mcg PRN Q5MIN PRN IV MODERATE PAIN; Start 04/03/17 at 07:00; Stop 04/04/17 at 06:59; Status DC Morphine Sulfate 1 mg PRN Q10MIN PRN IV SEVERE PAIN; Start 04/03/17 at 07:00; Stop 04/03/17 at 07:00; Status DC Ringer's Solution 1,000 ml @ 30 mls/hr Q24H IV Last administered on 04/03/17 16:00; Start 04/03/17 at 07:00; Stop 04/03/17 at 18:59; Status DC Lidocaine HCl (Xylocaine-Mpf 1% Vial) 2 ml PRN 1X PRN ID IV START; Start at 07:00; Stop 04/04/17 at 06:59; Status DC Hydromorphone HCl (Dilaudid) 0.5 mg PRN Q10MIN PRN IV SEV PAIN, Second choice; Start 04/03/17 at 07:00; Stop 04/04/17 at 06:59; Status DC Prochlorperazine Edisylate (Compazine) 5 mg PACU PRN PRN IV NAUSEA, MRX1; Start 04/03/17 at 07:00; Stop 04/04/17 at 06:59; Status DC Morphine Sulfate 1 mg PRN Q10MIN PRN IV SEVERE PAIN; Start 04/02/17 at 16:45 Bupivacaine HCl (Marcaine 0.5%) 50 ml STK-MED ONCE .ROUTE ; Start 04/03/17 at 15 :36; Stop 04/03/17 at 16:37; Status DC Acetaminophen/ Hydrocodone Bitart (Lortab 5/325) 1 tab PRN Q4HRS PRN PO SEVERE PAIN Last administered on 04/04/17 11:09; Start 04/04/17 at 00:15 Acetaminophen/ Hydrocodone Bitart (Lortab 5/325) 1 tab TID PO Last administered on 04/04/17 14:16; Start 04/04/17 at 14:00 Active Scripts Active Reported Clopidogrel (Clopidogrel Bisulfate) 75 Mg Tablet 1 Tab PO BID Aspirin Ec (Aspirin) 325 Mg Tablet.dr 1 Tab PO DAILY [regranex] 0.01 % TOP DAILY06 Celexa (Citalopram Hydrobromide) 20 Mg Tablet 1 Tab PO HS Amlodipine Besylate 10 Mg Tablet 10 Mg PO DAILY Tamsulosin Hcl 0.4 Mg Cap.er.24h 0.4 Mg PO HS Potassium Chloride 10 Meq Capsule.er 10 Meq PO DAILY08 Colace (Docusate Sodium) 100 Mg Capsule 200 Mg PO BID Lantus (Insulin Glargine,Hum.rec.anlog) 100 Unit/1 Ml Vial 120 Unit SQ DAILY08 Multi Vitamin Daily (Multivitamin) 1 Each Tablet 1 Each PO DAILY Lasix (Furosemide) 20 Mg Tablet 40 Mg PO DAILY Finasteride 5 Mg Tablet 5 Mg PO DAILY Metoprolol Tartrate 50 Mg Tablet 12.5 Mg PO BID Vitals/I & O Vital Sign - Last 24 Hours 04/03/17 04/03/17 04/03/17 04/03/17 15:57 17:38 17:38 17:53 Temp 97.0 97.0 Pulse 75 78 66 Resp 20 20 20 B/P (MAP) 108/61 108/61 100/55 Pulse Ox 96 99 99 O2 Delivery Room Air Mask Simple Mask Simple Mask O2 Flow Rate 10 10 10 04/03/17 04/03/17 04/03/17 04/03/17 18:08 18:20 18:23 18:40 Temp 97.9 97.9 Pulse 65 78 67 Resp 20 20 18 B/P (MAP) 96/60 99/66 108/67 (81) Pulse Ox 99 99 99 O2 Delivery Nasal Cannula Nasal Cannula Nasal Cannula Nasal Cannula O2 Flow Rate 2 2 2 2.0 04/03/17 04/03/17 04/03/17 04/03/17 18:44 18:55 19:15 19:30 Temp 97.9 97.8 97.9 97.9 97.8 97.9 Pulse 65 73 64 Resp 18 18 18 B/P (MAP) 103/57 (72) 90/54 (66) 105/56 (72) Pulse Ox 99 97 99 O2 Delivery Nasal Cannula Nasal Cannula O2 Flow Rate 2.0 2.0 04/03/17 04/03/17 04/03/17 04/03/17 19:52 20:00 20:00 21:00 Temp 97.9 97.9 97.9 97.9 Pulse 69 62 Resp 18 18 17 B/P (MAP) 100/52 (68) 111/59 (76) Pulse Ox 99 100 O2 Delivery Nasal Cannula Room Air Nasal Cannula Room Air O2 Flow Rate 2.0 2.0 04/03/17 04/03/17 04/04/17 04/04/17 21:17 22:00 00:51 03:00 Temp 97.4 97.8 97.4 97.8 Pulse 62 75 82 Resp 20 18 20 B/P (MAP) 111/59 104/59 (74) 107/67 (80) Pulse Ox 98 95 O2 Delivery Nasal Cannula BiPAP/CPAP Nasal Cannula O2 Flow Rate 2.0 2.0 2.0 04/04/17 04/04/17 04/04/17 04/04/17 05:10 07:00 11:00 11:01 Temp 97.5 97.7 97.5 97.7 Pulse 76 96 76 Resp 18 18 20 B/P (MAP) 113/69 (84) 121/75 (90) 113/69 Pulse Ox 95 94 95 O2 Delivery Room Air BiPAP/CPAP Room Air O2 Flow Rate 2.0 04/04/17 04/04/17 04/04/17 04/04/17 11:02 11:09 12:09 14:16 Pulse 76 Resp 20 20 20 B/P (MAP) 113/69 Pulse Ox 94 94 94 O2 Delivery Room Air Room Air Room Air O2 Flow Rate 2.0 OSVALDO VELA MD Apr 04, 2017 14:42
[2017-04-04 15:00] VITALS: BP 118/73
--- NOTE | 2017-04-04 16:41 | CONS ---
DATE OF CONSULTATION: 04/03/2017 REQUESTING PHYSICIAN: Dr. Heri Hansen. REASON FOR CONSULTATION: Infection of left foot. HISTORY OF PRESENT ILLNESS: The patient is a 71-year-old male who has been followed by Dr. Curry for previous debridement of his left foot that now has a nonhealing left lateral foot wound with osteomyelitis of the left fifth metatarsal base. He has poorly controlled diabetes and has had wound care for the last 6 weeks with IV cefazolin. The wound really has not been improving and in fact on admission had been scheduled for the following week with debridement by Dr. Curry; however, developed increasing shortness of breath and confusion resulting in his admission to the hospital. After medical conditions were cleared up somewhat more, I was consulted for further management of his foot in terms of his treatment options. PAST MEDICAL HISTORY: Significant for diabetes, coronary artery stent, cardiomyopathy. PAST SURGICAL HISTORY: Significant for coronary artery stenting, previous debridement of his left foot. ALLERGIES: He has no known drug allergies. MEDICATIONS: List is reviewed. FAMILY HISTORY: Unremarkable. SOCIAL HISTORY: Denies smoking, alcohol or drug use. He is , and family accompany him currently. He is quite sedentary in terms of his physical activities. REVIEW OF SYSTEMS: Significant for some diabetic neuropathy. Denies any chest pain, shortness of breath, current fever, chills, visual changes, focal weakness, numbness, tingling or other recent injury. PHYSICAL EXAMINATION: GENERAL: This is a pleasant, cooperative 71-year-old male, BMI 42.2. EXTREMITIES: Examination of the left foot reveals an approximately nickel-sized nonhealing wound with fifth metatarsal base palpable and very soft suspicious for osteomyelitis. No significant granulation noted at the wound edges. Pulses are diminished on the left foot compared to the right. Has some neuropathy in a stocking distribution bilaterally. Good hip and knee motion, alignment, stability bilaterally. IMAGING STUDIES: Show on MRI osteomyelitis of the fifth metatarsal. IMPRESSION: Left fifth metatarsal osteomyelitis with nonhealing wound, lateral foot. TREATMENT PLAN: I have gone over in significant detail with the patient and his family the possibility of treatment options, one way to approach this would be removal of the fifth metatarsal and debridement and attempting some closure and further wound care if necessary. The downside to this approach may be potentially persistent infection, nonhealing of the area due to vascular compromise and his diabetes, possibly requiring additional surgery. Although below-knee amputation would be a more reliably healing procedure, the difficulty is that his cardiac and respiratory energy requirements to ambulate would potentially be about 40% more with a below-knee amputation according to estimates in the literature and make his difficulty ambulation even more of a challenge. At this point, the family would like to at all costs, as before, salvage his foot if possible. The patient agrees with this approach as well and wishes to proceed with surgery to attempt resection of the fifth ray as opposed to consideration of any more proximal amputation. All their questions were answered. Consent was obtained. Surgery will be planned for today. ANUM ROSENTHAL MD DR: LEILANI/leonardo JOB#: [id number] / [id number]
[2017-04-04] MEDS: CLOPIDOGREL BISULFATE 75 MG TABLET PO SCH (17:13)
[2017-04-04 19:00] VITALS: BP 100/61
[2017-04-04] MEDS: CITALOPRAM 20 MG TABLET. PO SCH (21:29)
[2017-04-04 22:46] VITALS: BP 113/74
[2017-04-05] VITALS (7 sets, daily range): BP systolic 95–120; BP diastolic 54–71
[2017-04-05] MEDS: HYDROcodone/APAP 5/325MG 1 TAB TABLET PO PRN ×3 (01:38→19:34)
[2017-04-05] MEDS: MEROPENEM 1 GM in IV NORMAL SALINE 100ML 100 ML IV SCH ×3 (05:58→20:42)
[2017-04-05] MEDS: FINASTERIDE 5 MG TABLET. PO SCH (09:00)
[2017-04-05] MEDS: LISINOPRIL 5 MG TABLET. PO SCH (09:07)
[2017-04-05] MEDS: POTASSIUM CHLORIDE 10 MEQ TABLET.ER. PO SCH ×2 (09:07→17:05)
[2017-04-05] MEDS: METOPROLOL TART IMMED RELEASE 25 MG TABLET. PO SCH ×2 (09:07→20:40)
[2017-04-05] MEDS: FUROSEMIDE 40 MG TABLET. PO SCH (09:08)
[2017-04-05] MEDS: ASPIRIN ENTERIC COATED 325 MG TABLET.DR. PO SCH (09:08)
[2017-04-05] MEDS: TAMSULOSIN 0.4 MG CAP.ER.24H. PO SCH ×2 (09:08→17:05)
[2017-04-05] MEDS: HYDROcodone/APAP 5/325MG 1 TAB TABLET PO SCH ×3 (09:11→20:41)
--- NOTE | 2017-04-05 09:29 | PDOC ---
PROGRESS NOTES Subjective Subjective Problems overnight: Pain controlled wound VAC intact no other complaints Objective Vital Signs Vital Signs Date Time Temp Pulse Resp B/P (MAP) Pulse Ox O2 Delivery O2 Flow Rate FiO2 04/05/17 09:11 96 Room Air 2.0 04/05/17 09:07 61 120/69 04/05/17 07:05 20 04/05/17 03:00 97.5 97.5 Physical Exam Examination left foot reveals no redness or erythema wound VAC appears intact with some mild bloody drainage in the canister Labs Laboratory Tests Test 04/03/17 12:08 04/03/17 17:43 04/03/17 21:11 04/04/17 07:29 Glucose (Fingerstick) 142 mg/dL (70-99) 143 mg/dL (70-99) 137 mg/dL (70-99) 161 mg/dL (70-99) Test 04/04/17 08:45 04/04/17 11:22 04/04/17 16:17 04/04/17 20:52 White Blood Count 13.9 x10^3/uL (4.0-11.0) Red Blood Count 4.14 x10^6/uL (4.30-5.70) Hemoglobin 12.4 g/dL (13.0-17.5) Hematocrit 37.1 % (39.0-53.0) Mean Corpuscular Volume 90 fL (79-100) Mean Corpuscular Hemoglobin 30 pg (25-35) Mean Corpuscular Hemoglobin Concent 33 g/dL (31-37) Red Cell Distribution Width 15.9 % (11.5-14.5) Platelet Count 237 x10^3/uL (140-400) Neutrophils (%) (Auto) 82 % (31-73) Lymphocytes (%) (Auto) 8 % (24-48) Monocytes (%) (Auto) 8 % (0-9) Eosinophils (%) (Auto) 1 % (0-3) Basophils (%) (Auto) 1 % (0-3) Neutrophils # (Auto) 11.4 x10^3uL (1.8-7.7) Lymphocytes # (Auto) 1.2 x10^3/uL (1.0-4.8) Monocytes # (Auto) 1.1 x10^3/uL (0.0-1.1) Eosinophils # (Auto) 0.2 x10^3/uL (0.0-0.7) Basophils # (Auto) 0.1 x10^3/uL (0.0-0.2) Sodium Level 136 mmol/L (136-145) Potassium Level 3.9 mmol/L (3.5-5.1) Chloride Level 101 mmol/L (98-107) Carbon Dioxide Level 30 mmol/L (21-32) Anion Gap 5 (6-14) Blood Urea Nitrogen 14 mg/dL (8-26) Creatinine 1.1 mg/dL (0.7-1.3) Estimated GFR (Cockcroft-Gault) 65.6 Glucose Level 190 mg/dL (70-99) Calcium Level 8.2 mg/dL (8.5-10.1) Glucose (Fingerstick) 186 mg/dL (70-99) 223 mg/dL (70-99) 218 mg/dL (70-99) Test 04/05/17 08:01 Glucose (Fingerstick) 151 mg/dL (70-99) Laboratory Tests Test 04/04/17 11:22 04/04/17 16:17 04/04/17 20:52 04/05/17 08:01 Glucose (Fingerstick) 186 mg/dL (70-99) 223 mg/dL (70-99) 218 mg/dL (70-99) 151 mg/dL (70-99) Assessment Assessment POD# [2], S/P [left fifth ray amputation] Problems: Plan Plan of Care Wound care consult for wound VAC changes Thursday ANUM ROSENTHAL MD Apr 05, 2017 09:29
--- NOTE | 2017-04-05 09:43 | PDOC ---
Infectious Disease Note Subjective Subjective Patient comfortable, pain controlled Having some constipation and a little diarrhea + BM x 4 last 24 hours ROS ROS GEN: Denies fevers, chills, sweats CV: Denies chest pain RESP: Denies shortness of air, cough GI: Denies n/v Vital Sign Vital Signs Vital Signs Date Time Temp Pulse Resp B/P (MAP) Pulse Ox O2 Delivery O2 Flow Rate FiO2 04/05/17 09:11 96 Room Air 2.0 04/05/17 09:07 61 120/69 04/05/17 07:05 20 04/05/17 03:00 97.5 97.5 Physical Exam PHYSICAL EXAM GENERAL: Propped up in bed, eating LUNGS: Clear HEART: S1 and S2, + murmur ABD: Soft, NT, obese EXT: Left foot trace edema, wound vac in place . 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 clean Labs Lab Laboratory Tests Test 04/04/17 11:22 04/04/17 16:17 04/04/17 20:52 04/05/17 08:01 Glucose (Fingerstick) 186 mg/dL (70-99) 223 mg/dL (70-99) 218 mg/dL (70-99) 151 mg/dL (70-99) Objective Assessment S/p Left 5th toe amp 04/03 sec to Infected diabetic wound of left foot with osteo of left 5th MT on MRI from 03/23., now proteus and Citrobacter -hx Prevotella, E. faecalis & E. avium from 03/10 -hx MSSA and bone exposure s/p debridement 02/10. Acute encephalopathy. Lactic acid 1.5 Leukocytosis (dose steroids 03/28) PVD s/p angioplasty of anterior tibial artery, 02/06 [id number] CHF Morbid obesity Plan Plan of Care Cont meropenem Bed extension D/w family D/w nursing Attending Co-Sign Attending Co-Sign The patient was seen and interviewed as well as examined at the bedside. The chart was reviewed. The case was discussed. Agree with the plan of care. HIGINIO HARRIS APRN Apr 05, 2017 09:43 CAN LOMBARDI MD Apr 05, 2017 13:44
[2017-04-05 10:14] LABS: HEMATOCRIT 36.4 % (39.0-53.0); HEMOGLOBIN 12.2 g/dL (13.0-17.5); RED BLOOD COUNT 4.07 x10^6/uL (4.30-5.70); WHITE BLOOD COUNT 13.6 x10^3/uL (4.0-11.0)
[2017-04-05 10:46] LABS: ALBUMIN 2.3 g/dL (3.4-5.0); ALBUMIN/GLOBULIN RATIO 0.5 (1.0-1.7); CALCIUM 8.6 mg/dL (8.5-10.1); CREATININE 0.9 mg/dL (0.7-1.3); GFR 82.7; POTASSIUM 3.9 mmol/L (3.5-5.1); TOTAL BILIRUBIN 0.5 mg/dL (0.2-1.0); TOTAL PROTEIN 6.9 g/dL (6.4-8.2)
[2017-04-05] MEDS: INSULIN DETEMIR 300 UNITS/3 ML INSULN.PEN. SQ SCH ×2 (10:50→17:09)
--- NOTE | 2017-04-05 13:20 | PDOC ---
SUBJECTIVE Subjective pain better control, not participating in PT encouraged to do that, stool is frequent first hard then loose may be was impacted OBJECTIVE Vital Signs Vital Signs Date Time Temp Pulse Resp B/P (MAP) Pulse Ox O2 Delivery O2 Flow Rate FiO2 04/05/17 11:00 96.8 69 18 116/71 (86) 90 Room Air 96.8 04/05/17 09:11 96 Room Air 2.0 04/05/17 09:07 61 120/69 04/05/17 09:07 61 120/69 04/05/17 08:00 Room Air 04/05/17 07:05 20 04/05/17 07:00 61 18 120/69 (86) 96 BiPAP/CPAP 2.0 04/05/17 06:00 95 95/54 (68) 04/05/17 05:58 20 Room Air 04/05/17 03:00 97.5 84 18 112/62 (79) 97 Room Air 97.5 04/05/17 02:35 BiPAP/CPAP 04/05/17 01:38 20 Room Air 04/04/17 22:46 97.9 88 18 113/74 (87) 95 BiPAP/CPAP 2.0 97.9 04/04/17 22:27 20 BiPAP/CPAP 04/04/17 21:26 20 Room Air 04/04/17 21:26 89 100/61 04/04/17 21:25 Room Air 04/04/17 19:00 96.6 89 18 100/61 (74) 93 Room Air 96.6 04/04/17 18:14 94 04/04/17 17:14 20 94 Room Air 04/04/17 15:16 94 04/04/17 15:00 97.3 87 18 118/73 (88) 97 Room Air 97.3 04/04/17 14:16 20 94 Room Air PHYSICAL EXAM Physical Exam lungs clear heart RRR abd soft none tender ext stable with wound vac in place ASSESSMENT/PLAN Assessment/Plan 1- S/P Left 5th toe amp 04/03 sec to 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 4-PVD s/p angioplasty of anterior tibial artery, 02/06 0-Wwjed-ia-chronic CHF 6-Morbid obesity 7-DM II 8- frequent stools will check C.Diff ( on vanco) 9- pain better controlled encourged to participate in PT has not been cooperative may be due to pain Dr. Hansen will resume care in AM Problems: COMMENT Lab Laboratory Tests Test 04/04/17 16:17 04/04/17 20:52 04/05/17 08:01 04/05/17 09:50 Glucose (Fingerstick) 223 mg/dL (70-99) 218 mg/dL (70-99) 151 mg/dL (70-99) White Blood Count 13.6 x10^3/uL (4.0-11.0) Red Blood Count 4.07 x10^6/uL (4.30-5.70) Hemoglobin 12.2 g/dL (13.0-17.5) Hematocrit 36.4 % (39.0-53.0) Mean Corpuscular Volume 89 fL (79-100) Mean Corpuscular Hemoglobin 30 pg (25-35) Mean Corpuscular Hemoglobin Concent 33 g/dL (31-37) Red Cell Distribution Width 16.0 % (11.5-14.5) Platelet Count 246 x10^3/uL (140-400) Erythrocyte Sedimentation Rate 81 (0-15) Sodium Level 137 mmol/L (136-145) Potassium Level 3.9 mmol/L (3.5-5.1) Chloride Level 102 mmol/L (98-107) Carbon Dioxide Level 28 mmol/L (21-32) Anion Gap 7 (6-14) Blood Urea Nitrogen 11 mg/dL (8-26) Creatinine 0.9 mg/dL (0.7-1.3) Estimated GFR (Cockcroft-Gault) 82.7 BUN/Creatinine Ratio 12 (6-20) Glucose Level 176 mg/dL (70-99) Calcium Level 8.6 mg/dL (8.5-10.1) Total Bilirubin 0.5 mg/dL (0.2-1.0) Aspartate Amino Transf (AST/SGOT) 18 U/L (15-37) Alanine Aminotransferase (ALT/SGPT) 21 U/L (16-63) Alkaline Phosphatase 73 U/L (46-116) Total Protein 6.9 g/dL (6.4-8.2) Albumin 2.3 g/dL (3.4-5.0) Albumin/Globulin Ratio 0.5 (1.0-1.7) Test 04/05/17 11:18 Glucose (Fingerstick) 164 mg/dL (70-99) MAVIS FREDERICK MD Apr 05, 2017 13:19
[2017-04-05] MEDS: PHENAZOPYRIDINE 200 MG TABLET. PO PRN (14:10)
[2017-04-05] MEDS: CLOPIDOGREL BISULFATE 75 MG TABLET PO SCH (17:05)
[2017-04-05] MEDS: CITALOPRAM 20 MG TABLET. PO SCH (20:40)
[2017-04-05] MEDS: DOCUSATE SODIUM 100 MG CAPSULE. PO SCH (20:41)
[2017-04-06] VITALS (7 sets, daily range): BP systolic 97–109; BP diastolic 45–75
[2017-04-06 04:56] LABS: HEMATOCRIT 34.9 % (39.0-53.0); HEMOGLOBIN 11.4 g/dL (13.0-17.5); RED BLOOD COUNT 3.81 x10^6/uL (4.30-5.70); RED CELL DISTRIBUTION WIDTH 16.3 % (11.5-14.5); WHITE BLOOD COUNT 11.4 x10^3/uL (4.0-11.0)
[2017-04-06 05:16] LABS: ALBUMIN 2.2 g/dL (3.4-5.0); ALBUMIN/GLOBULIN RATIO 0.5 (1.0-1.7); CALCIUM 8.8 mg/dL (8.5-10.1); POTASSIUM 3.9 mmol/L (3.5-5.1); TOTAL BILIRUBIN 0.4 mg/dL (0.2-1.0); TOTAL PROTEIN 6.7 g/dL (6.4-8.2)
[2017-04-06] MEDS: MEROPENEM 1 GM in IV NORMAL SALINE 100ML 100 ML IV SCH ×3 (06:31→21:16)
[2017-04-06] MEDS: FUROSEMIDE 40 MG TABLET. PO SCH (06:32)
--- NOTE | 2017-04-06 08:07 | PDOC ---
Provider Note Provider Note vss, no new sxs- wound vac in place , still on ESTRADA Jay MD Apr 06, 2017 08:07
[2017-04-06] MEDS: TAMSULOSIN 0.4 MG CAP.ER.24H. PO SCH ×2 (08:27→17:15)
[2017-04-06] MEDS: ASPIRIN ENTERIC COATED 325 MG TABLET.DR. PO SCH (08:28)
--- NOTE | 2017-04-06 08:28 | PDOC ---
Infectious Disease Note Subjective Subjective Patient comfortable, pain controlled Vac off sec to loss of seal Some penile discomfort ROS ROS GEN: Denies fevers, chills, sweats HEENT: Denies blurred vision, sore throat CV: Denies chest pain RESP: Denies shortness of air, cough GI: Denies n/v/d NEURO: Denies confusion, dizziness MSK: Denies weakness, joint pain/swelling Vital Sign Vital Signs Vital Signs Date Time Temp Pulse Resp B/P (MAP) Pulse Ox O2 Delivery O2 Flow Rate FiO2 04/06/17 07:45 Mask 2.0 04/06/17 06:32 78 109/75 (86) 04/06/17 03:00 97.7 18 98 97.7 Physical Exam PHYSICAL EXAM GENERAL: NAD, Alert HEENT: PERRL, OC/OP - clear NECK: Supple, no JVD, no LN LUNGS: Clear HEART: S1S2, no gallop, no murmur ABD: Soft, NT, no organomegaly, no rebound, obese - no obvious complications and pain relieved with repositioning EXT: No edema, no cyanosis. 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, no focal neurologic deficit SKIN: No rash IV: PICC RUE clean Labs Lab Laboratory Tests Test 04/05/17 09:50 04/05/17 11:18 04/05/17 16:46 04/05/17 20:50 White Blood Count 13.6 x10^3/uL (4.0-11.0) Red Blood Count 4.07 x10^6/uL (4.30-5.70) Hemoglobin 12.2 g/dL (13.0-17.5) Hematocrit 36.4 % (39.0-53.0) Mean Corpuscular Volume 89 fL (79-100) Mean Corpuscular Hemoglobin 30 pg (25-35) Mean Corpuscular Hemoglobin Concent 33 g/dL (31-37) Red Cell Distribution Width 16.0 % (11.5-14.5) Platelet Count 246 x10^3/uL (140-400) Erythrocyte Sedimentation Rate 81 (0-15) Sodium Level 137 mmol/L (136-145) Potassium Level 3.9 mmol/L (3.5-5.1) Chloride Level 102 mmol/L (98-107) Carbon Dioxide Level 28 mmol/L (21-32) Anion Gap 7 (6-14) Blood Urea Nitrogen 11 mg/dL (8-26) Creatinine 0.9 mg/dL (0.7-1.3) Estimated GFR (Cockcroft-Gault) 82.7 BUN/Creatinine Ratio 12 (6-20) Glucose Level 176 mg/dL (70-99) Calcium Level 8.6 mg/dL (8.5-10.1) Total Bilirubin 0.5 mg/dL (0.2-1.0) Aspartate Amino Transf (AST/SGOT) 18 U/L (15-37) Alanine Aminotransferase (ALT/SGPT) 21 U/L (16-63) Alkaline Phosphatase 73 U/L (46-116) Total Protein 6.9 g/dL (6.4-8.2) Albumin 2.3 g/dL (3.4-5.0) Albumin/Globulin Ratio 0.5 (1.0-1.7) Glucose (Fingerstick) 164 mg/dL (70-99) 169 mg/dL (70-99) 166 mg/dL (70-99) Test 04/06/17 03:40 04/06/17 07:16 White Blood Count 11.4 x10^3/uL (4.0-11.0) Red Blood Count 3.81 x10^6/uL (4.30-5.70) Hemoglobin 11.4 g/dL (13.0-17.5) Hematocrit 34.9 % (39.0-53.0) Mean Corpuscular Volume 92 fL (79-100) Mean Corpuscular Hemoglobin 30 pg (25-35) Mean Corpuscular Hemoglobin Concent 33 g/dL (31-37) Red Cell Distribution Width 16.3 % (11.5-14.5) Platelet Count 223 x10^3/uL (140-400) Sodium Level 138 mmol/L (136-145) Potassium Level 3.9 mmol/L (3.5-5.1) Chloride Level 102 mmol/L (98-107) Carbon Dioxide Level 29 mmol/L (21-32) Anion Gap 7 (6-14) Blood Urea Nitrogen 11 mg/dL (8-26) Creatinine 1.0 mg/dL (0.7-1.3) Estimated GFR (Cockcroft-Gault) 73.0 BUN/Creatinine Ratio 11 (6-20) Glucose Level 132 mg/dL (70-99) Calcium Level 8.8 mg/dL (8.5-10.1) Total Bilirubin 0.4 mg/dL (0.2-1.0) Aspartate Amino Transf (AST/SGOT) 21 U/L (15-37) Alanine Aminotransferase (ALT/SGPT) 21 U/L (16-63) Alkaline Phosphatase 73 U/L (46-116) Total Protein 6.7 g/dL (6.4-8.2) Albumin 2.2 g/dL (3.4-5.0) Albumin/Globulin Ratio 0.5 (1.0-1.7) Glucose (Fingerstick) 157 mg/dL (70-99) Objective Assessment S/p Left 5th toe amp 04/03 sec to 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 faecalis & E. avium from 03/10 -hx MSSA and bone exposure s/p debridement 02/10. Acute encephalopathy. Lactic acid 1.5 Leukocytosis (WBC 12.9 on 03/28). PVD s/p angioplasty of anterior tibial artery, 02/06 [id number] CHF Morbid obesity Plan Plan of Care Cont meropenem expect 4 to 6 more weeks of IV treatment Bed extension D/w nursing CAN LOMBARDI MD Apr 06, 2017 08:28
[2017-04-06] MEDS: POTASSIUM CHLORIDE 10 MEQ TABLET.ER. PO SCH ×2 (08:29→17:15)
[2017-04-06] MEDS: LISINOPRIL 5 MG TABLET. PO SCH (08:29)
[2017-04-06] MEDS: HYDROcodone/APAP 5/325MG 1 TAB TABLET PO SCH ×3 (08:31→21:10)
[2017-04-06] MEDS: FINASTERIDE 5 MG TABLET. PO SCH (08:31)
[2017-04-06] MEDS: DOCUSATE SODIUM 100 MG CAPSULE. PO SCH ×2 (08:34→21:00)
[2017-04-06] MEDS: PHENAZOPYRIDINE 200 MG TABLET. PO PRN (08:35)
[2017-04-06] MEDS: METOPROLOL TART IMMED RELEASE 25 MG TABLET. PO SCH ×2 (08:35→21:12)
[2017-04-06] MEDS: INSULIN DETEMIR 300 UNITS/3 ML INSULN.PEN. SQ SCH ×2 (08:42→17:18)
[2017-04-06] MEDS: CLOPIDOGREL BISULFATE 75 MG TABLET PO SCH (16:21)
[2017-04-06] MEDS: HYDROcodone/APAP 5/325MG 1 TAB TABLET PO PRN (17:14)
--- NOTE | 2017-04-06 17:45 | PDOC ---
PROGRESS NOTES Subjective Subjective Pt seems to be in better spirits today. No cardiac complaints. Hemovac appears to be functioning normally Objective Objective Vital Signs Date Time Temp Pulse Resp B/P (MAP) Pulse Ox O2 Delivery O2 Flow Rate FiO2 04/06/17 17:14 93 2.0 04/06/17 14:30 98.6 66 18 100/63 (75) Room Air 98.6 Intake and Output 04/07/17 07:00 Intake Total 240 ml Output Total 700 ml Balance -460 ml Intake Oral 240 ml Output Urine Total 700 ml Physical Exam Physical Exam No significant changes in cardiac exam Assessment Assessment Patient appears to be compensated. I agree with present plan. Problems Medical Problems: (1) CHF (congestive heart failure) Status: Acute (2) Hypoxia Status: Acute (3) Pulmonary edema Status: Acute Comment Review of Relevant I have reviewed the following items edwina (where applicable) has been applied. Labs Laboratory Tests Test 04/04/17 20:52 04/05/17 08:01 04/05/17 09:50 04/05/17 11:18 Glucose (Fingerstick) 218 mg/dL (70-99) 151 mg/dL (70-99) 164 mg/dL (70-99) White Blood Count 13.6 x10^3/uL (4.0-11.0) Red Blood Count 4.07 x10^6/uL (4.30-5.70) Hemoglobin 12.2 g/dL (13.0-17.5) Hematocrit 36.4 % (39.0-53.0) Mean Corpuscular Volume 89 fL (79-100) Mean Corpuscular Hemoglobin 30 pg (25-35) Mean Corpuscular Hemoglobin Concent 33 g/dL (31-37) Red Cell Distribution Width 16.0 % (11.5-14.5) Platelet Count 246 x10^3/uL (140-400) Erythrocyte Sedimentation Rate 81 (0-15) Sodium Level 137 mmol/L (136-145) Potassium Level 3.9 mmol/L (3.5-5.1) Chloride Level 102 mmol/L (98-107) Carbon Dioxide Level 28 mmol/L (21-32) Anion Gap 7 (6-14) Blood Urea Nitrogen 11 mg/dL (8-26) Creatinine 0.9 mg/dL (0.7-1.3) Estimated GFR (Cockcroft-Gault) 82.7 BUN/Creatinine Ratio 12 (6-20) Glucose Level 176 mg/dL (70-99) Calcium Level 8.6 mg/dL (8.5-10.1) Total Bilirubin 0.5 mg/dL (0.2-1.0) Aspartate Amino Transf (AST/SGOT) 18 U/L (15-37) Alanine Aminotransferase (ALT/SGPT) 21 U/L (16-63) Alkaline Phosphatase 73 U/L (46-116) Total Protein 6.9 g/dL (6.4-8.2) Albumin 2.3 g/dL (3.4-5.0) Albumin/Globulin Ratio 0.5 (1.0-1.7) Test 04/05/17 16:46 04/05/17 20:50 04/06/17 03:40 04/06/17 07:16 Glucose (Fingerstick) 169 mg/dL (70-99) 166 mg/dL (70-99) 157 mg/dL (70-99) White Blood Count 11.4 x10^3/uL (4.0-11.0) Red Blood Count 3.81 x10^6/uL (4.30-5.70) Hemoglobin 11.4 g/dL (13.0-17.5) Hematocrit 34.9 % (39.0-53.0) Mean Corpuscular Volume 92 fL (79-100) Mean Corpuscular Hemoglobin 30 pg (25-35) Mean Corpuscular Hemoglobin Concent 33 g/dL (31-37) Red Cell Distribution Width 16.3 % (11.5-14.5) Platelet Count 223 x10^3/uL (140-400) Sodium Level 138 mmol/L (136-145) Potassium Level 3.9 mmol/L (3.5-5.1) Chloride Level 102 mmol/L (98-107) Carbon Dioxide Level 29 mmol/L (21-32) Anion Gap 7 (6-14) Blood Urea Nitrogen 11 mg/dL (8-26) Creatinine 1.0 mg/dL (0.7-1.3) Estimated GFR (Cockcroft-Gault) 73.0 BUN/Creatinine Ratio 11 (6-20) Glucose Level 132 mg/dL (70-99) Calcium Level 8.8 mg/dL (8.5-10.1) Total Bilirubin 0.4 mg/dL (0.2-1.0) Aspartate Amino Transf (AST/SGOT) 21 U/L (15-37) Alanine Aminotransferase (ALT/SGPT) 21 U/L (16-63) Alkaline Phosphatase 73 U/L (46-116) Total Protein 6.7 g/dL (6.4-8.2) Albumin 2.2 g/dL (3.4-5.0) Albumin/Globulin Ratio 0.5 (1.0-1.7) Test 04/06/17 11:12 04/06/17 16:25 Glucose (Fingerstick) 168 mg/dL (70-99) 135 mg/dL (70-99) Laboratory Tests Test 04/05/17 20:50 04/06/17 03:40 04/06/17 07:16 04/06/17 11:12 Glucose (Fingerstick) 166 mg/dL (70-99) 157 mg/dL (70-99) 168 mg/dL (70-99) White Blood Count 11.4 x10^3/uL (4.0-11.0) Red Blood Count 3.81 x10^6/uL (4.30-5.70) Hemoglobin 11.4 g/dL (13.0-17.5) Hematocrit 34.9 % (39.0-53.0) Mean Corpuscular Volume 92 fL (79-100) Mean Corpuscular Hemoglobin 30 pg (25-35) Mean Corpuscular Hemoglobin Concent 33 g/dL (31-37) Red Cell Distribution Width 16.3 % (11.5-14.5) Platelet Count 223 x10^3/uL (140-400) Sodium Level 138 mmol/L (136-145) Potassium Level 3.9 mmol/L (3.5-5.1) Chloride Level 102 mmol/L (98-107) Carbon Dioxide Level 29 mmol/L (21-32) Anion Gap 7 (6-14) Blood Urea Nitrogen 11 mg/dL (8-26) Creatinine 1.0 mg/dL (0.7-1.3) Estimated GFR (Cockcroft-Gault) 73.0 BUN/Creatinine Ratio 11 (6-20) Glucose Level 132 mg/dL (70-99) Calcium Level 8.8 mg/dL (8.5-10.1) Total Bilirubin 0.4 mg/dL (0.2-1.0) Aspartate Amino Transf (AST/SGOT) 21 U/L (15-37) Alanine Aminotransferase (ALT/SGPT) 21 U/L (16-63) Alkaline Phosphatase 73 U/L (46-116) Total Protein 6.7 g/dL (6.4-8.2) Albumin 2.2 g/dL (3.4-5.0) Albumin/Globulin Ratio 0.5 (1.0-1.7) Test 04/06/17 16:25 Glucose (Fingerstick) 135 mg/dL (70-99) Microbiology 03/28/17 Blood Culture - Final, Complete NO GROWTH AFTER 5 DAYS 03/28/17 Urine Culture - Final, Complete 03/28/17 Urine Culture Result 1 (DEREK) - Final, Complete 03/29/17 Gram Stain - Final, Complete Medications Current Medications Albuterol/ Ipratropium (Duoneb) 3 ml 1X ONCE NEB Last administered on 21:22; Start 03/28/17 at 21:15; Stop 03/28/17 at 21:16; Status DC Methylprednisolone Sodium Succinate (SOLU-Medrol 125MG VIAL) 125 mg 1X ONCE IV Last administered on 03/28/17 21:18; Start 03/28/17 at 21:15; Stop 03/28/17 at 21:16; Status DC Furosemide (Lasix) 40 mg 1X ONCE IVP Last administered on 03/28/17 22:21; Start 03/28/17 at 22:15; Stop 03/28/17 at 22:16; Status DC Influenza Virus Vaccine Quadrival (Fluarix Quad [id number] Syringe) 0.5 ml ONCE ONCE VAX IM Last administered on 04/06/17 16:25; Start 03/29/17 at 09:00; Stop 03/29/17 at 09:01; Status DC Info (Do NOT chart on this placeholder) 1 each PRN 1X PRN MC SEE COMMENTS; Start 03/29/17 at 02:00; Status Cancel Amlodipine Besylate (Norvasc) 10 mg DAILY PO Last administered on 03/29/17 09: 54; Start 03/29/17 at 09:30; Stop 03/30/17 at 08:15; Status DC Aspirin (Ecotrin) 325 mg DAILY PO Last administered on 04/06/17 08:28; Start 03/29/17 at 09:30 Citalopram Hydrobromide (CeleXA) 20 mg HS PO Last administered on 04/05/17 20: 40; Start 03/29/17 at 21:00 Clopidogrel Bisulfate (Plavix) 75 mg BID PO ; Start 03/29/17 at 09:00; Stop at 09:00; Status DC Docusate Sodium (Colace) 200 mg BID PO Last administered on 04/06/17 08:34; Start 03/29/17 at 09:30 Finasteride (Proscar) 5 mg DAILY PO Last administered on 04/06/17 08:31; Start 03/29/17 at 09:30 Metoprolol Tartrate (Lopressor) 12.5 mg BID PO ; Start 03/29/17 at 09:00; Stop 03/29/17 at 09:00; Status DC Tamsulosin HCl (Flomax) 0.4 mg HS PO ; Start 03/29/17 at 21:00; Stop 03/29/17 at 21:00; Status DC Non-Formulary Medication 10 meq DAILY08 PO ; Start 03/30/17 at 08:00; Stop 03/30 at 08:00; Status DC Metoprolol Tartrate (Lopressor) 25 mg BID PO Last administered on 03/29/17 21: 46; Start 03/29/17 at 09:30; Stop 03/30/17 at 19:29; Status DC Potassium Chloride (Klor-Con) 10 meq BIDAFTMEAL PO Last administered on 17:15; Start 03/29/17 at 09:30 Lisinopril (Prinivil) 10 mg DAILY PO Last administered on 03/29/17 09:55; Start 03/29/17 at 09:30; Stop 03/30/17 at 08:15; Status DC Clopidogrel Bisulfate (Plavix) 75 mg DAILY16 PO Last administered on 04/06/17 16:21; Start 03/29/17 at 16:00 Dextrose (Dextrose 50%-Water Syringe) 12.5 gm PRN Q15MIN PRN IV SEE COMMENTS; Start 03/29/17 at 09:00 Insulin Detemir (Levemir) 15 units QHS SQ Last administered on 03/30/17 21:08 ; Start 03/29/17 at 21:00; Stop 03/31/17 at 08:24; Status DC Furosemide (Lasix) 40 mg [id number] IVP Last administered on 03/29/17 09:56; Start 03/29/17 at 10:00; Stop 03/29/17 at 14:20; Status DC Tamsulosin HCl (Flomax) 0.4 mg BIDAFTMEAL PO Last administered on 04/06/17 17: 15; Start 03/29/17 at 10:00 Cefazolin Sodium 1 gm/Sodium Chloride 50 ml @ 100 mls/hr Q8HRS IV Last administered on 03/29/17 14:03; Start 03/29/17 at 14:00; Stop 03/29/17 at 17:47 ; Status DC Furosemide (Lasix) 60 mg [id number] IVP Last administered on 03/29/17 18:17; Start 03/29/17 at 18:00; Stop 03/30/17 at 18:01; Status DC Albumin Human 100 ml @ 100 mls/hr 1X ONCE IV ; Start 03/29/17 at 14:15; Stop 03/29/17 at 15:14; Status Cancel Albumin Human 300 ml @ 300 mls/hr 1X ONCE IV ; Start 03/29/17 at 14:23; Stop 03/29/17 at 15:14; Status Cancel Albumin Human 50 ml @ 100 mls/hr BID@0530,1730 IV Last administered on 05:43; Start 03/29/17 at 17:30; Stop 03/30/17 at 17:59; Status DC Vancomycin HCl (Vanco Per Pharmacy) 1 each PRN DAILY PRN MC SEE COMMENTS Last administered on 04/02/17 03:40; Start 03/29/17 at 17:45; Stop 04/02/17 at 10:33 ; Status DC Piperacillin Sod/ Tazobactam Sod 3.375 gm/Sodium Chloride 50 ml @ 100 mls/hr Q6HRS IV Last administered on 04/02/17 05:53; Start 03/29/17 at 18:00; Stop at 10:33; Status DC Vancomycin HCl 2 gm/Sodium Chloride 500 ml @ 250 mls/hr 1X ONCE IV Last administered on 03/29/17 19:51; Start 03/29/17 at 18:00; Stop 03/29/17 at 19:59 ; Status DC Insulin Aspart (NovoLOG) 10 units 1X ONCE SQ Last administered on 03/29/17 18 :32; Start 03/29/17 at 18:15; Stop 03/29/17 at 18:17; Status DC Vancomycin HCl 1.5 gm/Sodium Chloride 500 ml @ 250 mls/hr Q12H IV Last administered on 03/30/17 21:01; Start 03/30/17 at 08:00; Stop 03/31/17 at 08:24 ; Status DC Vancomycin HCl 1 each 1X ONCE MC Last administered on 03/31/17 07:30; Start 03/31/17 at 07:30; Stop 03/31/17 at 07:31; Status DC Ibuprofen (Motrin) 400 mg PRN QID PRN PO INFLAMMATION Last administered on 03/31 10:25; Start 03/29/17 at 22:00 Amlodipine Besylate (Norvasc) 5 mg DAILY PO ; Start 03/30/17 at 09:00; Stop at 19:30; Status DC Lisinopril (Prinivil) 5 mg DAILY PO ; Start 03/30/17 at 09:00; Stop 03/30/17 at 19:30; Status DC Furosemide (Lasix) 60 mg 1X ONCE IVP Last administered on 03/31/17 06:31; Start 03/31/17 at 06:00; Stop 03/31/17 at 06:01; Status DC Albumin Human 50 ml @ 50 mls/hr 1X ONCE IV Last administered on 03/31/17 05: 57; Start 03/31/17 at 06:00; Stop 03/31/17 at 06:59; Status DC Amlodipine Besylate (Norvasc) 5 mg DAILY PO ; Start 03/31/17 at 09:00; Stop at 09:00; Status DC Metoprolol Tartrate (Lopressor) 25 mg BID PO Last administered on 04/06/17 08: 35; Start 03/31/17 at 09:00 Lisinopril (Prinivil) 5 mg DAILY PO Last administered on 04/06/17 08:29; Start 03/31/17 at 09:00 Insulin Detemir (Levemir) 10 units BIDAC SQ Last administered on 03/31/17 17: 34; Start 03/31/17 at 11:30; Stop 04/01/17 at 08:39; Status DC Vancomycin HCl 1.25 gm/Sodium Chloride 250 ml @ 167 mls/hr Q12H IV Last administered on 04/01/17 13:31; Start 03/31/17 at 14:00; Stop 04/02/17 at 02:47 ; Status DC Vancomycin HCl 1 each 1X ONCE MC ; Start 04/02/17 at 01:30; Stop 04/02/17 at 01 :31; Status DC Furosemide (Lasix) 40 mg [id number] PO Last administered on 03/31/17 17:28; Start 03/31/17 at 09:00; Stop 04/01/17 at 08:26; Status DC Enoxaparin Sodium (Lovenox 40mg Syringe) 40 mg Q24H SQ Last administered on 09:18; Start 03/31/17 at 09:00; Stop 04/01/17 at 12:49; Status DC Acetaminophen/ Hydrocodone Bitart (Lortab 5/325) 1 tab TID PRN PRN PO PAIN Last administered on 04/03/17 18:44; Start 03/31/17 at 13:15; Stop 04/04/17 at 00:14; Status DC Furosemide (Lasix) 40 mg DAILY07 PO Last administered on 04/06/17 06:32; Start 04/01/17 at 09:00 Insulin Detemir (Levemir) 12 units BIDAC SQ Last administered on 04/06/17 17: 18; Start 04/01/17 at 09:00 Phenazopyridine HCl (Pyridium) 200 mg [id number] PRN PO URINARY PAIN Last administered on 04/06/17 08:35; Start 04/01/17 at 08:45 Enoxaparin Sodium (Lovenox 40mg Syringe) 40 mg Q12H SQ Last administered on 21:18; Start 04/01/17 at 21:00; Stop 04/04/17 at 12:31; Status DC Vancomycin HCl 1.5 gm/Sodium Chloride 500 ml @ 250 mls/hr Q24H IV ; Start 04/02 at 14:00; Stop 04/02/17 at 14:00; Status DC Vancomycin HCl 1 each 1X ONCE MC ; Start 04/04/17 at 13:30; Stop 04/04/17 at 13 :31; Status Cancel Meropenem 1 gm/ Sodium Chloride 100 ml @ 200 mls/hr Q8HRS IV Last administered on 04/06/17 14:40; Start 04/02/17 at 12:00 Fentanyl Citrate (Fentanyl 2ml Vial) 25 mcg PRN Q5MIN PRN IV MILD PAIN; Start 04/03/17 at 07:00; Stop 04/04/17 at 06:59; Status DC Fentanyl Citrate (Fentanyl 2ml Vial) 50 mcg PRN Q5MIN PRN IV MODERATE PAIN; Start 04/03/17 at 07:00; Stop 04/04/17 at 06:59; Status DC Morphine Sulfate 1 mg PRN Q10MIN PRN IV SEVERE PAIN; Start 04/03/17 at 07:00; Stop 04/03/17 at 07:00; Status DC Ringer's Solution 1,000 ml @ 30 mls/hr Q24H IV Last administered on 04/03/17 16:00; Start 04/03/17 at 07:00; Stop 04/03/17 at 18:59; Status DC Lidocaine HCl (Xylocaine-Mpf 1% Vial) 2 ml PRN 1X PRN ID IV START; Start at 07:00; Stop 04/04/17 at 06:59; Status DC Hydromorphone HCl (Dilaudid) 0.5 mg PRN Q10MIN PRN IV SEV PAIN, Second choice; Start 04/03/17 at 07:00; Stop 04/04/17 at 06:59; Status DC Prochlorperazine Edisylate (Compazine) 5 mg PACU PRN PRN IV NAUSEA, MRX1; Start 04/03/17 at 07:00; Stop 04/04/17 at 06:59; Status DC Morphine Sulfate 1 mg PRN Q10MIN PRN IV SEVERE PAIN; Start 04/02/17 at 16:45 Bupivacaine HCl (Marcaine 0.5%) 50 ml STK-MED ONCE .ROUTE ; Start 04/03/17 at 15 :36; Stop 04/03/17 at 16:37; Status DC Acetaminophen/ Hydrocodone Bitart (Lortab 5/325) 1 tab PRN Q4HRS PRN PO SEVERE PAIN Last administered on 04/06/17 17:14; Start 04/04/17 at 00:15 Acetaminophen/ Hydrocodone Bitart (Lortab 5/325) 1 tab TID PO Last administered on 04/06/17 13:12; Start 04/04/17 at 14:00 Propofol 0 ml @ As Directed STK-MED ONCE IV ; Start 04/03/17 at 14:14; Stop 04/06/17 at 10:06; Status DC Dexamethasone Sodium Phosphate (Decadron) 20 mg STK-MED ONCE .ROUTE ; Start at 14:14; Stop 04/06/17 at 10:06; Status DC Famotidine (Pepcid) 20 mg STK-MED ONCE .ROUTE ; Start 04/03/17 at 14:14; Stop 04/06/17 at 10:06; Status DC Lidocaine HCl (Lidocaine Pf 2% Vial) 5 ml STK-MED ONCE .ROUTE ; Start 04/03/17 at 14:14; Stop 04/06/17 at 10:06; Status DC Ondansetron HCl (Zofran) 4 mg STK-MED ONCE .ROUTE ; Start 04/03/17 at 14:14; Stop 04/06/17 at 10:06; Status DC Propofol 20 ml @ As Directed STK-MED ONCE IV ; Start 04/03/17 at 16:32; Stop at 10:06; Status DC Ketamine HCl 500 mg STK-MED ONCE .ROUTE ; Start 04/03/17 at 16:32; Stop at 10:06; Status DC Fentanyl Citrate (Fentanyl 2ml Vial) 100 mcg STK-MED ONCE .ROUTE ; Start at 16:32; Stop 04/06/17 at 10:06; Status DC Midazolam HCl (Versed) 2 mg STK-MED ONCE .ROUTE ; Start 04/03/17 at 16:35; Stop 04/06/17 at 10:06; Status DC Active Scripts Active Reported Clopidogrel (Clopidogrel Bisulfate) 75 Mg Tablet 1 Tab PO BID Aspirin Ec (Aspirin) 325 Mg Tablet.dr 1 Tab PO DAILY [regranex] 0.01 % TOP DAILY06 Celexa (Citalopram Hydrobromide) 20 Mg Tablet 1 Tab PO HS Amlodipine Besylate 10 Mg Tablet 10 Mg PO DAILY Tamsulosin Hcl 0.4 Mg Cap.er.24h 0.4 Mg PO HS Potassium Chloride 10 Meq Capsule.er 10 Meq PO DAILY08 Colace (Docusate Sodium) 100 Mg Capsule 200 Mg PO BID Lantus (Insulin Glargine,Hum.rec.anlog) 100 Unit/1 Ml Vial 120 Unit SQ DAILY08 Multi Vitamin Daily (Multivitamin) 1 Each Tablet 1 Each PO DAILY Lasix (Furosemide) 20 Mg Tablet 40 Mg PO DAILY Finasteride 5 Mg Tablet 5 Mg PO DAILY Metoprolol Tartrate 50 Mg Tablet 12.5 Mg PO BID Vitals/I & O Vital Sign - Last 24 Hours 04/05/17 04/05/17 04/05/17 04/05/17 19:00 19:34 20:40 20:40 Temp 97.5 97.5 Pulse 83 83 Resp 18 20 20 B/P (MAP) 113/67 (82) 113/67 Pulse Ox 97 O2 Delivery BiPAP/CPAP Room Air BiPAP/CPAP O2 Flow Rate 2.0 04/05/17 04/05/17 04/05/17 04/05/17 20:41 20:47 21:40 22:53 Temp 97.9 97.9 Pulse 69 Resp 20 20 18 B/P (MAP) 104/68 (80) Pulse Ox 94 O2 Delivery Room Air BiPAP/CPAP BiPAP/CPAP O2 Flow Rate 2.0 04/06/17 04/06/17 04/06/17 04/06/17 03:00 06:32 07:15 07:20 Temp 97.7 95.9 97.7 95.9 Pulse 64 78 66 Resp 18 18 B/P (MAP) 102/70 (81) 109/75 (86) 100/60 (73) Pulse Ox 98 93 O2 Delivery BiPAP/CPAP BiPAP/CPAP Mask O2 Flow Rate 2.0 2.0 2.0 04/06/17 04/06/17 04/06/17 04/06/17 07:45 08:29 08:31 08:35 Pulse 78 66 B/P (MAP) 109/75 100/60 Pulse Ox 98 O2 Delivery Mask O2 Flow Rate 2.0 2.0 04/06/17 04/06/17 04/06/17 04/06/17 10:30 13:12 14:30 14:40 Temp 98.8 98.6 98.8 98.6 Pulse 79 66 Resp 18 18 B/P (MAP) 97/45 (62) 100/63 (75) Pulse Ox 93 93 98 93 O2 Delivery Room Air Room Air O2 Flow Rate 2.0 2.0 04/06/17 17:14 Pulse Ox 93 O2 Flow Rate 2.0 Intake and Output 04/06/17 04/06/17 04/07/17 15:00 23:00 07:00 Intake Total 240 ml Output Total 700 ml Balance -460 ml OSVALDO VELA MD Apr 06, 2017 17:45
[2017-04-06] MEDS: CITALOPRAM 20 MG TABLET. PO SCH (21:09)
[2017-04-07] VITALS (7 sets, daily range): BP systolic 94–114; BP diastolic 59–71
[2017-04-07] MEDS: MEROPENEM 1 GM in IV NORMAL SALINE 100ML 100 ML IV SCH ×3 (05:36→22:20)
[2017-04-07] MEDS: FUROSEMIDE 40 MG TABLET. PO SCH (05:41)
[2017-04-07] MEDS: HYDROcodone/APAP 5/325MG 1 TAB TABLET PO PRN ×2 (05:43→17:20)
--- NOTE | 2017-04-07 08:25 | PDOC ---
Provider Note Provider Note vss, glucose good, labs ok- cont same meds, ESTRADA Kyle MD Apr 07, 2017 08:25
[2017-04-07] MEDS: DOCUSATE SODIUM 100 MG CAPSULE. PO SCH ×2 (09:00→21:00)
[2017-04-07] MEDS: LISINOPRIL 5 MG TABLET. PO SCH (09:20)
[2017-04-07] MEDS: FINASTERIDE 5 MG TABLET. PO SCH (09:21)
[2017-04-07] MEDS: POTASSIUM CHLORIDE 10 MEQ TABLET.ER. PO SCH ×2 (09:21→17:16)
[2017-04-07] MEDS: METOPROLOL TART IMMED RELEASE 25 MG TABLET. PO SCH ×2 (09:21→21:09)
[2017-04-07] MEDS: TAMSULOSIN 0.4 MG CAP.ER.24H. PO SCH ×2 (09:21→17:16)
[2017-04-07] MEDS: ASPIRIN ENTERIC COATED 325 MG TABLET.DR. PO SCH (09:21)
[2017-04-07] MEDS: HYDROcodone/APAP 5/325MG 1 TAB TABLET PO SCH ×3 (09:22→21:08)
[2017-04-07] MEDS: INSULIN DETEMIR 300 UNITS/3 ML INSULN.PEN. SQ SCH ×2 (09:32→17:23)
--- NOTE | 2017-04-07 10:10 | PDOC ---
Infectious Disease Note Subjective Subjective Patient comfortable, pain controlled ROS ROS GEN: Denies fevers, chills, sweats HEENT: Denies blurred vision, sore throat CV: Denies chest pain RESP: Denies shortness of air, cough GI: Denies n/v/d NEURO: Denies confusion, dizziness MSK: Denies weakness, joint pain/swelling Vital Sign Vital Signs Vital Signs Date Time Temp Pulse Resp B/P (MAP) Pulse Ox O2 Delivery O2 Flow Rate FiO2 04/07/17 09:22 Room Air 04/07/17 09:21 68 113/64 04/07/17 07:15 96.3 17 98 2.0 96.3 Physical Exam PHYSICAL EXAM GENERAL: NAD, Alert HEENT: PERRL, OC/OP - clear NECK: Supple, no JVD, no LN LUNGS: Clear HEART: S1S2, no gallop, no murmur ABD: Soft, NT, no organomegaly, no rebound, obese - no obvious complications and pain relieved with repositioning EXT: No edema, no cyanosis. Left foot with vac ETHYL BLENDER: Alert, 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, no focal neurologic deficit SKIN: No rash IV: PICC RUE clean Labs Lab Laboratory Tests Test 04/06/17 11:12 04/06/17 16:25 04/06/17 21:04 04/07/17 07:22 Glucose (Fingerstick) 168 mg/dL (70-99) 135 mg/dL (70-99) 194 mg/dL (70-99) 147 mg/dL (70-99) Objective Assessment S/p Left 5th toe amp 04/03 sec to 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 faecalis & E. avium from 03/10 -hx MSSA and bone exposure s/p debridement 02/10. Acute encephalopathy. Lactic acid 1.5 Leukocytosis (WBC 12.9 on 03/28). PVD s/p angioplasty of anterior tibial artery, 02/06 [id number] CHF Morbid obesity Plan Plan of Care Cont meropenem for now. May be able to d/c abx in a day or so given wound closure. reviewed op-note/ Wound care note and d/w Dr Serrano. He will review wound D/w nursing CAN LOMBARDI MD Apr 07, 2017 10:10
--- NOTE | 2017-04-07 15:55 | PDOC ---
PROGRESS NOTES Subjective Subjective Problems overnight: Patient says he's been getting up and around placing weight on the left heel staff seems to observe otherwise that he has really minimal activity Objective Vital Signs Vital Signs Date Time Temp Pulse Resp B/P (MAP) Pulse Ox O2 Delivery O2 Flow Rate FiO2 04/07/17 14:52 BiPAP/CPAP 04/07/17 14:30 98.5 77 18 94/62 (73) 97 2.0 98.5 Physical Exam On examination wound VAC area appears to be intact that incision area of the fifth ray amputation appears to be in good condition without evidence of redness erythema or maceration Labs Laboratory Tests Test 04/05/17 16:46 04/05/17 20:50 04/06/17 03:40 04/06/17 07:16 Glucose (Fingerstick) 169 mg/dL (70-99) 166 mg/dL (70-99) 157 mg/dL (70-99) White Blood Count 11.4 x10^3/uL (4.0-11.0) Red Blood Count 3.81 x10^6/uL (4.30-5.70) Hemoglobin 11.4 g/dL (13.0-17.5) Hematocrit 34.9 % (39.0-53.0) Mean Corpuscular Volume 92 fL (79-100) Mean Corpuscular Hemoglobin 30 pg (25-35) Mean Corpuscular Hemoglobin Concent 33 g/dL (31-37) Red Cell Distribution Width 16.3 % (11.5-14.5) Platelet Count 223 x10^3/uL (140-400) Sodium Level 138 mmol/L (136-145) Potassium Level 3.9 mmol/L (3.5-5.1) Chloride Level 102 mmol/L (98-107) Carbon Dioxide Level 29 mmol/L (21-32) Anion Gap 7 (6-14) Blood Urea Nitrogen 11 mg/dL (8-26) Creatinine 1.0 mg/dL (0.7-1.3) Estimated GFR (Cockcroft-Gault) 73.0 BUN/Creatinine Ratio 11 (6-20) Glucose Level 132 mg/dL (70-99) Calcium Level 8.8 mg/dL (8.5-10.1) Total Bilirubin 0.4 mg/dL (0.2-1.0) Aspartate Amino Transf (AST/SGOT) 21 U/L (15-37) Alanine Aminotransferase (ALT/SGPT) 21 U/L (16-63) Alkaline Phosphatase 73 U/L (46-116) Total Protein 6.7 g/dL (6.4-8.2) Albumin 2.2 g/dL (3.4-5.0) Albumin/Globulin Ratio 0.5 (1.0-1.7) Test 04/06/17 11:12 04/06/17 16:25 04/06/17 21:04 04/07/17 07:22 Glucose (Fingerstick) 168 mg/dL (70-99) 135 mg/dL (70-99) 194 mg/dL (70-99) 147 mg/dL (70-99) Test 04/07/17 11:32 Glucose (Fingerstick) 169 mg/dL (70-99) Laboratory Tests Test 04/06/17 16:25 04/06/17 21:04 04/07/17 07:22 04/07/17 11:32 Glucose (Fingerstick) 135 mg/dL (70-99) 194 mg/dL (70-99) 147 mg/dL (70-99) 169 mg/dL (70-99) Assessment Assessment POD# [], S/P [left fifth ray amputation] Problems: Plan Plan of Care Continue mobilize as much as tolerated. He may weight-bear for transfers on the left heel avoid weightbearing on the left forefoot due to the healing wound weightbearing as tolerated on the right foot Wound care will continue to follow for planned Thursday wound VAC changes and other wound care as modified and required by his hopefully progressive healing ANUM ROSENTHAL MD Apr 07, 2017 15:55
[2017-04-07] MEDS: CLOPIDOGREL BISULFATE 75 MG TABLET PO SCH (17:16)
[2017-04-07] MEDS: CITALOPRAM 20 MG TABLET. PO SCH (21:08)
[2017-04-08] MEDS: HYDROcodone/APAP 5/325MG 1 TAB TABLET PO PRN (02:36)
[2017-04-08 03:00] VITALS: BP 112/69
[2017-04-08] MEDS: FUROSEMIDE 40 MG TABLET. PO SCH (06:08)
[2017-04-08] MEDS: MEROPENEM 1 GM in IV NORMAL SALINE 100ML 100 ML IV SCH (06:09)
[2017-04-08 07:00] VITALS: BP 114/72
[2017-04-08] MEDS: INSULIN DETEMIR 300 UNITS/3 ML INSULN.PEN. SQ SCH (07:30)
--- NOTE | 2017-04-08 08:16 | DISCH ---
DISCHARGE FINAL DIAGNOSIS Problems Medical Problems: (1) CHF (congestive heart failure) Status: Acute (2) Hypoxia Status: Acute (3) Pulmonary edema Status: Acute CONDITION ON DISCHARGE: Stable SNF STAY <30 DAYS: Yes POST DISCHARGE ORDERS ACTIVITY ORDERS: No restrictions WEIGHT BEARING STATUS: Full weight bearing BATHING ORDERS: No Tub Bath until see DIET AFTER DISCHARGE: ADA FOLLOW-UP PHYSICIAN FOLLOW-UP: per wound care TREATMENT/EQUIPMENT ORDERS ADAPTIVE EQUIPMENT NEEDED: ESTRADA Reyes MD Apr 08, 2017 08:16
--- NOTE | 2017-04-08 08:22 | PDOC ---
Provider Note Provider Note [id number] ESTRADA MORELAND MD Apr 08, 2017 08:22
[2017-04-08] MEDS: FINASTERIDE 5 MG TABLET. PO SCH (08:55)
[2017-04-08] MEDS: TAMSULOSIN 0.4 MG CAP.ER.24H. PO SCH (08:55)
[2017-04-08] MEDS: ASPIRIN ENTERIC COATED 325 MG TABLET.DR. PO SCH (08:56)
[2017-04-08] MEDS: POTASSIUM CHLORIDE 10 MEQ TABLET.ER. PO SCH (08:56)
[2017-04-08 08:57] VITALS: BP 114/72
[2017-04-08] MEDS: HYDROcodone/APAP 5/325MG 1 TAB TABLET PO SCH (08:57)
[2017-04-08] MEDS: LISINOPRIL 5 MG TABLET. PO SCH (08:57)
[2017-04-08] MEDS: METOPROLOL TART IMMED RELEASE 25 MG TABLET. PO SCH (08:57)
[2017-04-08] MEDS: DOCUSATE SODIUM 100 MG CAPSULE. PO SCH (08:57)
[2017-04-08] MEDS ORDERED: CIPROFLOXACIN HCL 250 MG TABLET. PO SCH (09:00)
[2017-04-08] MEDS ORDERED: metroNIDAZOLE 500 MG TABLET PO SCH (09:00)
--- NOTE | 2017-04-08 09:08 | PDOC ---
Infectious Disease Note Subjective Subjective Patient comfortable, pain controlled Bumped Left elbow but ok ROS ROS GEN: Denies fevers, chills, sweats HEENT: Denies blurred vision, sore throat CV: Denies chest pain RESP: Denies shortness of air, cough GI: Denies n/v/d NEURO: Denies confusion, dizziness MSK: Denies weakness, joint pain/swelling Vital Sign Vital Signs Vital Signs Date Time Temp Pulse Resp B/P (MAP) Pulse Ox O2 Delivery O2 Flow Rate FiO2 04/08/17 07:00 98.0 85 18 114/72 (86) 94 Room Air 98.0 04/07/17 20:00 2.0 Physical Exam PHYSICAL EXAM GENERAL: NAD, Alert HEENT: PERRL, OC/OP - clear NECK: Supple, no JVD, no LN LUNGS: Clear HEART: S1S2, no gallop, no murmur ABD: Soft, NT, no organomegaly, no rebound, obese - no obvious complications and pain relieved with repositioning EXT: No edema, no cyanosis. Left foot with vac. 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 faecalis & E. avium from 03/10 -hx MSSA and bone exposure s/p debridement 02/10. Acute encephalopathy. Lactic acid 1.5 Leukocytosis (WBC 12.9 on 03/28). PVD s/p angioplasty of anterior tibial artery, 02/06 [id number] CHF Morbid obesity Plan Plan of Care D/w Dr. Serrano this am. No need for IV abx but he would feel comfortable with oral abx for about a week given his previous history and response. Base on previous cults will dose cipro/flagyl. D/c PICC Ok to d/c today D/c meds adjusted Can F/u with ID in 2 weeks [phone] D/w nursing CAN LOMBARDI MD Apr 08, 2017 09:08
--- NOTE | 2017-04-08 10:20 | DS ---
DATE OF DISCHARGE: 04/08/2017 HOSPITAL SUMMARY: The patient has a history of cardiomyopathy and chronic left foot wound and he came in with increasing shortness of breath. He was found to have evidence of cardiomegaly and mild congestive heart failure on chest x-ray, which responded rapidly to IV Lasix. Renal sonogram showed echogenic debris within the bladder, but no sign of kidney abnormalities. Urine culture had no growth. Wound culture of the left foot grew out Proteus mirabilis and Citrobacter sensitive to the ertapenem that was tested as well as piperacillin. Blood cultures were negative. CBC showed unremarkable findings of mild leukocytosis and sed rate was high at 80. Chemistry profile showed good control of blood sugars and renal function was unremarkable with an albumin somewhat low at 2.3. Vancomycin doses were mildly supratherapeutic. He received IV vancomycin and Zosyn and this was changed to meropenem once cultures were obtained. Surgical consultation with Dr. Mayer and Dr. Serrano led to decision to amputate the fifth toe and the fifth metatarsal to try to remove the osteomyelitis focus that was continuing to prevent healing along with poor vascular flow. Wound VAC is in place and he is doing well postsurgical and he is still on IV meropenem, getting transferred to [place]. FINAL DIAGNOSES: 1. Acute congestive heart failure secondary to cardiomyopathy, systolic type. 2. 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 3. Type 2 diabetes mellitus, insulin-dependent. 4. Peripheral arterial disease. OPERATIONS/PROCEDURES: Amputation of the fifth metatarsal and fifth toe on left foot. COMPLICATIONS: None. CONSULTATIONS: Dr. Serrano, Dr. Capellan, . DISPOSITION: He will continue on meds as listed per the chart. Meropenem will continue until Dr. Shelton sees him in the office and with adequate healing of the closed wound, he may stop that drug. Wound VAC continues. He will see [facility] 3 times a week and I will see him in followup as needed. He is aware that he still faces the possibility of left below the knee amputation should this wound fail to heal due to his macro and microvascular disease and his cardiomyopathy. ESTRADA MORELAND MD DR: CHRISTOPHER/leonardo JOB#: [id number] / [id number]
--- NOTE | 2017-04-10 11:32 | PATHOLOGY ---
PATHOLOGY REPORT * * * * * * * * FINAL DIAGNOSIS: Fifth ray left foot amputation: - Focal acute inflammation of proximal metatarsal soft tissues. - Focal acute osteomyelitis and serous atrophy of proximal metatarsal bone. - Atrophic changes of musculature of metatarsal soft tissues. (JPM:mml; 04/10/2017) REPORT ELECTRONICALLY SIGNED BY: Manoj Jaramillo M.D. DATE/TIME: 04/10/2017 11:31 * * * * * * * * GROSS PATHOLOGY: The specimen is received in formalin labeled "Manoj Oneil fifth ray left foot". Received is an amputated digit with attached metatarsal bone measuring 11.3 x 2.8 x 2.2 cm in greatest dimensions. The bone margin is blunt in appearance. The bone margin is inked black. The nail is present displaying a pale meyer and grossly unremarkable appearance. The epidermal surface is pale meyer and grossly unremarkable. A full-length longitudinal cross-section is submitted from proximal to distal aspects in cassettes A1 through A7, following decalcification. (CAA; 04/07/2017) INITIAL CPT CODE(S): A; 29354, 76527 Professional services performed by [facility] [place] [address] Technical services performed by [facility] at [address] [place] [address], [facility] [address], [place] [address]. SPECIMEN(S) RECEIVED: Clem.Fifth ray, left foot CLINICAL HISTORY: Osteomyelitis PATIENT: MANOJ ONEIL /AGE: 10 1945 (Age: 72) PATIENT #: [id number] ALT CASE #: SPECIMEN COLLECTION DATE: 04/03/2017 SPECIMEN RECEIVED DATE: 04/06/2017 [facility] - [address] [place] [address] - PHONE: [phone] * * * END OF REPORT * * *
[2017-04-22] MEDS ORDERED: LISI-338 PO (18:51)
[2017-04-22] MEDS ORDERED: HYDR-2758 PO (18:52)
[2017-04-22] MEDS ORDERED: INSU100I13 SQ (20:08)
== END 2017-04-08 11:00 | DRG 239 ==
LOC: ER 19:05 → 5 NORTH 22:09
PROVIDERS: ADMIT Family Medicine; ATTEND Family Medicine
PROC: 0Y6N0Z8 Detachment at Left Foot, Complete 5th Ray, Open Approach (ICD-10-PCS; principal; 2017-04-03 17:05)
PROC: 5A09457 Assistance with Respiratory Ventilation, 24-96 Consecutive Hours, Continuous Positive Airway Pressure (ICD-10-PCS; 2017-04-04)
DX: I50.43 Acute on chronic combined systolic (congestive) and diastolic (congestive) heart failure (principal); G93.40 Encephalopathy, unspecified; I42.9 Cardiomyopathy, unspecified; E11.42 Type 2 diabetes mellitus with diabetic polyneuropathy; M86.672 Other chronic osteomyelitis, left ankle and foot; Z68.41 Body mass index [BMI] 40.0-44.9, adult; E11.51 Type 2 diabetes mellitus with diabetic peripheral angiopathy without gangrene; E11.621 Type 2 diabetes mellitus with foot ulcer; B95.61 Methicillin susceptible Staphylococcus aureus infection as the cause of diseases classified elsewhere; I48.91 Unspecified atrial fibrillation; E11.65 Type 2 diabetes mellitus with hyperglycemia; I11.0 Hypertensive heart disease with heart failure; E11.69 Type 2 diabetes mellitus with other specified complication; E66.01 Morbid (severe) obesity due to excess calories; R31.29 Other microscopic hematuria; Z95.5 Presence of coronary angioplasty implant and graft; Z89.519 Acquired absence of unspecified leg below knee; Z89.429 Acquired absence of other toe(s), unspecified side; Z89.411 Acquired absence of right great toe; Z87.891 Personal history of nicotine dependence; Z87.442 Personal history of urinary calculi; Z87.11 Personal history of peptic ulcer disease; Z83.3 Family history of diabetes mellitus; Z82.49 Family history of ischemic heart disease and other diseases of the circulatory system; Z81.8 Family history of other mental and behavioral disorders; Z79.82 Long term (current) use of aspirin; Z79.4 Long term (current) use of insulin; Z90.89 Acquired absence of other organs; Z98.49 Cataract extraction status, unspecified eye; Z90.49 Acquired absence of other specified parts of digestive tract; Z99.81 Dependence on supplemental oxygen; Z95.1 Presence of aortocoronary bypass graft; I25.2 Old myocardial infarction; Z79.02 Long term (current) use of antithrombotics/antiplatelets; N40.0 Benign prostatic hyperplasia without lower urinary tract symptoms; K21.9 Gastro-esophageal reflux disease without esophagitis; I25.10 Atherosclerotic heart disease of native coronary artery without angina pectoris; G47.30 Sleep apnea, unspecified; E78.5 Hyperlipidemia, unspecified; F32.9 Major depressive disorder, single episode, unspecified; F41.9 Anxiety disorder, unspecified; B96.4 Proteus (mirabilis) (morganii) as the cause of diseases classified elsewhere; L97.524 Non-pressure chronic ulcer of other part of left foot with necrosis of bone; Z66 Do not resuscitate
CPT/HCPCS: 36415; 71010; 76770; 80048; 80053; 80202; 81001; 82962; 83605; 83880; 84484; 85025; 85027; 85651; 87040; 87071; 87075; 87086; 87205; 87641; 88305; 88311; 90686; 93005; 94250; 94640; 96374; J0690; J1100; J1650; J1815; J1940; J2185; J2250; J2405; J2543; J2704; J2930; J3010; J3370; J3490; J7030; J7040; J7050; J7120; J7620; P9046; S0028; 97110; 97116; 97530; 97535; 99285-25; J2001

== ENCOUNTER → 2017-04-16 | Outpatient (CLI) | payer MEDICARE, OTHER ==
[2017-04-08 08:57] VITALS: BP 114/72
[~2017-04-16] MED LIST changes: +METO50TA2 PO; -METO50TA6 PO
== END | disposition home or self-care (01) ==
LOC: PMGWOUND 11:07
PROVIDERS: ATTEND Emergency Medicine Undersea and Hyperbaric Medicine
DX: E11.621 Type 2 diabetes mellitus with foot ulcer (principal); L97.424 Non-pressure chronic ulcer of left heel and midfoot with necrosis of bone; E11.69 Type 2 diabetes mellitus with other specified complication; M86.672 Other chronic osteomyelitis, left ankle and foot; E11.42 Type 2 diabetes mellitus with diabetic polyneuropathy; Z86.73 Personal history of transient ischemic attack (TIA), and cerebral infarction without residual deficits; I25.2 Old myocardial infarction; I11.0 Hypertensive heart disease with heart failure; I50.9 Heart failure, unspecified; E11.51 Type 2 diabetes mellitus with diabetic peripheral angiopathy without gangrene; E78.5 Hyperlipidemia, unspecified; I48.91 Unspecified atrial fibrillation; E66.9 Obesity, unspecified; K21.9 Gastro-esophageal reflux disease without esophagitis; M19.90 Unspecified osteoarthritis, unspecified site; F41.9 Anxiety disorder, unspecified; Z85.828 Personal history of other malignant neoplasm of skin; Z87.891 Personal history of nicotine dependence
CPT/HCPCS: 99214

== ENCOUNTER → 2017-04-20 | Outpatient (CLI) | payer MEDICARE, OTHER ==
[2017-04-08 08:57] VITALS: BP 114/72
== END | disposition home or self-care (01) ==
LOC: PMGWOUND 10:07
PROVIDERS: ATTEND Emergency Medicine Undersea and Hyperbaric Medicine
DX: E11.621 Type 2 diabetes mellitus with foot ulcer (principal); L97.424 Non-pressure chronic ulcer of left heel and midfoot with necrosis of bone; E11.69 Type 2 diabetes mellitus with other specified complication; M86.672 Other chronic osteomyelitis, left ankle and foot; Z86.73 Personal history of transient ischemic attack (TIA), and cerebral infarction without residual deficits; E11.42 Type 2 diabetes mellitus with diabetic polyneuropathy; I25.2 Old myocardial infarction; I11.0 Hypertensive heart disease with heart failure; I50.9 Heart failure, unspecified; I25.10 Atherosclerotic heart disease of native coronary artery without angina pectoris; E78.5 Hyperlipidemia, unspecified; I48.91 Unspecified atrial fibrillation; E66.9 Obesity, unspecified; K21.9 Gastro-esophageal reflux disease without esophagitis; M19.90 Unspecified osteoarthritis, unspecified site; F41.9 Anxiety disorder, unspecified; Z85.828 Personal history of other malignant neoplasm of skin; Z87.891 Personal history of nicotine dependence
CPT/HCPCS: 97597; 97598

== ENCOUNTER 2017-05-20 18:50 | Inpatient (IN) | payer MEDICARE, OTHER ==
[~2017-05-20] VITALS: Ht 182.9 cm; Wt 149.2 kg
[~2017-05-20 18:50] MED LIST changes: +LISI-338 PO; -METO50TA2 PO; +METO50TA6 PO
--- NOTE | 2017-05-20 19:23 | PHYS DOC ---
Past Medical History Past Medical History: CAD, CHF, Diabetes-Type II, Hypertension, [place] Additional Past Medical Histor: Morbid obesity, Osteomyelitis Past Surgical History: Coronary Bypass Surgery Additional Past Surgical Histo: Partial amputation R)great toe. Alcohol Use: None Drug Use: None Adult General Chief Complaint Chief Complaint: WEAKNESS/GENERALIZED HPI HPI Patient is a 72 year old M who presents with increased lower extremity weakness. he was brought in by EMS because he is having difficulty getting up at home. Patient has a left toe amputation and currently has a wound VAC on. Patient has significant history of CHF with ejection fraction around 20%. Patient denies any chest pain or shortness of breath. Patient denies any fevers. Patient denies any nausea/vomiting/diarrhea. Patient complains of generalized weakness is more pronounced today. Review of Systems Review of Systems GEN: Generalized weakness HEENT: Denies blurred vision, sore throat CV: Denies chest pain RESP: Denies shortness of air, cough GI: Denies n/v/d NEURO: Denies confusion, dizziness MSK: Denies weakness, joint pain/swelling All other systems were reviewed and found to be within normal limits, except as documented in this note. Current Medications Current Medications Allergies Allergies Allergies Coded Allergies Type Severity Reaction Last Updated Verified I S O L A T I O N *CONTACT* Allergy Unknown 04/24/17 Yes No Known Medication Allergies Allergy Unknown 04/24/17 Yes Physical Exam Physical Exam GEN.: No apparent distress. Alert and oriented x 2, confused HEENT: Head is normocephalic, atraumatic NECK: Supple. LUNGS: Decreased breath sounds bilaterally HEART: Tachycardia, S1, S2 present. Peripheral pulses intact ABDOMEN: Soft, nontender. Positive bowel sounds. EXTREMITIES: Without any cyanosis., Wound VAC in place to left lower extremity NEUROLOGIC: Normal speech, normal tone PSYCHIATRIC: Confused SKIN: No ulcerations Current Patient Data Vital Signs Vital Signs Date Time Temp Pulse Resp B/P (MAP) Pulse Ox O2 Delivery O2 Flow Rate FiO2 05/20/17 19:26 96 19 102/69 (80) 92 Nasal Cannula 2.0 05/20/17 18:50 98.6 98.6 Lab Values Laboratory Tests Test 05/20/17 19:13 White Blood Count 11.9 x10^3/uL (4.0-11.0) H Red Blood Count 4.41 x10^6/uL (4.30-5.70) Hemoglobin 12.7 g/dL (13.0-17.5) L Hematocrit 39.2 % (39.0-53.0) Mean Corpuscular Volume 89 fL (79-100) Mean Corpuscular Hemoglobin 29 pg (25-35) Mean Corpuscular Hemoglobin Concent 32 g/dL (31-37) Red Cell Distribution Width 17.3 % (11.5-14.5) H Platelet Count 305 x10^3/uL (140-400) Neutrophils (%) (Auto) 82 % (31-73) H Lymphocytes (%) (Auto) 9 % (24-48) L Monocytes (%) (Auto) 8 % (0-9) Eosinophils (%) (Auto) 2 % (0-3) Basophils (%) (Auto) 0 % (0-3) Neutrophils # (Auto) 9.7 x10^3uL (1.8-7.7) H Lymphocytes # (Auto) 1.0 x10^3/uL (1.0-4.8) Monocytes # (Auto) 0.9 x10^3/uL (0.0-1.1) Eosinophils # (Auto) 0.2 x10^3/uL (0.0-0.7) Basophils # (Auto) 0.0 x10^3/uL (0.0-0.2) Sodium Level 139 mmol/L (136-145) Potassium Level 4.4 mmol/L (3.5-5.1) Chloride Level 103 mmol/L (98-107) Carbon Dioxide Level 27 mmol/L (21-32) Anion Gap 9 (6-14) Blood Urea Nitrogen 26 mg/dL (8-26) Creatinine 2.4 mg/dL (0.7-1.3) H Estimated GFR (Cockcroft-Gault) 26.6 BUN/Creatinine Ratio 11 (6-20) Glucose Level 137 mg/dL (70-99) H Lactic Acid Level 1.5 mmol/L (0.4-2.0) Calcium Level 8.5 mg/dL (8.5-10.1) Total Bilirubin 0.5 mg/dL (0.2-1.0) Aspartate Amino Transferase (AST) 33 U/L (15-37) Alanine Aminotransferase (ALT) 30 U/L (16-63) Alkaline Phosphatase 90 U/L (46-116) Troponin I Quantitative < 0.017 ng/mL (0.000-0.055) NI-Pec-D-Type Natriuretic Peptide 9413 pg/mL (0-124) H Total Protein 6.8 g/dL (6.4-8.2) Albumin 2.3 g/dL (3.4-5.0) L Albumin/Globulin Ratio 0.5 (1.0-1.7) L Laboratory Tests 05/20/17 19:13 Laboratory Tests 05/20/17 19:13 EKG EKG [] Radiology/Procedures Radiology/Procedures Chest x-ray shows cardiomegaly[] Course & Med Decision Making Course & Med Decision Making Pertinent Labs and Imaging studies reviewed. (See chart for details) ED course: Patient was seen and examined emergency room septic workup was ordered 2015: Patient was updated on lab work and so his family for acute renal failure and the plan to admit. 2020: Discussed CC/HP/PMH with Dr. Hansen and recommends admit [] MDM: After reviewing the chart, CC/HPI/PMH, physical exam, [lab results], [ radiological results], I think the patient needs to be admitted to the hospital for acute renal failure with altered mental status. I do not think the patient has a severe bacterial infection therefore at this time do not think antibiotics are warranted. [] Dragon Disclaimer Dragon Disclaimer This electronic medical record was generated, in whole or in part, using a voice recognition dictation system. Departure Departure Impression: Primary Impression: Acute renal failure Additional Impression: Altered mental status Disposition: 09 ADMITTED INPATIENT Admitting Physician: Heri Hansen Condition: STABLE Referrals: HERI HANSEN MD (PCP) Problem Qualifiers OTIS GRANT DO May 20, 2017 19:23
[2017-05-20 19:24] LABS: BASO % 0 % (0-3); EOS % 2 % (0-3); HEMATOCRIT 39.2 % (39.0-53.0); HEMOGLOBIN 12.7 g/dL (13.0-17.5); LYMPH % 9 % (24-48); MEAN CORPUSCULAR HEMOGLOBIN 29 pg (25-35); MEAN CORPUSCULAR HGB CONC 32 g/dL (31-37); MEAN CORPUSCULAR VOLUME 89 fL (79-100); MONO % 8 % (0-9); NEUT % 82 % (31-73); PLATELET COUNT 305 x10^3/uL (140-400); RED BLOOD COUNT 4.41 x10^6/uL (4.30-5.70); RED CELL DISTRIBUTION WIDTH 17.3 % (11.5-14.5); WHITE BLOOD COUNT 11.9 x10^3/uL (4.0-11.0)
[2017-05-20 19:44] LABS: CALCIUM 8.5 mg/dL (8.5-10.1); CREATININE 2.4 mg/dL (0.7-1.3); GFR 26.6; POTASSIUM 4.4 mmol/L (3.5-5.1)
[2017-05-20 19:50] LABS: ALBUMIN 2.3 g/dL (3.4-5.0); ALBUMIN/GLOBULIN RATIO 0.5 (1.0-1.7); TOTAL BILIRUBIN 0.5 mg/dL (0.2-1.0); TOTAL PROTEIN 6.8 g/dL (6.4-8.2)
[2017-05-20] MEDS ORDERED: ONDANSETRON PF 4 MG/2 ML VIAL. IV PRN (20:00)
[2017-05-20] MEDS ORDERED: ACETAMINOPHEN 325 MG TABLET. PO PRN (20:00)
[2017-05-20] MEDS: MORPHINE SULFATE 4 MG/ML DISP.SYRIN. IV PRN (20:12)
[2017-05-20] MEDS ORDERED: IV NORMAL SALINE 1000ML BAG 1,000 ML IV ONE (20:30)
[2017-05-20] MEDS ORDERED: CITALOPRAM 20 MG TABLET. PO SCH (22:30)
[2017-05-20] MEDS ORDERED: CLOPIDOGREL BISULFATE 75 MG TABLET PO SCH (22:30)
[2017-05-20 22:50] LABS: BILIRUBIN,URINE NEGATIVE (NEG); GLUCOSE,URINE NEGATIVE (NEG); NITRITE,URINE NEGATIVE (NEG); PROTEIN,URINE NEGATIVE (NEG-TRACE); UROBILINOGEN,URINE 0.2 mg/dL (0.2 mg/dL)
[2017-05-20 22:56] LABS: BACTERIA,URINE 0 /HPF (0-FEW); RBC,URINE >40 /HPF (0-2)
[2017-05-20 23:00] VITALS: BP 101/69
[2017-05-21] MEDS: TAMSULOSIN 0.4 MG CAP.ER.24H. PO SCH ×2 (01:21→22:13)
[2017-05-21 02:53] VITALS: BP 96/67
[2017-05-21 05:37] LABS: BASO # 0.1 x10^3/uL (0.0-0.2); BASO % 1 % (0-3); EOS % 3 % (0-3); HEMATOCRIT 40.9 % (39.0-53.0); HEMOGLOBIN 12.9 g/dL (13.0-17.5); LYMPH # 1.4 x10^3/uL (1.0-4.8); LYMPH % 12 % (24-48); MEAN CORPUSCULAR HEMOGLOBIN 29 pg (25-35); MEAN CORPUSCULAR HGB CONC 32 g/dL (31-37); MEAN CORPUSCULAR VOLUME 91 fL (79-100); MONO % 10 % (0-9); NEUT % 74 % (31-73); PLATELET COUNT 314 x10^3/uL (140-400); RED BLOOD COUNT 4.51 x10^6/uL (4.30-5.70); RED CELL DISTRIBUTION WIDTH 17.6 % (11.5-14.5); WHITE BLOOD COUNT 11.2 x10^3/uL (4.0-11.0)
[2017-05-21] MEDS ORDERED: REGRANEX 0.01% TOP SCH (06:00)
[2017-05-21 06:11] LABS: CALCIUM 8.9 mg/dL (8.5-10.1); CREATININE 2.3 mg/dL (0.7-1.3); GFR 27.9; POTASSIUM 4.4 mmol/L (3.5-5.1)
--- NOTE | 2017-05-21 06:24 | EKG ---
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
--- NOTE | 2017-05-21 07:23 | RAD ---
Single view chest radiograph 05/20/2017 Clinical indication: Hypoxia, chest pain and shortness of breath. Comparison: Chest 05/01/2017 Findings: Prior median sternotomy and CABG. There is a right-sided PICC with distal tip in similar position. Persistent cardiomegaly and pulmonary venous congestion. Improved aeration in the lung bases. No pneumothorax. Impression: 1. Stable cardiomegaly and pulmonary venous congestion. 2. Improved aeration in the lung bases.
[2017-05-21 07:50] VITALS: BP 108/72
[2017-05-21] MEDS ORDERED: POTASSIUM CHLORIDE 10 MEQ TABLET.ER. PO SCH (08:00)
[2017-05-21] MEDS ORDERED: FUROSEMIDE 40 MG TABLET. PO SCH (09:00)
[2017-05-21] MEDS ORDERED: amLODIPine BESYLATE 10 MG TABLET PO SCH (09:00)
--- NOTE | 2017-05-21 09:29 | PDOC ---
Provider Note Provider Note [id number] ESTRADA MORELAND MD May 21, 2017 09:29
--- NOTE | 2017-05-21 09:51 | HP ---
ADMIT DATE: 05/20/2017 CHIEF COMPLAINT: Weakness. HISTORY OF PRESENT ILLNESS: A 72-year-old white male has been battling with severe foot infection. He has had multiple debridements and removal of the fifth metatarsal and still has underlying ongoing wounds and is followed by [facility]. He has been at home for about a week with increasing weakness and fatigue, prompted this admission, has inability to self-care. He is also in a degree of acute renal failure with a creatinine of 2.4 and his normal baseline is around 1.4. Past history well documented in the old chart. Medications that could be affecting the renal function include amlodipine and Lasix. ALLERGIES: No drug allergies noted. SOCIAL HISTORY: He is , lives with his , inactive nonsmoker, nondrinker. FAMILY HISTORY: Unremarkable. REVIEW OF SYSTEMS: No other complaints. OBJECTIVE: ENT: Mild pallor, looks to be somewhat dry, otherwise normal. NECK: No bruits, masses or nodes. LUNGS: Clear. CARDIOVASCULAR: Regular rate. Heart tones are distant. No irregular beat. ABDOMEN: Obese, soft, benign and nontender. EXTREMITIES: Left foot wound is covered, 1+ edema in the lower extremities. No acute joint or skin lesions. Nail beds are pale. NEUROLOGIC: He knows what month and year it is, where he is. He is somewhat sluggish, but nonfocal. No tremors are noted. Gait was not tested. ASSESSMENT: 1. Acute renal failure, likely multifactorial secondary to diuretic use, drug-induced hypotension and poor oral intake. 2. History of cardiomyopathy, currently stable. 3. Ongoing severe left foot wound complicated by severe peripheral arterial disease and underlying infection. 4. Weakness and self-care deficits. 5. Type 2 diabetes mellitus, currently less active regarding weight loss. PLAN: He is a DNR. We will hold amlodipine, Lasix and NSAIDs, start more IV fluids and follow renal function. He also has chronic microhematuria that is undiagnosed and has not been able to get a cystoscopy regarding lack of Urology to this point. The possibility of underlying bladder cancer has been discussed with family and they are aware of this. ESTRADA MORELAND MD DR: CHRISTOPHER/leonardo JOB#: [id number] / [id number]
[2017-05-21] MEDS ORDERED: IV DEXTROSE 5%-LACT RINGERS 1,000 ML IV SCH (10:00)
[2017-05-21] MEDS: MULTIVITAMIN with MINERAL TABLET. PO SCH (10:42)
[2017-05-21] MEDS: ASPIRIN ENTERIC COATED 325 MG TABLET.DR. PO SCH (10:42)
[2017-05-21] MEDS: DOCUSATE SODIUM 100 MG CAPSULE. PO SCH ×2 (10:42→22:13)
[2017-05-21] MEDS: FINASTERIDE 5 MG TABLET. PO SCH (10:42)
[2017-05-21 11:38] VITALS: BP 106/75
--- NOTE | 2017-05-21 12:04 | PDOC ---
Infectious Disease Note Subjective Subjective Known to service Please see Progress note 04/23 and d/c note 05/02 . Was d/c'd on IV Invanz and failed to f/u last week in the office. Has been off Invanz since 05/16. Now admitted with MS changes and acute renal failure. Has stopped HBO therapy. Currently states ok but is confused ROS ROS GEN: Denies fevers, chills, sweats HEENT: Denies blurred vision, sore throat CV: Denies chest pain RESP: Denies shortness of air, cough Denies urinary complications GI: Denies n/v/d NEURO: Denies confusion, dizziness MSK: Denies weakness, joint pain/swelling ? Reliability of ROS Vital Sign Vital Signs Vital Signs Date Time Temp Pulse Resp B/P (MAP) Pulse Ox O2 Delivery O2 Flow Rate FiO2 05/21/17 11:38 97.5 86 20 106/75 (85) 97.5 05/21/17 07:50 100 Nasal Cannula 2.0 Physical Exam PHYSICAL EXAM GENERAL: NAD, Alert HEENT: PERRL, OC/OP -clean NECK: Supple, no JVD, no LN LUNGS: Clear HEART: S1S2, no gallop, no murmur ABD: Soft, NT, no organomegaly, no rebound, obese EXT: No edema, no cyanosis. Left foot wound is clean. No odor. No pus/bone. 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, no focal neurologic deficit SKIN: No rash IV: PICC c-lean Labs Lab Laboratory Tests Test 05/20/17 19:13 05/20/17 21:01 05/21/17 05:15 White Blood Count 11.9 x10^3/uL (4.0-11.0) 11.2 x10^3/uL (4.0-11.0) Red Blood Count 4.41 x10^6/uL (4.30-5.70) 4.51 x10^6/uL (4.30-5.70) Hemoglobin 12.7 g/dL (13.0-17.5) 12.9 g/dL (13.0-17.5) Hematocrit 39.2 % (39.0-53.0) 40.9 % (39.0-53.0) Mean Corpuscular Volume 89 fL (79-100) 91 fL (79-100) Mean Corpuscular Hemoglobin 29 pg (25-35) 29 pg (25-35) Mean Corpuscular Hemoglobin Concent 32 g/dL (31-37) 32 g/dL (31-37) Red Cell Distribution Width 17.3 % (11.5-14.5) 17.6 % (11.5-14.5) Platelet Count 305 x10^3/uL (140-400) 314 x10^3/uL (140-400) Neutrophils (%) (Auto) 82 % (31-73) 74 % (31-73) Lymphocytes (%) (Auto) 9 % (24-48) 12 % (24-48) Monocytes (%) (Auto) 8 % (0-9) 10 % (0-9) Eosinophils (%) (Auto) 2 % (0-3) 3 % (0-3) Basophils (%) (Auto) 0 % (0-3) 1 % (0-3) Neutrophils # (Auto) 9.7 x10^3uL (1.8-7.7) 8.3 x10^3uL (1.8-7.7) Lymphocytes # (Auto) 1.0 x10^3/uL (1.0-4.8) 1.4 x10^3/uL (1.0-4.8) Monocytes # (Auto) 0.9 x10^3/uL (0.0-1.1) 1.1 x10^3/uL (0.0-1.1) Eosinophils # (Auto) 0.2 x10^3/uL (0.0-0.7) 0.3 x10^3/uL (0.0-0.7) Basophils # (Auto) 0.0 x10^3/uL (0.0-0.2) 0.1 x10^3/uL (0.0-0.2) Sodium Level 139 mmol/L (136-145) 137 mmol/L (136-145) Potassium Level 4.4 mmol/L (3.5-5.1) 4.4 mmol/L (3.5-5.1) Chloride Level 103 mmol/L (98-107) 105 mmol/L (98-107) Carbon Dioxide Level 27 mmol/L (21-32) 24 mmol/L (21-32) Anion Gap 9 (6-14) 8 (6-14) Blood Urea Nitrogen 26 mg/dL (8-26) 26 mg/dL (8-26) Creatinine 2.4 mg/dL (0.7-1.3) 2.3 mg/dL (0.7-1.3) Estimated GFR (Cockcroft-Gault) 26.6 27.9 BUN/Creatinine Ratio 11 (6-20) Glucose Level 137 mg/dL (70-99) 49 mg/dL (70-99) Lactic Acid Level 1.5 mmol/L (0.4-2.0) Calcium Level 8.5 mg/dL (8.5-10.1) 8.9 mg/dL (8.5-10.1) Total Bilirubin 0.5 mg/dL (0.2-1.0) Aspartate Amino Transf (AST/SGOT) 33 U/L (15-37) Alanine Aminotransferase (ALT/SGPT) 30 U/L (16-63) Alkaline Phosphatase 90 U/L (46-116) Troponin I Quantitative < 0.017 ng/mL (0.000-0.055) IF-Auu-G-Type Natriuretic Peptide 9413 pg/mL (0-124) Total Protein 6.8 g/dL (6.4-8.2) Albumin 2.3 g/dL (3.4-5.0) Albumin/Globulin Ratio 0.5 (1.0-1.7) Urine Collection Type Unknown Urine Color Yellow Urine Clarity Turbid Urine pH 6.0 Urine Specific [place] 1.020 Urine Protein Negative mg/dL (NEG-TRACE) Urine Glucose (UA) Negative mg/dL (NEG) Urine Ketones (Stick) Negative mg/dL (NEG) Urine Blood Large (NEG) Urine Nitrite Negative (NEG) Urine Bilirubin Negative (NEG) Urine Urobilinogen Dipstick 0.2 mg/dL (0.2 mg/dL) Urine Leukocyte Esterase Moderate (NEG) Urine RBC >40 /HPF (0-2) Urine WBC 5-10 /HPF (0-4) Urine Amorphous Sediment Present /HPF Urine Bacteria 0 /HPF (0-FEW) Urine Mucus Mod /LPF Objective Assessment Noncompliance HEATHER - off abx since 05/16 Open left foot wound/infection. s/p debridement, 04/24. Cult -neg. No bony complications per Op note. 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 -hx Citrobacter/Proteus 04/03 -hx Prevotella, E. faecalis & E. avium from 03/10 -hx MSSA and bone exposure s/p debridement 02/10. PVD s/p angioplasty of anterior tibial artery, 02/06 Morbid obesity DM MRSA nares positive Plan Plan of Care Cont local wound care No need for abx at this time Rcommended restarting HBO as if worsens he is at risk for amputation D/w daughter CAN LOMBARDI MD May 21, 2017 12:04
--- NOTE | 2017-05-21 12:12 | PDOC2 ---
CONSULT Date of Consult Date of Consult DATE: 05/21/17 TIME: 12:02 Reason for Consult Reason for Consult: HEATHER Referring Physician Referring Physician: MERLY Identification/Chief Complaint Chief Complaint WEAKNESS Problems: Source Source: Chart review, Patient History of Present Illness Reason for Visit: THIS IS A 72 YR OLD ADMITTED WITH WEAKENS. RECENTLY HAS HAD A LE FOOT INFECTION THAT HAS REQUIRED 5TH TOE AMP. ON INITIAL EXAM HE IS NOTED TO BE BORDERLINE HYPOTENSIVE. CR IS 2.4. NO CLEAR CKD HX NOTED FROM PREVIOUS LABS HERE. HX NOTABLE FOR BPH FOR WHICH HE IS ON FLOMAX AND PROSCAR. STATED THAT HE USUALLY HAS FREQUENCY AND RECENTLY HAS NOTED MORE DIFFICULTY IN EMPTYING HIS BLADDER. NO HX OF NSAID ABUSE. NO HX OF ANY KIDNEY OR BLADDER SURGERIES HEMATURIA DYSURIA OR FREQUENCY NOTED Past Medical History Cardiovascular: AFIB, CAD, CHF, HTN, Hyperlipidemia CENTRAL NERVOUS SYSTEM: Carpal Tunnel Syndrome, Periperal neuropathy GI: Constipation, GERD, Gastritis, Peptic Ulcer disease, Other Psych: Anxiety, Depression Musculoskeletal: low back pain, Osteoarthritis Renal/: Chronic renal insuff, Benign prostatic enlarg. Endocrine: Diabetes Past Surgical History Past Surgical History: CABG, Cataract Removal, Tonsillectomy, Other Family History Family History: Coronary Artery Disease, Depression, Diabetes, Heart Disease, High Cholestrol, Hypertension Social History ALCOHOL: none Drugs: None Current Problem List Problem List Problems Medical Problems: (1) Acute renal failure Status: Acute (2) Altered mental status Status: Acute Current Medications Current Medications Current Medications Ondansetron HCl (Zofran) 4 mg PRN Q8HRS PRN IV NAUSEA/VOMITING Last administered on 05/20/17 20:13; Start 05/20/17 at 20:00; Stop 05/21/17 at 19 :59 Morphine Sulfate 4 mg PRN Q2HR PRN IV PAIN Last administered on 05/20/17 20: 12; Start 05/20/17 at 20:00; Stop 05/21/17 at 19:59 Acetaminophen (Tylenol) 650 mg PRN Q4HRS PRN PO FEVER; Start 05/20/17 at 20:00 ; Stop 05/21/17 at 19:59 Sodium Chloride 1,000 ml @ 75 mls/hr 1X ONCE IV Last administered on 20:34; Start 05/20/17 at 20:30; Stop 05/21/17 at 09:49; Status DC Amlodipine Besylate (Norvasc) 10 mg DAILY PO ; Start 05/21/17 at 09:00; Stop 05/21/17 at 09:21; Status DC Aspirin (Ecotrin) 325 mg DAILY PO Last administered on 05/21/17 10:42; Start 05/21/17 at 09:00 Citalopram Hydrobromide (CeleXA) 40 mg HS PO Last administered on 05/21/17 01 :21; Start 05/20/17 at 22:30; Stop 05/21/17 at 09:21; Status DC Clopidogrel Bisulfate (Plavix) 75 mg BID PO Last administered on 05/21/17 01: 21; Start 05/20/17 at 22:30; Stop 05/21/17 at 09:21; Status DC Docusate Sodium (Colace) 200 mg BID PO Last administered on 05/21/17 10:42; Start 05/21/17 at 09:00 Finasteride (Proscar) 5 mg DAILY PO Last administered on 05/21/17 10:42; Start 05/21/17 at 09:00 Furosemide (Lasix) 40 mg DAILY PO ; Start 05/21/17 at 09:00; Stop 05/21/17 at 09:21; Status DC Tamsulosin HCl (Flomax) 0.4 mg HS PO Last administered on 05/21/17 01:21; Start 05/20/17 at 22:30 Multivitamins (Thera M Plus) 1 tab DAILY PO Last administered on 05/21/17 10: 42; Start 05/21/17 at 09:00 Potassium Chloride (Klor-Con) 10 meq DAILY08 PO Last administered on 10:42; Start 05/21/17 at 08:00 Non-Formulary Medication 0.01 % DAILY06 TOP ; Start 05/21/17 at 06:00; Status UNV Citalopram Hydrobromide (CeleXA) 20 mg HS PO ; Start 05/21/17 at 21:00 Clopidogrel Bisulfate (Plavix) 75 mg DAILYAC PO ; Start 05/22/17 at 07:30 Dextrose/Lactated Ringer's 1,000 ml @ 100 mls/hr Q10H IV Last administered on 05/21/17 10:43; Start 05/21/17 at 10:00 Active Scripts Active Reported Clopidogrel (Clopidogrel Bisulfate) 75 Mg Tablet 1 Tab PO BID Aspirin Ec (Aspirin) 325 Mg Tablet.dr 1 Tab PO DAILY [regranex] 0.01 % TOP DAILY06 Celexa (Citalopram Hydrobromide) 20 Mg Tablet 40 Mg PO HS Amlodipine Besylate 10 Mg Tablet 10 Mg PO DAILY Tamsulosin Hcl 0.4 Mg Cap.er.24h 0.4 Mg PO HS Potassium Chloride 10 Meq Capsule.er 10 Meq PO DAILY08 Colace (Docusate Sodium) 100 Mg Capsule 200 Mg PO BID Multi Vitamin Daily (Multivitamin) 1 Each Tablet 1 Each PO DAILY Lasix (Furosemide) 20 Mg Tablet 40 Mg PO DAILY Finasteride 5 Mg Tablet 5 Mg PO DAILY Allergies Allergies: Coded Allergies: I S O L A T I O N *CONTACT* (Verified Allergy, Unknown, 04/24/17) mrsa No Known Medication Allergies (Verified Allergy, Unknown, 04/24/17) ROS General: YES: Fatigue, Malaise, Appetite PSYCHOLOGICAL ROS: YES: Anxiety Eyes: Yes Decreased vision HEENT: YES: Heacaches Respiratory: YES: Cough Gastrointestinal: Yes Constipation Genitourinary: YES Frequency Musculoskeletal: Yes Joint Stiffness, Yes Muscular Weakness, Yes Other Neurological: Yes Weakness Skin: Yes Dry Skin, Yes Nail Changes, Yes Skin Lesion Changes Physical Exam General: Alert, Oriented X3, Cooperative, No acute distress HEENT: Atraumatic, PERRLA Lungs: Clear to auscultation Heart: Regular rate, Normal S1, Normal S2, No murmurs Abdomen: Normal bowel sounds, Soft, No tenderness Extremities: No edema Neuro: Normal speech, Cranial nerves 3-12 NL Psych/Mental Status: Mental status NL, Mood NL MUSCULOSKELETAL: No joint tenderness, No deformity, Other (TOE AMP) Vitals VITALS Vital Signs Date Time Temp Pulse Resp B/P (MAP) Pulse Ox O2 Delivery O2 Flow Rate FiO2 05/21/17 11:38 97.5 86 20 106/75 (85) 97.5 05/21/17 07:50 100 Nasal Cannula 2.0 Labs Labs Laboratory Tests Test 05/20/17 19:13 05/20/17 21:01 05/21/17 05:15 White Blood Count 11.9 x10^3/uL (4.0-11.0) 11.2 x10^3/uL (4.0-11.0) Red Blood Count 4.41 x10^6/uL (4.30-5.70) 4.51 x10^6/uL (4.30-5.70) Hemoglobin 12.7 g/dL (13.0-17.5) 12.9 g/dL (13.0-17.5) Hematocrit 39.2 % (39.0-53.0) 40.9 % (39.0-53.0) Mean Corpuscular Volume 89 fL (79-100) 91 fL (79-100) Mean Corpuscular Hemoglobin 29 pg (25-35) 29 pg (25-35) Mean Corpuscular Hemoglobin Concent 32 g/dL (31-37) 32 g/dL (31-37) Red Cell Distribution Width 17.3 % (11.5-14.5) 17.6 % (11.5-14.5) Platelet Count 305 x10^3/uL (140-400) 314 x10^3/uL (140-400) Neutrophils (%) (Auto) 82 % (31-73) 74 % (31-73) Lymphocytes (%) (Auto) 9 % (24-48) 12 % (24-48) Monocytes (%) (Auto) 8 % (0-9) 10 % (0-9) Eosinophils (%) (Auto) 2 % (0-3) 3 % (0-3) Basophils (%) (Auto) 0 % (0-3) 1 % (0-3) Neutrophils # (Auto) 9.7 x10^3uL (1.8-7.7) 8.3 x10^3uL (1.8-7.7) Lymphocytes # (Auto) 1.0 x10^3/uL (1.0-4.8) 1.4 x10^3/uL (1.0-4.8) Monocytes # (Auto) 0.9 x10^3/uL (0.0-1.1) 1.1 x10^3/uL (0.0-1.1) Eosinophils # (Auto) 0.2 x10^3/uL (0.0-0.7) 0.3 x10^3/uL (0.0-0.7) Basophils # (Auto) 0.0 x10^3/uL (0.0-0.2) 0.1 x10^3/uL (0.0-0.2) Sodium Level 139 mmol/L (136-145) 137 mmol/L (136-145) Potassium Level 4.4 mmol/L (3.5-5.1) 4.4 mmol/L (3.5-5.1) Chloride Level 103 mmol/L (98-107) 105 mmol/L (98-107) Carbon Dioxide Level 27 mmol/L (21-32) 24 mmol/L (21-32) Anion Gap 9 (6-14) 8 (6-14) Blood Urea Nitrogen 26 mg/dL (8-26) 26 mg/dL (8-26) Creatinine 2.4 mg/dL (0.7-1.3) 2.3 mg/dL (0.7-1.3) Estimated GFR (Cockcroft-Gault) 26.6 27.9 BUN/Creatinine Ratio 11 (6-20) Glucose Level 137 mg/dL (70-99) 49 mg/dL (70-99) Lactic Acid Level 1.5 mmol/L (0.4-2.0) Calcium Level 8.5 mg/dL (8.5-10.1) 8.9 mg/dL (8.5-10.1) Total Bilirubin 0.5 mg/dL (0.2-1.0) Aspartate Amino Transf (AST/SGOT) 33 U/L (15-37) Alanine Aminotransferase (ALT/SGPT) 30 U/L (16-63) Alkaline Phosphatase 90 U/L (46-116) Troponin I Quantitative < 0.017 ng/mL (0.000-0.055) RD-Lpv-P-Type Natriuretic Peptide 9413 pg/mL (0-124) Total Protein 6.8 g/dL (6.4-8.2) Albumin 2.3 g/dL (3.4-5.0) Albumin/Globulin Ratio 0.5 (1.0-1.7) Urine Collection Type Unknown Urine Color Yellow Urine Clarity Turbid Urine pH 6.0 Urine Specific [place] 1.020 Urine Protein Negative mg/dL (NEG-TRACE) Urine Glucose (UA) Negative mg/dL (NEG) Urine Ketones (Stick) Negative mg/dL (NEG) Urine Blood Large (NEG) Urine Nitrite Negative (NEG) Urine Bilirubin Negative (NEG) Urine Urobilinogen Dipstick 0.2 mg/dL (0.2 mg/dL) Urine Leukocyte Esterase Moderate (NEG) Urine RBC >40 /HPF (0-2) Urine WBC 5-10 /HPF (0-4) Urine Amorphous Sediment Present /HPF Urine Bacteria 0 /HPF (0-FEW) Urine Mucus Mod /LPF Laboratory Tests Test 05/20/17 19:13 05/20/17 21:01 05/21/17 05:15 White Blood Count 11.9 x10^3/uL (4.0-11.0) 11.2 x10^3/uL (4.0-11.0) Red Blood Count 4.41 x10^6/uL (4.30-5.70) 4.51 x10^6/uL (4.30-5.70) Hemoglobin 12.7 g/dL (13.0-17.5) 12.9 g/dL (13.0-17.5) Hematocrit 39.2 % (39.0-53.0) 40.9 % (39.0-53.0) Mean Corpuscular Volume 89 fL (79-100) 91 fL (79-100) Mean Corpuscular Hemoglobin 29 pg (25-35) 29 pg (25-35) Mean Corpuscular Hemoglobin Concent 32 g/dL (31-37) 32 g/dL (31-37) Red Cell Distribution Width 17.3 % (11.5-14.5) 17.6 % (11.5-14.5) Platelet Count 305 x10^3/uL (140-400) 314 x10^3/uL (140-400) Neutrophils (%) (Auto) 82 % (31-73) 74 % (31-73) Lymphocytes (%) (Auto) 9 % (24-48) 12 % (24-48) Monocytes (%) (Auto) 8 % (0-9) 10 % (0-9) Eosinophils (%) (Auto) 2 % (0-3) 3 % (0-3) Basophils (%) (Auto) 0 % (0-3) 1 % (0-3) Neutrophils # (Auto) 9.7 x10^3uL (1.8-7.7) 8.3 x10^3uL (1.8-7.7) Lymphocytes # (Auto) 1.0 x10^3/uL (1.0-4.8) 1.4 x10^3/uL (1.0-4.8) Monocytes # (Auto) 0.9 x10^3/uL (0.0-1.1) 1.1 x10^3/uL (0.0-1.1) Eosinophils # (Auto) 0.2 x10^3/uL (0.0-0.7) 0.3 x10^3/uL (0.0-0.7) Basophils # (Auto) 0.0 x10^3/uL (0.0-0.2) 0.1 x10^3/uL (0.0-0.2) Sodium Level 139 mmol/L (136-145) 137 mmol/L (136-145) Potassium Level 4.4 mmol/L (3.5-5.1) 4.4 mmol/L (3.5-5.1) Chloride Level 103 mmol/L (98-107) 105 mmol/L (98-107) Carbon Dioxide Level 27 mmol/L (21-32) 24 mmol/L (21-32) Anion Gap 9 (6-14) 8 (6-14) Blood Urea Nitrogen 26 mg/dL (8-26) 26 mg/dL (8-26) Creatinine 2.4 mg/dL (0.7-1.3) 2.3 mg/dL (0.7-1.3) Estimated GFR (Cockcroft-Gault) 26.6 27.9 BUN/Creatinine Ratio 11 (6-20) Glucose Level 137 mg/dL (70-99) 49 mg/dL (70-99) Lactic Acid Level 1.5 mmol/L (0.4-2.0) Calcium Level 8.5 mg/dL (8.5-10.1) 8.9 mg/dL (8.5-10.1) Total Bilirubin 0.5 mg/dL (0.2-1.0) Aspartate Amino Transf (AST/SGOT) 33 U/L (15-37) Alanine Aminotransferase (ALT/SGPT) 30 U/L (16-63) Alkaline Phosphatase 90 U/L (46-116) Troponin I Quantitative < 0.017 ng/mL (0.000-0.055) TP-Tkf-K-Type Natriuretic Peptide 9413 pg/mL (0-124) Total Protein 6.8 g/dL (6.4-8.2) Albumin 2.3 g/dL (3.4-5.0) Albumin/Globulin Ratio 0.5 (1.0-1.7) Urine Collection Type Unknown Urine Color Yellow Urine Clarity Turbid Urine pH 6.0 Urine Specific [place] 1.020 Urine Protein Negative mg/dL (NEG-TRACE) Urine Glucose (UA) Negative mg/dL (NEG) Urine Ketones (Stick) Negative mg/dL (NEG) Urine Blood Large (NEG) Urine Nitrite Negative (NEG) Urine Bilirubin Negative (NEG) Urine Urobilinogen Dipstick 0.2 mg/dL (0.2 mg/dL) Urine Leukocyte Esterase Moderate (NEG) Urine RBC >40 /HPF (0-2) Urine WBC 5-10 /HPF (0-4) Urine Amorphous Sediment Present /HPF Urine Bacteria 0 /HPF (0-FEW) Urine Mucus Mod /LPF Assessment/Plan Assessment/Plan IMP HEATHER-ATN-NO CKD URINARY RETENTION-BLADDER SCAN HAD NEARLY 500 ML'S PULMONARY VASCULAR CONGESTION URINARY TRACT INFECTION BPH - ON FLOMAX AND PROSCAR HYPOTENSION-HOLD LE WOUND DM II PLAN COOK ANTIBIOTICS HOLD IVF'S HOLD LASIX AND KCL HOLD AMLODIPINE LABS IN AM BHAVANA QUESADA MD May 21, 2017 12:12
[2017-05-21] MEDS: NYSTATIN TOPICAL POWDER 15GM BOTTLE. TP SCH ×2 (15:00→22:13)
[2017-05-21] MEDS: MORPHINE SULFATE 4 MG/ML DISP.SYRIN. IV PRN (15:05)
[2017-05-21 15:59] VITALS: BP 101/59
[2017-05-21 19:00] VITALS: BP 106/57
[2017-05-21] MEDS: CITALOPRAM 20 MG TABLET. PO SCH (22:13)
[2017-05-21 22:30] VITALS: BP 118/64
[2017-05-22 02:57] VITALS: BP 103/70
[2017-05-22] MEDS: HYDROcodone/APAP 5/325MG 1 TAB TABLET PO PRN ×3 (05:16→19:49)
[2017-05-22 06:48] LABS: CALCIUM 8.2 mg/dL (8.5-10.1); GFR 32.8; POTASSIUM 4.8 mmol/L (3.5-5.1)
[2017-05-22 07:00] VITALS: BP 92/65
[2017-05-22] MEDS: CLOPIDOGREL BISULFATE 75 MG TABLET PO SCH (08:11)
[2017-05-22] MEDS ORDERED: DEXTROSE 50% 25 GM / 50ML DISP.SYRIN. IV PRN (08:45)
--- NOTE | 2017-05-22 08:50 | PDOC ---
Provider Note Provider Note bp better off amlo- creat 2.0 from 2.4- wound care noted - will start pt- needs cysto re hematuria but still no urology coverage, family understands he could have bladder CA or others ESTRADA MORELAND MD May 22, 2017 08:50
[2017-05-22] MEDS: NYSTATIN TOPICAL POWDER 15GM BOTTLE. TP SCH ×2 (10:36→19:50)
[2017-05-22] MEDS: MULTIVITAMIN with MINERAL TABLET. PO SCH (10:36)
[2017-05-22] MEDS: ASPIRIN ENTERIC COATED 325 MG TABLET.DR. PO SCH (10:36)
[2017-05-22] MEDS: DOCUSATE SODIUM 100 MG CAPSULE. PO SCH ×2 (10:36→19:50)
[2017-05-22] MEDS: FINASTERIDE 5 MG TABLET. PO SCH (10:36)
[2017-05-22 11:00] VITALS: BP 92/53
--- NOTE | 2017-05-22 11:31 | PDOC ---
Infectious Disease Note Subjective Subjective Known to service Please see Progress note 04/23 and d/c note 05/02 . Was d/c'd on IV Invanz and failed to f/u last week in the office. Has been off Invanz since 05/16. Now admitted with MS changes and acute renal failure. Has stopped HBO therapy. Currently states ok but is confused ROS ROS GEN: Denies fevers, chills, sweats HEENT: Denies blurred vision, sore throat CV: Denies chest pain RESP: Denies shortness of air, cough GI: Denies n/v/d NEURO: Denies confusion, dizziness MSK: Denies weakness, joint pain/swelling Vital Sign Vital Signs Vital Signs Date Time Temp Pulse Resp B/P (MAP) Pulse Ox O2 Delivery O2 Flow Rate FiO2 05/22/17 07:00 98.6 86 20 92/65 (74) 90 Nasal Cannula 2.0 98.6 Physical Exam PHYSICAL EXAM GENERAL: NAD, Alert. Less confused HEENT: PERRL, OC/OP- clear NECK: Supple, no JVD, no LN LUNGS: Clear HEART: S1S2, no gallop, no murmur ABD: Soft, NT, no organomegaly, no rebound, obese Ramírez EXT: No edema, no cyanosis. 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 yeast in groin. IV: PICC clean Labs Lab Laboratory Tests Test 05/21/17 17:31 05/22/17 06:20 05/22/17 10:17 Glucose (Fingerstick) 75 mg/dL (70-99) 127 mg/dL (70-99) Sodium Level 139 mmol/L (136-145) Potassium Level 4.8 mmol/L (3.5-5.1) Chloride Level 105 mmol/L (98-107) Carbon Dioxide Level 27 mmol/L (21-32) Anion Gap 7 (6-14) Blood Urea Nitrogen 23 mg/dL (8-26) Creatinine 2.0 mg/dL (0.7-1.3) Estimated GFR (Cockcroft-Gault) 32.8 Glucose Level 60 mg/dL (70-99) Calcium Level 8.2 mg/dL (8.5-10.1) Objective Assessment Noncompliance HEATHER - off abx since 05/16. Now on Levoflox for urine sec retention Open left foot wound/infection. s/p debridement, 04/24. Cult -neg. No bony complications per Op note. 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 -hx Citrobacter/Proteus 04/03 -hx Prevotella, E. faecalis & E. avium from 03/10 -hx MSSA and bone exposure s/p debridement 02/10. PVD s/p angioplasty of anterior tibial artery, 02/06 Morbid obesity DM MRSA nares positive Plan Plan of Care Cont local wound care No need for abx at this time - d/c levoflox if cult neg Dose Micafungin times one Recommended restarting HBO as if worsens he is at risk for amputation D/w daughter/ CAN LOMBARDI MD May 22, 2017 11:31
--- NOTE | 2017-05-22 11:58 | PDOC ---
Renal-Progress Notes Subjective Notes Notes NONE History of Present Illness Hx of present illness NO CHANGE Vitals Vitals Vital Signs Date Time Temp Pulse Resp B/P (MAP) Pulse Ox O2 Delivery O2 Flow Rate FiO2 05/22/17 11:32 18 Room Air 05/22/17 11:00 98.1 86 92/53 (66) 90 2.0 98.1 Weight Weight [ ] I.O. Intake and Output Intake and Output 05/22/17 07:00 Intake Total 780 ml Output Total 1050 ml Balance -270 ml Intake Oral 780 ml Output Urine Total 1050 ml # Voids 1 Labs Labs Laboratory Tests Test 05/21/17 17:31 05/22/17 06:20 05/22/17 10:17 Glucose (Fingerstick) 75 mg/dL (70-99) 127 mg/dL (70-99) Sodium Level 139 mmol/L (136-145) Potassium Level 4.8 mmol/L (3.5-5.1) Chloride Level 105 mmol/L (98-107) Carbon Dioxide Level 27 mmol/L (21-32) Anion Gap 7 (6-14) Blood Urea Nitrogen 23 mg/dL (8-26) Creatinine 2.0 mg/dL (0.7-1.3) Estimated GFR (Cockcroft-Gault) 32.8 Glucose Level 60 mg/dL (70-99) Calcium Level 8.2 mg/dL (8.5-10.1) Micro Micro Microbiology 05/20/17 Blood Culture - Preliminary, Resulted NO GROWTH AFTER 1 DAY Review of Systems Constitutional: yes: weakness, alert Eyes: Yes: no symptom reported Pulmonary: Yes no symptom reported Cardiovascular: Yes no symptom reported Gastrointestional: Yes: constipation Genitourinary: Yes: no symptom reported Musculoskeletal: Yes: muscle stiffness Skin: Yes no symptom reported Endocrine: Yes: no symptom reported Physical Exam General Appearance: no apparent distress Skin: warm Respiratory: bilateral CTA Heart: S1S2, RRR Abdomen: soft, bowel sounds present Genitourinary: bladder flat Neurology: alert, oriented Assessment Assessment IMP URINARY RETENTION [id number] 2.4 TO 2.0 LEFT FOOT WOUND DM II HTN ANEMIA PLAN MAINTAIN COOK ANTIBIOTICS ON FINASTERIDE AND FLOMAX BHAVANA QUESADA MD May 22, 2017 11:58
[2017-05-22] MEDS ORDERED: MICAFUNGIN 100 MG in IV DEXTROSE 5% 100 ML IV ONE (12:00)
[2017-05-22 15:00] VITALS: BP 93/60
[2017-05-22] MEDS ORDERED: MAG HYDROX/ALUMINUM HYD/SIMETH 30 ML ORAL.SUSP PO PRN (17:45)
[2017-05-22] MEDS: FAMOTIDINE 20 MG TABLET. PO SCH (18:39)
[2017-05-22] MEDS: POLYETHYLENE GLYCOL 3350 17 GM PACKET. PO SCH (18:40)
[2017-05-22 19:00] VITALS: BP 128/78
[2017-05-22] MEDS: TAMSULOSIN 0.4 MG CAP.ER.24H. PO SCH (19:49)
[2017-05-22] MEDS: CITALOPRAM 20 MG TABLET. PO SCH (19:49)
[2017-05-22 23:59] VITALS: BP 110/69
[2017-05-23 03:00] VITALS: BP 107/69
[2017-05-23 03:48] LABS: CALCIUM 8.4 mg/dL (8.5-10.1); CREATININE 2.4 mg/dL (0.7-1.3); GFR 26.6; POTASSIUM 5.3 mmol/L (3.5-5.1)
[2017-05-23] MEDS: HYDROcodone/APAP 5/325MG 1 TAB TABLET PO PRN ×2 (05:35→19:29)
[2017-05-23 07:00] VITALS: BP 100/71
[2017-05-23] MEDS: POLYETHYLENE GLYCOL 3350 17 GM PACKET. PO SCH (08:37)
[2017-05-23] MEDS: FAMOTIDINE 20 MG TABLET. PO SCH (08:39)
[2017-05-23] MEDS: ASPIRIN ENTERIC COATED 325 MG TABLET.DR. PO SCH (08:39)
[2017-05-23] MEDS: FINASTERIDE 5 MG TABLET. PO SCH (08:40)
[2017-05-23] MEDS: CLOPIDOGREL BISULFATE 75 MG TABLET PO SCH (08:40)
[2017-05-23] MEDS: MULTIVITAMIN with MINERAL TABLET. PO SCH (08:40)
[2017-05-23] MEDS: NYSTATIN TOPICAL POWDER 15GM BOTTLE. TP SCH ×2 (08:40→21:18)
[2017-05-23] MEDS: DOCUSATE SODIUM 100 MG CAPSULE. PO SCH ×2 (08:40→21:12)
--- NOTE | 2017-05-23 09:43 | PDOC ---
GENERAL General: vss with tmax of 100.8 and will defer same to ID. much less alert than his baseline I have seen on prior admissions. HEATHER on admit and will recheck labs in am with ongoing hydration and zimmerman placement for urinary retention. left foot without overt evidence of infection but noted noncompliance with Invanz after last dc and HBO therapy. Leukocytosis on admission and will recheck in am. Diabetes with decent sugars. continue supportive care. Problems: VITAL SIGNS Vital Signs: Vital Signs Date Time Temp Pulse Resp B/P (MAP) Pulse Ox O2 Delivery O2 Flow Rate FiO2 05/23/17 07:00 98.2 118 20 100/71 (81) 92 Nasal Cannula 3.0 98.2 I & O I & O Intake and Output 05/23/17 07:00 Intake Total 400 ml Output Total 550 ml Balance -150 ml Intake Oral 400 ml Output Urine Total 550 ml # Bowel Movements 1 ALLERGIES Allergies: Allergies Coded Allergies Type Severity Reaction Last Updated Verified I S O L A T I O N *CONTACT* Allergy Unknown 04/24/17 Yes No Known Medication Allergies Allergy Unknown 04/24/17 Yes MEDS Medications: Current Medications Medications (Trade) Dose Ordered Sig/Horace Start Time Stop Time Status Last Admin Dose Admin Acetaminophen (Tylenol) 650 mg PRN Q4HRS PRN 05/20/17 20:00 05/21/17 19:59 DC Acetaminophen/ Hydrocodone Bitart (Lortab 5/325) 1 tab PRN Q6HRS PRN 05/22/17 05:15 05/23/17 05:35 1 TAB Al Hydroxide/Mg Hydroxide (Mylanta Plus Xs) 30 ml PRN Q2HR PRN 05/22/17 17:45 05/22/17 18:50 30 ML Amlodipine Besylate (Norvasc) 10 mg DAILY 05/21/17 09:00 05/21/17 09:21 DC Aspirin (Ecotrin) 325 mg DAILY 05/21/17 09:00 05/23/17 08:39 325 MG Citalopram Hydrobromide (CeleXA) 20 mg HS 05/21/17 21:00 05/22/17 19:49 20 MG Clopidogrel Bisulfate (Plavix) 75 mg DAILYAC 05/22/17 07:30 05/23/17 08:40 75 MG Dextrose (Dextrose 50%-Water Syringe) 12.5 gm PRN Q15MIN PRN 05/22/17 08:45 Dextrose/Lactated Ringer's 1,000 ml @ 100 mls/hr Q10H 05/21/17 10:00 05/21/17 12:07 DC 05/21/17 10:43 100 MLS/HR Docusate Sodium (Colace) 200 mg BID 05/21/17 09:00 05/23/17 08:40 200 MG Famotidine (Pepcid) 40 mg DAILY 05/22/17 18:00 05/23/17 08:39 40 MG Finasteride (Proscar) 5 mg DAILY 05/21/17 09:00 05/23/17 08:40 5 MG Furosemide (Lasix) 40 mg DAILY 05/21/17 09:00 05/21/17 09:21 DC Levofloxacin (Levaquin) 250 mg DAILY06 05/21/17 13:00 05/23/17 05:36 250 MG Micafungin Sodium 100 mg/Dextrose 100 ml @ 100 mls/hr ONCE ONCE 05/22/17 12:00 05/22/17 12:59 DC 05/22/17 12:34 100 MLS/HR Morphine Sulfate 4 mg PRN Q2HR PRN 05/20/17 20:00 05/21/17 19:59 DC 05/21/17 15:05 4 MG Multivitamins (Thera M Plus) 1 tab DAILY 05/21/17 09:00 05/23/17 08:40 1 TAB Non-Formulary Medication 0.01 % DAILY06 05/21/17 06:00 05/21/17 16:14 DC Nystatin (Nystop) 1 mathieu BID 05/21/17 15:00 05/23/17 08:40 1 MATHIEU Ondansetron HCl (Zofran) 4 mg PRN Q8HRS PRN 05/20/17 20:00 05/21/17 19:59 DC 05/20/17 20:13 4 MG Polyethylene Glycol (miraLAX PACKET) 17 gm DAILY 05/22/17 12:00 05/22/17 18:40 17 GM Potassium Chloride (Klor-Con) 10 meq DAILY08 05/21/17 08:00 05/21/17 12:07 DC 05/21/17 10:42 10 MEQ Sodium Chloride 1,000 ml @ 75 mls/hr 1X ONCE 05/20/17 20:30 05/21/17 09:49 DC 05/20/17 20:34 75 MLS/HR Tamsulosin HCl (Flomax) 0.4 mg HS 05/20/17 22:30 05/22/17 19:49 0.4 MG LAB Lab: Laboratory Tests Test 05/22/17 10:17 05/22/17 17:10 05/23/17 03:30 05/23/17 07:41 Glucose (Fingerstick) 127 mg/dL (70-99) 118 mg/dL (70-99) 122 mg/dL (70-99) Sodium Level 134 mmol/L (136-145) Potassium Level 5.3 mmol/L (3.5-5.1) Chloride Level 101 mmol/L (98-107) Carbon Dioxide Level 24 mmol/L (21-32) Anion Gap 9 (6-14) Blood Urea Nitrogen 32 mg/dL (8-26) Creatinine 2.4 mg/dL (0.7-1.3) Estimated GFR (Cockcroft-Gault) 26.6 Glucose Level 142 mg/dL (70-99) Calcium Level 8.4 mg/dL (8.5-10.1) LONNY DUMAS MD May 23, 2017 09:43
[2017-05-23] MEDS ORDERED: SODIUM POLYSTYRENE SULFONATE 15 GM/60 ML ORAL.SUSP. PO PRN (10:15)
--- NOTE | 2017-05-23 10:21 | PDOC ---
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 use the BR for BM CVS: no Orthopnea, no CP RESP: no SOB, no FAIR GI: no Nausea, no Vomiting : no Dysuria, no Urgency - zimmerman in palce OBJECTIVE Vital Signs Vital Signs Date Time Temp Pulse Resp B/P (MAP) Pulse Ox O2 Delivery O2 Flow Rate FiO2 05/23/17 07:00 98.2 118 20 100/71 (81) 92 Nasal Cannula 3.0 98.2 I & 0 Intake and Output 05/23/17 07:00 Intake Total 400 ml Output Total 550 ml Balance -150 ml Intake Oral 400 ml Output Urine Total 550 ml # Bowel Movements 1 PHYSICAL EXAM Physical Exam GEN: Awake, Oriented x 0-1, In no distress EYES: Vision Unchanged, Conjunctiva Normal EN: No EN Drainage, Mucous Membranes dryish NECK: no JVD, no JVP, Supple, no Thyromegaly - short neck CVS: S1S2, no Murmur, No Gallop, No Rub,no Edema RESP: no Rales, no Rhonchi,no Acc. Muscle Use GI: BS + ve, NO Bruit, Non Tender, Non Distended - obese with ? Ant abd wall hernia : no CVA tenderness, no Suprapubic Tenderness - Zimmerman in palce DIAGNOSIS/ASSESSMENT Assessment & Plan ARF: (creat now back from 2.0 -- > 2.4) UO is OK. Current fluid and E-lyte status does not necessitate emergent need for dialysis. Will re-evaluate for dialysis in the am CKD III/ IV - reval Bl scan ^ed K - change to Renal diet; recheck K - prn Kayexalate as ordered HTN: Current BP meds as reviewed. See orders for changes. URINARY RETENTION - now with zimmerman, ct flomax etc LEFT FOOT WOUND - foot in Boot ; ? asso with DM II Problems: COMMENT/RELEVANT DATA Meds Current Medications Medications (Trade) Dose Ordered Sig/Horace Start Time Stop Time Status Last Admin Dose Admin Acetaminophen (Tylenol) 650 mg PRN Q4HRS PRN 05/20/17 20:00 05/21/17 19:59 DC Acetaminophen/ Hydrocodone Bitart (Lortab 5/325) 1 tab PRN Q6HRS PRN 05/22/17 05:15 05/23/17 05:35 1 TAB Al Hydroxide/Mg Hydroxide (Mylanta Plus Xs) 30 ml PRN Q2HR PRN 05/22/17 17:45 05/22/17 18:50 30 ML Amlodipine Besylate (Norvasc) 10 mg DAILY 05/21/17 09:00 05/21/17 09:21 DC Aspirin (Ecotrin) 325 mg DAILY 05/21/17 09:00 05/23/17 08:39 325 MG Citalopram Hydrobromide (CeleXA) 20 mg HS 05/21/17 21:00 05/22/17 19:49 20 MG Clopidogrel Bisulfate (Plavix) 75 mg DAILYAC 05/22/17 07:30 05/23/17 08:40 75 MG Dextrose (Dextrose 50%-Water Syringe) 12.5 gm PRN Q15MIN PRN 05/22/17 08:45 Dextrose/Lactated Ringer's 1,000 ml @ 100 mls/hr Q10H 05/21/17 10:00 05/21/17 12:07 DC 05/21/17 10:43 100 MLS/HR Docusate Sodium (Colace) 200 mg BID 05/21/17 09:00 05/23/17 08:40 200 MG Famotidine (Pepcid) 40 mg DAILY 05/22/17 18:00 05/23/17 08:39 40 MG Finasteride (Proscar) 5 mg DAILY 05/21/17 09:00 05/23/17 08:40 5 MG Furosemide (Lasix) 40 mg DAILY 05/21/17 09:00 05/21/17 09:21 DC Levofloxacin (Levaquin) 250 mg DAILY06 05/21/17 13:00 05/23/17 05:36 250 MG Micafungin Sodium 100 mg/Dextrose 100 ml @ 100 mls/hr ONCE ONCE 05/22/17 12:00 05/22/17 12:59 DC 05/22/17 12:34 100 MLS/HR Morphine Sulfate 4 mg PRN Q2HR PRN 05/20/17 20:00 05/21/17 19:59 DC 05/21/17 15:05 4 MG Multivitamins (Thera M Plus) 1 tab DAILY 05/21/17 09:00 05/23/17 08:40 1 TAB Non-Formulary Medication 0.01 % DAILY06 05/21/17 06:00 05/21/17 16:14 DC Nystatin (Nystop) 1 mathieu BID 05/21/17 15:00 05/23/17 08:40 1 MATHIEU Ondansetron HCl (Zofran) 4 mg PRN Q8HRS PRN 05/20/17 20:00 05/21/17 19:59 DC 05/20/17 20:13 4 MG Polyethylene Glycol (miraLAX PACKET) 17 gm DAILY 05/22/17 12:00 05/22/17 18:40 17 GM Potassium Chloride (Klor-Con) 10 meq DAILY08 05/21/17 08:00 05/21/17 12:07 DC 05/21/17 10:42 10 MEQ Sodium Chloride 1,000 ml @ 75 mls/hr 1X ONCE 05/20/17 20:30 05/21/17 09:49 DC 05/20/17 20:34 75 MLS/HR Tamsulosin HCl (Flomax) 0.4 mg HS 05/20/17 22:30 05/22/17 19:49 0.4 MG Lab Laboratory Tests Test 05/22/17 17:10 05/23/17 03:30 05/23/17 07:41 Glucose (Fingerstick) 118 mg/dL (70-99) 122 mg/dL (70-99) Sodium Level 134 mmol/L (136-145) Potassium Level 5.3 mmol/L (3.5-5.1) Chloride Level 101 mmol/L (98-107) Carbon Dioxide Level 24 mmol/L (21-32) Anion Gap 9 (6-14) Blood Urea Nitrogen 32 mg/dL (8-26) Creatinine 2.4 mg/dL (0.7-1.3) Estimated GFR (Cockcroft-Gault) 26.6 Glucose Level 142 mg/dL (70-99) Calcium Level 8.4 mg/dL (8.5-10.1) TEA JANSEN MD May 23, 2017 10:21
[2017-05-23] MEDS ORDERED: IV NORMAL SALINE 500ML BAG 500 ML IV PRN (10:30)
[2017-05-23] MEDS: IV NORMAL SALINE 1000ML BAG 1,000 ML IV SCH ×2 (10:42→21:12)
[2017-05-23 11:00] VITALS: BP 108/68
--- NOTE | 2017-05-23 13:51 | PDOC ---
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 Follow simple commands i.e open eyes SKIN: No rash IV: ok Labs Lab Laboratory Tests Test 05/22/17 17:10 05/23/17 03:30 05/23/17 07:41 05/23/17 11:04 Glucose (Fingerstick) 118 mg/dL (70-99) 122 mg/dL (70-99) 120 mg/dL (70-99) Sodium Level 134 mmol/L (136-145) Potassium Level 5.3 mmol/L (3.5-5.1) Chloride Level 101 mmol/L (98-107) Carbon Dioxide Level 24 mmol/L (21-32) Anion Gap 9 (6-14) Blood Urea Nitrogen 32 mg/dL (8-26) Creatinine 2.4 mg/dL (0.7-1.3) Estimated GFR (Cockcroft-Gault) 26.6 Glucose Level 142 mg/dL (70-99) Calcium Level 8.4 mg/dL (8.5-10.1) Test 05/23/17 13:05 Potassium Level 5.2 mmol/L (3.5-5.1) Micro BLOOD CULTURE Preliminary NO GROWTH AFTER 2 DAYS URINE CULTURE RES 1 Final Comment Mixed urogenital kenny Objective Assessment Noncompliance HEATHER - off abx since 05/16. Now on Levoflox for urine sec retention Open left foot wound/infection. s/p debridement, 04/24. Cult -neg. No bony complications per Op note. 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 -hx Citrobacter/Proteus 04/03 -hx Prevotella, E. faecalis & E. avium from 03/10 -hx MSSA and bone exposure s/p debridement 02/10. PVD s/p angioplasty of anterior tibial artery, 02/06 Morbid obesity DM MRSA nares positive Plan Plan of Care Cont local wound care No need for abx at this time - d/c levoflox, cult neg Micafungin times one 05/22 Recommended restarting HBO as if worsens he is at risk for amputation HIGINIO HARRIS MICROFABRICATION ENGINEER MANAGER May 23, 2017 13:51
[2017-05-23 14:44] VITALS: BP 89/65
[2017-05-23 19:59] VITALS: BP 103/69
[2017-05-23] MEDS: CITALOPRAM 20 MG TABLET. PO SCH (21:12)
[2017-05-23] MEDS: TAMSULOSIN 0.4 MG CAP.ER.24H. PO SCH (21:12)
[2017-05-23 23:59] VITALS: BP 97/64
[2017-05-24 03:30] VITALS: BP 96/61
[2017-05-24] MEDS: HYDROcodone/APAP 5/325MG 1 TAB TABLET PO PRN ×4 (03:49→21:43)
[2017-05-24 04:09] LABS: BASO # 0.1 x10^3/uL (0.0-0.2); BASO % 1 % (0-3); EOS % 0 % (0-3); HEMATOCRIT 37.3 % (39.0-53.0); HEMOGLOBIN 11.9 g/dL (13.0-17.5); LYMPH # 0.9 x10^3/uL (1.0-4.8); LYMPH % 8 % (24-48); MEAN CORPUSCULAR HEMOGLOBIN 28 pg (25-35); MEAN CORPUSCULAR HGB CONC 32 g/dL (31-37); MEAN CORPUSCULAR VOLUME 89 fL (79-100); MONO % 11 % (0-9); NEUT % 80 % (31-73); PLATELET COUNT 265 x10^3/uL (140-400); RED BLOOD COUNT 4.19 x10^6/uL (4.30-5.70); RED CELL DISTRIBUTION WIDTH 17.2 % (11.5-14.5); WHITE BLOOD COUNT 11.1 x10^3/uL (4.0-11.0)
[2017-05-24 04:37] LABS: GFR 32.8; POTASSIUM 4.9 mmol/L (3.5-5.1)
[2017-05-24] MEDS: IV NORMAL SALINE 1000ML BAG 1,000 ML IV SCH ×2 (06:29→16:04)
[2017-05-24 07:43] VITALS: BP 113/81
[2017-05-24] MEDS: DOCUSATE SODIUM 100 MG CAPSULE. PO SCH ×2 (09:00→21:42)
[2017-05-24] MEDS: NYSTATIN TOPICAL POWDER 15GM BOTTLE. TP SCH ×2 (09:00→21:00)
[2017-05-24] MEDS: POLYETHYLENE GLYCOL 3350 17 GM PACKET. PO SCH (09:00)
[2017-05-24] MEDS: MULTIVITAMIN with MINERAL TABLET. PO SCH (09:09)
[2017-05-24] MEDS: FAMOTIDINE 20 MG TABLET. PO SCH (09:10)
[2017-05-24] MEDS: FINASTERIDE 5 MG TABLET. PO SCH (09:10)
[2017-05-24] MEDS: ASPIRIN ENTERIC COATED 325 MG TABLET.DR. PO SCH (09:10)
[2017-05-24] MEDS: CLOPIDOGREL BISULFATE 75 MG TABLET PO SCH (09:15)
[2017-05-24 10:40] VITALS: BP 110/76
--- NOTE | 2017-05-24 11:45 | PDOC ---
GENERAL General: vss and afebrile. daughter present and lots of questions. wbc 11K, creatinine 2.9, sugars ok. chest with decreased breath sounds, heart regular, abdomen benign, wound vac on foot. Temp to 100.8 on 05/22 and none further. O2 at 3-4L/ NC. much more awake and alert today but still confused. overall confusing picture and wonder if the one dose of micafungin is responsible for improvement in mental status and no further fevers. meds reviewed and no obvious culprit there for confusion. urine culture is negative. Problems: VITAL SIGNS Vital Signs: Vital Signs Date Time Temp Pulse Resp B/P (MAP) Pulse Ox O2 Delivery O2 Flow Rate FiO2 05/24/17 10:40 97.3 86 18 110/76 (87) 96 Nasal Cannula 3.0 97.3 I & O I & O Intake and Output 05/24/17 07:00 Intake Total 1650 ml Output Total 1050 ml Balance 600 ml Intake Oral 500 ml IV Total 1150 ml Output Urine Total 1050 ml ALLERGIES Allergies: Allergies Coded Allergies Type Severity Reaction Last Updated Verified I S O L A T I O N *CONTACT* Allergy Unknown 04/24/17 Yes No Known Medication Allergies Allergy Unknown 04/24/17 Yes MEDS Medications: Current Medications Medications (Trade) Dose Ordered Sig/Horace Start Time Stop Time Status Last Admin Dose Admin Acetaminophen (Tylenol) 650 mg PRN Q4HRS PRN 05/20/17 20:00 05/21/17 19:59 DC Acetaminophen/ Hydrocodone Bitart (Lortab 5/325) 1 tab PRN Q6HRS PRN 05/22/17 05:15 05/24/17 09:16 1 TAB Al Hydroxide/Mg Hydroxide (Mylanta Plus Xs) 30 ml PRN Q2HR PRN 05/22/17 17:45 05/22/17 18:50 30 ML Amlodipine Besylate (Norvasc) 10 mg DAILY 05/21/17 09:00 05/21/17 09:21 DC Aspirin (Ecotrin) 325 mg DAILY 05/21/17 09:00 05/24/17 09:10 325 MG Citalopram Hydrobromide (CeleXA) 20 mg HS 05/21/17 21:00 05/23/17 21:12 20 MG Clopidogrel Bisulfate (Plavix) 75 mg DAILYAC 05/22/17 07:30 05/24/17 09:15 75 MG Dextrose (Dextrose 50%-Water Syringe) 12.5 gm PRN Q15MIN PRN 05/22/17 08:45 Dextrose/Lactated Ringer's 1,000 ml @ 100 mls/hr Q10H 05/21/17 10:00 05/21/17 12:07 DC 05/21/17 10:43 100 MLS/HR Docusate Sodium (Colace) 200 mg BID 05/21/17 09:00 05/23/17 21:12 200 MG Famotidine (Pepcid) 40 mg DAILY 05/22/17 18:00 05/24/17 09:10 40 MG Finasteride (Proscar) 5 mg DAILY 05/21/17 09:00 05/24/17 09:10 5 MG Furosemide (Lasix) 40 mg DAILY 05/21/17 09:00 05/21/17 09:21 DC Levofloxacin (Levaquin) 250 mg DAILY06 05/21/17 13:00 05/23/17 13:48 DC 05/23/17 05:36 250 MG Micafungin Sodium 100 mg/Dextrose 100 ml @ 100 mls/hr ONCE ONCE 05/22/17 12:00 05/22/17 12:59 DC 05/22/17 12:34 100 MLS/HR Morphine Sulfate 4 mg PRN Q2HR PRN 05/20/17 20:00 05/21/17 19:59 DC 05/21/17 15:05 4 MG Multivitamins (Thera M Plus) 1 tab DAILY 05/21/17 09:00 05/24/17 09:09 1 TAB Non-Formulary Medication 0.01 % DAILY06 05/21/17 06:00 05/21/17 16:14 DC Nystatin (Nystop) 1 mathieu BID 05/21/17 15:00 05/23/17 21:18 1 MATHIEU Ondansetron HCl (Zofran) 4 mg PRN Q8HRS PRN 05/20/17 20:00 05/21/17 19:59 DC 05/20/17 20:13 4 MG Polyethylene Glycol (miraLAX PACKET) 17 gm DAILY 05/22/17 12:00 05/22/17 18:40 17 GM Potassium Chloride (Klor-Con) 10 meq DAILY08 05/21/17 08:00 05/21/17 12:07 DC 05/21/17 10:42 10 MEQ Sodium Polystyrene Sulfonate (Kayexalate) 30 gm 1X PRN PRN 05/23/17 10:15 Sodium Chloride 1,000 ml @ 100 mls/hr Q10H 05/23/17 10:30 05/24/17 06:29 100 MLS/HR Tamsulosin HCl (Flomax) 0.4 mg HS 05/20/17 22:30 05/23/17 21:12 0.4 MG LAB Lab: Laboratory Tests Test 05/23/17 13:05 05/23/17 16:18 05/23/17 21:12 05/24/17 04:00 Potassium Level 5.2 mmol/L (3.5-5.1) 4.9 mmol/L (3.5-5.1) Glucose (Fingerstick) 133 mg/dL (70-99) 132 mg/dL (70-99) White Blood Count 11.1 x10^3/uL (4.0-11.0) Red Blood Count 4.19 x10^6/uL (4.30-5.70) Hemoglobin 11.9 g/dL (13.0-17.5) Hematocrit 37.3 % (39.0-53.0) Mean Corpuscular Volume 89 fL (79-100) Mean Corpuscular Hemoglobin 28 pg (25-35) Mean Corpuscular Hemoglobin Concent 32 g/dL (31-37) Red Cell Distribution Width 17.2 % (11.5-14.5) Platelet Count 265 x10^3/uL (140-400) Neutrophils (%) (Auto) 80 % (31-73) Lymphocytes (%) (Auto) 8 % (24-48) Monocytes (%) (Auto) 11 % (0-9) Eosinophils (%) (Auto) 0 % (0-3) Basophils (%) (Auto) 1 % (0-3) Neutrophils # (Auto) 8.9 x10^3uL (1.8-7.7) Lymphocytes # (Auto) 0.9 x10^3/uL (1.0-4.8) Monocytes # (Auto) 1.2 x10^3/uL (0.0-1.1) Eosinophils # (Auto) 0.0 x10^3/uL (0.0-0.7) Basophils # (Auto) 0.1 x10^3/uL (0.0-0.2) Sodium Level 137 mmol/L (136-145) Chloride Level 104 mmol/L (98-107) Carbon Dioxide Level 25 mmol/L (21-32) Anion Gap 8 (6-14) Blood Urea Nitrogen 33 mg/dL (8-26) Creatinine 2.0 mg/dL (0.7-1.3) Estimated GFR (Cockcroft-Gault) 32.8 Glucose Level 124 mg/dL (70-99) Calcium Level 8.0 mg/dL (8.5-10.1) Test 05/24/17 07:32 05/24/17 11:09 Glucose (Fingerstick) 120 mg/dL (70-99) 180 mg/dL (70-99) LONNY DUMAS MD May 24, 2017 11:45
--- NOTE | 2017-05-24 14:16 | PDOC ---
SUBJECTIVE ROS CKD III c/o rectal discomfort CVS: no Orthopnea, no CP RESP: no SOB, no FAIR GI: no Nausea, no Vomiting : n Dysuria, no Urgency - zimmerman in palce OBJECTIVE Vital Signs Vital Signs Date Time Temp Pulse Resp B/P (MAP) Pulse Ox O2 Delivery O2 Flow Rate FiO2 05/24/17 10:40 97.3 86 18 110/76 (87) 96 Nasal Cannula 3.0 97.3 I & 0 Intake and Output 05/24/17 07:00 Intake Total 1650 ml Output Total 1050 ml Balance 600 ml Intake Oral 500 ml IV Total 1150 ml Output Urine Total 1050 ml PHYSICAL EXAM Physical Exam GEN: Awake, Oriented x 2 , In no distress EYES: Vision Unchanged, Conjunctiva Normal EN: No EN Drainage, Mucous Membranes mosit NECK: no JVD, no JVP, Supple, no Thyromegaly - short neck CVS: S1S2, no Murmur, No Gallop, No Rub, Tr Edema RESP: no Rales, no Rhonchi,no Acc. Muscle Use GI: BS + ve, NO Bruit, Non Tender, Non Distended - obese with ? Ant abd wall hernia : no CVA tenderness, no Suprapubic Tenderness - Zimmerman in palce DIAGNOSIS/ASSESSMENT Assessment & Plan CKD III/ IV - Current fluid and E-lyte status does not necessitate emergent need for dialysis. Will re-evaluate for dialysis in the am ? HEATHER due to Dehydration - better with iVF ^ed K - change to Renal diet; recheck K - prn Kayexalate as ordered HTN: Occ low BP - ct IVF for now. Current BP meds as reviewed. See orders for changes. URINARY RETENTION - now with zimmerman, ct flomax etc LEFT FOOT WOUND - foot in Boot ; ? asso with DM II COMMENT/RELEVANT DATA Meds Current Medications Medications (Trade) Dose Ordered Sig/Horace Start Time Stop Time Status Last Admin Dose Admin Acetaminophen (Tylenol) 650 mg PRN Q4HRS PRN 05/20/17 20:00 05/21/17 19:59 DC Acetaminophen/ Hydrocodone Bitart (Lortab 5/325) 1 tab PRN Q6HRS PRN 05/22/17 05:15 05/24/17 09:16 1 TAB Al Hydroxide/Mg Hydroxide (Mylanta Plus Xs) 30 ml PRN Q2HR PRN 05/22/17 17:45 05/22/17 18:50 30 ML Amlodipine Besylate (Norvasc) 10 mg DAILY 05/21/17 09:00 05/21/17 09:21 DC Aspirin (Ecotrin) 325 mg DAILY 05/21/17 09:00 05/24/17 09:10 325 MG Citalopram Hydrobromide (CeleXA) 20 mg HS 05/21/17 21:00 05/23/17 21:12 20 MG Clopidogrel Bisulfate (Plavix) 75 mg DAILYAC 05/22/17 07:30 05/24/17 09:15 75 MG Dextrose (Dextrose 50%-Water Syringe) 12.5 gm PRN Q15MIN PRN 05/22/17 08:45 Dextrose/Lactated Ringer's 1,000 ml @ 100 mls/hr Q10H 05/21/17 10:00 05/21/17 12:07 DC 05/21/17 10:43 100 MLS/HR Docusate Sodium (Colace) 200 mg BID 05/21/17 09:00 05/23/17 21:12 200 MG Famotidine (Pepcid) 40 mg DAILY 05/22/17 18:00 05/24/17 09:10 40 MG Finasteride (Proscar) 5 mg DAILY 05/21/17 09:00 05/24/17 09:10 5 MG Furosemide (Lasix) 40 mg DAILY 05/21/17 09:00 05/21/17 09:21 DC Levofloxacin (Levaquin) 250 mg DAILY06 05/21/17 13:00 05/23/17 13:48 DC 05/23/17 05:36 250 MG Micafungin Sodium 100 mg/Dextrose 100 ml @ 100 mls/hr ONCE ONCE 05/22/17 12:00 05/22/17 12:59 DC 05/22/17 12:34 100 MLS/HR Morphine Sulfate 4 mg PRN Q2HR PRN 05/20/17 20:00 05/21/17 19:59 DC 05/21/17 15:05 4 MG Multivitamins (Thera M Plus) 1 tab DAILY 05/21/17 09:00 05/24/17 09:09 1 TAB Non-Formulary Medication 0.01 % DAILY06 05/21/17 06:00 05/21/17 16:14 DC Nystatin (Nystop) 1 mathieu BID 05/21/17 15:00 05/23/17 21:18 1 MATHIEU Ondansetron HCl (Zofran) 4 mg PRN Q8HRS PRN 05/20/17 20:00 05/21/17 19:59 DC 05/20/17 20:13 4 MG Polyethylene Glycol (miraLAX PACKET) 17 gm DAILY 05/22/17 12:00 05/22/17 18:40 17 GM Potassium Chloride (Klor-Con) 10 meq DAILY08 05/21/17 08:00 05/21/17 12:07 DC 05/21/17 10:42 10 MEQ Sodium Polystyrene Sulfonate (Kayexalate) 30 gm 1X PRN PRN 05/23/17 10:15 Sodium Chloride 1,000 ml @ 100 mls/hr Q10H 05/23/17 10:30 05/24/17 06:29 100 MLS/HR Tamsulosin HCl (Flomax) 0.4 mg HS 05/20/17 22:30 05/23/17 21:12 0.4 MG Lab Laboratory Tests Test 05/23/17 16:18 05/23/17 21:12 05/24/17 04:00 05/24/17 07:32 Glucose (Fingerstick) 133 mg/dL (70-99) 132 mg/dL (70-99) 120 mg/dL (70-99) White Blood Count 11.1 x10^3/uL (4.0-11.0) Red Blood Count 4.19 x10^6/uL (4.30-5.70) Hemoglobin 11.9 g/dL (13.0-17.5) Hematocrit 37.3 % (39.0-53.0) Mean Corpuscular Volume 89 fL (79-100) Mean Corpuscular Hemoglobin 28 pg (25-35) Mean Corpuscular Hemoglobin Concent 32 g/dL (31-37) Red Cell Distribution Width 17.2 % (11.5-14.5) Platelet Count 265 x10^3/uL (140-400) Neutrophils (%) (Auto) 80 % (31-73) Lymphocytes (%) (Auto) 8 % (24-48) Monocytes (%) (Auto) 11 % (0-9) Eosinophils (%) (Auto) 0 % (0-3) Basophils (%) (Auto) 1 % (0-3) Neutrophils # (Auto) 8.9 x10^3uL (1.8-7.7) Lymphocytes # (Auto) 0.9 x10^3/uL (1.0-4.8) Monocytes # (Auto) 1.2 x10^3/uL (0.0-1.1) Eosinophils # (Auto) 0.0 x10^3/uL (0.0-0.7) Basophils # (Auto) 0.1 x10^3/uL (0.0-0.2) Sodium Level 137 mmol/L (136-145) Potassium Level 4.9 mmol/L (3.5-5.1) Chloride Level 104 mmol/L (98-107) Carbon Dioxide Level 25 mmol/L (21-32) Anion Gap 8 (6-14) Blood Urea Nitrogen 33 mg/dL (8-26) Creatinine 2.0 mg/dL (0.7-1.3) Estimated GFR (Cockcroft-Gault) 32.8 Glucose Level 124 mg/dL (70-99) Calcium Level 8.0 mg/dL (8.5-10.1) Test 05/24/17 11:09 Glucose (Fingerstick) 180 mg/dL (70-99) TEA JANSEN MD May 24, 2017 14:16
[2017-05-24 14:50] VITALS: BP 97/70
[2017-05-24 19:00] VITALS: BP 97/71
[2017-05-24] MEDS: CITALOPRAM 20 MG TABLET. PO SCH (21:42)
[2017-05-24] MEDS: TAMSULOSIN 0.4 MG CAP.ER.24H. PO SCH (21:42)
[2017-05-24 23:00] VITALS: BP 114/80
[2017-05-25] MEDS: IV NORMAL SALINE 1000ML BAG 1,000 ML IV SCH ×3 (01:44→21:30)
[2017-05-25 03:00] VITALS: BP 100/72
[2017-05-25] MEDS: CLOPIDOGREL BISULFATE 75 MG TABLET PO SCH (06:44)
[2017-05-25 07:10] VITALS: BP 93/73
--- NOTE | 2017-05-25 08:13 | PDOC ---
SUBJECTIVE Subjective Requesting to be helped up in bed. Not interested in discussing how he's feeling today. Declined to answer any other questions. OBJECTIVE Objective Reviewed Vital Signs Vital Signs Date Time Temp Pulse Resp B/P (MAP) Pulse Ox O2 Delivery O2 Flow Rate FiO2 05/25/17 03:00 95.5 116 18 100/72 (81) 93 Room Air 95.5 05/24/17 23:00 97.6 107 18 114/80 (91) 93 Room Air 97.6 05/24/17 20:00 Nasal Cannula 4.0 05/24/17 19:00 97.5 95 18 97/71 (80) 93 Room Air 97.5 05/24/17 14:50 98.7 91 20 97/70 (79) 94 Nasal Cannula 3.0 98.7 05/24/17 10:40 97.3 86 18 110/76 (87) 96 Nasal Cannula 3.0 97.3 I & O Intake and Output 05/25/17 07:00 Intake Total 350 ml Output Total 1200 ml Balance -850 ml Intake Oral 350 ml Output Urine Total 1200 ml # Bowel Movements 1 PHYSICAL EXAM Physical Exam Alert, unable to check orientation, O2 cannula on forehead RRR CTAB L foot in boot Declined more complete physical exam ASSESSMENT/PLAN Assessment/Plan L foot infection HEATHER Borderline hypotension (hx of hypertension) Urinary retention (hx of BPH) Inability to complete ADLs, noncompliance with discharge plan from last hospitalization Chronic hematuria ID, Renal, Wound Care following No need for abx at this time Monitor BP, holding home amlodipine and lasix Ramírez in place Urology consult needed as outpatient when able to eval hematuria Will need placement for safe discharge plan Problems: COMMENT Lab Laboratory Tests Test 05/24/17 11:09 05/24/17 17:02 05/24/17 20:59 Glucose (Fingerstick) 180 mg/dL (70-99) 171 mg/dL (70-99) 169 mg/dL (70-99) ANGELES MEZA MD May 25, 2017 08:13
[2017-05-25] MEDS: DOCUSATE SODIUM 100 MG CAPSULE. PO SCH ×2 (08:14→21:00)
[2017-05-25] MEDS: POLYETHYLENE GLYCOL 3350 17 GM PACKET. PO SCH (08:14)
[2017-05-25] MEDS: ASPIRIN ENTERIC COATED 325 MG TABLET.DR. PO SCH (08:15)
[2017-05-25] MEDS: FAMOTIDINE 20 MG TABLET. PO SCH (08:16)
[2017-05-25] MEDS: MULTIVITAMIN with MINERAL TABLET. PO SCH (08:16)
[2017-05-25] MEDS: NYSTATIN TOPICAL POWDER 15GM BOTTLE. TP SCH ×2 (08:17→21:38)
[2017-05-25] MEDS: FINASTERIDE 5 MG TABLET. PO SCH (08:17)
[2017-05-25 09:08] LABS: BASO # 0.2 x10^3/uL (0.0-0.2); BASO % 1 % (0-3); EOS % 2 % (0-3); HEMATOCRIT 39.4 % (39.0-53.0); HEMOGLOBIN 12.7 g/dL (13.0-17.5); LYMPH # 0.9 x10^3/uL (1.0-4.8); LYMPH % 9 % (24-48); MEAN CORPUSCULAR HEMOGLOBIN 29 pg (25-35); MEAN CORPUSCULAR HGB CONC 32 g/dL (31-37); MEAN CORPUSCULAR VOLUME 90 fL (79-100); MONO % 9 % (0-9); NEUT % 79 % (31-73); PLATELET COUNT 281 x10^3/uL (140-400); RED BLOOD COUNT 4.36 x10^6/uL (4.30-5.70); RED CELL DISTRIBUTION WIDTH 17.5 % (11.5-14.5)
[2017-05-25 09:27] LABS: CALCIUM 8.3 mg/dL (8.5-10.1); CREATININE 1.6 mg/dL (0.7-1.3); GFR 42.5; POTASSIUM 4.5 mmol/L (3.5-5.1)
--- NOTE | 2017-05-25 11:09 | PDOC ---
SUBJECTIVE ROS HEATHER/ ? CKD III Doing same to a little better overall - but still very confused Unable to reliably get ROS OBJECTIVE Vital Signs Vital Signs Date Time Temp Pulse Resp B/P (MAP) Pulse Ox O2 Delivery O2 Flow Rate FiO2 05/25/17 08:21 Nasal Cannula 3.0 05/25/17 07:10 97.3 119 15 93/73 (80) 96 97.3 I & 0 Intake and Output 05/25/17 07:00 Intake Total 350 ml Output Total 1200 ml Balance -850 ml Intake Oral 350 ml Output Urine Total 1200 ml # Bowel Movements 1 PHYSICAL EXAM Physical Exam GEN: Awake, Oriented x 0 , In no distress EYES: Vision Unchanged, Conjunctiva Normal EN: No EN Drainage, Mucous Membranes dryish today NECK: no JVD, no JVP, Supple, no Thyromegaly - short neck CVS: S1S2, no Murmur, No Gallop, No Rub, Tr Edema on Rt RESP: no Rales, no Rhonchi,no Acc. Muscle Use GI: BS + ve, NO Bruit, Non Tender, Non Distended - obese with ? Ant abd wall hernia : no CVA tenderness, no Suprapubic Tenderness - Zimmerman in palce DIAGNOSIS/ASSESSMENT Assessment & Plan CKD III - Current fluid and E-lyte status does not necessitate emergent need for dialysis. Will re-evaluate for dialysis in the am ? HEATHER due to Dehydration - better with iVF - Baseline creat is 1.0 ^ed K - better with change to Renal diet; HTN: Occ low BP - ct IVF for now. Current BP meds as reviewed. May need IV ALb to help with same URINARY RETENTION - now with zimmerman, ct flomax etc LEFT FOOT WOUND - foot in Boot ; ? asso with DM II Poor PO intake - start TPN COMMENT/RELEVANT DATA Meds Current Medications Medications (Trade) Dose Ordered Sig/Horace Start Time Stop Time Status Last Admin Dose Admin Acetaminophen (Tylenol) 650 mg PRN Q4HRS PRN 05/20/17 20:00 05/21/17 19:59 DC Acetaminophen/ Hydrocodone Bitart (Lortab 5/325) 1 tab PRN Q4HRS PRN 05/24/17 14:15 05/24/17 21:43 1 TAB Al Hydroxide/Mg Hydroxide (Mylanta Plus Xs) 30 ml PRN Q2HR PRN 05/22/17 17:45 11/17/17 18:50 30 ML Amlodipine Besylate (Norvasc) 10 mg DAILY 05/21/17 09:00 05/21/17 09:21 DC Aspirin (Ecotrin) 325 mg DAILY 05/21/17 09:00 05/25/17 08:15 325 MG Citalopram Hydrobromide (CeleXA) 20 mg HS 05/21/17 21:00 05/24/17 21:42 20 MG Clopidogrel Bisulfate (Plavix) 75 mg DAILYAC 05/22/17 07:30 05/25/17 06:44 75 MG Dextrose (Dextrose 50%-Water Syringe) 12.5 gm PRN Q15MIN PRN 05/22/17 08:45 Dextrose/Lactated Ringer's 1,000 ml @ 100 mls/hr Q10H 05/21/17 10:00 05/21/17 12:07 DC 05/21/17 10:43 100 MLS/HR Docusate Sodium (Colace) 200 mg BID 05/21/17 09:00 05/24/17 21:42 200 MG Famotidine (Pepcid) 40 mg DAILY 05/22/17 18:00 05/25/17 08:16 40 MG Finasteride (Proscar) 5 mg DAILY 05/21/17 09:00 05/25/17 08:17 5 MG Furosemide (Lasix) 40 mg DAILY 05/21/17 09:00 05/21/17 09:21 DC Levofloxacin (Levaquin) 250 mg DAILY06 05/21/17 13:00 05/23/17 13:48 DC 05/23/17 05:36 250 MG Micafungin Sodium 100 mg/Dextrose 100 ml @ 100 mls/hr ONCE ONCE 05/22/17 12:00 05/22/17 12:59 DC 05/22/17 12:34 100 MLS/HR Morphine Sulfate 4 mg PRN Q2HR PRN 05/20/17 20:00 05/21/17 19:59 DC 05/21/17 15:05 4 MG Multivitamins (Thera M Plus) 1 tab DAILY 05/21/17 09:00 05/25/17 08:16 1 TAB Non-Formulary Medication 0.01 % DAILY06 05/21/17 06:00 05/21/17 16:14 DC Nystatin (Nystop) 1 mathieu BID 05/21/17 15:00 05/25/17 08:17 1 MATHIEU Ondansetron HCl (Zofran) 4 mg PRN Q8HRS PRN 05/20/17 20:00 05/21/17 19:59 DC 05/20/17 20:13 4 MG Polyethylene Glycol (miraLAX PACKET) 17 gm DAILY 05/22/17 12:00 05/22/17 18:40 17 GM Potassium Chloride (Klor-Con) 10 meq DAILY08 05/21/17 08:00 05/21/17 12:07 DC 05/21/17 10:42 10 MEQ Sodium Polystyrene Sulfonate (Kayexalate) 30 gm 1X PRN PRN 05/23/17 10:15 Sodium Chloride 1,000 ml @ 100 mls/hr Q10H 05/23/17 10:30 05/25/17 01:44 100 MLS/HR Tamsulosin HCl (Flomax) 0.4 mg HS 05/20/17 22:30 05/24/17 21:42 0.4 MG Lab Laboratory Tests Test 05/24/17 11:09 05/24/17 17:02 05/24/17 20:59 05/25/17 08:11 Glucose (Fingerstick) 180 mg/dL (70-99) 171 mg/dL (70-99) 169 mg/dL (70-99) 149 mg/dL (70-99) Test 05/25/17 08:40 White Blood Count 11.0 x10^3/uL (4.0-11.0) Red Blood Count 4.36 x10^6/uL (4.30-5.70) Hemoglobin 12.7 g/dL (13.0-17.5) Hematocrit 39.4 % (39.0-53.0) Mean Corpuscular Volume 90 fL (79-100) Mean Corpuscular Hemoglobin 29 pg (25-35) Mean Corpuscular Hemoglobin Concent 32 g/dL (31-37) Red Cell Distribution Width 17.5 % (11.5-14.5) Platelet Count 281 x10^3/uL (140-400) Neutrophils (%) (Auto) 79 % (31-73) Lymphocytes (%) (Auto) 9 % (24-48) Monocytes (%) (Auto) 9 % (0-9) Eosinophils (%) (Auto) 2 % (0-3) Basophils (%) (Auto) 1 % (0-3) Neutrophils # (Auto) 8.7 x10^3uL (1.8-7.7) Lymphocytes # (Auto) 0.9 x10^3/uL (1.0-4.8) Monocytes # (Auto) 1.0 x10^3/uL (0.0-1.1) Eosinophils # (Auto) 0.2 x10^3/uL (0.0-0.7) Basophils # (Auto) 0.2 x10^3/uL (0.0-0.2) Sodium Level 139 mmol/L (136-145) Potassium Level 4.5 mmol/L (3.5-5.1) Chloride Level 105 mmol/L (98-107) Carbon Dioxide Level 24 mmol/L (21-32) Anion Gap 10 (6-14) Blood Urea Nitrogen 30 mg/dL (8-26) Creatinine 1.6 mg/dL (0.7-1.3) Estimated GFR (Cockcroft-Gault) 42.5 Glucose Level 153 mg/dL (70-99) Calcium Level 8.3 mg/dL (8.5-10.1) TEA JANSEN MD May 25, 2017 11:09
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
[2017-05-25 11:33] LABS: MAGNESIUM 2.1 mg/dL (1.8-2.4); PHOSPHORUS 3.5 mg/dL (2.6-4.7)
[2017-05-25] MEDS: PIPERACILLIN/TAZO IV Push 3.375 GM VIAL. IVP SCH ×3 (11:38→23:42)
[2017-05-25] MEDS ORDERED: PIPERACILLIN/TAZOBACTAM 3.375 GM in IV DEXTROSE 5% 50 ML IV SCH (12:00)
[2017-05-25] MEDS: LINEZOLID 600 MG TABLET PO SCH ×2 (12:02→21:25)
[2017-05-25] MEDS: TPN PER PHARMACY MC PRN (12:45)
[2017-05-25] MEDS: ALBUMIN HUMAN 25% 100 ML IV SCH ×2 (14:38→21:34)
[2017-05-25 15:24] VITALS: BP 94/65
[2017-05-25] MEDS: HALOPERIDOL 0.5 MG TABLET. PO PRN ×2 (17:21→21:24)
[2017-05-25] MEDS: HYDROcodone/APAP 5/325MG 1 TAB TABLET PO PRN (17:21)
[2017-05-25 19:30] VITALS: BP 95/69
[2017-05-25] MEDS: CITALOPRAM 20 MG TABLET. PO SCH (21:26)
[2017-05-25] MEDS: TAMSULOSIN 0.4 MG CAP.ER.24H. PO SCH (21:26)
[2017-05-25] MEDS ORDERED: [UNRECOGNIZED DRUG - OTHER] IV SCH ×10 (22:00)
[2017-05-25] MEDS ORDERED: DEXTROSE 70% IV SCH ×10 (22:00)
[2017-05-25] MEDS ORDERED: AMINO ACIDS IV SCH ×10 (22:00)
[2017-05-25] MEDS ORDERED: TOTAL PARENTERAL NUTRITION IV SCH ×10 (22:00)
[2017-05-25 23:30] VITALS: BP 104/67
[2017-05-26 03:27] VITALS: BP 121/59
[2017-05-26 05:08] LABS: BASO # 0.1 x10^3/uL (0.0-0.2); BASO % 1 % (0-3); EOS % 2 % (0-3); HEMATOCRIT 39.4 % (39.0-53.0); HEMOGLOBIN 12.5 g/dL (13.0-17.5); LYMPH # 1.1 x10^3/uL (1.0-4.8); LYMPH % 10 % (24-48); MEAN CORPUSCULAR HEMOGLOBIN 29 pg (25-35); MEAN CORPUSCULAR HGB CONC 32 g/dL (31-37); MEAN CORPUSCULAR VOLUME 91 fL (79-100); MONO % 11 % (0-9); NEUT % 76 % (31-73); PLATELET COUNT 264 x10^3/uL (140-400); RED BLOOD COUNT 4.35 x10^6/uL (4.30-5.70); RED CELL DISTRIBUTION WIDTH 17.3 % (11.5-14.5); WHITE BLOOD COUNT 10.5 x10^3/uL (4.0-11.0)
[2017-05-26 05:54] LABS: CALCIUM 8.3 mg/dL (8.5-10.1); CREATININE 1.7 mg/dL (0.7-1.3); GFR 39.6; MAGNESIUM 2.3 mg/dL (1.8-2.4); PHOSPHORUS 3.5 mg/dL (2.6-4.7); POTASSIUM 4.7 mmol/L (3.5-5.1)
[2017-05-26] MEDS: PIPERACILLIN/TAZO IV Push 3.375 GM VIAL. IVP SCH ×4 (06:16→23:55)
[2017-05-26] MEDS: CLOPIDOGREL BISULFATE 75 MG TABLET PO SCH (07:30)
[2017-05-26] MEDS: FINASTERIDE 5 MG TABLET. PO SCH (09:00)
[2017-05-26] MEDS: ASPIRIN ENTERIC COATED 325 MG TABLET.DR. PO SCH (09:00)
[2017-05-26] MEDS: MULTIVITAMIN with MINERAL TABLET. PO SCH (09:00)
[2017-05-26] MEDS: LINEZOLID 600 MG TABLET PO SCH ×2 (09:00→21:00)
[2017-05-26] MEDS: NYSTATIN TOPICAL POWDER 15GM BOTTLE. TP SCH ×2 (09:00→20:59)
[2017-05-26] MEDS: FAMOTIDINE 20 MG TABLET. PO SCH (09:00)
[2017-05-26] MEDS: POLYETHYLENE GLYCOL 3350 17 GM PACKET. PO SCH (09:00)
[2017-05-26] MEDS: DOCUSATE SODIUM 100 MG CAPSULE. PO SCH ×2 (09:00→21:00)
--- NOTE | 2017-05-26 09:30 | PDOC ---
SUBJECTIVE Subjective Pt is sleeping, occasionally reaching out for things in the air. Daughter at bedside. Had thorough discussion of goals of care. Family is unable to care for him at home, but unable to afford to put him in a facility. Concerned about his overall health decline. Wanting a palliative care consult and to reeevaluate the goals of care given progression of cognitive impairment noted at home and now progressed to delirium while inpatient. Daughter is unsure if she wants him to be on TPN if overall goal changes to comfort over cure. OBJECTIVE Objective Reviewed Vital Signs Vital Signs Date Time Temp Pulse Resp B/P (MAP) Pulse Ox O2 Delivery O2 Flow Rate FiO2 05/26/17 03:27 114 121/59 (79) 96 Nasal Cannula 2.0 05/25/17 23:30 86 104/67 (79) 97 Nasal Cannula 2.0 05/25/17 20:00 Nasal Cannula 4.0 05/25/17 19:30 91 95/69 (78) 95 Nasal Cannula 2.0 05/25/17 18:21 20 95 Nasal Cannula 4.0 05/25/17 17:21 24 95 Nasal Cannula 4.0 05/25/17 15:24 97.6 117 16 94/65 (75) 95 Nasal Cannula 3.0 97.6 I & O Intake and Output 05/26/17 07:00 Intake Total 200 ml Output Total 500 ml Balance -300 ml Intake Oral 200 ml Output Urine Total 500 ml PHYSICAL EXAM Physical Exam Pt is sleeping fitfully, reaching out for things that aren't there. Deferred further physical exam due to pt sleeping ASSESSMENT/PLAN Assessment/Plan Delirium, cognitive decline noted at home also L foot infection HEATHER Borderline hypotension (hx of hypertension) Urinary retention (hx of BPH) Inability to complete ADLs, noncompliance with discharge plan from last hospitalization Chronic hematuria ID, Renal, Wound Care following No need for abx at this time Monitor BP, holding home amlodipine and lasix Ramírez in place Urology consult needed as outpatient when able to eval hematuria Haldol 0.5mg Q4H PRN severe agitation, only use when needed for patient or staff safety; redirection to be used whenever possible Will likely need placement for safe discharge plan, though finances are an issue for family Palliative consult to discuss nursing home goals of care including TPN Pt is DNR Problems: COMMENT Lab Laboratory Tests Test 05/25/17 11:53 05/25/17 20:46 05/26/17 04:45 Glucose (Fingerstick) 156 mg/dL (70-99) 133 mg/dL (70-99) White Blood Count 10.5 x10^3/uL (4.0-11.0) Red Blood Count 4.35 x10^6/uL (4.30-5.70) Hemoglobin 12.5 g/dL (13.0-17.5) Hematocrit 39.4 % (39.0-53.0) Mean Corpuscular Volume 91 fL (79-100) Mean Corpuscular Hemoglobin 29 pg (25-35) Mean Corpuscular Hemoglobin Concent 32 g/dL (31-37) Red Cell Distribution Width 17.3 % (11.5-14.5) Platelet Count 264 x10^3/uL (140-400) Neutrophils (%) (Auto) 76 % (31-73) Lymphocytes (%) (Auto) 10 % (24-48) Monocytes (%) (Auto) 11 % (0-9) Eosinophils (%) (Auto) 2 % (0-3) Basophils (%) (Auto) 1 % (0-3) Neutrophils # (Auto) 8.0 x10^3uL (1.8-7.7) Lymphocytes # (Auto) 1.1 x10^3/uL (1.0-4.8) Monocytes # (Auto) 1.1 x10^3/uL (0.0-1.1) Eosinophils # (Auto) 0.2 x10^3/uL (0.0-0.7) Basophils # (Auto) 0.1 x10^3/uL (0.0-0.2) Sodium Level 137 mmol/L (136-145) Potassium Level 4.7 mmol/L (3.5-5.1) Chloride Level 106 mmol/L (98-107) Carbon Dioxide Level 18 mmol/L (21-32) Anion Gap 13 (6-14) Blood Urea Nitrogen 31 mg/dL (8-26) Creatinine 1.7 mg/dL (0.7-1.3) Estimated GFR (Cockcroft-Gault) 39.6 Glucose Level 191 mg/dL (70-99) Calcium Level 8.3 mg/dL (8.5-10.1) Phosphorus Level 3.5 mg/dL (2.6-4.7) Magnesium Level 2.3 mg/dL (1.8-2.4) ANGELES MEZA MD May 26, 2017 09:30
[2017-05-26] MEDS: ALBUMIN HUMAN 25% 100 ML IV SCH ×3 (09:34→20:59)
--- NOTE | 2017-05-26 11:16 | PDOC ---
SUBJECTIVE ROS HEATHER Pt remains confused - "Let the girls take care of me" Denies [place] OBJECTIVE Vital Signs Vital Signs Date Time Temp Pulse Resp B/P (MAP) Pulse Ox O2 Delivery O2 Flow Rate FiO2 05/26/17 03:27 114 121/59 (79) 96 Nasal Cannula 2.0 05/25/17 18:21 20 05/25/17 15:24 97.6 97.6 I & 0 Intake and Output 05/26/17 07:00 Intake Total 200 ml Output Total 500 ml Balance -300 ml Intake Oral 200 ml Output Urine Total 500 ml PHYSICAL EXAM Physical Exam GEN: Awake, Oriented x 0 , In no distress; bald and obese EYES: Vision Unchanged, Conjunctiva Normal EN: No EN Drainage, Mucous Membranes dry - poor dentition NECK: no JVD, no JVP, Supple, no Thyromegaly - short neck CVS: S1S2, no Murmur, No Gallop, No Rub, Tr Edema on Rt RESP: no Rales, no Rhonchi,no Acc. Muscle Use GI: BS + ve, NO Bruit, Non Tender, Non Distended - obese : no CVA tenderness, no Suprapubic Tenderness - Zimmerman in palce DIAGNOSIS/ASSESSMENT Assessment & Plan CKD III - Current fluid and E-lyte status does not necessitate emergent need for dialysis. Will re-evaluate for dialysis in the am ? HEATHER due to Dehydration - better with iVF and now TPN - Baseline creat is 1.0 HTN: Occ low BP - ct Volumed for now. Current BP meds as reviewed. IV ALb to help with same URINARY RETENTION - now with zimmerman, ct flomax etc whena able to take PO LEFT FOOT WOUND - foot in Boot ; ? asso with DM II Poor PO intake - started TPN Met Acidosis (NAG) - add Na Acetate to TPN m-D/w Pharmacy COMMENT/RELEVANT DATA Meds Current Medications Medications (Trade) Dose Ordered Sig/Horace Start Time Stop Time Status Last Admin Dose Admin Acetaminophen (Tylenol) 650 mg PRN Q4HRS PRN 05/20/17 20:00 05/21/17 19:59 DC Acetaminophen/ Hydrocodone Bitart (Lortab 5/325) 1 tab PRN Q4HRS PRN 05/24/17 14:15 05/25/17 17:21 1 TAB Al Hydroxide/Mg Hydroxide (Mylanta Plus Xs) 30 ml PRN Q2HR PRN 05/22/17 17:45 05/22/17 18:50 30 ML Albumin Human 100 ml @ 100 mls/hr TID 05/25/17 14:00 05/27/17 09:59 05/26/17 09:34 100 MLS/HR Amlodipine Besylate (Norvasc) 10 mg DAILY 05/21/17 09:00 05/21/17 09:21 DC Aspirin (Ecotrin) 325 mg DAILY 05/21/17 09:00 05/25/17 08:15 325 MG Citalopram Hydrobromide (CeleXA) 20 mg HS 05/21/17 21:00 05/25/17 21:26 20 MG Clopidogrel Bisulfate (Plavix) 75 mg DAILYAC 05/22/17 07:30 05/25/17 06:44 75 MG Dextrose (Dextrose 50%-Water Syringe) 12.5 gm PRN Q15MIN PRN 05/22/17 08:45 Dextrose/Lactated Ringer's 1,000 ml @ 100 mls/hr Q10H 05/21/17 10:00 05/21/17 12:07 DC 05/21/17 10:43 100 MLS/HR Docusate Sodium (Colace) 200 mg BID 05/21/17 09:00 05/24/17 21:42 200 MG Famotidine (Pepcid) 40 mg DAILY 05/22/17 18:00 05/25/17 08:16 40 MG Finasteride (Proscar) 5 mg DAILY 05/21/17 09:00 05/25/17 08:17 5 MG Furosemide (Lasix) 40 mg DAILY 05/21/17 09:00 05/21/17 09:21 DC Haloperidol (Haloperidol) 0.5 mg PRN Q4HRS PRN 05/25/17 17:00 05/25/17 21:24 0.5 MG Info 1 each PRN DAILY PRN 05/25/17 11:00 05/25/17 12:45 1 EACH Levofloxacin (Levaquin) 250 mg DAILY06 05/21/17 13:00 05/23/17 13:48 DC 05/23/17 05:36 250 MG Linezolid (Zyvox) 600 mg BID 05/25/17 12:00 05/25/17 21:25 600 MG Micafungin Sodium 100 mg/Dextrose 100 ml @ 100 mls/hr ONCE ONCE 05/22/17 12:00 05/22/17 12:59 DC 05/22/17 12:34 100 MLS/HR Morphine Sulfate 4 mg PRN Q2HR PRN 05/20/17 20:00 05/21/17 19:59 DC 05/21/17 15:05 4 MG Multivitamins (Thera M Plus) 1 tab DAILY 05/21/17 09:00 05/25/17 08:16 1 TAB Non-Formulary Medication 0.01 % DAILY06 05/21/17 06:00 05/21/17 16:14 DC Nystatin (Nystop) 1 mathieu BID 05/21/17 15:00 05/25/17 21:38 1 MATHIEU Ondansetron HCl (Zofran) 4 mg PRN Q8HRS PRN 05/20/17 20:00 05/21/17 19:59 DC 05/20/17 20:13 4 MG Piperacillin Sod/ Tazobactam Sod (Zosyn) 3.375 gm Q6HRS 05/25/17 12:00 05/26/17 06:16 3.375 GM Piperacillin Sod/ Tazobactam Sod 3.375 gm/Dextrose 50 ml @ 100 mls/hr Q6HRS 05/25/17 12:00 UNV Polyethylene Glycol (miraLAX PACKET) 17 gm DAILY 05/22/17 12:00 05/22/17 18:40 17 GM Potassium Chloride (Klor-Con) 10 meq DAILY08 05/21/17 08:00 05/21/17 12:07 DC 05/21/17 10:42 10 MEQ Sodium Polystyrene Sulfonate (Kayexalate) 30 gm 1X PRN PRN 05/23/17 10:15 Sodium Chloride 90 meq/Potassium Chloride 20 meq/ Potassium Phosphate 13.6 mmol/Magnesium Sulfate 10 meq/ Calcium Gluconate 10 meq/ Multivitamins 10 ml/Chromium/ Copper/Manganese/ Seleni/Zn 1 ml/ Total Parenteral Nutrition/Amino Acids/Dextrose/ Fat Emulsion Intravenous 1,512 ml @ 63 mls/hr TPN CONT 05/25/17 22:00 05/26/17 21:59 05/25/17 21:56 63 MLS/HR Tamsulosin HCl (Flomax) 0.4 mg HS 05/20/17 22:30 05/25/17 21:26 0.4 MG Lab Laboratory Tests Test 05/25/17 11:53 05/25/17 20:46 05/26/17 04:45 Glucose (Fingerstick) 156 mg/dL (70-99) 133 mg/dL (70-99) White Blood Count 10.5 x10^3/uL (4.0-11.0) Red Blood Count 4.35 x10^6/uL (4.30-5.70) Hemoglobin 12.5 g/dL (13.0-17.5) Hematocrit 39.4 % (39.0-53.0) Mean Corpuscular Volume 91 fL (79-100) Mean Corpuscular Hemoglobin 29 pg (25-35) Mean Corpuscular Hemoglobin Concent 32 g/dL (31-37) Red Cell Distribution Width 17.3 % (11.5-14.5) Platelet Count 264 x10^3/uL (140-400) Neutrophils (%) (Auto) 76 % (31-73) Lymphocytes (%) (Auto) 10 % (24-48) Monocytes (%) (Auto) 11 % (0-9) Eosinophils (%) (Auto) 2 % (0-3) Basophils (%) (Auto) 1 % (0-3) Neutrophils # (Auto) 8.0 x10^3uL (1.8-7.7) Lymphocytes # (Auto) 1.1 x10^3/uL (1.0-4.8) Monocytes # (Auto) 1.1 x10^3/uL (0.0-1.1) Eosinophils # (Auto) 0.2 x10^3/uL (0.0-0.7) Basophils # (Auto) 0.1 x10^3/uL (0.0-0.2) Sodium Level 137 mmol/L (136-145) Potassium Level 4.7 mmol/L (3.5-5.1) Chloride Level 106 mmol/L (98-107) Carbon Dioxide Level 18 mmol/L (21-32) Anion Gap 13 (6-14) Blood Urea Nitrogen 31 mg/dL (8-26) Creatinine 1.7 mg/dL (0.7-1.3) Estimated GFR (Cockcroft-Gault) 39.6 Glucose Level 191 mg/dL (70-99) Calcium Level 8.3 mg/dL (8.5-10.1) Phosphorus Level 3.5 mg/dL (2.6-4.7) Magnesium Level 2.3 mg/dL (1.8-2.4) TEA JANSEN MD May 26, 2017 11:16
--- NOTE | 2017-05-26 11:18 | PDOC ---
Infectious Disease Note Subjective Subjective Confused ROS ROS no n/v/d/pain Vital Sign Vital Signs Vital Signs Date Time Temp Pulse Resp B/P (MAP) Pulse Ox O2 Delivery O2 Flow Rate FiO2 05/26/17 03:27 114 121/59 (79) 96 Nasal Cannula 2.0 05/25/17 18:21 20 05/25/17 15:24 97.6 97.6 Physical Exam PHYSICAL EXAM GENERAL: NAD, Alert HEENT: PERRL, OC/OP NECK: Supple, no JVD, no LN LUNGS: Clear HEART: S1S2, no gallop, no murmur ABD: Soft, NT, no organomegaly, no rebound EXT: No edema, no cyanosis NON DESTRUCTIVE EVALUATION MANAGER: Alert, dilirius SKIN: No rash IV: ok Labs Lab Laboratory Tests Test 05/25/17 11:53 05/25/17 20:46 05/26/17 04:45 Glucose (Fingerstick) 156 mg/dL (70-99) 133 mg/dL (70-99) White Blood Count 10.5 x10^3/uL (4.0-11.0) Red Blood Count 4.35 x10^6/uL (4.30-5.70) Hemoglobin 12.5 g/dL (13.0-17.5) Hematocrit 39.4 % (39.0-53.0) Mean Corpuscular Volume 91 fL (79-100) Mean Corpuscular Hemoglobin 29 pg (25-35) Mean Corpuscular Hemoglobin Concent 32 g/dL (31-37) Red Cell Distribution Width 17.3 % (11.5-14.5) Platelet Count 264 x10^3/uL (140-400) Neutrophils (%) (Auto) 76 % (31-73) Lymphocytes (%) (Auto) 10 % (24-48) Monocytes (%) (Auto) 11 % (0-9) Eosinophils (%) (Auto) 2 % (0-3) Basophils (%) (Auto) 1 % (0-3) Neutrophils # (Auto) 8.0 x10^3uL (1.8-7.7) Lymphocytes # (Auto) 1.1 x10^3/uL (1.0-4.8) Monocytes # (Auto) 1.1 x10^3/uL (0.0-1.1) Eosinophils # (Auto) 0.2 x10^3/uL (0.0-0.7) Basophils # (Auto) 0.1 x10^3/uL (0.0-0.2) Sodium Level 137 mmol/L (136-145) Potassium Level 4.7 mmol/L (3.5-5.1) Chloride Level 106 mmol/L (98-107) Carbon Dioxide Level 18 mmol/L (21-32) Anion Gap 13 (6-14) Blood Urea Nitrogen 31 mg/dL (8-26) Creatinine 1.7 mg/dL (0.7-1.3) Estimated GFR (Cockcroft-Gault) 39.6 Glucose Level 191 mg/dL (70-99) Calcium Level 8.3 mg/dL (8.5-10.1) Phosphorus Level 3.5 mg/dL (2.6-4.7) Magnesium Level 2.3 mg/dL (1.8-2.4) Objective Assessment Noncompliance HEATHER - off abx since 05/16. Now on Levoflox for urine sec retention Open left foot wound/infection. s/p debridement, 04/24. Cult -neg. No bony complications per Op note. 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 -hx Citrobacter/Proteus 04/03 -hx Prevotella, E. faecalis & E. avium from 03/10 -hx MSSA and bone exposure s/p debridement 02/10. PVD s/p angioplasty of anterior tibial artery, 02/06 Morbid obesity DM MRSA nares positive Plan Plan of Care Cont local wound care would use zyvox and zosyn, since wound does not look healthy and is very deep, likely will need amputation if does not heal,, though now going towards hospice CANDE JANSEN MD May 26, 2017 11:18
[2017-05-26] MEDS: TPN PER PHARMACY MC PRN (12:35)
[2017-05-26 15:00] VITALS: BP 114/62
[2017-05-26] MEDS: HALOPERIDOL 0.5 MG TABLET. PO PRN (16:00)
[2017-05-26] MEDS: HALOPERIDOL LACTATE 5 MG/ML VIAL. IVP PRN (16:26)
[2017-05-26 17:20] VITALS: BP 96/63
[2017-05-26 19:00] VITALS: BP 129/96
[2017-05-26] MEDS: CITALOPRAM 20 MG TABLET. PO SCH (21:00)
[2017-05-26] MEDS: TAMSULOSIN 0.4 MG CAP.ER.24H. PO SCH (21:00)
[2017-05-26] MEDS ORDERED: [UNRECOGNIZED DRUG - OTHER] IV SCH ×11 (22:00)
[2017-05-26] MEDS ORDERED: DEXTROSE 70% IV SCH ×11 (22:00)
[2017-05-26] MEDS ORDERED: AMINO ACIDS IV SCH ×11 (22:00)
[2017-05-26] MEDS ORDERED: TOTAL PARENTERAL NUTRITION IV SCH ×11 (22:00)
[2017-05-26 23:00] VITALS: BP 112/86
[2017-05-27 03:00] VITALS: BP 121/60
[2017-05-27] MEDS: PIPERACILLIN/TAZO IV Push 3.375 GM VIAL. IVP SCH ×4 (05:37→23:30)
[2017-05-27 07:00] VITALS: BP 136/87
[2017-05-27] MEDS: CLOPIDOGREL BISULFATE 75 MG TABLET PO SCH (07:30)
[2017-05-27 08:44] LABS: CALCIUM 8.6 mg/dL (8.5-10.1); CREATININE 1.7 mg/dL (0.7-1.3); GFR 39.6; POTASSIUM 4.1 mmol/L (3.5-5.1)
--- NOTE | 2017-05-27 08:45 | PDOC ---
SUBJECTIVE Subjective Pt sleeping comfortably. No family present at this time. OBJECTIVE Objective Reviewed. Vital Signs Vital Signs Date Time Temp Pulse Resp B/P (MAP) Pulse Ox O2 Delivery O2 Flow Rate FiO2 05/27/17 07:00 97.9 105 24 136/87 (103) 96 Room Air 97.9 05/27/17 03:00 97.9 71 24 121/60 (80) 94 Nasal Cannula 3.0 97.9 05/26/17 23:00 96.6 98 20 112/86 (95) 97 Nasal Cannula 3.0 96.6 05/26/17 20:00 Nasal Cannula 3.0 05/26/17 19:00 96.8 105 20 129/96 (107) 95 Room Air 2.0 96.8 05/26/17 17:20 83 16 96/63 (74) 89 Room Air 05/26/17 15:00 97.0 112 114/62 (79) 97 Nasal Cannula 2.0 97.0 I & O Intake and Output 05/27/17 06:59 Intake Total 200 ml Output Total 950 ml Balance -750 ml Intake Oral 200 ml Output Urine Total 950 ml PHYSICAL EXAM Physical Exam Sleeping, snoring RRR CTAB Deferred further exam due to pt resting ASSESSMENT/PLAN Assessment/Plan Delirium, cognitive decline noted at home also L foot infection HEATHER Borderline hypotension (hx of hypertension) Urinary retention (hx of BPH) Inability to complete ADLs, noncompliance with discharge plan from last hospitalization Chronic hematuria ID, Renal, Wound Care following No need for abx at this time Monitor BP, holding home amlodipine and lasix Ramírez in place Urology consult needed as outpatient when able to eval hematuria Haldol 0.5mg PO Q4H PRN severe agitation, only use when needed for patient or staff safety; redirection to be used whenever possible. IV form available if pt refuses PO. PO form preferred if able due to risk of QT prolongation with IV form. Would benefit from placement, but may not be able to afford spend down for LTC placement. Family meeting today to discuss goals of care and discharge plan. Possibly home with hospice. Palliative consulted Problems: COMMENT Lab Laboratory Tests Test 05/26/17 21:16 05/27/17 03:50 05/27/17 07:43 Glucose (Fingerstick) 200 mg/dL (70-99) 274 mg/dL (70-99) Creatine Kinase 27 U/L (39-308) ANGELES MEZA MD May 27, 2017 08:45
[2017-05-27] MEDS: POLYETHYLENE GLYCOL 3350 17 GM PACKET. PO SCH (09:00)
[2017-05-27] MEDS: DOCUSATE SODIUM 100 MG CAPSULE. PO SCH ×2 (09:00→20:53)
[2017-05-27] MEDS: LINEZOLID 600 MG TABLET PO SCH ×2 (09:00→20:53)
[2017-05-27] MEDS: ASPIRIN ENTERIC COATED 325 MG TABLET.DR. PO SCH (09:00)
[2017-05-27] MEDS: FAMOTIDINE 20 MG TABLET. PO SCH (09:00)
[2017-05-27] MEDS: MULTIVITAMIN with MINERAL TABLET. PO SCH (09:00)
[2017-05-27] MEDS: FINASTERIDE 5 MG TABLET. PO SCH (09:00)
[2017-05-27] MEDS: ALBUMIN HUMAN 25% 100 ML IV SCH (09:14)
[2017-05-27] MEDS: NYSTATIN TOPICAL POWDER 15GM BOTTLE. TP SCH ×2 (09:20→20:55)
[2017-05-27 11:00] VITALS: BP 161/64
--- NOTE | 2017-05-27 11:57 | PDOC ---
SUBJECTIVE ROS HEATHER/ CKD III Doing same; Unable to reliably get ROS OBJECTIVE Vital Signs Vital Signs Date Time Temp Pulse Resp B/P (MAP) Pulse Ox O2 Delivery O2 Flow Rate FiO2 05/27/17 08:00 Nasal Cannula 3.0 05/27/17 07:00 97.9 105 24 136/87 (103) 96 97.9 I & 0 Intake and Output 05/27/17 06:59 Intake Total 200 ml Output Total 950 ml Balance -750 ml Intake Oral 200 ml Output Urine Total 950 ml PHYSICAL EXAM Physical Exam GEN: Awake, Oriented x 0 , In no distress; bald and obese EYES: Vision Unchanged, Conjunctiva Normal EN: No EN Drainage, Mucous Membranes dry - poor dentition NECK: no JVD, no JVP, Supple, no Thyromegaly - short neck CVS: S1S2, no Murmur, No Gallop, No Rub, Tr Edema on Rt RESP: no Rales, no Rhonchi,no Acc. Muscle Use GI: BS + ve, NO Bruit, ? min Tender, Non Distended - obese : no CVA tenderness, no Suprapubic Tenderness - Zimmerman in palce DIAGNOSIS/ASSESSMENT Assessment & Plan CKD III - Current fluid and E-lyte status does not necessitate emergent need for dialysis. Will re-evaluate for dialysis in the am ? HEATHER due to Dehydration - better with iVF and now TPN - Baseline creat is 1.0 Hematuria - persistent; start Bl Washes, may need CBI HTN: Occ low BP (resolved now) - ct Volume repletion for now. Current BP meds as reviewed. IV ALb to help with same URINARY RETENTION - now with zimmerman, ct flomax etc when able to take PO LEFT FOOT WOUND - foot in Boot ; ? asso with DM II Poor PO intake - onTPN Met Acidosis (NAG) - better today Await pall care mtg COMMENT/RELEVANT DATA Meds Current Medications Medications (Trade) Dose Ordered Sig/Horace Start Time Stop Time Status Last Admin Dose Admin Acetaminophen (Tylenol) 650 mg PRN Q4HRS PRN 05/20/17 20:00 05/21/17 19:59 DC Acetaminophen/ Hydrocodone Bitart (Lortab 5/325) 1 tab PRN Q4HRS PRN 05/24/17 14:15 05/25/17 17:21 1 TAB Al Hydroxide/Mg Hydroxide (Mylanta Plus Xs) 30 ml PRN Q2HR PRN 05/22/17 17:45 05/22/17 18:50 30 ML Albumin Human 100 ml @ 100 mls/hr TID 05/25/17 14:00 05/27/17 09:59 DC 05/27/17 09:14 100 MLS/HR Amlodipine Besylate (Norvasc) 10 mg DAILY 05/21/17 09:00 05/21/17 09:21 DC Aspirin (Ecotrin) 325 mg DAILY 05/21/17 09:00 05/25/17 08:15 325 MG Citalopram Hydrobromide (CeleXA) 20 mg HS 05/21/17 21:00 05/26/17 21:00 20 MG Clopidogrel Bisulfate (Plavix) 75 mg DAILYAC 05/22/17 07:30 05/25/17 06:44 75 MG Dextrose (Dextrose 50%-Water Syringe) 12.5 gm PRN Q15MIN PRN 05/22/17 08:45 Dextrose/Lactated Ringer's 1,000 ml @ 100 mls/hr Q10H 05/21/17 10:00 05/21/17 12:07 DC 05/21/17 10:43 100 MLS/HR Docusate Sodium (Colace) 200 mg BID 05/21/17 09:00 05/26/17 21:00 200 MG Famotidine (Pepcid) 40 mg DAILY 05/22/17 18:00 05/25/17 08:16 40 MG Finasteride (Proscar) 5 mg DAILY 05/21/17 09:00 05/25/17 08:17 5 MG Furosemide (Lasix) 40 mg DAILY 05/21/17 09:00 05/21/17 09:21 DC Haloperidol (Haloperidol) 0.5 mg PRN Q4HRS PRN 05/25/17 17:00 05/26/17 16:00 0.5 MG Haloperidol Lactate (Haldol) 0.5 mg PRN Q6HRS PRN 05/26/17 16:30 05/26/17 16:26 0.5 MG Info 1 each PRN DAILY PRN 05/25/17 11:00 05/26/17 12:35 1 EACH Levofloxacin (Levaquin) 250 mg DAILY06 05/21/17 13:00 05/23/17 13:48 DC 05/23/17 05:36 250 MG Linezolid (Zyvox) 600 mg BID 05/25/17 12:00 05/26/17 21:00 600 MG Micafungin Sodium 100 mg/Dextrose 100 ml @ 100 mls/hr ONCE ONCE 05/22/17 12:00 05/22/17 12:59 DC 05/22/17 12:34 100 MLS/HR Morphine Sulfate 4 mg PRN Q2HR PRN 05/20/17 20:00 05/21/17 19:59 DC 05/21/17 15:05 4 MG Multivitamins (Thera M Plus) 1 tab DAILY 05/21/17 09:00 05/25/17 08:16 1 TAB Non-Formulary Medication 0.01 % DAILY06 05/21/17 06:00 05/21/17 16:14 DC Nystatin (Nystop) 1 mathieu BID 05/21/17 15:00 05/27/17 09:20 1 MATHIEU Ondansetron HCl (Zofran) 4 mg PRN Q8HRS PRN 05/20/17 20:00 05/21/17 19:59 DC 05/20/17 20:13 4 MG Piperacillin Sod/ Tazobactam Sod (Zosyn) 3.375 gm Q6HRS 05/25/17 12:00 05/27/17 05:37 3.375 GM Piperacillin Sod/ Tazobactam Sod 3.375 gm/Dextrose 50 ml @ 100 mls/hr Q6HRS 05/25/17 12:00 UNV Polyethylene Glycol (miraLAX PACKET) 17 gm DAILY 05/22/17 12:00 05/22/17 18:40 17 GM Potassium Chloride (Klor-Con) 10 meq DAILY08 05/21/17 08:00 05/21/17 12:07 DC 05/21/17 10:42 10 MEQ Sodium Polystyrene Sulfonate (Kayexalate) 30 gm 1X PRN PRN 05/23/17 10:15 Sodium Chloride 60 meq/Potassium Chloride 20 meq/ Potassium Phosphate 13.6 mmol/Magnesium Sulfate 10 meq/ Calcium Gluconate 10 meq/ Multivitamins 10 ml/Chromium/ Copper/Manganese/ Seleni/Zn 1 ml/ Sodium Acetate 60 meq/Total Parenteral Nutrition/Amino Acids/Dextrose/ Fat Emuls... 2,400 ml @ 100 mls/hr TPN CONT 05/26/17 22:00 05/27/17 21:59 05/26/17 22:39 100 MLS/HR Sodium Chloride 90 meq/Potassium Chloride 20 meq/ Potassium Phosphate 13.6 mmol/Magnesium Sulfate 10 meq/ Calcium Gluconate 10 meq/ Multivitamins 10 ml/Chromium/ Copper/Manganese/ Seleni/Zn 1 ml/ Total Parenteral Nutrition/Amino Acids/Dextrose/ Fat Emulsion Intravenous 1,512 ml @ 63 mls/hr TPN CONT 05/25/17 22:00 05/26/17 21:59 DC 05/25/17 21:56 63 MLS/HR Tamsulosin HCl (Flomax) 0.4 mg HS 05/20/17 22:30 05/26/17 21:00 0.4 MG Lab Laboratory Tests Test 05/26/17 21:16 05/27/17 03:50 05/27/17 07:43 Glucose (Fingerstick) 200 mg/dL (70-99) 274 mg/dL (70-99) Sodium Level 143 mmol/L (136-145) Potassium Level 4.1 mmol/L (3.5-5.1) Chloride Level 107 mmol/L (98-107) Carbon Dioxide Level 23 mmol/L (21-32) Anion Gap 13 (6-14) Blood Urea Nitrogen 33 mg/dL (8-26) Creatinine 1.7 mg/dL (0.7-1.3) Estimated GFR (Cockcroft-Gault) 39.6 Glucose Level 266 mg/dL (70-99) Calcium Level 8.6 mg/dL (8.5-10.1) Creatine Kinase 27 U/L (39-308) TEA JANSEN MD May 27, 2017 11:57
[2017-05-27] MEDS: TPN PER PHARMACY MC PRN (14:13)
[2017-05-27 15:00] VITALS: BP 126/70
[2017-05-27 19:00] VITALS: BP 138/68
[2017-05-27] MEDS: DEXTROSE 70% IV SCH ×22 (19:11→23:30)
[2017-05-27] MEDS: [UNRECOGNIZED DRUG - OTHER] IV SCH ×22 (19:11→23:30)
[2017-05-27] MEDS: AMINO ACIDS IV SCH ×22 (19:11→23:30)
[2017-05-27] MEDS: TOTAL PARENTERAL NUTRITION IV SCH ×22 (19:11→23:30)
[2017-05-27] MEDS: CITALOPRAM 20 MG TABLET. PO SCH (20:53)
[2017-05-27] MEDS: TAMSULOSIN 0.4 MG CAP.ER.24H. PO SCH (20:53)
[2017-05-27] MEDS: HYDROcodone/APAP 5/325MG 1 TAB TABLET PO PRN (20:53)
[2017-05-27] MEDS ORDERED: INSULIN DETEMIR 300 UNITS/3 ML INSULN.PEN. SQ SCH (21:00)
[2017-05-27] MEDS: HALOPERIDOL LACTATE 5 MG/ML VIAL. IVP PRN (21:42)
[2017-05-27 23:00] VITALS: BP 145/92
[2017-05-28 03:00] VITALS: BP 132/91
[2017-05-28 05:08] LABS: CALCIUM 8.4 mg/dL (8.5-10.1); CREATININE 1.9 mg/dL (0.7-1.3); GFR 34.8; POTASSIUM 4.1 mmol/L (3.5-5.1)
[2017-05-28] MEDS: PIPERACILLIN/TAZO IV Push 3.375 GM VIAL. IVP SCH (06:10)
[2017-05-28 07:00] VITALS: BP 112/81
[2017-05-28] MEDS: POLYETHYLENE GLYCOL 3350 17 GM PACKET. PO SCH (09:00)
[2017-05-28] MEDS: DOCUSATE SODIUM 100 MG CAPSULE. PO SCH ×2 (09:00→20:32)
--- NOTE | 2017-05-28 09:16 | PDOC ---
Infectious Disease Note Subjective Subjective awake, says he is ok ROS ROS GEN: Denies fevers, chills, sweats HEENT: Denies blurred vision, sore throat CV: Denies chest pain RESP: Denies shortness of air, cough GI: Denies n/v/d NEURO: Denies confusion, dizziness MSK: Denies weakness, joint pain/swelling Vital Sign Vital Signs Vital Signs Date Time Temp Pulse Resp B/P (MAP) Pulse Ox O2 Delivery O2 Flow Rate FiO2 05/28/17 07:00 97.4 95 20 112/81 (91) 95 Room Air 97.4 05/27/17 21:53 3.0 Physical Exam PHYSICAL EXAM GENERAL: NAD, Alert HEENT: PERRL, OC/OP NECK: Supple, no JVD, no LN LUNGS: Clear HEART: S1S2, no gallop, no murmur ABD: Soft, NT, no organomegaly, no rebound EXT: No edema, no cyanosis,, foot with wound vac 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, 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, no focal neurologic deficit SKIN: No rash IV: ok Labs Lab Laboratory Tests Test 05/27/17 11:16 05/27/17 12:25 05/27/17 20:58 05/28/17 04:15 Glucose (Fingerstick) 292 mg/dL (70-99) 309 mg/dL (70-99) Ammonia 18 mcmol/L (11-34) Sodium Level 142 mmol/L (136-145) Potassium Level 4.1 mmol/L (3.5-5.1) Chloride Level 108 mmol/L (98-107) Carbon Dioxide Level 21 mmol/L (21-32) Anion Gap 13 (6-14) Blood Urea Nitrogen 39 mg/dL (8-26) Creatinine 1.9 mg/dL (0.7-1.3) Estimated GFR (Cockcroft-Gault) 34.8 Glucose Level 361 mg/dL (70-99) Calcium Level 8.4 mg/dL (8.5-10.1) Creatine Kinase 21 U/L (39-308) Test 05/28/17 07:37 Glucose (Fingerstick) 335 mg/dL (70-99) Objective Assessment Noncompliance HEATHER - off abx since 05/16. Now on Levoflox for urine sec retention Open left foot wound/infection. s/p debridement, 04/24. Cult -neg. No bony complications per Op note. 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 -hx Citrobacter/Proteus 04/03 -hx Prevotella, E. faecalis & E. avium from 03/10 -hx MSSA and bone exposure s/p debridement 02/10. PVD s/p angioplasty of anterior tibial artery, 02/06 Morbid obesity DM MRSA nares positive Plan Plan of Care Cont local wound care zyvox and zosyn, , family decided on hospice, change to po when final , CANDE Eller MD May 28, 2017 09:16
[2017-05-28] MEDS: HYDROcodone/APAP 5/325MG 1 TAB TABLET PO PRN ×2 (09:21→20:24)
[2017-05-28] MEDS: CLOPIDOGREL BISULFATE 75 MG TABLET PO SCH (09:21)
[2017-05-28] MEDS: LINEZOLID 600 MG TABLET PO SCH ×2 (09:22→20:23)
[2017-05-28] MEDS: ASPIRIN ENTERIC COATED 325 MG TABLET.DR. PO SCH (09:22)
[2017-05-28] MEDS: MULTIVITAMIN with MINERAL TABLET. PO SCH (09:22)
[2017-05-28] MEDS: FINASTERIDE 5 MG TABLET. PO SCH (09:22)
[2017-05-28] MEDS: NYSTATIN TOPICAL POWDER 15GM BOTTLE. TP SCH ×2 (09:22→20:50)
[2017-05-28] MEDS: FAMOTIDINE 20 MG TABLET. PO SCH (09:22)
--- NOTE | 2017-05-28 09:57 | PDOC ---
Provider Note Provider Note poor output, dark urine, diffuse wheezing, lethargic- looks preterminal, will dc zosyn, add duoneb for comfort- add levemir re tpn induced hyperglycemia- poor prognosis ESTRADA MORELAND MD May 28, 2017 09:57
[2017-05-28] MEDS: IPRATRPIUM/ALBUTEROL 0.5/2.5MG 3 ML NEBU. NEB SCH ×4 (11:00→19:48)
[2017-05-28 11:12] VITALS: BP 130/83
[2017-05-28] MEDS: AMOXICILLIN/K CLAV 500/125MG TABLET. PO SCH ×2 (11:30→20:23)
[2017-05-28] MEDS: HALOPERIDOL LACTATE 5 MG/ML VIAL. IVP PRN (11:31)
[2017-05-28] MEDS: INSULIN DETEMIR 300 UNITS/3 ML INSULN.PEN. SQ SCH ×2 (11:40→20:39)
[2017-05-28] MEDS: TPN PER PHARMACY MC PRN ×2 (12:18→12:25)
[2017-05-28 15:25] VITALS: BP 131/94
[2017-05-28 19:00] VITALS: BP 121/77
[2017-05-28] MEDS: CITALOPRAM 20 MG TABLET. PO SCH (20:23)
[2017-05-28] MEDS: TAMSULOSIN 0.4 MG CAP.ER.24H. PO SCH (20:23)
[2017-05-28] MEDS ORDERED: AMOXICILLIN/CLAV 400MG/57MG 5 ML ORAL.SUSP. PEG SCH (21:00)
[2017-05-28] MEDS ORDERED: AMINO ACIDS IV SCH ×11 (22:00)
[2017-05-28] MEDS ORDERED: DEXTROSE 70% IV SCH ×11 (22:00)
[2017-05-28] MEDS ORDERED: TOTAL PARENTERAL NUTRITION IV SCH ×11 (22:00)
[2017-05-28] MEDS ORDERED: [UNRECOGNIZED DRUG - OTHER] IV SCH ×11 (22:00)
[2017-05-28 23:00] VITALS: BP 136/95
[2017-05-29 03:00] VITALS: BP 130/93
[2017-05-29 06:34] LABS: CALCIUM 8.4 mg/dL (8.5-10.1); CREATININE 2.1 mg/dL (0.7-1.3); MAGNESIUM 2.2 mg/dL (1.8-2.4); PHOSPHORUS 3.9 mg/dL (2.6-4.7); POTASSIUM 4.3 mmol/L (3.5-5.1)
[2017-05-29 07:00] VITALS: BP 116/80
[2017-05-29] MEDS: CLOPIDOGREL BISULFATE 75 MG TABLET PO SCH (07:30)
[2017-05-29] MEDS: IPRATRPIUM/ALBUTEROL 0.5/2.5MG 3 ML NEBU. NEB SCH ×2 (08:32→11:47)
--- NOTE | 2017-05-29 08:32 | PDOC ---
Provider Note Provider Note HOSPICE IS CONSULTED , remains verbal, glucose high, fair output- will dc tpn, some po meds- add lasix re wheezing, edema- comfort care now, dc labs ESTRADA MORELAND MD May 29, 2017 08:32
[2017-05-29] MEDS: POLYETHYLENE GLYCOL 3350 17 GM PACKET. PO SCH (09:00)
[2017-05-29] MEDS: ASPIRIN ENTERIC COATED 325 MG TABLET.DR. PO SCH (09:00)
[2017-05-29] MEDS: NYSTATIN TOPICAL POWDER 15GM BOTTLE. TP SCH (09:00)
[2017-05-29] MEDS: AMOXICILLIN/K CLAV 500/125MG TABLET. PO SCH (09:00)
[2017-05-29] MEDS: FAMOTIDINE 20 MG TABLET. PO SCH (09:00)
[2017-05-29] MEDS ORDERED: FUROSEMIDE 40 MG/4 ML VIAL. IVP ONE (09:00)
--- NOTE | 2017-05-29 10:28 | PDOC ---
Infectious Disease Note Subjective Subjective awake, says he is ok ROS ROS GEN: Denies fevers, chills, sweats HEENT: Denies blurred vision, sore throat CV: Denies chest pain RESP: Denies shortness of air, cough GI: Denies n/v/d NEURO: Denies confusion, dizziness MSK: Denies weakness, joint pain/swelling Vital Sign Vital Signs Vital Signs Date Time Temp Pulse Resp B/P (MAP) Pulse Ox O2 Delivery O2 Flow Rate FiO2 05/29/17 08:34 93 Nasal Cannula 4.0 05/29/17 07:00 98.2 98 22 116/80 (92) 98.2 Physical Exam PHYSICAL EXAM GENERAL: NAD, Alert HEENT: PERRL, OC/OP NECK: Supple, no JVD, no LN LUNGS: Clear HEART: S1S2, no gallop, no murmur ABD: Soft, NT, no organomegaly, no rebound EXT: No edema, no cyanosis 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, 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, no focal neurologic deficit SKIN: No rash IV: ok Labs Lab Laboratory Tests Test 05/28/17 11:03 05/28/17 16:55 05/28/17 20:18 05/29/17 05:30 Glucose (Fingerstick) 382 mg/dL (70-99) 358 mg/dL (70-99) 393 mg/dL (70-99) Sodium Level 139 mmol/L (136-145) Potassium Level 4.3 mmol/L (3.5-5.1) Chloride Level 106 mmol/L (98-107) Carbon Dioxide Level 21 mmol/L (21-32) Anion Gap 12 (6-14) Blood Urea Nitrogen 45 mg/dL (8-26) Creatinine 2.1 mg/dL (0.7-1.3) Estimated GFR (Cockcroft-Gault) 31.0 Glucose Level 408 mg/dL (70-99) Calcium Level 8.4 mg/dL (8.5-10.1) Phosphorus Level 3.9 mg/dL (2.6-4.7) Magnesium Level 2.2 mg/dL (1.8-2.4) Creatine Kinase 18 U/L (39-308) Test 05/29/17 07:41 Glucose (Fingerstick) 407 mg/dL (70-99) Objective Assessment Noncompliance HEATHER - off abx since 05/16. Now on Levoflox for urine sec retention Open left foot wound/infection. s/p debridement, 04/24. Cult -neg. No bony complications per Op note. 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 -hx Citrobacter/Proteus 04/03 -hx Prevotella, E. faecalis & E. avium from 03/10 -hx MSSA and bone exposure s/p debridement 02/10. PVD s/p angioplasty of anterior tibial artery, 02/06 Morbid obesity DM MRSA nares positive Plan Plan of Care Cont local wound care , family decided on hospice, po , augmentin CANDE JANSEN MD May 29, 2017 10:28
[2017-05-29 11:00] VITALS: BP 124/88
[2017-05-29 15:00] VITALS: BP 149/86
[2017-05-29] MEDS: HALOPERIDOL LACTATE 5 MG/ML VIAL. IVP PRN (15:41)
--- NOTE | 2017-05-30 09:42 | PDOC ---
Provider Note Provider Note [id number] ESTRADA MORELAND MD May 30, 2017 09:42
--- NOTE | 2017-05-30 10:10 | DS ---
DATE OF DISCHARGE: 05/29/2017 HOSPITAL SUMMARY: This is a 72-year-old with ongoing ischemic left foot wound with secondary osteomyelitis and recent surgery. He had tremendous self-care deficits, unable to ambulate or assist in any care at home. He was mildly dehydrated and came in with some IV fluids, but continued to have very poor functional status, intermittent confusion and agitation. Family ultimately decided on hospice and comfort care and took him home for hospice disposition. His renal function was somewhat declining prior to dismissal with last creatinine 2.1, GFR of 31. He received total parenteral nutrition for a short time in the hospital and had high blood sugars as a result, but blood sugars on admission were not elevated. Urine culture had no growth, but he required Ramírez catheterization because of urinary retention on admission and this remained in place prior to dismissal. FINAL DIAGNOSES: 1. Urinary retention secondary to benign prostatic hypertrophy. 2. Acute renal failure secondary to urinary retention and prerenal azotemia. 3. Ischemic cardiomyopathy, stable. 4. Chronic osteomyelitis of the left foot. 5. End-stage functional status. OPERATIONS, PROCEDURES, COMPLICATIONS: None. CONSULTATIONS: Dr. Geovanny Patino, Dr. Emelina Patino. DISPOSITION: He is going home on comfort care measures only. No insulin, antibiotics, IV meds, and he remains a do not resuscitate patient. Family is aware of his limited prognosis and preterminal outcome. Ramírez catheter is in place and all comfort care measures will be given. ESTRADA MORELAND MD DR: CHRISTOPHER/nts JOB#: [id number] / [id number]
== END 2017-05-29 16:45 | disposition hospice, home (50) | DRG 682 ==
LOC: ER 18:50 → 5 SOUTH 19:50
PROVIDERS: ADMIT Family Medicine; ATTEND Family Medicine
DX: N17.0 Acute kidney failure with tubular necrosis (principal); J96.20 Acute and chronic respiratory failure, unspecified whether with hypoxia or hypercapnia; E44.0 Moderate protein-calorie malnutrition; E11.22 Type 2 diabetes mellitus with diabetic chronic kidney disease; E11.69 Type 2 diabetes mellitus with other specified complication; M86.672 Other chronic osteomyelitis, left ankle and foot; E11.42 Type 2 diabetes mellitus with diabetic polyneuropathy; E11.51 Type 2 diabetes mellitus with diabetic peripheral angiopathy without gangrene; I48.91 Unspecified atrial fibrillation; E66.01 Morbid (severe) obesity due to excess calories; Z68.41 Body mass index [BMI] 40.0-44.9, adult; I13.0 Hypertensive heart and chronic kidney disease with heart failure and stage 1 through stage 4 chronic kidney disease, or unspecified chronic kidney disease; N40.1 Benign prostatic hyperplasia with lower urinary tract symptoms; D64.9 Anemia, unspecified; E78.5 Hyperlipidemia, unspecified; I25.10 Atherosclerotic heart disease of native coronary artery without angina pectoris; I25.5 Ischemic cardiomyopathy; I50.9 Heart failure, unspecified; I95.2 Hypotension due to drugs; K21.9 Gastro-esophageal reflux disease without esophagitis; L08.9 Local infection of the skin and subcutaneous tissue, unspecified; N18.3 Chronic kidney disease, stage 3 (moderate); R33.8 Other retention of urine; T50.2X5A Adverse effect of carbonic-anhydrase inhibitors, benzothiadiazides and other diuretics, initial encounter; F32.9 Major depressive disorder, single episode, unspecified; B95.62 Methicillin resistant Staphylococcus aureus infection as the cause of diseases classified elsewhere; F41.9 Anxiety disorder, unspecified; Z66 Do not resuscitate; Z81.8 Family history of other mental and behavioral disorders; Z82.49 Family history of ischemic heart disease and other diseases of the circulatory system; Z83.3 Family history of diabetes mellitus; Z87.11 Personal history of peptic ulcer disease; Z91.19 Patient's noncompliance with other medical treatment and regimen; Z95.1 Presence of aortocoronary bypass graft; Z79.4 Long term (current) use of insulin; F03.90 Unspecified dementia, unspecified severity, without behavioral disturbance, psychotic disturbance, mood disturbance, and anxiety
CPT/HCPCS: 36415; 71010; 80048; 80053; 81001; 82040; 82140; 82550; 82962; 83605; 83735; 83880; 84100; 84132; 84484; 85025; 87040; 87086; 93005; 94250; 94640; 96374; J0610; J1630; J1815; J1940; J2248; J2270; J2405; J2543; J3475; J7030; J7620; P9046; 99285-25